=== PATIENT | female | born 1965 | race Caucasian/White ===

== ENCOUNTER 2022-09-05 13:05 | Outpatient (OUT) | payer OTHER, SELFPAY ==
--- NOTE | 2022-09-05 13:14 | XR_ITS ---
[address] [address] Patient Name: NORA DIAZ MRN: [id number] date: 1965 Sex: F Assigned Patient Location: MAMMO Current Patient Location: MAMMO Accession/Order Number: [id number] Exam Date: 09/05/2022 13:30 Report Date: 09/05/2022 13:43 At the request of: ARSENIO JAQUEZ Procedure: XR chest 2V EXAM: XR chest 2V HISTORY: H/O nicotine dependence Z87.891, Z78.9 COMPARISON: None. TECHNIQUE: PA and lateral views of the chest. FINDINGS: The cardiomediastinal silhouette is normal. No focal consolidation is identified. There is no pneumothorax. No pleural effusion is noted. The osseous structures are intact. IMPRESSION: No acute cardiopulmonary process. Electronically authenticated by: LIZETH BEVERLY Date: 09/05/2022 13:43
--- NOTE | 2022-09-05 13:14 | MM_ITS ---
Patient: NORA DIAZ Exam Date: 09/05/2022 : 1965 Gender:F Ordering : MRS. ARSENIO JAQUEZ . Admission #: [id number] Family : Order #: [id number] CLICK HERE TO VIEW EXAM RADIOLOGY REPORT PROCEDURE: MM TOMOSYNTHESIS SCREENING BI COMPARISON: MM TOMOSYNTHESIS SCREENING BI, 12/11/2018. MM TOMOSYNTHESIS SCREENING BI, 05/31/2021. INDICATIONS: Screening mammogram Z12.31 Calculator Name NCI Breast Cancer Risk Assessment Tool 5 Year Breast Cancer Risk 0.80% Lifetime Breast Cancer Risk 5.20% Personal Breast Cancer No Personal Ovarian Cancer No Treatments None Family Cancers None LOCATION: [facility] BREAST COMPOSITION: Heterogeneously dense,which may obscure small masses. FINDINGS: DIAGNOSTIC CATEGORY 0--INCOMPLETE: NEED ADDITIONAL IMAGING EVALUATION. This exam includes additional mammographic views for implant evaluation and shows no visible implant abnormality. Scattered benign-appearing calcifications are present. RIGHT BREAST: No significant suspicious finding. LEFT BREAST: Mm area architectural distortion upper inner quadrant, mid to posterior breast best seen on the MLO projection. Spot imaging and ultrasound follow-up is recommended. RECOMMENDATIONS: ADDITIONAL MAMMOGRAPHIC VIEWS REQUIRED: LEFT BREAST - spot compression cc and MLO projection ULTRASOUND: LEFT BREAST PLEASE NOTE: A NORMAL MAMMOGRAM DOES NOT EXCLUDE THE POSSIBILITY OF BREAST CANCER. A CLINICALLY SUSPICIOUS PALPABLE LUMP SHOULD BE BIOPSIED. Dictated by: Bryan Crenshaw MD on 09/07/2022 at 13:31 Approved by: Bryan Crenshaw MD on 09/07/2022 at 14:12
== END 2022-09-05 13:06 | disposition home or self-care (01) ==
PROVIDERS: PCP Nurse Practitioner; Visit Provider Nurse Practitioner
DX: Z12.31 Encounter for screening mammogram for malignant neoplasm of breast (principal); Z78.9 Other specified health status; Z87.891 Personal history of nicotine dependence; Z68.23 Body mass index [BMI] 23.0-23.9, adult; R92.8 Other abnormal and inconclusive findings on diagnostic imaging of breast
CPT/HCPCS: 71046; 77063; 77067

== ENCOUNTER 2022-09-15 10:24 | Outpatient (OUT) | payer OTHER, SELFPAY ==
--- NOTE | 2022-09-15 10:28 | US_ITS ---
Patient: NORA DIAZ Exam Date: 09/15/2022 : 1965 Gender:F Ordering : MRS. ARSENIO JAQUEZ . Admission #: [id number] Family : Order #: [id number] CLICK HERE TO VIEW EXAM RADIOLOGY REPORT PROCEDURE: US BREAST LT LIMITED COMPARISON: None. INDICATIONS: Incomplete mammography R92.2 TECHNIQUE: Breast ultrasound was performed, with evaluation focusing only on specific areas of concern. FINDINGS: DIAGNOSTIC CATEGORY 0--INCOMPLETE: NEED ADDITIONAL IMAGING EVALUATION. Ultrasound of the left breast demonstrates normal dense fibroglandular tissue. No definite mass is identified to correspond to the mammographic findings. Spot compression views of the left breast is required for further evaluation RECOMMENDATIONS: ADDITIONAL MAMMOGRAPHIC VIEWS REQUIRED: LEFT BREAST - spot compression PLEASE NOTE: A NORMAL ULTRASOUND EXAMINATION DOES NOT EXCLUDE THE POSSIBILITY OF BREAST CANCER. A CLINICALLY SUSPICIOUS PALPABLE LUMP SHOULD BE BIOPSIED. Dictated by: Bryan Crenshaw MD on 09/15/2022 at 11:08 Approved by: Bryan Crenshaw MD on 09/15/2022 at 11:09
== END 2022-09-15 10:25 | disposition home or self-care (01) ==
LOC: US 10:24
PROVIDERS: PCP Nurse Practitioner; Visit Provider Nurse Practitioner
DX: R92.2 Inconclusive mammogram (principal)
CPT/HCPCS: 76642

== ENCOUNTER 2022-09-19 13:59 | Outpatient (OUT) | payer OTHER, SELFPAY ==
--- NOTE | 2022-09-19 14:04 | MM_ITS ---
Patient: NORA DIAZ Exam Date: 09/19/2022 : 1965 Gender:F Ordering : MRS. ARSENIO JAQUEZ . Admission #: [id number] Family : Order #: [id number] CLICK HERE TO VIEW EXAM RADIOLOGY REPORT PROCEDURE: MM DIAGNOSTIC MAMMO UNILAT LT COMPARISON: US BREAST LT LIMITED, 09/15/2022. MM TOMOSYNTHESIS SCREENING BI, 09/05/2022. INDICATIONS: Abnormal Mammogram R92.2 Calculator Name NCI Breast Cancer Risk Assessment Tool 5 Year Breast Cancer Risk 0.80% Lifetime Breast Cancer Risk 5.20% Personal Breast Cancer No Personal Ovarian Cancer No Treatments None Family Cancers None LOCATION: [facility] BREAST COMPOSITION: Heterogeneously dense,which may obscure small masses. FINDINGS: DIAGNOSTIC CATEGORY 3--PROBABLY BENIGN FINDING. THE FOLLOWING FINDING(S) HAS A HIGH PROBABILITY OF A BENIGN ETIOLOGY: LEFT BREAST: Spot magnification views demonstrate what appears to be a small focal area of scarring. No appreciable mass or suspicious architectural distortion. Follow-up imaging in 6 months is recommended to document stability prior to returning to annual screening. RECOMMENDATIONS: SHORT TERM FOLLOW-UP DIAGNOSTIC MAMMOGRAM LEFT BREAST IN 6 MONTHS. PLEASE NOTE: A NORMAL MAMMOGRAM DOES NOT EXCLUDE THE POSSIBILITY OF BREAST CANCER. A CLINICALLY SUSPICIOUS PALPABLE LUMP SHOULD BE BIOPSIED. Dictated by: Kodak Luciano M.D. on 09/19/2022 at 14:31 Approved by: Kodak Luciano M.D. on 09/19/2022 at 14:35
== END 2022-09-19 14:00 | disposition home or self-care (01) ==
LOC: MAMMO 14:00
PROVIDERS: PCP Nurse Practitioner; Visit Provider Nurse Practitioner
DX: R92.2 Inconclusive mammogram (principal)
CPT/HCPCS: 77065

== ENCOUNTER 2023-02-11 11:29 | Emergency (ER) | payer OTHER, SELFPAY ==
[2023-02-11 11:41] VITALS: BP 136/89; PULSE 90; RESP 18; TEMP 36.9; O2SAT 95; BMI 23.0
--- NOTE | 2023-02-11 17:25 | ED.WOUNDLAC1 ---
HPI - Wound/Laceration General Chief Complaint: Wound/Laceration Stated Complaint: Laceration Time Seen by Provider: 02/11/23 13:53 Source: patient Mode of arrival: walk-in Limitations: no limitations History of Present Illness HPI narrative: Presenting with a abrasion to her right index finger the bleeding already was controlled apparently she was using a corkscrew to open a wine bottle and she hurt her finger No other injuries Related Data Allergies Allergy/AdvReac Type Severity Reaction Status Date / Time No Known Drug Allergies Allergy Verified 02/11/23 11:44 Review of Systems ROS Status of ROS 10 or more systems reviewed and unremarkable except as noted in history and below PFS PFS Social History Smoking status: Former smoker Exam Narrative Exam Narrative: Nurses notes and vital signs reviewed and patient is not hypoxic. General: Well-appearing and in no apparent distress. Skin: Warm, dry, no pallor noted. No rash. Head: Normocephalic, atraumatic. Neck: Supple, non-tender. Eye: Pupils are equal, round and EOMI. No scleral icterus. Ears, Nose, Mouth, and Throat: TM are clear, no nasal mucosal hypertrophy. Oral mucosa is moist, no posterior oropharynx erythema, uvula is mid-line Cardiovascular: Regular Rate and Rhythm without murmur, gallop or rub. Respiratory: No accessory muscle use or respiratory distress. Lungs are clear to auscultation, no wheezing, rales or rhonchi Chest Wall: no tenderness Back: No midline thoracic or lumbar vertebral tenderness. No CVA tenderness Musculoskeletal: normal ROM, no calf or popliteal tenderness, no lower extremity edema/swelling, right index palmar aspect shows an abrasion almost 1 x 1 mm superficial control bleeding GI: Abdomen is soft, non-distended. Normal bowel sounds. No masses appreciated. No tenderness to palpation. No rebound, guarding, or rigidity noted. Neurological: A&O x4. No cranial nerve dysfunction observed. No truncal ataxia. Moves all extremities. Sensation intact. Psychiatric: Cooperative and interactive. Normal mood and affect. Constitutional Vital Signs, click to edit/add: Last Vital Signs Temp 98.4 F 02/11/23 11:41 Pulse 90 02/11/23 11:41 Resp 18 02/11/23 11:41 BP 136/89 02/11/23 11:41 Pulse Ox 95 02/11/23 11:41 O2 Del Method Room Air 02/11/23 11:41 Course Vital Signs Vital signs: Vital Signs Temperature 98.4 F 02/11/23 11:41 Pulse Rate 90 02/11/23 11:41 Respiratory Rate 18 02/11/23 11:41 Blood Pressure 136/89 02/11/23 11:41 Pulse Oximetry 95 02/11/23 11:41 Oxygen Delivery Method Room Air 02/11/23 11:41 Temperature 98.4 F 02/11/23 11:41 Pulse Rate 90 02/11/23 11:41 Respiratory Rate 18 02/11/23 11:41 Blood Pressure 136/89 02/11/23 11:41 Pulse Oximetry 95 02/11/23 11:41 Oxygen Delivery Method Room Air 02/11/23 11:41 MDM - Wound/Laceration MDM Narrative Medical decision making narrative: Small abrasion just local clear advised The patient is to follow up with primary care physician in next 2-3 days or to return to the emergency department should any of the signs or symptoms worsen or new symptoms develop. The patient agrees with the following Diagnosis and Treatment plan and the patient will be discharged home. Discharge Plan Discharge Chief Complaint: Wound/Laceration Clinical Impression: Abrasion Patient Disposition: Home, Self-Care Time of Disposition Decision: 14:12 Condition: Good Mode of Transportation: Private Vehicle Instructions: Abrasion (ED) Stand Alone Forms: Portal Instructions Referrals: ARSENIO JAQUEZ [Primary Care Provider] - 1 week Discharge Date/Time: 02/11/23 14:20
== END 2023-02-11 14:20 | disposition home or self-care (01) ==
PROVIDERS: Emergency Provider Emergency Medicine; PCP Nurse Practitioner
DX: S60.410A Abrasion of right index finger, initial encounter (principal); W22.8XXA Striking against or struck by other objects, initial encounter; Z87.891 Personal history of nicotine dependence
CPT/HCPCS: 80053; 84484; 99283

== ENCOUNTER 2023-04-19 11:02 | Outpatient (OUT) | payer OTHER, SELFPAY ==
--- NOTE | 2023-04-19 11:06 | MM_ITS ---
Patient Name: NORA DIAZ MR#: [id number] : 1965 Exam Date: 04/19/2023 Ordering Doctor: ARSENIO JAQUEZ . RADIOLOGY REPORT PROCEDURE: MM TOMOSYNTHESIS DIAGNOSTIC LT COMPARISON: MM TOMOSYNTHESIS SCREENING BI, 09/05/2022. MM DIAGNOSTIC MAMMO UNILAT LT, 09/19/2022. INDICATIONS: abnormal mammogram Calculator Name NCI Breast Cancer Risk Assessment Tool 5 Year Breast Cancer Risk 0.90% Lifetime Breast Cancer Risk 5.10% Personal Breast Cancer No Personal Ovarian Cancer No Treatments None Family Cancers None LOCATION: [facility] BREAST COMPOSITION: Heterogeneously dense,which may obscure small masses. FINDINGS: DIAGNOSTIC CATEGORY 2--BENIGN FINDING: The left breast is stable in size and overall fibroglandular configuration. The area of abnormality on the previous exam appears to be overlap of pectoralis with normal fibroglandular tissue. No follow-up is required. This exam includes additional mammographic views for implant evaluation and shows no visible implant abnormality. RECOMMENDATIONS: ROUTINE MAMMOGRAM AND CLINICAL EVALUATION. Follow-up screening mammogram due August of 2023 PLEASE NOTE: A NORMAL MAMMOGRAM DOES NOT EXCLUDE THE POSSIBILITY OF BREAST CANCER. A CLINICALLY SUSPICIOUS PALPABLE LUMP SHOULD BE BIOPSIED. Dictated by: Bryan Crenshaw MD on 04/19/2023 at 11:40 Approved by: Bryan Crenshaw MD on 04/19/2023 at 11:44
--- OUTSIDE RECORDS SUMMARY | 2023-04-19 11:25 | XMS_ITS | CCD ---
Author Name Unknown Address [address] [facility] [facility] [address] [place] [address] Organization [facility] Care Team Providers Care Timekeeper Name Role Phone Celia SIMMS Primary Care Physician Ryann Yu Primary Care Physician BERTHA, DR THAIS Devries Admitting Unavailable BERTHA, DR THAIS Devries Attending Unavailable CELIA SIMMS Primary Care Unavailable BERTHA, DR THAIS Devreis Consulting Unavailable MIS, DR ROMERO Admitting Unavailable MISC, DR ROMERO Attending Unavailable CELIA SIMMS Primary Care Unavailable MISC, DR ROEMRO Consulting Unavailable Tasneem Mcmahan Primary Care Physician ALANIS VICKERS Attending Unavailable Marj, ANICETO Branch Attending Unavailable Marj, ANICETO Branch Admitting Unavailable ALANIS VICKERS Attending Unavailable Marj, ANICETO Branch Attending Unavailable Ryann Yu Attending Unavailable ALANIS VICKERS Attending Unavailable ALANIS VICKERS Attending Unavailable ALANIS VICKERS Admitting Unavailable Medications Current Medications Medication Drug Class(es) Dates Sig (Normalized) Sig (Original) amLODIPine 5 mg oral tablet (8 sources) Dihydropyridine Calcium Channel Scarlett Start: 08-17-2022 take 1 tablet by mouth once daily amLODIPine 5 mg Tab 5 mg = 1 tab(s), Oral, Daily, # 90 tab(s), Refills(s) 3, Pharmacy: [facility]/pharmacy #[id number], 160.4, cm, 08/17/22 15:18:00 EDT, Height/Length Dosing, 68.9, kg, 08/17/22 15:18:00 EDT, Weight Dosing Start Date: 08/17/22 Status: Ordered Start: 12-13-2020 End: 05-07-2023 take 1 tablet by mouth once daily amLODIPine 5 mg Tab 5 mg = 1 tab(s), Oral, Daily, X 90 day(s), # 90 tab(s), Refills(s) 3, Pharmacy: [facility]/pharmacy #[id number], 160, cm, 07/21/21 9:41:00 EDT, Height/Length Dosing, 70.7, kg, 07/21/21 9:41:00 EDT, Weight Dosing Start Date: 07/21/21 Stop Date: 07/16/22 Status: Ordered 12 hr buPROPion hydrochloride 150 mg extended release oral tablet (8 sources) Aminoketone Start: 08-17-2022 End: 08-12-2023 take 1 tablet by mouth once daily Wellbutrin SR 150 mg Tab-ER 150 mg = 1 tab(s), Oral, Daily, X 90 day(s), # 90 tab(s), Refills(s) 3, [id number] 160.4, cm, 08/17/22 15:18:00 EDT, Height/Length Dosing, 68.9, kg, 08/17/22 15:18:00 EDT, Weight Dosing Start Date: 08/17/22 Stop Date: 08/12/23 Status: Ordered Start: 02-10-2020 take 1 tablet by juanpablo th once daily Wellbutrin SR 150 mg Tab-ER 150 mg = 1 tab(s), Oral, Daily, # 90 tab(s), Refills(s) 3, [facility], 162, cm, 02/10/20 14:47:00 EST, Height/Length Dosing, 59.6, kg, 02/10/20 14:47:00 EST, Weight Dosing Start Date: 02/10/20 Status: Ordered clonazePAM 0.5 mg oral tablet (2 sources) Benzodiazepine Start: 11-28-2022 ClonazePAM 0.5 mg Tab Refills(s) 0 Start Date: 11/28/22 Status: Ordered estradiol 0.1 mg/ml vaginal cream (7 sources) Estrogen Start: 11-28-2022 estradiol 0.1 mg/g Vag Crm 1 gm, Vaginal, MonFri, 42.5 gm, Refill(s) 3, [facility]/pharmacy #[id number], 160, cm, 11/28/22 14:40:00 EDT, Height/Length Dosing, 66, kg, 11/28/22 14:40:00 EDT, Weight Dosing Start Date: 11/28/22 Status: Ordered Start: 04-21-2022 estradiol 0.1 mg/g Vag Crm 1 gm, Vaginal, MonFri, 42.5 gm, Refill(s) 3, [facility]/pharmacy #[id number], 160, cm, 12/12/21 12:41:00 EDT, Height/Length Dosing, 70.7, kg, 12/12/21 12:41:00 EDT, Weight Dosing Start Date: 04/21/22 Status: Ordered Start: 07-21-2021 take 1 tablet by juanpablo th once daily estradiol 1 mg Tab TAKE 1 TABLET BY MOUTH EVERY DAY Start Date: 07/21/21 Status: Ordered Start: 10-05-2020 estradiol 0.1 mg/g vaginal cream 1 gm, Vaginal, MonFri, # 42.5 gm, Refills(s) 5, Pharmacy: [facility]/pharmacy #[id number], 160, cm, 09/22/20 13:28:00 EDT, Height/Length Dosing, 58, kg, 09/22/20 13:28:00 EDT, Weight Dosing Start Date: 10/05/20 Status: Ordered estradiol 0.1 mg/g vaginal cream (4 sources) Start: 10-05-2020 estradiol 0.1 mg/g vaginal cream 1 gm, Vaginal, MonFri, # 42.5 gm, Refills(s) 5, Pharmacy: [facility]/pharmacy #[id number], 160, cm, 09/22/20 13:28:00 EDT, Height/Length Dosing, 58, kg, 09/22/20 13:28:00 EDT, Weight Dosing Start Date: 10/05/20 Status: Ordered progesterone 100 mg oral capsule (8 sources) Progesterone Start: 01-31-2019 take 1 mg by mouth once daily at bedtime progesterone 100 mg oral capsule mg cap(s), Oral, Once a day (at bedtime), Refills(s) 0 Start Date: 01/31/19 Status: Ordered sulfamethoxazole 800 mg / trimethoprim 160 mg oral tablet (2 sources) Dihydrofolate Reductase Inhibitor Antibacterial, Sulfonamide Antimicrobial Start: 03-15-2023 End: 03-20-2023 Bactrim D.S. 800 mg-160 mg Tab 1 tab(s), Oral, BID for 5 day(s), 10 tab(s), Refill(s) 0, [facility]/pharmacy #[id number], 160, cm, 11/28/22 14:40:00 EDT, Height/Length Dosing, 66, kg, 11/28/22 14:40:00 EDT, Weight Dosing Start Date: 03/15/23 Stop Date: 03/20/23 Status: Ordered SUMAtriptan 100 mg oral tablet (8 sources) Serotonin-1b and Serotonin-1d Receptor Agonist Start: 07-21-2021 Imitrex 100 mg Tab 100 mg = 1 tab(s), Oral, As Directed, PRN Headache, may repeat dose once in 2 hours, # 9 tab(s), Refills(s) 1, [id number] 160, cm, 07/21/21 9:41:00 EDT, Height/Length Dosing, 70.7, kg, 07/21/21 9:41:00 EDT, Weight Dosing Start Date: 07/21/21 Status: Ordered Start: 07-19-2020 Imitrex 100 mg Tab 100 mg = 1 tab(s), Oral, As Directed, PRN Headache, may repeat dose once in 2 hours, # 9 tab(s), Refills(s) 1, [id number], 160, cm, 07/16/20 11:04:00 EDT, Height/Length Dosing, 82.8, kg, 07/16/20 11:04:00 EDT, Weight Dosing Start Date: 07/19/20 Status: Ordered Completed/Discontinued Medications Medication Drug Class(es) Dates Sig (Normalized) Sig (Original) doxycycline hyclate 100 mg oral capsule (1 source) Tetracycline-clas s Drug Start: 06-10-2021 take 1 capsule by mouth once daily doxycycline hyclate 100 mg Cap 100 mg = 1 cap(s), Oral, Daily, Take 1 pill the day before the procedure and 1 pill after the procedure, # 2 cap(s), Refills(s) 0, Pharmacy: [facility]/pharmacy #[id number], 160, cm, 06/10/21 12:38:00 EDT, Height/Length Dosing, 64.9, kg, 05/18/21 14:26:00 EST Paolo... 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 Disorders of lipid metabolism (8 sources) Hyperlipidemia 11-06-2018 Chronic Essential hypertension (9 sources) Hypertensive disorder; Translations: [Essential hypertension] Onset: 07-21-2021 05-06-2020 Chronic Genitourinary symptoms and ill-defined conditions (20 sources) Dysuria; Translations: [History of urinary tract infection] Onset: 12-12-2021 11-06-2018 Episodic Headache; including migraine (9 sources) Migraine; Translations: [Migraine, unspecified, not intractable, without status migrainosus] Onset: 07-21-2021 11-06-2018 Chronic Malaise and fatigue (4 sources) Other fatigue; Translations: [OTHER FATIGUE] Onset: 11-16-2021 Episodic Menopausal disorders (2 sources) Other primary ovarian failure; Translations: [Menopausal and female climacteric states] Onset: 11-20-2021 Chronic Mood disorders (17 sources) Depression; Translations: [Mild major depression] Onset: 07-21-2021 12-13-2020 Chronic Other and unspecified benign neoplasm (8 sources) History of polyp of colon 11-06-2018 Episodic Other diseases of bladder and urethra (10 sources) Urethral stricture; Translations: [Other urethral stricture, female] Onset: 12-12-2021 05-18-2021 Episodic Other lower respiratory disease (8 sources) Apnea 05-06-2020 Episodic Other lower respiratory disease (8 sources) Snoring 05-06-2020 Episodic Other nutritional; endocrine; and metabolic disorders (4 sources) Overweight in adulthood with body mass index of 25 or more but less than 30; Translations: [Body mass index (BMI) 27.0-27.9, adult] Onset: 07-21-2021 12-13-2020 Episodic Other nutritional; endocrine; and metabolic disorders (1 source) Overweight; Translations: [Overweight] Onset: 07-21-2021 Episodic Residual codes; unclassified (9 sources) Obstructive sleep apnea syndrome; Translations: [Obstructive sleep apnea (adult) (pediatric)] Onset: 07-21-2021 12-13-2020 Chronic Residual codes; unclassified (8 sources) Postmenopausal state 11-06-2018 Episodic Screening and history of mental health and substance abuse codes (12 sources) Ex-smoker; Translations: [H/O: Disorder] Onset: 07-21-2021 05-06-2020 Episodic Spondylosis; intervertebral disc disorders; other back problems (8 sources) Neck pain 11-06-2018 Episodic Substance-related disorders (8 sources) Nicotine dependence 11-06-2018 Chronic Unclassified (6 sources) Patient encounter status 08-17-2022 Urinary tract infections (18 sources) Recurrent urinary tract infection; Translations: [Urinary tract infectious disease] Onset: 12-12-2021 04-20-2020 Episodic Results Test Name Value Interpretation Reference Range Facility C Urineon 03-17-2023 Bacteria identified Cx Nom (U) Microbiology PROCEDURE: Urine Culture [R1] SOURCE: U CleanCatch BODY SITE: COLLECTED DATE/TIME: 03/15/2023 13:44 EST RECEIVED DATE/TIME: 03/15/2023 17:10 EST START DATE/TIME: 03/15/2023 17:10 EST FREE TEXT SOURCE: ALANIS VICKERS PA-C, PA-C, JENNIFER E FINAL REPORTS Final Report [] Verified Date/Time: 03/17/2023 07:53 EST 2,000 cfu/ml Mixed skin contaminants Performing Locations R1: This test was performed at: [facility], [address] [place] [address], [facility] , , [facility] Comment on above: Performed By: #### [id number] #### [facility] [address] [place] [address] Ambulatory Visit Summaryon 0 03-15-2023 Ambulatory Visit Summary JOE NORA JON :1965 Visit Date:03/15/2023 Ambulatory Visit Instructions Your Care Team Attending Physician - ALANIS VICKERS PA-C Primary Care Physician - Tasneem Buchanan This Is Your Medications List amlodipine (amLODIPine 5 mg Tab) buPROPion (Wellbutrin SR 150 mg Tab-ER) clonazepam (ClonazePAM 0.5 mg Tab) estradiol topical (estradiol 0.1 mg/g Vag Crm) progesterone (progesterone 100 mg oral capsule) sumatriptan (Imitrex 100 mg Tab) Procedures Performed Cystoscopy (11/15/2017), Colonoscopy (2013), Esophagogastroduodenoscopy (2013), Bunionectomy (2011), Breast augmentation (2004), Urethral dilatation, Urethral stent, Urethral Widening. Medications What How Much When Instructions Unchanged amlodipine (amLODIPine 5 mg Tab) 1 Tablets By Mouth Every day Unchanged buPROPion (Wellbutrin SR 150 mg Tab-ER) 1 Tablets By Mouth Every day Duration: 90 Days Unchanged clonazepam (ClonazePAM 0.5 mg Tab) Unchanged estradiol topical (estradiol 0.1 mg/ g Vag Crm) 1 Gram Vaginal Sunday & Sunday Unchanged progesterone (progesterone 100 mg oral capsule) By Mouth Once a day (at bedtime) Unchanged sumatriptan (Imitrex 100 mg Tab) 1 Tablets By Mouth As Directed as needed for Headache may repeat dose once in 2 hours Allergies No Known Allergies Problems Ongoing - Any problem that you are currently receiving treatment for. Breast cancer screening by mammogram Ex-smoker Former smoker Frequent UTI History of colonic polyps Hyperlipidemia Hypertension Migraine headache Mild major depression Nicotine addiction Nocturia GANGA (obstructive sleep apnea) Other urethral stricture, female Wellness examination Historical - Any problem that you are no longer receiving treatment for. ADD (attention deficit disorder) Depression Dysuria Episode of apnea History of UTI Loud snoring Neck pain Postmenopausal status Urinary frequency UTI - Urinary tract infection Patient Survey You may receive a survey via text or e-mail asking about your office visit. Please share your experience with us by completing your survey. We appreciate your feedback and thank you for choosing us for your care. Normal [facility] ED Note-Physicianon 02-13-20 ED Note-Physician [id number] [facility] Patient Educationon 11-29-19 Patient Education Obstetrics and Gynec ology Urinary Tract Infection, Adult A urinary tract infection (UTI) is an infection of any part of the urinary tract. The urinary tract includes: ? The kidneys. ? The ureters. ? The bladder. ? The urethra. These organs make, store, and get rid of pee (urine) in the body. What are the causes? This infection is caused by germs (bacteria) in your genital area. These germs grow and cause swelling (inflammation) of your urinary tract. What increases the risk? The following factors may make you more likely to develop this condition: ? Using a small, thin tube (catheter) to drain pee. ? Not being able to control when you pee or poop (incontinence). ? Being female. If you are female, these things can increase the risk: ? Using these methods to prevent : ? A medicine that kills sperm (spermicide). ? A device that blocks sperm (diaphragm). ? Having low levels of a female hormone (estrogen). ? Being . You are more likely to develop this condition if: ? You have genes that add to your risk. ? You are sexually active. ? You take antibiotic medicines. ? You have trouble peeing because of: ? A prostate that is bigger than normal, if you are male. ? A blockage in the part of your body that drains pee from the bladder. ? A kidney stone. ? A nerve condition that affects your bladder. ? Not getting enough to drink. ? Not peeing often enough. ? You have other conditions, such as: ? Diabetes. ? A weak disease-fighting system (immune system). ? Sickle cell disease. ? Gout. ? Injury of the spine. What are the signs or symptoms? Symptoms of this condition include: ? Needing to pee right away. ? Peeing small amounts often. ? Pain or burning when peeing. ? Blood in the pee. ? Pee that smells bad or not like normal. ? Trouble peeing. ? Pee that is cloudy. ? Fluid coming from the vagina, if you are female. ? Pain in the belly or lower back. Other symptoms include: ? Vomiting. ? Not feeling hungry. ? Feeling mixed up (confused). This may be the first symptom in older adults. ? Being tired and grouchy (irritable). ? A fever. ? Watery poop (diarrhea). How is this treated? ? Taking antibiotic medicine. ? Taking other medicines. ? Drinking enough water. In some cases, you may need to see a specialist. Follow these instructions at home: Medicines ? Take [id number] and prescription medicines only as told by your doctor. ? If you were prescribed an antibiotic medicine, take it as told by your doctor. Do not stop taking it even if you start to feel better. General instructions ? Make sure you: ? Pee until your bladder is empty. ? Do not hold pee for a long time. ? Empty your bladder after sex. ? Wipe from front to back after peeing or pooping if you are a female. Use each tissue one time when you wipe. ? Drink enough fluid to keep your pee pale yellow. ? Keep all follow-up visits. Contact a doctor if: ? You do not get better after 1?2 days. ? Your symptoms go away and then come back. Get help right away if: ? You have very bad back pain. ? You have very bad pain in your lower belly. ? You have a fever. ? You have chills. ? You feeling like you will vomit or you vomit. Summary ? A urinary tract infection (UTI) is an infection of any part of the urinary tract. ? This condition is caused by germs in your genital area. ? There are many risk factors for a UTI. ? Treatment includes antibiotic medicines. ? Drink enough fluid to keep your pee pale yellow. This information is not intended to replace advice given to you by your health care provider. Make sure you discuss any questions you have with your health care provider. Document Revised: 10/08/2020 Document Reviewed: 10/08/2020 [employer] Patient Education ? 2022 [employer]. [facility] Urology Office/Clinic Noteon 11-28-2022 Urology Office/Clinic Note Chief Complaint 10m f/u HPI Staff PRW pt 10m DX: Frequent UTI, Urethral Stricture, Nocturia *Estradiol 1gm 3x/wk from [employer], reduced to 2x/wk at last encounter Denies any infections since last encounter. Denies pain/burning and visible blood in urine. Rarely getting up at night to void. Denies all urinary concerns at this time. History of Present Illness staff HPI reviewed and agree. Review of Systems PHQ Score Initial Depression Screen Score: 0 no fever, chills, malaise, myalgia. no rash/lesions. no chest pain, palpitations, or SOB. no abdominal pain, nausea, vomiting. no unilateral calf swelling, redness, pain Physical Exam Vitals & Measurements HR: 70(Peripheral) RR: 16 BP: 120/74 HT: 63 in HT: 160 cm WT: 66 kg WT: 145.2 lb BMI: 25.78 General: nontoxic, NAD Mouth: moist mucosa Lungs: normal respiratory effort Cardio: regular rate, good distal perfusion Abdomen: nondistended, no suprapubic distention or tenderness, no CVA tenderness Neurologic: Grossly normal Skin: No rashes or suspicious lesions Assessment/Plan PRW pt. 1. Frequent UTI (N39.0: Urinary tract infection, site not specified) No infections since last OV. Currently using Estradiol topical 1gm 2x/wk, reduced from 3x/wk at last encounter. Denies any infections since last encounter. Denies pain/burning and visible blood in urine. UA today is negative for blood and infection. Pt states that she does see her [employer] regularly. Discussed starting an as needed f/u basis and have her [employer] handle her refills for the Estradiol cream. Pt states that she would be okay with this. Advised pt that if her sxs come back, she can call our office and have an appt set up. -Will send refill for Estradiol cream to pharm on file. -Pt will f/u w/[employer] and PCP from now on. 2. Other urethral stricture, female (N35.82: Other urethral stricture, female) S/P cysto/UD done on 05/04/20. No split stream or straining to void. doing really well. 3. Nocturia (R35.1: Nocturia) Rarely getting up at night to void. Denies all urinary concerns at this time. Greatly improved since last OV. Follow up as needed. All questions/concerns were discussed. Pt to call the office if she encounters any issues prior. Pt acknowledges understanding. Follow-up With When Contact Information ALANIS VICKERS PA-C, URL [address] [place] [address] Additional Instructions: PRN Patient Education Urinary Tract Infection, Adult, [id number] IDeisy, personally scribed for Alanis Vickers PA-C on 11/28/2022 15:01:41. . Documentation recorded by the hi Johns accurately reflects the services(s) I performed and decisions made by me. Authenticated by Alanis Vickers PA-C on 11/28/2022 15:03:31. Problem List/Past Medical History Ongoing Breast cancer screening by mammogram Ex-smoker Former smoker Frequent UTI History of colonic polyps Hyperlipidemia Hypertension Migraine headache Mild major depression Nicotine addiction Nocturia GANGA (obstructive sleep apnea) Other urethral stricture, female Wellness examination Historical ADD (attention deficit disorder) Depression Dysuria Episode of apnea History of UTI Loud snoring Neck pain Postmenopausal status Urinary frequency UTI - Urinary tract infection Procedure/Surgical History Cystoscopy (11/15/2017), Colonoscopy (2013), Esophagogastroduodenoscopy (2013), Bunionectomy (2011), Breast augmentation (2004), Urethral dilatation, Urethral stent, Urethral Widening. Medications amLODIPine 5 mg Tab, 5 mg= 1 tab(s), Oral, Daily, 3 refills ClonazePAM 0.5 mg Tab estradiol 0.1 mg/g Vag Crm, 1 gm, Vaginal, MonFri, 3 refills estradiol 1 mg Tab Imitrex 100 mg Tab, 100 mg= 1 tab(s), Oral, As Directed, PRN, 1 refills progesterone 100 mg oral capsule, Oral, Once a day (at bedtime) Wellbutrin SR 150 mg Tab-ER, 150 mg= 1 tab(s), Oral, Daily, 3 refills Allergies No Known Allergies Social History Alcohol - Denies Alcohol Use, 09/21/2011 Substance Abuse - Denies Substance Abuse, 09/21/2011 Tobacco - Denies Tobacco Use, 01/23/2018 Former smoker, quit more than 30 days ago Tobacco Use:. Never Smokeless Tobacco Use:. Cigarettes, Household tobacco concerns: No. Yes, 11/28/2022 Family History Cardiac arrest: Father. Hypertension: Mother and Father. Lung cancer: Aunt and Uncle. RENAL FAILURE: Mother. Stroke: Mother. Immunizations Vaccine Date Status Comments SARS-CoV-2 (COVID-19) mRNA-1273 vaccine 03/03/2021 Recorded 2021-07-21: TPV50 influenza virus vaccine, inactivated 12/13/2020 Given SARS-CoV-2 (COVID-19) mRNA-1273 vaccine 06/26/2020 Recorded SARS-CoV-2 (COVID-19) mRNA-1273 vaccine 06/21/2020 Recorded SARS-CoV-2 (COVID-19) mRNA-1273 vaccine 05/31/2020 Recorded SARS-CoV-2 (COVID-19) mRNA-1273 vaccine 05/29/2020 Recorded influenza virus vaccine, inactivated 12/18/2019 (more content not included)... Normal [facility] Comment on above: Result Comment: Elec tronically Signed By: ALANIS VICKERS PA-C\.br\Date and Time Signed: 11/28/22 15:03 EDT\.br\Electronically Co-Signed By: Deisy Johns\.br\Date and Time Co-Signed: 11/28/22 15:01 EDT Outside Mammographyon 2022 Outside Mammography [id number]:127 Normal [facility] RAD - MISCon 09-06-2022 RAD - MISC [id number]:127 Normal [facility] T3 Freeon 08-19-2022 Free T3 [Mass/Vol] 2.7 pg/mL Invalid Interpretation Code 2.0-4.4 [facility] Comment on above: Result Comment: Perf ormed at: [facility] [address] [id number] PhD Saundra Dempsey Performed By: #### [id number] #### [facility] [address] [place] [id number] Reminderson 08-18-2022 Reminders - From: Tasneem Buchanan To: [facility] - Clinical; Sent: 08/18/2022 08:12:03 EDT Show up: 08/18/2022 08:12:00 EDT Subject: Ambulatory Reminder Due Date/Time: 08/19/2022 08:11:00 EDT Let pt know her labs were WNL Results: Date Result Name Ind Value Ref Range 08/17/2022 15:59 WBC 5.0 E9/L (4.0 - 11.0) 08/17/2022 15:59 RBC ((L)) 3.9 E12/L (4.3 - 5.9) 08/17/2022 15:59 HGB 13.7 gm/dL (12.0 - 16.0) 08/17/2022 15:59 Hct 40.2 % (34.0 - 46.0) 08/17/2022 15:59 MCV ((H)) 101.9 fL (80.0 - 100.0) 08/17/2022 15:59 MCH ((H)) 34.7 pg (27.0 - 34.0) 08/17/2022 15:59 MCHC 34.0 gm/dL (31.4 - 36.0) 08/17/2022 15:59 RDW 13.4 % (10.9 - 14.2) 08/17/2022 15:59 Platelet 286.0 E9/L (150.0 - 500.0) 08/17/2022 15:59 MPV 8.3 fL (6.4 - 10.8) 08/17/2022 15:59 Neutro Auto 50.9 % (36.0 - 75.0) 08/17/2022 15:59 Lymph Auto 37.3 % (14.0 - 50.0) 08/17/2022 15:59 [place] Auto 9.7 % (4.0 - 14.0) 08/17/2022 15:59 Eos Auto 1.4 % (0.0 - 8.0) 08/17/2022 15:59 Basophil Auto 0.7 % (0.0 - 2.0) 08/17/2022 15:59 Neutro Absolute 2.6 E9/L (2.0 - 7.5) 08/17/2022 15:59 Lymph Absolute 1.9 E9/L (1.0 - 4.0) 08/17/2022 15:59 [place] Absolute 0.5 E9/L (0.2 - 1.0) 08/17/2022 15:59 Eos Absolute 0.1 E9/L (0.0 - 0.5) 08/17/2022 15:59 Basophil Absolute 0.0 E9/L (0.0 - 0.2) 08/17/2022 15:59 Glucose Lvl 95 mg/dL (55 - 199) 08/17/2022 15:59 BUN 15 mg/dL (5 - 21) 08/17/2022 15:59 Creatinine 0.8 mg/dL (0.5 - 1.3) 08/17/2022 15:59 eGFR 86 mL/min/1.73 m2 (>=59 - ) 08/17/2022 15:59 BUN/Creat Ratio 19 (10 - 20) 08/17/2022 15:59 Sodium Lvl 141 mmol/L (135 - 145) 08/17/2022 15:59 Potassium Lvl 3.9 mmol/L (3.5 - 5.3) 08/17/2022 15:59 Chloride 106 mmol/L (101 - 111) 08/17/2022 15:59 CO2 26 mmol/L (21 - 31) 08/17/2022 15:59 AGAP 13 mEq/L (6 - 16) 08/17/2022 15:59 Calcium Lvl 9.6 mg/dL (8.9 - 11.1) 08/17/2022 15:59 Alk Phos 46 Int._Unit/L (21 - 98) 08/17/2022 15:59 ALT 16 Int._Unit/L (6 - 46) 08/17/2022 15:59 AST 21 Int._Unit/L (5 - 43) 08/17/2022 15:59 Total Protein 7.3 gm/dL (6.0 - 7.8) 08/17/2022 15:59 Albumin Lvl 4.1 gm/dL (3.3 - 5.0) 08/17/2022 15:59 Globulin 3.2 gm/dL (1.4 - 4.0) 08/17/2022 15:59 A/G Ratio 1.3 (1.1 - 2.2) 08/17/2022 15:59 Bili Total 0.3 mg/dL (0.0 - 1.1) 08/17/2022 15:59 Chol 198 mg/dL (120 - 200) 08/17/2022 15:59 Trig 82 mg/dL ( - <=149) 08/17/2022 15:59 HDL 63 mg/dL 08/17/2022 15:59 LDL Direct 113 mg/dL ( - <=129) 08/17/2022 15:59 VLDL 16 mg/dL (7 - 40) 08/17/2022 15:59 TSH 1.34 mcIU/mL (0.34 - 5.60) 08/17/2022 15:59 T4 Free 1.08 ng/dL (0.58 - 1.64) Notified patient labs were normal Normal [facility] Ambulatory Visit Summaryon 0 08-17-2022 Ambulatory Visit Summary NORA DIAZ :1965 Visit Date:08/17/2022 Ambulatory Visit Instructions Your Diagnosis Wellness examination Hyperlipidemia Hypertension Ex-smoker, Former smoker Breast cancer screening by mammogram BMI 26.0-26.9,adult Tests Performed Chest XR 2 Views -- Results Pending -- MA Mamm Screen w/CAD if perf and 3D Sotero -- Results Pending -- Please visit your patient portal for your results or contact your primary care physician. Your Care Team Attending Physician - Tasneem Buchanan Primary Care Physician - Tasneem Buchanan This Is Your Medications List amlodipine (amLODIPine 5 mg Tab) buPROPion (Wellbutrin SR 150 mg Tab-ER) estradiol (estradiol 1 mg Tab) estradiol topical (estradiol 0.1 mg/g Vag Crm) progesterone (progesterone 100 mg oral capsule) sumatriptan (Imitrex 100 mg Tab) Procedures Performed Cystoscopy (11/15/2017), Colonoscopy (2013), Esophagogastroduodenoscopy (2013), Bunionectomy (2011), Breast augmentation (2004), Urethral dilatation, Urethral stent, Urethral Widening. Discharge Vitals Heart Rate (Peripheral) 96 Blood Pressure 118/82 Height 160.4 cm Height 63 in Weight 68.9 kg Weight 151.58 lb BMI 26.78 What to do next Scheduled Follow-Up Appointments Sunday 1:15 PM EDT With: WILL CRENSHAW, Manish Villafuerte Where: [facility] Auto Diffon 08-17-2022 Basophils/100 WBC (Bld) 0.7 % Normal 0.0-2.0 [facility] Comment on above: Order Comment: Order Added by Scottie Expert. Performed By: #### 2 501163, 6417680, 7809395, 2117533, 6279620, 76777978, 6659058, 9853260 #### [facility] [address] [place] [address] 26875 Basophils/Leukocyte s Auto (Bld) [Pure # fraction] 0.0 E9/L Normal 0.0-0.2 [facility] Comment on above: Order Comment: Order Added by Scottie Expert. Performed By: #### 2 589869, 9983005, 6133926, 9932928, 6735197, 79975016, 5575400, 7376012 #### [facility] [address] [place] [address] 91470 Eosinophils/100 WBC (Bld) 1.4 % Normal 0.0-8.0 [facility] Comment on above: Order Comment: Order Added by Scottie Expert. Performed By: #### 2 137907, 3819794, 8383247, 5656005, 8167269, 33808457, 6032239, 9618927 #### [facility] [address] [place] [address] 28001 Eosinophils/Leukocy cipriano Auto (Bld) [Pure # fraction] 0.1 E9/L Normal 0.0-0.5 [facility] Comment on above: Order Comment: Order Added by Discern Expert. Performed By: #### 2 792785, 1682585, 8925083, 7138156, 8732457, 92500454, 2070715, 3166594 #### [facility] [address] [place] [address] 19718 Lymphocytes/100 WBC (Bld) 37.3 % Normal 14.0-50.0 [facility] Comment on above: Order Comment: Order Added by Scottie Expert. Performed By: #### 2 829094, 5588589, 8799240, 7634088, 6120965, 46702480, 7240022, 4672348 #### [facility] [address] [place] [address] Lymphocytes/Leukocy cipriano Auto (Bld) [Pure # fraction] 1.9 E9/L Normal 1.0-4.0 [facility] Comment on above: Order Comment: Order Added by Discern Expert. Performed By: #### 2 266708, 1666941, 2657584, 1401496, 9291873, 36868724, 6810143, 0051563 #### [facility] [address] [place] [address] Monocytes/100 WBC (Bld) 9.7 % Normal 4.0-14.0 [facility] Comment on above: Order Comment: Order Added by Discern Expert. Performed By: #### 2 845882, 9921194, 0959782, 7775813, 7893535, 83623176, 0557309, 3859312 #### [facility] [address] [place] [address] 47722 Monocytes/Leukocyte s Auto (Bld) [Pure # fraction] 0.5 E9/L Normal 0.2-1.0 [facility] Comment on above: Order Comment: Order Added by Discern Expert. Performed By: #### 2 101314, 4616737, 6714813, 8070025, 6909935, 59327441, 1052703, 7832998 #### [facility] [address] [place] [address] Neutrophils/100 WBC (Bld) 50.9 % Normal 36.0-75.0 [facility] Comment on above: Order Comment: Order Added by Discern Expert. Performed By: #### 2 441242, 3827375, 8002495, 2714034, 6310585, 71975026, 4842374, 5849337 #### [facility] [address] [place] [address] Neutrophils/Leukocy cipriano Auto (Bld) [Pure # fraction] 2.6 E9/L Normal 2.0-7.5 [facility] Comment on above: Order Comment: Order Added by Discern Expert. Performed By: #### 2 341876, 9132204, 6724821, 3419094, 3305632, 87971764, 8277390, 1460214 #### [facility] [address] [place] [address] 43708 CBC w/ Auto Diffon Erythrocyte distribution width (RBC) [Ratio] 13.4 % Normal 10.9-14.2 [facility] Comment on above: Performed By: #### 2 140311, 5060317, 5466816, 7001393, 5789248, 35897593, 2838587, 1989902 #### [facility] [address] [place] [address]1942 Hematocrit (Bld) [Volume fraction] 40.2 % Normal 34.0-46.0 [facility] Comment on above: Performed By: #### 2 851621, 4909058, 9758159, 0359768, 3947976, 96805260, 5011464, 8312787 #### [facility] [address] [place] [address] 23419 Hemoglobin (Bld) [Mass/Vol] 13.7 g/dL Normal 12.0-16.0 [facility] Comment on above: Performed By: #### 2 038204, 7997662, 4218306, 8981676, 3223414, 11651345, 5100455, 2663386 #### [facility] [address] [place] [address] 48445 MCH (RBC) [Entitic mass] 34.7 pg High 27.0-34.0 [facility] Comment on above: Performed By: #### 2 045268, 8853439, 4640969, 1422968, 4860570, 80794639, 7690797, 5278151 #### [facility] [address] [place] [address] 07880 MCHC (RBC) [Mass/Vol] 34.0 g/dL Normal 31.4-36.0 [facility] Comment on above: Performed By: #### 2 655979, 4778597, 0088990, 6964852, 1769412, 30019294, 0313834, 8839162 #### [facility] [address] [place] [address] 13786 MCV (RBC) [Entitic vol] 101.9 fL High 80.0-100.0 [facility] Comment on above: Performed By: #### 2 032028, 4507229, 8998545, 9480160, 6803780, 30467119, 6086810, 4346743 #### [facility] [address] [place] [address] 00168 Platelet mean volume (Bld) [Entitic vol] 8.3 fL Normal 6.4-10.8 [facility] Comment on above: Performed By: #### 2 578408, 6591342, 0431108, 0295970, 3481946, 12519294, 0842999, 3050277 #### [facility] [address] [place] [address] 50761 Platelets (Bld) [#/Vol] 286.0 E9/L Normal 150.0-500.0 [facility] Comment on above: Performed By: #### 2 898264, 6252218, 6843461, 2946863, 7512303, 07408841, 4290677, 0804365 #### [facility] [address] [place] [address] 23886 RBC (Bld) [#/Vol] 3.9 E12/L Low 4.3-5.9 [facility] Comment on above: Performed By: #### 2 686975, 2843406, 7707351, 6802837, 0555975, 19816164, 1666575, 3827466 #### [facility] [address] [place] [address] 89760 WBC corrected for nucl RBC Auto (Bld) [#/Vol] 5.0 E9/L Normal 4.0-11.0 [facility] Comment on above: Performed By: #### 2 117443, 3906430, 1355173, 2128525, 0942123, 87790657, 2387560, 3765790 #### [facility] [address] [place] [address] CMPon 08-17-2022 Albumin [Mass/Vol] 4.1 g/dL Normal 3.3-5.0 [facility] Comment on above: Performed By: #### 2 379578, 3324227, 2590750, 4476807, 5925731, 05754293, 3345813, 9826606 #### [facility] [address] [place] [address] Albumin/Globulin (S) [Mass conc ratio] 1.3 Normal 1.1-2.2 [facility] Comment on above: Performed By: #### 2 171281, 4664223, 2016957, 3668032, 8021936, 04725778, 1199395, 9885308 #### [facility] [address] [place] [address] ALP [Catalytic activity/Vol] 46 Int._Unit/L Normal 21-98 [facility] Comment on above: Performed By: #### 2 356096, 4485959, 4315673, 5819715, 1958751, 15611924, 8606346, 4258750 #### [facility] [address] [place] [address] 61284 ALT No additional P-5'-P [Catalytic activity/Vol] 16 Int._Unit/L Normal 6-46 [facility] Comment on above: Performed By: #### 2 541820, 4972682, 7400527, 1133989, 9999205, 43473437, 7060014, 6107017 #### [facility] [address] [place] [address] Anion gap [Moles/Vol] 13 mmol/L Normal 6-16 [facility] Comment on above: Performed By: #### 2 526462, 6473010, 5353625, 1999881, 9324195, 54770712, 6121864, 3184204 #### [facility] [address] [place] [address] AST [Catalytic activity/Vol] 21 Int._Unit/L Normal 5-43 [facility] Comment on above: Performed By: #### 2 350905, 0015156, 6765593, 1098833, 3876269, 64897672, 1151239, 1318365 #### [facility] [address] [place] [address] Bilirubin [Mass/Vol] 0.3 mg/dL Normal 0.0-1.1 [facility] Comment on above: Performed By: #### 2 131693, 5682971, 5787386, 7240371, 8568122, 35996204, 1205685, 5086073 #### [facility] [address] [place] [address] Calcium [Mass/Vol] 9.6 mg/dL Normal 8.9-11.1 [facility] Comment on above: Performed By: #### 2 976266, 0037219, 5841774, 5832226, 9009206, 21010359, 9376683, 1129270 #### [facility] [address] [place] [address] Chloride [Moles/Vol] 106 mmol/L Normal 101-111 [facility] Comment on above: Performed By: #### 2 933470, 1442871, 9349269, 8870570, 6118137, 96077864, 9907474, 3936321 #### [facility] [address] [place] [address] CO2 [Moles/Vol] 26 mmol/L Normal 21-31 [facility] Comment on above: Performed By: #### 2 897130, 5655034, 2852226, 0975689, 7784528, 96858401, 7515123, 7733925 #### [facility] [address] [place] [address] Creatinine [Mass/Vol] 0.8 mg/dL Normal 0.5-1.3 [facility] Comment on above: Performed By: #### 2 891306, 2177215, 8565818, 1789850, 5581243, 90189407, 2704710, 5362436 #### [facility] [address] [place] [address] Globulin (S) [Mass/Vol] 3.2 g/dL Normal 1.4-4.0 [facility] Comment on above: Performed By: #### 2 439477, 6397048, 1641012, 1942846, 9571961, 03581461, 2995285, 9562225 #### [facility] [address] [place] [address] Glucose [Mass/Vol] 95 mg/dL Normal 55-199 [facility] Comment on above: Result Comment: If t his glucose result represents a fasting glucose, interpretation should refer to the following reference range: 55-99 mg/dL Performed By: #### 2 431921, 6016035, 7138207, 2554957, 6472934, 16762295, 9451836, 1382440 #### [facility] [address] [place] [address] Potassium [Moles/Vol] 3.9 mmol/L Normal 3.5-5.3 [facility] Comment on above: Performed By: #### 2 174017, 2183442, 4475450, 8563318, 8960056, 80407405, 9112476, 5437960 #### [facility] [address] [place] [address] Protein [Mass/Vol] 7.3 g/dL Normal 6.0-7.8 [facility] Comment on above: Performed By: #### 2 160986, 6025304, 4881454, 2714145, 0375347, 96708611, 2850986, 0885459 #### [facility] [address] [place] [address] Sodium [Moles/Vol] 141 mmol/L Normal 135-145 [facility] Comment on above: Performed By: #### 2 915993, 5249597, 0533503, 7423576, 2131338, 11459003, 1167070, 0437416 #### [facility] [address] [place] [address] Urea nitrogen [Mass/Vol] 15 mg/dL Normal 5-21 [facility] Comment on above: Performed By: #### 2 903079, 3826557, 9864585, 9168992, 0471312, 03089482, 6184976, 7523896 #### [facility] [address] [place] [address] Urea nitrogen/Creatinine [Mass ratio] 19 No Units Normal 10-20 [facility] Comment on above: Performed By: #### 2 652815, 6767135, 1494230, 1975267, 7410652, 17896748, 6626922, 5063925 #### [facility] [address] [place] [address] Family Medicine Office/Clini c Noteon 08-17-2022 Family Medicine Office/Clinic Note Chief Complaint pt here to establish care HPI Staff Nora is at 57 year old female presenting today to establish care Establish Care: History: Any previous diagnosis: Migraines, Depression History of seeing any specialist: OB- Juno Bob, Dr Chen urology When was your last doctors visit: no Last provider: Rosalia Yu Any recent labs: 1 year ago Health Maintenance UTD: Colonoscopy: 9 years ago, few polyps otherwise normal Mammogram: due Pelvic/Pap: 2 months ago Acute: Current issues/complaints: pt would like to discuss weight loss she has been trying to lose weight, exercises 2-3 days a week, eating healthier History of Present Illness pt presents today to establish care. was previously seen by Kalen Yu Review of Systems PHQ Score Initial Depression Screen Score: 0 ROS - Provider Constitutional: no fever, no chills, no sweats, no weakness. Skin: no Jaundice, no rash, no lesions, no petechiae. ENMT: no ear pain, no sore throat, no congestion, no hoarseness,no swelling of lymph nodes Respiratory: no shortness of breath, no cough, no orthopnea, no wheezing. Cardiovascular: no chest pain, no palpitations, no edema. Gastrointestinal: no nausea, no vomiting, no diarrhea, no GI bleeding. Genitourinary: no dysuria, no hematuria, no discharge, no pain. Musculoskeletal: no back pain, no trauma. Neurologic: no headache, no dizziness, no numbness, no weakness. Psychiatric: noDepressionno Anxietyno sleeping problems, no Suicidal thoughts or ideationsno mood swings Additional ROS info: Except as noted in the above Review of Systems and in the History of Present Illness all other systems have been reviewed and are negative or noncontributory. Physical Exam Vitals & Measurements HR: 96(Peripheral) BP: 118/82 SpO2: 98% HT: 63 in HT: 160.4 cm WT: 68.9 kg WT: 151.58 lb BMI: 26.78 General: alert, no acute distress Skin: warm, dry Head: no trauma, normocephalic Neck: Trachea midline, thyroid not enlarged Eye: normal conjunctiva, sclera clear ENMT: oral mucosa moist, yes Cardiovascular: regular rate and rhythm, normal Respiratory: respirations non labored Chest wall: no deformity. Gastrointestinal: soft, non distended, no tenderness Back: No tenderness Extremities: no edema, no wound Neurological: awake, alert, oriented, speech normal Psychiatric: cooperative, affect appropriate for age Assessment/Plan 1. Wellness examination (Z00.00: Encounter for general adult medical examination without abnormal findings) pt presents today to establish care. needs refills. pt c/o not being able to lose weight. will check labs. pt has been in menopause for about 2 years. Had pelvic by Pia Hampton recently is not due for pap until next year. pt requesting chest xray, she is no longer a smoker but did smoke for almost 30 years. denies complaints . Meds refilled. orders for mamm and chest xray faxed to [facility]. will notify pt of all results. RTC as needed Ordered: CBC w/ Auto Diff Comprehensive Metabolic Panel Free T4 Lipid Panel T3 Free Thyroid Stimulating Hormone 2. Hyperlipidemia (E78.5: Hyperlipidemia, unspecified) labs drown in office today Ordered: CBC w/ Auto Diff Comprehensive Metabolic Panel Free T4 Lipid Panel T3 Free Thyroid Stimulating Hormone 3. Hypertension (I10: Essential (primary) hypertension) labs ordered. meds refilled Ordered: CBC w/ Auto Diff Comprehensive Metabolic Panel Free T4 Lipid Panel T3 Free Thyroid Stimulating Hormone 4. Ex-smoker, (Z87.891: Personal history of nicotine dependence) chest xray ordered Former smoker see above Ordered: CBC w/ Auto Diff Comprehensive Metabolic Panel Free T4 Lipid Panel MA Mamm Screen w/CAD if perf and 3D Sotero T3 Free Thyroid Stimulating Hormone XR Chest 2 Views 6. Breast cancer screening by mammogram (Z12.31: Encounter for screening mammogram for malignant neoplasm of breast) mammogram ordered. to be done at [facility] Ordered: CBC w/ Auto Diff Comprehensive Metabolic Panel Free T4 Lipid Panel MA Mamm Screen w/CAD if perf and 3D Sotero T3 Free Thyroid Stimulating Hormone 7. BMI 26.0-26.9,adult (Z68.26: Body mass index [BMI] 26.0-26.9, adult) BNMI education complete Ordered: CBC w/ Auto Diff Comprehensive Metabolic Panel Free T4 Lipid Panel MA Mamm Screen w/CAD if perf and 3D Sotero T3 Free Thyroid Stimulating Hormone XR Chest 2 Views Orders: amlodipine, 5 mg = 1 tab(s), Oral, Daily, # 90 tab(s), Refills(s) 3, Pharmacy: [facility]/pharmacy #[id number], 160.4, cm, 08/17/22 15:18:00 EDT, Height/Length Dosing, 68.9, kg, 08/17/22 15:18:00 EDT, Weight Dosing buPROPion, 150 mg = 1 tab(s), Oral, Daily, X 90 day(s), # 90 tab(s), Refills(s) 3, Pharmacy: [facility]/pharmacy #[id number], 160.4, cm, 08/17/22 15:18:00 EDT, Height/Length Dosing, 68.9, kg, 08/17/22 15:18:00 EDT, Weight Dosing buPROPion, 150 mg = 1 tab(s), Oral, Daily, # 90 tab(s), Refills(s) 3, Pharmacy: [id number] (more content not included)... Normal [facility] Comment on above: Result Comment: Elec tronically Signed By: Tasneem Buchanan\.br\Date and Time Signed: 08/17/22 15:57 EDT Free T4on 08-17-2022 Free T4 [Mass/Vol] 1.08 ng/dL Normal 0.58-1.64 [facility] Comment on above: Performed By: #### 2 227589, 1405937, 8209953, 4804730, 0730098, 99702000, 0325720, 1339627 #### [facility] [address] [place] [address] Lipid Panelon 08-17-2022 Cholesterol [Mass/Vol] 198 mg/dL Normal 120-200 [facility] Comment on above: Performed By: #### 2 070247, 7997232, 2067975, 2786299, 2509854, 45778310, 8457250, 3046653 #### [facility] [address] [place] [address] Cholesterol in HDL [Mass/Vol] 63 mg/dL Invalid Interpretation Code [facility] Comment on above: Result Comment: HDL > or equal to 60 mg/dL: Low cardiovascular risk HDL < 40 mg/dL : High cardiovascular risk Performed By: #### 2 534284, 8061208, 4399757, 5671324, 0511189, 40883684, 0769278, 8567933 #### [facility] [address] [place] [address] Cholesterol in LDL [Mass/Vol] 113 mg/dL Normal <=129 [facility] Comment on above: Performed By: #### 2 467696, 5030095, 4176247, 7758669, 2430428, 21715760, 4735176, 7577804 #### [facility] [address] [place] [address] Cholesterol in VLDL [Mass/Vol] 16 mg/dL Normal 7-40 [facility] Comment on above: Performed By: #### 2 978844, 4040646, 2175406, 1848310, 5423298, 20616475, 4722476, 9172177 #### [facility] [address] [place] [address] Triglyceride [Mass/Vol] 82 mg/dL Normal <=149 [facility] Comment on above: Performed By: #### 2 019692, 2440616, 8536897, 9984851, 4371234, 26907929, 0061869, 9069818 #### [facility] [address] [place] [address] TSHon 08-17-2022 TSH Qn 1.34 m[IU]/L Normal 0.34-5.60 [facility] Comment on above: Performed By: #### 2 471651, 5747884, 5485126, 6054935, 9305511, 89727798, 9401042, 0979912 #### [facility] [address] [place] [address] eGFRon 08-17-2022 GFR/1.73 sq M.predicted among non-blacks MDRD (S/P/Bld) [Vol rate/Area] 86 mL/min/1.73 m2 Normal >=59 [facility] Comment on above: Order Comment: Order added by Discern Expert. Result Comment: Property Management Specialist enrique kidney disease could be indicated at eGFR's of less than 60 mL/min/1.73m2. Kidney failure is indicated at less than 15 mL/min/1.73m2. Performed By: #### 2 838335, 0245797, 8400768, 5668715, 6513937, 00104281, 8344954, 6374839 #### [facility] [address] [place] [address] ESTRADIOLon 11-17-2021 Estradiol 83.6 pg/mL Normal [facility] Comment on above: Result Comment: Adul t Female: Follicular phase 12.5 - 166.0 Ovulation phase 85.8 - 498.0 Luteal phase 43.8 - 211.0 Postmenopausal <6.0 - 54.7 1st trimester 215.0 - >4300.0 Latasha ECLIA methodology Performed By: #### E BEATRIZ #### [facility] [address] [address] [address] Darryl Trammell FSHon 11-17-2021 FSH 38.1 mIU/mL Normal [facility] Comment on above: Result Comment: Adul t Female: Follicular phase 3.5 - 12.5 Ovulation phase 4.7 - 21.5 Luteal phase 1.7 - 7.7 Postmenopausal 25.8 - 134.8 Performed By: #### L [facility] #### [facility] [address] [place] [address] Dr. Darryl Trammell TESTOSTERONE, TOTALon 2021 Testosterone [Mass/Vol] 286 ng/dL Critically high 4-50 [facility] Comment on above: Performed By: #### T ESTTOT #### [facility] [address] [place] [address] Dr. Darryl Trammell CBC AUTO DIFFon 11-16-2021 BASO # 0.0 103/ul Normal 0.0-0.1 [facility] Comment on above: Performed By: #### C BC #### [facility] [address] [place] [address] Dr. Darryl Trammell Basophils/100 WBC (Bld) 0.8 % Normal 0.2-2.0 [facility] Comment on above: Performed By: #### C BC #### [facility] [address] [place] [address] Dr. Darryl Trammell EO # 0.2 103/ul Normal 0.0-0.7 [facility] Comment on above: Performed By: #### C BC #### [facility] [address] [place] [address] Dr. Darryl Trammell Eosinophils/100 WBC (Bld) 3.9 % Normal 0.9-7.0 [facility] Comment on above: Performed By: #### C BC #### [facility] [address] [place] [address] Dr. Darryl Trammell Erythrocyte distribution width (RBC) [Ratio] 12.2 % Normal 11.0-15.0 [facility] Comment on above: Performed By: #### C BC #### [facility] [address] [place] [address] Dr. Darryl Trammell Hematocrit (Bld) [Volume fraction] 42.4 % Normal 36.0-48.0 [facility] Comment on above: Performed By: #### C BC #### [facility] [address] [place] [address] Dr. Darryl Trammell Hemoglobin (Bld) [Mass/Vol] 14.1 g/dL Normal 12.0-16.0 [facility] Comment on above: Performed By: #### C BC #### [facility] [address] [place] [address] Dr. Darryl Trammell IG # 0.01 10e3/ul Normal 0.00-0.03 [facility] Comment on above: Performed By: #### C BC #### [facility] [address] [place] [address] Dr. Darryl Trammell IG % 0.2 % Normal 0.0-0.5 [facility] Comment on above: Performed By: #### C BC #### [facility] [address] [place] [address] Dr. Darryl Trammell LYMPH # 2.5 103/ul Normal 1.2-3.8 [facility] Comment on above: Performed By: #### C BC #### [facility] [address] [place] [address] Dr. Darryl Trammell Lymphocytes/100 WBC (Bld) 48.9 % Normal 20.5-60.0 [facility] Comment on above: Performed By: #### C BC #### [facility] [address] [place] [address] Dr. Darryl Trammell MANUAL DIFF REQ NO Normal [facility] Comment on above: Performed By: #### C BC #### [facility] [address] [place] [address] Dr. Darryl Trammell MCH (RBC) [Entitic mass] 32.7 pg Normal 26.7-34.0 [facility] Comment on above: Performed By: #### C BC #### [facility] [address] [place] [address] Dr. Darryl Trammell MCHC (RBC) [Mass/Vol] 33.3 g/dL Normal 29.9-35.2 [facility] Comment on above: Performed By: #### C BC #### [facility] [address] [place] [address] Dr. Darryl Trammell MCV (RBC) [Entitic vol] 98.4 fL Normal 81.0-99.0 [facility] Comment on above: Performed By: #### C BC #### [facility] [address] [place] [address] Dr. Darryl Trammell MONO # 0.5 103/ul Normal 0.3-0.8 [facility] Comment on above: Performed By: #### C BC #### [facility] [address] [place] [address] Dr. Darryl Trammell Monocytes/100 WBC (Bld) 9.6 % Normal 1.7-12.0 [facility] Comment on above: Performed By: #### C BC #### [facility] [address] [place] [address] Dr. Darryl Trammell NEUT # 1.9 103/ul Normal 1.4-6.5 [facility] Comment on above: Performed By: #### C BC #### [facility] [address] [place] [address] Dr. Darryl Trammell Neutrophils/100 WBC (Bld) 36.6 % Critically low 43.0-75.0 [facility] Comment on above: Performed By: #### C BC #### [facility] [address] [place] [address] Dr. Darryl Trammell Platelet mean volume (Bld) [Entitic vol] 10.1 fL Normal 9.5-13.5 [facility] Comment on above: Performed By: #### C BC #### [facility] [address] [place] [address] Dr. Daryrl Trammell PLT 262 103/ul Normal 150-450 [facility] Comment on above: Performed By: #### C BC #### [facility] [address] [place] [address] Dr. Darryl Trammell RBC 4.31 106/ul Normal 4.20-5.40 [facility] Comment on above: Performed By: #### C BC #### [facility] [address] [place] [address] Dr. Darryl Trammell WBC 5.1 103/ul Normal 4.0-11.0 [facility] Comment on above: Performed By: #### C BC #### [facility] [address] [place] [address] Dr. Darryl Trammell GLUCOSE BLOODon 11-16-2021 Glucose [Mass/Vol] 80 mg/dL Normal 74-106 [facility] Comment on above: Performed By: #### T SH, LIPID, GLUC #### [facility] [address] [address] [address] Darryl Trammell LIPID PROFILEon 11-16-2021 CHOL-HDL RATIO NORM SEE BELOW Normal [facility] Comment on above: Result Comment: 3.3 - 4.4 LOW RISK 4.4 - 7.1 AVERAGE RISK 7.1 - 11.0 MODERATE RISK >11.0 HIGH RISK Performed By: #### T SH, LIPID, GLUC #### [facility] [address] [address] [address] Darryl Trammell Cholesterol [Mass/Vol] 201 mg/dL Critically high <=200 [facility] Comment on above: Performed By: #### T SH, LIPID, GLUC #### [facility] [address] [address] [address] Darryl Trammell Cholesterol in HDL [Mass/Vol] 72 mg/dL Critically high 40-60 [facility] Comment on above: Performed By: #### T SH, LIPID, GLUC #### [facility] [address] [address] [address] Darryl Trammell Cholesterol in LDL [Mass/Vol] 113.0 mg/dL Normal [facility] Comment on above: Performed By: #### T SH, LIPID, GLUC #### [facility] [address] [address] [address] Darryl Trammell Cholesterol.total/C holesterol in HDL [Mass ratio] 2.8 {ratio} Normal [facility] Comment on above: Performed By: #### T SH, LIPID, GLUC #### [facility] [address] [address] [address] Darryl Trammell HDL NORMAL > or = 60 mg/dl - LO W CARDIOVASCULAR RISK <40 mg/dl - HIGH CARDIOVASCULAR RISK Normal [facility] Comment on above: Performed By: #### T SH, LIPID, GLUC #### [facility] [address] [address] [address] Darryl Trammell LDL CALC NORMAL SEE BELOW Normal [facility] Comment on above: Result Comment: <100 mg/dl OPTIMAL 100 - 129 mg/dl NEAR OR ABOVE OPTIMAL 130 - 159 mg/dl BORDERLINE HIGH 160 - 189 mg/dl HIGH >190 mg/dl VERY HIGH Performed By: #### T SH, LIPID, GLUC #### [facility] [address] [place], [place] [address] Dr. Darryl Trammell Triglyceride [Mass/Vol] 80 mg/dL Normal <=150 [facility] Comment on above: Performed By: #### T SH, LIPID, GLUC #### [facility] [address] [address] [address] Darryl Trammell VLDL CALC 16.0 mg/dL Normal [facility] Comment on above: Performed By: #### T SH, LIPID, GLUC #### [facility] [address] [address] [address] Darryl Trammell TSHon 11-16-2021 TSH 1.999 uIU/mL Normal 0.358-3.740 [facility] Comment on above: Performed By: #### T SH, LIPID, GLUC #### [facility] [address] [address] [address] Darryl Trammell CHEMISTRYOrdered By: Pablo mejia on 05-31-2021 Albumin Elph (U) [Mass fraction] 10.4 mg/dL Invalid Interpretation Code [facility] Remisol Creatinine (U) [Mass/Vol] 63.3 mg/dL Invalid Interpretation Code [facility] Remisol U Prot/Creat Ratio 164.30 mg/gm Cr Normal 0.00 - 200.00 mg/gm Cr [facility] Remisol CHEMISTRYOrdered By: [facility] on 05-31-2021 25-hydroxyvitamin D3 [Mass/Vol] 55.6 ng/mL Normal 30.0 - 100.0 ng/mL [facility] Remisol Albumin [Mass/Vol] 4.2 g/dL Normal 3.3 - 5.0 gm/dL [facility] Anion gap [Moles/Vol] 12 mmol/L Normal 6 - 16 mEq/L [facility] Calcium [Mass/Vol] 9.8 mg/dL Normal 8.9 - 11. 1 mg/dL [facility] Chloride [Moles/Vol] 101 mmol/L Normal 101 - 111 mmol/L [facility] CO2 [Moles/Vol] 30 mmol/L Normal 21 - 31 mmol/L [facility] Creatinine [Mass/Vol] 0.8 mg/dL Normal 0.5 - 1.3 mg/dL [facility] Remisol GFR/1.73 sq M.predicted among blacks MDRD (S/P/Bld) [Vol rate/Area] mL/min/1.73 m2 Normal >=59mL/min/ 1.73 m2 [facility] Chem S GFR/1.73 sq M.predicted among non-blacks MDRD (S/P/Bld) [Vol rate/Area] mL/min/1.73 m2 Normal >=59mL/min/ 1.73 m2 [facility] Chem S Glucose [Mass/Vol] 101 mg/dL Normal 55 - 199 mg/dL [facility] Remisol Phosphate [Mass/Vol] 3.1 mg/dL Normal 1.9 - 4.6 mg/dL [facility] Rem[facility] Potassium [Moles/Vol] 4.3 mmol/L Normal 3.5 - 5.3 mmol/L [facility] Sodium [Moles/Vol] 139 mmol/L Normal 135 - 145 mmol/L [facility] Urea nitrogen [Mass/Vol] 21 mg/dL Normal 5 - 21 mg/dL [facility] Urea nitrogen/Creatinine [Mass ratio] 26 mg/mg High 10 - 20 [facility] URINALYSISOrdered By: Diana Javier on 05-31-2021 Bilirubin Ql (U) Negative (05/31/21 3:05 PM) Normal Negative [facility] UA Auto SS Clarity (U) Cloudy *ABN* (05/31/21 3:05 PM) Invalid Interpretation Code Clear [facility] UA Auto SS Color (U) Yellow (05/31/21 3:05 PM) Normal Yellow [facility] UA Auto SS Epithelial cells.squamous LM.HPF (Urine sed) [#/Area] 0-2 /HPF Normal 0-2/HPF [facility] UA Auto SS Glucose Test strip (U) [Mass/Vol] Negative (05/31/21 3:05 PM) Normal Negative [facility] UA Auto SS Hemoglobin Ql (U) Negative (05/31/21 3:05 PM) Normal Negative [facility] UA Auto SS Ketones (U) [Mass/Vol] Negative (05/31/21 3:05 PM) Normal Negative [facility] UA Auto SS Shafer.plasma/Lith ium.RBC (Bld) [Mass ratio] 0-3 /HPF Normal 0-3/HPF [facility] UA Auto SS Nitrite Ql (U) Negative (05/31/21 3:05 PM) Normal Negative [facility] UA Auto SS pH (U) 8.0 *NA* (05/31/21 3:05 PM) Invalid Interpretation Code 5.0 - 9.0 [facility] UA Auto SS Phosphate crystals amorphous LM Ql (Urine sed) Present (05/31/21 3:05 PM) Normal [facility] Auto SS Protein (U) [Mass/Vol] Negative (05/31/21 3:05 PM) Normal Negative [facility] UA Auto SS Specific gravity (U) [Rel density] 1.015 *NA* (05/31/21 3:05 PM) Invalid Interpretation Code 1.005 - 1.030 [facility]A Auto SS UA Spec Desc Clean Catch (05/31/21 3:05 PM) Normal [facility] UA Auto SS Urobilinogen Qn (U) 0.3408016 {Mayra'U}/dL Normal 0.0 - 1.0 EU/dL [facility] Auto SS WBC Auto Ql (U) Negative (05/31/21 3:05 PM) Normal Negative [facility] Auto SS WBC LM.HPF (Urine sed) [#/Area] 0-5 /HPF Normal 0-5/HPF [facility] UA Auto SS [facility] SARS-CoV-2 (COVID-19) RNA JENN+probe Ql (Unsp spec) Negative Normal Negative [facility] Comment on above: Order Comment: Healt hcare Worker?: N Result Comment: Testing for SARS-CoV-2 by RT-PCR This test was developed and its performance characteristics determined by [employer] and validated at the [facility]. This test has not been FDA cleared or approved. This test has been authorized by FDA under an Emergency Use Authorization (EUA). This test has been validated in accordance with the FDA's Guidance Document (Policy for Diagnostics Testing in Laboratories Certified to Perform High Complexity Testing under CLIA prior to Emergency Use Authorization for Coronavirus Disease-2019 during the Public Health Emergency) issued on June 12, 2019. This test is only authorized for the duration of time the declaration that circumstances exist justifying the authorization of the emergency use of in vitro diagnostic tests for detection of SARS-CoV-2 virus and/or diagnosis of COVID-19 infection under section 564(b)(1) of the Act, 21 U.S.C. 360bbb-3(b)(1), unless the authorization is terminated or revoked sooner. PERFORMED BY: [place] [address] PATHOLOGIST [employer]OPELLER LAYOUT WORKER UYNE HEATH M.D. Performed By: #### C OVID 19 [facility] #### [address] Basic Metabolic Panelon 12-10 Calcium [Mass/Vol] 9.6 mg/dL Normal 8.2-10.2 [facility] Comment on above: Result Comment: PERF ORMED BY: [place] [address] PATHOLOGIST [employer]OPELL[employer] LAYOUT WORKER UYEN HEATH M.D. Performed By: #### B MP #### [address] Chloride [Moles/Vol] 102 mmol/L Normal 95-114 [facility] Comment on above: Performed By: #### B MP #### [address] CO2 [Moles/Vol] 27.5 mmol/L Normal 22.0-30.0 [facility] Comment on above: Performed By: #### B MP #### [address] Creatinine [Mass/Vol] 0.68 mg/dL Normal 0.44-1.03 [facility] Comment on above: Performed By: #### B MP #### [address] Estimated GFR ( Karen > 60 Normal [facility] Comment on above: Result Comment: GFR estimated reference range: According to KDOQI guidelines, <60 ml/min/1.73m2 is sufficient to diagnose a patient with chronic kidney disease. Performed By: #### B MP #### [facility] [address] Estimated GFR (Non- Am > 60 Normal [facility] Comment on above: Performed By: #### B MP #### [facility] [address] Glucose [Mass/Vol] 90 mg/dL Normal 70-100 [facility] Comment on above: Result Comment: [facility] Glucose Reference Range is dependent on time and content of last meal. Glucose of more than 200 mg/dL in a nonstressed, ambulatory subject supports the diagnosis of Diabetes Mellitus. ADA recommended reference range Performed By: #### B MP #### [address] Potassium [Moles/Vol] 4.5 mmol/L Normal 3.5-5.1 [facility] Comment on above: Performed By: #### B MP #### [address] Sodium [Moles/Vol] 138 mmol/L Normal 136-146 [facility] Comment on above: Performed By: #### B MP #### [address] Urea nitrogen [Mass/Vol] 12 mg/dL Normal 9-23 [facility] Comment on above: Performed By: #### B MP #### [address] ECG 12 lead ECGon 12-27-2020 ECG 12 lead ECG [facility] Main [place] [address] [place] [address] Electrocardiograph Report Signed Patient: Nora Diaz MR#: [id number] 9 : 1965 Acct:[id number] Age/Sex: 55 / F ADM Date: 12/27/20 Loc: Room: Type: [facility] Attending Dr: Prabhakar Max MD Ordering Provider: Prabhakar Max MD Date of Service: 12/27/20 ECG/ECG 12 lead ECG: or 01-06-21 Copies to: Test Reason : Blood Pressure : / mmHG Vent. Rate : 092 BPM Atrial Rate : 090 BPM P-R Int : 140 ms QRS Dur : 064 ms QT Int : 346 ms P-R-T Axes : 063 008 070 degrees QTc Int : 427 ms Normal sinus rhythm Possible Anterior infarct , age undetermined Abnormal ECG Confirmed by CUAUHTEMOC BALDWIN MD ([id number]) on 12/28/2020 3:34:51 PM Referred By: MENDEZ MAX Electronically Signed By:CUAUHTEMOC BALDWIN MD Transcribed By: MUS Signed By Cuauhtemoc Baldwin MD 1 1534 [facility] Urine Cultureon 08-05-2020 Bacteria identified Cx Nom (U) <9,000 colonies/ml mixed bacterial skin contaminants 2 Days PERFORMED BY: [place] [address] PATHOLOGIST [employer]LLER LAYOUT WORKER UYEN HEATH M.D. [facility] Comment on above: Performed By: #### C UU #### [address] Vital Signs Date Time Vital Sign Value Performing Clinician Lul farris 12-12-2021 12:40-0400 Blood Pressure Location Manish CHEN [facility] 12-12-2021 12:40-0400 Diastolic blood pressure 89 mm[Hg] Manish CHEN [facility] 12-12-2021 12:40-0400 Heart rate 81 /min Manish CHEN [facility] 12-12-2021 12:40-0400 Respiratory rate 16 /min Manish CHEN [facility] 12-12-2021 12:40-0400 Systolic blood pressure 124 mm[Hg] Manish CHEN [facility] 07-21-2021 09:35-0400 Blood Pressure Location Ryann Yu [facility] 07-21-2021 09:35-0400 Body temperature 97.7 [degF] Ryann Yu [facility] 07-21-2021 09:35-0400 Diastolic blood pressure 64 mm[Hg] Ryann Yu [facility] 07-21-2021 09:35-0400 Heart rate 89 /min Ryann Yu [facility] 07-21-2021 09:35-0400 SaO2% (BldA) [Mass fraction] 98 % Ryann Yu [facility] 07-21-2021 09:35-0400 Systolic blood pressure 128 mm[Hg] Ryann Yu [facility] Encounters Encounter Date Encounter Type Care Provider Facility Start: 03-15-2023 End: 03-16-2023 ambulatory ALANIS VICKERS [facility] Start: 03-15-2023 End: 03-15-2023 Lab Drop off ALANIS VICKERS [facility] Start: 03-15-2023 End: 03-15-2023 Patient encounter procedure ALANIS VICKERS [facility] [place] Start: 11-28-2022 End: 11-29-2022 ambulatory ALANIS VICKERS Facility:[facility] Start: 10-31-2022 End: 11-01-2022 ambulatory ALANIS VICKERS Facility:[facility] Start: 10-31-2022 End: 10-31-2022 Patient encounter procedure ALANIS VICKERS [facility] Start: 08-17-2022 End: 08-18-2022 ambulatory CAKE PUNCHER Tasneem Mcmahan [facility] Start: 08-17-2022 ambulatory ALANIS VICKERS Facility :[facility] Start: 07-24-2022 ambulatory Ryann Yu Facili ty:[facility] Start: 12-12-2021 End: 12-12-2021 Patient encounter procedure Manish CHEN [facility] Start: 11-16-2021 End: 11-17-[address] DOCTOR RIVAS Facility:[facility] Start: 07-21-2021 End: 07-21-2021 Patient encounter procedure Ryann Yu [facility] Start: 07-05-2021 End: 10-14-[address] THAIS STONE Facility:[facility] Start: 06-14-2021 End: 06-14-2021 Patient encounter procedure Manish CHEN [facility] Start: 05-31-2021 End: 05-31-2021 Patient encounter procedure Natalie J Memo [facility] Procedures Date Procedure Procedure Detail Performing Clinician Start: 11-15-2017 Cystoscopy Natalie Memo Start: 03-12-2013 Colonoscopy Natalie Memo Start: 03-12-2013 Esophagogastroduodenoscopy Natalie Memo Start: 03-12-2011 Excision of bunion Natalie Memo Comment on above: Right Foot Start: 03-12-2004 Breast augmentation Natalie Memo Dilation of urethra Ryann Wilkersonell Urethral stent (physical object) Natalie Memo Urethral Widening Natalie James pe Immunizations Immunization Date Immunization Notes Care Provider Fa hossein 03-03-2021 SARS-CoV-2 (COVID-19 ) mRNA-1273 vaccine Ryann Yu [facility] Comment on above: Result Comment: 2021: TPV50 12-13-2020 influenza, injectabl e, quadrivalent, preservative free Natalie Memo [facility] 06-26-2020 SARS-CoV-2 (COVID-19 ) mRNA-1273 vaccine Natalie Memo [facility] 06-21-2020 SARS-CoV-2 (COVID-19 ) mRNA-1273 vaccine Natalie Memo [facility] 05-31-2020 SARS-CoV-2 (COVID-19 ) mRNA-1273 vaccine Natalie Memo [facility] 05-29-2020 SARS-CoV-2 (COVID-19 ) mRNA-1273 vaccine Natalie Memo [facility] 12-18-2019 influenza virus vaccine, unspecified formulation Natalie Memo [facility] 05-03-2012 influenza virus vaccine, unspecified formulation Natalie Hampton [facility] NEGATED: Highlighted row has not occurred!11-27-2018 influenza virus vaccine, unspecified formulation Natalie Hampton [facility] Payers Date Payer Category Payer Unknown [id number] 1965 Unknown [id number] 2.16.84 [id number] 1965 Unknown [id number] 2.16.84 [id number] 1965 Unknown [id number] 2.16.8 [id number] 1965 Unknown [id number] 2.16.8 [id number] 1965 Unknown [id number] 2.16.8 [id number] 1965 Unknown [id number] 2.16.8 [id number] 1965 Unknown [id number] 2.16.8 [id number] 1965 Unknown [id number] 2.16.8 [id number] 1965 Unknown [id number] 2.16.8 [id number] 1959 Self-pay 1959 Unknown [id number] Social History Date Type Detail Facility Start: 05-18-2021 End: 11-28-2022 Tobacco smoking status Ex-smoker (finding) [facility] Tobacco smoking status Never Jo[facility] Sex Assigned At Female [facility] Functional Status Date Assessment Result Facility 12-12-2021 Functional Status N/A [facility] Clinical Notes 06-14-2021 to 03-15-2023 LaboratoryLaboratoryLaboratoryLaboratory Note Date & Type Note Facility 03-15-2023 Evaluation + Plan note Diagnostic Tests PendingUrine Culture 03/15/23 [facility] 12-12-2021 Hospital Discharge instructions Patient Education 12/12/2021 12:47:40 Urinary Tract Infection, Adult, [id number] Urinary Tract Infection, Adult A urinary tract infection (UTI) is an infection of any part of the urinary tract. The urinary tract includes: The kidneys. The ureters. The bladder. The urethra. These organs make, store, and get rid of pee (urine) in the body. What are the causes? This is caused by germs (bacteria) in your genital area. These germs grow and cause swelling (inflammation) of your urinary tract. What increases the risk? You are more likely to develop this condition if: You have a small, thin tube (catheter) to drain pee. You cannot control when you pee or poop (incontinence). You are female, and: ?You use these methods to prevent : ?A medicine that kills sperm (spermicide). ?A device that blocks sperm (diaphragm). ?You have low levels of a female hormone (estrogen). ?You are . You have genes that add to your risk. You are sexually active. You take antibiotic medicines. You have trouble peeing because of: ?A prostate that is bigger than normal, if you are male. ?A blockage in the part of your body that drains pee from the bladder (urethra). ?A kidney stone. ?A nerve condition that affects your bladder (neurogenic bladder). ?Not getting enough to drink. ?Not peeing often enough. You have other conditions, such as: ?Diabetes. ?A weak disease-fighting system (immune system). ?Sickle cell disease. ?Gout. ?Injury of the spine. What are the signs or symptoms? Symptoms of this condition include: Needing to pee right away (urgently). Peeing often. Peeing small amounts often. Pain or burning when peeing. Blood in the pee. Pee that smells bad or not like normal. Trouble peeing. Pee that is cloudy. Fluid coming from the vagina, if you are female. Pain in the belly or lower back. Other symptoms include: Throwing up (vomiting). No urge to eat. Feeling mixed up (confused). Being tired and grouchy (irritable). A fever. Watery poop (diarrhea). How is this treated? This condition may be treated with: Antibiotic medicine. Other medicines. Drinking enough water. Follow these instructions at home: Medicines Take rxrg-lfk-scifknq and prescription medicines only as told by your doctor. If you were prescribed an antibiotic medicine, take it as told by your doctor. Do not stop taking it even if you start to feel better. General instructions Make sure you: ?Pee until your bladder is empty. ?Do not hold pee for a long time. ?Empty your bladder after sex. ?Wipe from front to back after pooping if you are a female. Use each tissue one time when you wipe. Drink enough fluid to keep your pee pale yellow. Keep all follow-up visits as told by your doctor. This is important. Contact a doctor if: You do not get better after 1 2 days. Your symptoms go away and then come back. Get help right away if: You have very bad back pain. You have very bad pain in your lower belly. You have a fever. You are sick to your stomach (nauseous). You are throwing up. Summary A urinary tract infection (UTI) is an infection of any part of the urinary tract. This condition is caused by germs in your genital area. There are many risk factors for a UTI. These include having a small, thin tube to drain pee and not being able to control when you pee or poop. Treatment includes antibiotic medicines for germs. Drink enough fluid to keep your pee pale yellow. This information is not intended to replace advice given to you by your health care provider. Make sure you discuss any questions you have with your health care provider. Document Released: 08/14/2008 Document Revised: 02/13/2019 Document Reviewed: 09/05/2018 [employer] Patient Education 2020 [employer] Follow Up Care 06/14/2021 09:19:41 With:WILL CRENSHAW, Manish Villafuerte, URL Address: [facility] [address] [place] [address]- [phone] When:10/12/2022 [facility] 07-21-2021 Hospital Discharge instructions Patient Education 07/21/2021 09:53:08 BMI for Adults BMI for Adults Body mass index (BMI) is a number that is calculated from a person's weight and height. BMI may help to estimate how much of a person's weight is composed of fat. BMI can help identify those who may be at higher risk for certain medical problems. How is BMI used with adults? BMI is used as a screening tool to identify possible weight problems. It is used to check whether a person is obese, overweight, healthy weight, or underweight. How is BMI calculated? BMI measures your weight and compares it to your height. This can be done either in [place] or metric measurements. Note that charts are available to help you find your BMI quickly and easily without having to do these calculations yourself. To calculate your BMI in [place] measurements, your health care provider will: 1.Measure your weight in pounds (lb). 2.Multiply the number of pounds by 703. For example, for a person who weighs 180 lb, multiply that number by 703, which equals 126,540. 3.Measure your height in inches (in). Then multiply that number by itself to get a measurement called inches squared. For example, for a person who is 70 in tall, the inches squared measurement is 70 in x 70 in, which equals 4900 inches squared. 4.Divide the total from Step 2 (number of lb x 703) by the total from Step 3 (inches squared): 126,540 4900 = 25.8. This is your BMI. To calculate your BMI in metric measurements, your health care provider will: 1.Measure your weight in kilograms (kg). 2.Measure your height in meters (m). Then multiply that number by itself to get a measurement called meters squared. For example, for a person who is 1.75 m tall, the meters squared measurement is 1.75 m x 1.75 m, which is equal to 3.1 meters squared. 3.Divide the number of kilograms (your weight) by the meters squared number. In this example: 70 3.1 = 22.6. This is your BMI. How is BMI interpreted? To interpret your results, your health care provider will use BMI charts to identify whether you are underweight, normal weight, overweight, or obese. The following guidelines will be used: Underweight: BMI less than 18.5. Normal weight: BMI between 18.5 and 24.9. Overweight: BMI between 25 and 29.9. Obese: BMI of 30 and above. Please note: Weight includes both fat and muscle, so someone with a muscular build, such as an athlete, may have a BMI that is higher than 24.9. In cases like these, BMI is not an accurate measure of body fat. To determine if excess body fat is the cause of a BMI of 25 or higher, further assessments may need to be done by a health care provider. BMI is usually interpreted in the same way for men and women. Why is BMI a useful tool? BMI is useful in two ways: Identifying a weight problem that may be related to a medical condition, or that may increase the risk for medical problems. Promoting lifestyle and diet changes in order to reach a healthy weight. Summary Body mass index (BMI) is a number that is calculated from a person's weight and height. BMI may help to estimate how much of a person's weight is composed of fat. BMI can help identify those who may be at higher risk for certain medical problems. BMI can be measured using [place] measurements or metric measurements. To interpret your results, your health care provider will use BMI charts to identify whether you are underweight, normal weight, overweight, or obese. This information is not intended to replace advice given to you by your health care provider. Make sure you discuss any questions you have with your health care provider. Document Released: 11/07/2004 Document Revised: 02/08/2018 Document Reviewed: 01/09/2018 [employer] 2020 [employer]. 07/21/2021 09:53:03 Sleep Apnea Sleep Apnea Sleep apnea is a condition in which breathing pauses or becomes shallow during sleep. Episodes of sleep apnea usually last 10 seconds or longer, and they may occur as many as 20 times an hour. Sleep apnea disrupts your sleep and keeps your body from getting the rest that it needs. This condition can increase your risk of certain health problems, including: Heart attack. Stroke. Obesity. Diabetes. Heart failure. Irregular heartbeat. What are the causes? There are three kinds of sleep apnea: Obstructive sleep apnea. This kind is caused by a blocked or collapsed airway. Central sleep apnea. This kind happens when the part of the brain that controls breathing does not send the correct signals to the muscles that control breathing. Mixed sleep apnea. This is a combination of obstructive and central sleep apnea. The most common cause of this condition is a collapsed or blocked airway. An airway can collapse or become blocked if: Your throat muscles are abnormally relaxed. Your tongue and tonsils are larger than normal. You are overweight. Your airway is smaller than normal. What increases the risk? You are more likely to develop this condition if you: Are overweight. Smoke. Have a smaller than normal airway. Are elderly. Are male. Drink alcohol. Take sedatives or tranquilizers. Have a family history of sleep apnea. What are the signs or symptoms? Symptoms of this condition include: Trouble staying asleep. Daytime sleepiness and tiredness. Irritability. Loud snoring. Morning headaches. Trouble concentrating. Forgetfulness. Decreased interest in sex. Unexplained sleepiness. Mood swings. Personality changes. Feelings of depression. Waking up often during the night to urinate. Dry mouth. Sore throat. How is this diagnosed? This condition may be diagnosed with: A medical history. A physical exam. A series of tests that are done while you are sleeping (sleep study). These tests are usually done in a sleep lab, but they may also be done at home. How is this treated? Treatment for this condition aims to restore normal breathing and to ease symptoms during sleep. It may involve managing health issues that can affect breathing, such as high blood pressure or obesity. Treatment may include: Sleeping on your side. Using a decongestant if you have nasal congestion. Avoiding the use of depressants, including alcohol, sedatives, and narcotics. Losing weight if you are overweight. Making changes to your diet. Quitting smoking. Using a device to open your airway while you sleep, such as: ?An oral appliance. This is a custom-made mouthpiece that shifts your lower jaw forward. ?A continuous positive airway pressure (CPAP) device. This device blows air through a mask when you breathe out (exhale). ?A nasal expiratory positive airway pressure (EPAP) device. This device has valves that you put into each nostril. ?A bi-level positive airway pressure (BPAP) device. This device blows air through a mask when you breathe in (inhale) and breathe out (exhale). Having surgery if other treatments do not work. During surgery, excess tissue is removed to create a wider airway. It is important to get treatment for sleep apnea. Without treatment, this condition can lead to: High blood pressure. Coronary artery disease. In men, an inability to achieve or maintain an erection (impotence). Reduced thinking abilities. Follow these instructions at home: Lifestyle Make any lifestyle changes that your health care provider recommends. Eat a healthy, well-balanced diet. Take steps to lose weight if you are overweight. Avoid using depressants, including alcohol, sedatives, and narcotics. Do not use any products that contain nicotine or tobacco, such as cigarettes, e-cigarettes, and chewing tobacco. If you need help quitting, ask your health care provider. General instructions Take xpnt-jxd-zehnhug and prescription medicines only as told by your health care provider. If you were given a device to open your airway while you sleep, use it only as told by your health care provider. If you are having surgery, make sure to tell your health care provider you have sleep apnea. You may need to bring your device with you. Keep all follow-up visits as told by your health care provider. This is important. Contact a health care provider if: The device that you received to open your airway during sleep is uncomfortable or does not seem to be working. Your symptoms do not improve. Your symptoms get worse. Get help right away if: You develop: ?Chest pain. ?Shortness of breath. ?Discomfort in your back, arms, or stomach. You have: ?Trouble speaking. ?Weakness on one side of your body. ?Drooping in your face. These symptoms may represent a serious problem that is an emergency. Do not wait to see if the symptoms will go away. Get medical help right away. Call your local emergency services (911 in the [place] Do not drive yourself to the hospital. Summary Sleep apnea is a condition in which breathing pauses or becomes shallow during sleep. The most common cause is a collapsed or blocked airway. The goal of treatment is to restore normal breathing and to ease symptoms during sleep. This information is not intended to replace advice given to you by your health care provider. Make sure you discuss any questions you have with your health care provider. Document Released: 02/16/2003 Document Revised: 08/13/2019 Document Reviewed: 10/22/2018 [employer] 2020 [employer]. 07/21/2021 09:53:00 Migraine Headache Migraine Headache A migraine headache is an intense, throbbing pain on one side or both sides of the head. Migraine headaches may also cause other symptoms, such as nausea, vomiting, and sensitivity to light and noise. A migraine headache can last from 4 hours to 3 days. Talk with your doctor about what things may bring on (trigger) your migraine headaches. What are the causes? The exact cause of this condition is not known. However, a migraine may be caused when nerves in the brain become irritated and release chemicals that cause inflammation of blood vessels. This inflammation causes pain. This condition may be triggered or caused by: Drinking alcohol. Smoking. Taking medicines, such as: ?Medicine used to treat chest pain (nitroglycerin). ? control pills. ?Estrogen. ?Certain blood pressure medicines. Eating or drinking products that contain nitrates, glutamate, aspartame, or tyramine. Aged cheeses, chocolate, or caffeine may also be triggers. Doing physical activity. Other things that may trigger a migraine headache include: Menstruation. . Hunger. Stress. Lack of sleep or too much sleep. Weather changes. Fatigue. What increases the risk? The following factors may make you more likely to experience migraine headaches: Being a certain age. This condition is more common in people who are 25 55 years old. Being female. Having a family history of migraine headaches. Being . Having a mental health condition, such as depression or anxiety. Being obese. What are the signs or symptoms? The main symptom of this condition is pulsating or throbbing pain. This pain may: Happen in any area of the head, such as on one side or both sides. Interfere with daily activities. Get worse with physical activity. Get worse with exposure to bright lights or loud noises. Other symptoms may include: Nausea. Vomiting. Dizziness. General sensitivity to bright lights, loud noises, or smells. Before you get a migraine headache, you may get warning signs (an aura). An aura may include: Seeing flashing lights or having blind spots. Seeing bright spots, halos, or zigzag lines. Having tunnel vision or blurred vision. Having numbness or a tingling feeling. Having trouble talking. Having muscle weakness. Some people have symptoms after a migraine headache (postdromal phase), such as: Feeling tired. Difficulty concentrating. How is this diagnosed? A migraine headache can be diagnosed based on: Your symptoms. A physical exam. Tests, such as: ?CT scan or an MRI of the head. These imaging tests can help rule out other causes of headaches. ?Taking fluid from the spine (lumbar puncture) and analyzing it (cerebrospinal fluid analysis, or CSF analysis). How is this treated? This condition may be treated with medicines that: Relieve pain. Relieve nausea. Prevent migraine headaches. Treatment for this condition may also include: Acupuncture. Lifestyle changes like avoiding foods that trigger migraine headaches. Biofeedback. Cognitive behavioral therapy. Follow these instructions at home: Medicines Take wbks-vbr-ubzurbo and prescription medicines only as told by your health care provider. Ask your health care provider if the medicine prescribed to you: ?Requires you to avoid driving or using heavy machinery. ?Can cause constipation. You may need to take these actions to prevent or treat constipation: ?Drink enough fluid to keep your urine pale yellow. ?Take zejy-blo-relnuff or prescription medicines. ?Eat foods that are high in fiber, such as beans, whole grains, and fresh fruits and vegetables. ?Limit foods that are high in fat and processed sugars, such as fried or sweet foods. Lifestyle Do not drink alcohol. Do not use any products that contain nicotine or tobacco, such as cigarettes, e-cigarettes, and chewing tobacco. If you need help quitting, ask your health care provider. Get at least 8 hours of sleep every night. Find ways to manage stress, such as meditation, deep breathing, or yoga. General instructions Keep a journal to find out what may trigger your migraine headaches. For example, write down: ?What you eat and drink. ?How much sleep you get. ?Any change to your diet or medicines. If you have a migraine headache: ?Avoid things that make your symptoms worse, such as bright lights. ?It may help to lie down in a dark, quiet room. ?Do not drive or use heavy machinery. ?Ask your health care provider what activities are safe for you while you are experiencing symptoms. Keep all follow-up visits as told by your health care provider. This is important. Contact a health care provider if: You develop symptoms that are different or more severe than your usual migraine headache symptoms. You have more than 15 headache days in one month. Get help right away if: Your migraine headache becomes severe. Your migraine headache lasts longer than 72 hours. You have a fever. You have a stiff neck. You have vision loss. Your muscles feel weak or like you cannot control them. You start to lose your balance often. You have trouble walking. You faint. You have a seizure. Summary A migraine headache is an intense, throbbing pain on one side or both sides of the head. Migraines may also cause other symptoms, such as nausea, vomiting, and sensitivity to light and noise. This condition may be treated with medicines and lifestyle changes. You may also need to avoid certain things that trigger a migraine headache. Keep a journal to find out what may trigger your migraine headaches. Contact your health care provider if you have more than 15 headache days in a month or you develop symptoms that are different or more severe than your usual migraine headache symptoms. This information is not intended to replace advice given to you by your health care provider. Make sure you discuss any questions you have with your health care provider. Document Released: 02/26/2006 Document Revised: 06/20/2019 Document Reviewed: 04/10/2019 [employer] 2020 [employer]. 07/21/2021 09:52:58 Living With Depression Living With Depression Everyone experiences occasional disappointment, sadness, and loss in their lives. When you are feeling down, blue, or sad for at least 2 weeks in a row, it may mean that you have depression. Depression can affect your thoughts and feelings, relationships, daily activities, and physical health. It is caused by changes in the way your brain functions. If you receive a diagnosis of depression, your health care provider will tell you which type of depression you have and what treatment options are available to you. If you are living with depression, there are ways to help you recover from it and also ways to prevent it from coming back. How to cope with lifestyle changes Coping with stress Stress is your body s reaction to life changes and events, both good and bad. Stressful situations may include: Getting . The of a spouse. Losing a job. Retiring. Having a baby. Stress can last just a few hours or it can be ongoing. Stress can play a major role in depression, so it is important to learn both how to cope with stress and how to think about it differently. Talk with your health care provider or a counselor if you would like to learn more about stress reduction. He or she may suggest some stress reduction techniques, such as: Music therapy. This can include creating music or listening to music. Choose music that you enjoy and that inspires you. Mindfulness-based meditation. This kind of meditation can be done while sitting or walking. It involves being aware of your normal breaths, rather than trying to control your breathing. Centering prayer. This is a kind of meditation that involves focusing on a spiritual word or phrase. Choose a word, phrase, or sacred image that is meaningful to you and that brings you peace. Deep breathing. To do this, expand your stomach and inhale slowly through your nose. Hold your breath for 3 5 seconds, then exhale slowly, allowing your stomach muscles to relax. Muscle relaxation. This involves intentionally tensing muscles then relaxing them. Choose a stress reduction technique that fits your lifestyle and personality. Stress reduction techniques take time and practice to develop. Set aside 5 15 minutes a day to do them. Therapists can offer training in these techniques. The training may be covered by some insurance plans. Other things you can do to manage stress include: Keeping a stress diary. This can help you learn what triggers your stress and ways to control your response. Understanding what your limits are and saying no to requests or events that lead to a schedule that is too full. Thinking about how you respond to certain situations. You may not be able to control everything, but you can control how you react. Adding humor to your life by watching funny films or TV shows. Making time for activities that help you relax and not feeling guilty about spending your time this way. Medicines Your health care provider may suggest certain medicines if he or she feels that they will help improve your condition. Avoid using alcohol and other substances that may prevent your medicines from working properly (may interact). It is also important to: Talk with your pharmacist or health care provider about all the medicines that you take, their possible side effects, and what medicines are safe to take together. Make it your goal to take part in all treatment decisions (shared decision-making). This includes giving input on the side effects of medicines. It is best if shared decision-making with your health care provider is part of your total treatment plan. If your health care provider prescribes a medicine, you may not notice the full benefits of it for 4 8 weeks. Most people who are treated for depression need to be on medicine for at least 6 12 months after they feel better. If you are taking medicines as part of your treatment, do not stop taking medicines without first talking to your health care provider. You may need to have the medicine slowly decreased (tapered) over time to decrease the risk of harmful side effects. Relationships Your health care provider may suggest family therapy along with individual therapy and drug therapy. While there may not be family problems that are causing you to feel depressed, it is still important to make sure your family learns as much as they can about your mental health. Having your family s support can help make your treatment successful. How to recognize changes in your condition Everyone has a different response to treatment for depression. Recovery from major depression happens when you have not had signs of major depression for two months. This may mean that you will start to: Have more interest in doing activities. Feel less hopeless than you did 2 months ago. Have more energy. Overeat less often, or have better or improving appetite. Have better concentration. Your health care provider will work with you to decide the next steps in your recovery. It is also important to recognize when your condition is getting worse. Watch for these signs: Having fatigue or low energy. Eating too much or too little. Sleeping too much or too little. Feeling restless, agitated, or hopeless. Having trouble concentrating or making decisions. Having unexplained physical complaints. Feeling irritable, angry, or aggressive. Get help as soon as you or your family members notice these symptoms coming back. How to get support and help from others How to talk with friends and family members about your condition Talking to friends and family members about your condition can provide you with one way to get support and guidance. Reach out to trusted friends or family members, explain your symptoms to them, and let them know that you are working with a health care provider to treat your depression. Financial resources Not all insurance plans cover mental health care, so it is important to check with your insurance carrier. If paying for co-pays or counseling services is a problem, search for a local or [facility]. They may be able to offer public mental health care services at low or no cost when you are not able to see a private health care provider. If you are taking medicine for depression, you may be able to get the generic form, which may be less expensive. Some makers of prescription medicines also offer help to patients who cannot afford the medicines they need. Follow these instructions at home: Get the right amount and quality of sleep. Cut down on using caffeine, tobacco, alcohol, and other potentially harmful substances. Try to exercise, such as walking or lifting small weights. Take rlap-fbh-rxnxdjg and prescription medicines only as told by your health care provider. Eat a healthy diet that includes plenty of vegetables, fruits, whole grains, low-fat dairy products, and lean protein. Do not eat a lot of foods that are high in solid fats, added sugars, or salt. Keep all follow-up visits as told by your health care provider. This is important. Contact a health care provider if: You stop taking your antidepressant medicines, and you have any of these symptoms: ?Nausea. ?Headache. ?Feeling lightheaded. ?Chills and body aches. ?Not being able to sleep (insomnia). You or your friends and family think your depression is getting worse. Get help right away if: You have thoughts of hurting yourself or others. If you ever feel like you may hurt yourself or others, or have thoughts about taking your own life, get help right away. You can go to your nearest emergency department or call: Your local emergency services (911 in the [place] A suicide crisis helpline, such as the National Suicide Prevention Lifeline at . This is open 24-hours a day. Summary If you are living with depression, there are ways to help you recover from it and also ways to prevent it from coming back. Work with your health care team to create a management plan that includes counseling, stress management techniques, and healthy lifestyle habits. This information is not intended to replace advice given to you by your health care provider. Make sure you discuss any questions you have with your health care provider. Document Released: 01/29/2017 Document Revised: 06/20/2019 Document Reviewed: 01/29/2017 [employer] 2020 [employer] 07/21/2021 09:52:52 DASH Eating Plan DASH Eating Plan DASH stands for Dietary Approaches to Stop Hypertension. The DASH eating plan is a healthy eating plan that has been shown to reduce high blood pressure (hypertension). It may also reduce your risk for type 2 diabetes, heart disease, and stroke. The DASH eating plan may also help with weight loss. What are tips for following this plan? General guidelines Avoid eating more than 2,300 mg (milligrams) of salt (sodium) a day. If you have hypertension, you may need to reduce your sodium intake to 1,500 mg a day. Limit alcohol intake to no more than 1 drink a day for non women and 2 drinks a day for men. One drink equals 12 oz of beer, 5 oz of wine, or 1 oz of hard liquor. Work with your health care provider to maintain a healthy body weight or to lose weight. Ask what an ideal weight is for you. Get at least 30 minutes of exercise that causes your heart to beat faster (aerobic exercise) most days of the week. Activities may include walking, swimming, or biking. Work with your health care provider or diet and nutrition instructor (dietitian) to adjust your eating plan to your individual calorie needs. Reading food labels Check food labels for the amount of sodium per serving. Choose foods with less than 5 percent of the Daily Value of sodium. Generally, foods with less than 300 mg of sodium per serving fit into this eating plan. To find whole grains, look for the word whole as the first word in the ingredient list. Shopping Buy products labeled as low-sodium or no salt added. Buy fresh foods. Avoid canned foods and premade or frozen meals. Cooking Avoid adding salt when cooking. Use salt-free seasonings or herbs instead of table salt or sea salt. Check with your health care provider or pharmacist before using salt substitutes. Do not barron foods. Cook foods using healthy methods such as baking, boiling, grilling, and broiling instead. Cook with heart-healthy oils, such as olive, canola, soybean, or sunflower oil. Meal planning Eat a balanced diet that includes: ?5 or more servings of fruits and vegetables each day. At each meal, try to fill half of your plate with fruits and vegetables. ?Up to 6 8 servings of whole grains each day. ?Less than 6 oz of lean meat, poultry, or fish each day. A 3-oz serving of meat is about the same size as a deck of cards. One egg equals 1 oz. ?2 servings of low-fat dairy each day. ?A serving of nuts, seeds, or beans 5 times each week. ?Heart-healthy fats. Healthy fats called [place]-3 fatty acids are found in foods such as flaxseeds and coldwater fish, like sardines, salmon, and mackerel. Limit how much you eat of the following: ?Canned or prepackaged foods. ?Food that is high in trans fat, such as fried foods. ?Food that is high in saturated fat, such as fatty meat. ?Sweets, desserts, sugary drinks, and other foods with added sugar. ?Full-fat dairy products. Do not salt foods before eating. Try to eat at least 2 vegetarian meals each week. Eat more home-cooked food and less restaurant, buffet, and fast food. When eating at a restaurant, ask that your food be prepared with less salt or no salt, if possible. What foods are recommended? The items listed may not be a complete list. Talk with your dietitian about what dietary choices are best for you. Grains Whole-grain or whole-wheat bread. Whole-grain or whole-wheat pasta. Brown rice. Oatmeal. Quinoa. Bulgur. Whole-grain and low-sodium cereals. Jalyn bread. Low-fat, low-sodium crackers. Whole-wheat flour tortillas. Vegetables Fresh or frozen vegetables (raw, steamed, roasted, or grilled). Low-sodium or reduced-sodium tomato and vegetable juice. Low-sodium or reduced-sodium tomato sauce and tomato paste. Low-sodium or reduced-sodium canned vegetables. Fruits All fresh, dried, or frozen fruit. Canned fruit in natural juice (without added sugar). Meat and other protein foods Skinless chicken or turkey. Ground chicken or turkey. Pork with fat trimmed off. Fish and seafood. Egg whites. Dried beans, peas, or lentils. Unsalted nuts, nut butters, and seeds. Unsalted canned beans. Lean cuts of beef with fat trimmed off. Low-sodium, lean deli meat. Dairy Low-fat (1%) or fat-free (skim) milk. Fat-free, low-fat, or reduced-fat cheeses. Nonfat, low-sodium ricotta or cottage cheese. Low-fat or nonfat yogurt. Low-fat, low-sodium cheese. Fats and oils Soft margarine without trans fats. Vegetable oil. Low-fat, reduced-fat, or light mayonnaise and salad dressings (reduced-sodium). Canola, safflower, olive, soybean, and sunflower oils. Avocado. Seasoning and other foods Herbs. Spices. Seasoning mixes without salt. Unsalted popcorn and pretzels. Fat-free sweets. What foods are not recommended? The items listed may not be a complete list. Talk with your dietitian about what dietary choices are best for you. Grains Baked goods made with fat, such as croissants, muffins, or some breads. Dry pasta or rice meal packs. Vegetables Creamed or fried vegetables. Vegetables in a cheese sauce. Regular canned vegetables (not low-sodium or reduced-sodium). Regular canned tomato sauce and paste (not low-sodium or reduced-sodium). Regular tomato and vegetable juice (not low-sodium or reduced-sodium). Pickles. Olives. Fruits Canned fruit in a light or heavy syrup. Fried fruit. Fruit in cream or butter sauce. Meat and other protein foods Fatty cuts of meat. Ribs. Fried meat. Price. Sausage. Bologna and other processed lunch meats. Salami. Fatback. Hotdogs. Bratwurst. Salted nuts and seeds. Canned beans with added salt. Canned or smoked fish. Whole eggs or egg yolks. Chicken or turkey with skin. Dairy Whole or 2% milk, cream, and [id number]. Whole or full-fat cream cheese. Whole-fat or sweetened yogurt. Full-fat cheese. Nondairy creamers. Whipped toppings. Processed cheese and cheese spreads. Fats and oils Butter. Stick margarine. Lard. Shortening. Ghee. Price fat. Tropical oils, such as coconut, palm kernel, or palm oil. Seasoning and other foods Salted popcorn and pretzels. Onion salt, garlic salt, seasoned salt, table salt, and sea salt. Worcestershire sauce. Tartar sauce. Barbecue sauce. Teriyaki sauce. Soy sauce, including reduced-sodium. Steak sauce. Canned and packaged gravies. Fish sauce. Oyster sauce. Cocktail sauce. Horseradish that you find on the shelf. Ketchup. Mustard. Meat flavorings and tenderizers. Bouillon cubes. Hot sauce and Tabasco sauce. Premade or packaged marinades. Premade or packaged taco seasonings. Relishes. Regular salad dressings. Where to find more information: National Heart, Lung, and Blood [place]: www.nhlbi.nih.gov [place] [employer]: www.heart.org Summary The DASH eating plan is a healthy eating plan that has been shown to reduce high blood pressure (hypertension). It may also reduce your risk for type 2 diabetes, heart disease, and stroke. With the DASH eating plan, you should limit salt (sodium) intake to 2,300 mg a day. If you have hypertension, you may need to reduce your sodium intake to 1,500 mg a day. When on the DASH eating plan, aim to eat more fresh fruits and vegetables, whole grains, lean proteins, low-fat dairy, and heart-healthy fats. Work with your health care provider or diet and nutrition instructor (dietitian) to adjust your eating plan to your individual calorie needs. This information is not intended to replace advice given to you by your health care provider. Make sure you discuss any questions you have with your health care provider. Document Released: 02/15/2012 Document Revised: 02/08/2018 Document Reviewed: 02/19/2017 [employer] Patient Education 2020 [employer]. Follow Up Care 07/19/2021 15:46:16 With:Ryann Yu CNP Address: When:1 year Comments:or sooner if needed. [facility] 06-14-2021 Hospital Discharge instructions Patient Education 06/14/2021 09:17:16 EU - Cystoscopy with Urethral Dilation Discharge Instructions (CUSTOM) Cystoscopy with Urethral Dilation Voiding after the procedure: there may be some pain, urethral bleeding, burning, urgency, frequency and blood tinged urine following the procedure. These symptoms usually resolve within 2-5 days. Drink the amount of fluid it takes to keep the urine pink to yellow or clear in color. Drinking enough water and fluids will help to ease any discomfort after your procedure. If you are having problems that seem out of the ordinary, please call. If unable to contact your physician and you feel it is an emergency, go to the nearest emergency room or call 911 Diet you may resume your normal diet. Activity you may resume your normal activities Call if you have a fever over 100 degrees Follow Up Care 06/09/2021 13:58:30 With:Manish CHEN Address: [facility] [address], [place] [id number]- Business (1) When:12/14/2021 09:17:04 [facility] Evaluation + Plan note Future Appointments Appointment Date:06/13/2021 11:40:00 AM Scheduled Provider:Ryann Yu CNP Location:[facility] Appointment Type:FM Open Appointment Date:08/15/2021 12:15:00 PM Scheduled Provider:Manish CHEN MD Location:[facility] Appointment Type:URO Office Visit Future Scheduled TestsComprehensive Metabolic Panel 12/13/20Lipid Panel 12/13/20 [facility] Evaluation + Plan note Future Appointments Appointment Date:12/12/2021 12:15:00 PM Scheduled Provider:Manish CHEN MD Location:[facility] Appointment Type:URO Office Visit Future Scheduled TestsComprehensive Metabolic Panel 12/13/20Lipid Panel 12/13/20 [facility] Evaluation + Plan note Future Appointments Appointment Date:12/12/2021 12:15:00 PM Scheduled Provider:Manish CHEN MD Location:[facility] Appointment Type:URO Office Visit Appointment Date:07/24/2022 10:40:00 AM Scheduled Provider:Ryann Yu CNP Location:[facility] Appointment Type:FM Open Future Scheduled TestsComprehensive Metabolic Panel 07/21/21Comprehensive Metabolic Panel 12/13/20Lipid Panel 07/21/21Lipid Panel 12/13/20 [facility] Evaluation + Plan note Future Appointments Appointment Date:07/24/2022 10:40:00 AM Scheduled Provider:Ryann Yu CNP Location:[facility] Appointment Type:FM Open Appointment Date:10/30/2022 01:15:00 PM Scheduled Provider:Manish CHEN MD Location:[facility] Appointment Type:URO Office Visit Future Scheduled TestsComprehensive Metabolic Panel 07/21/21Comprehensive Metabolic Panel 12/13/20Lipid Panel 07/21/21Lipid Panel 12/13/20 [facility] Evaluation + Plan note Future Appointments Appointment Date:11/28/2022 02:30:00 PM Scheduled Provider:ALANIS VICKERS PA-C Location:[facility] Appointment Type:URO Office Visit [facility] Hospital course Narrative No data available for this section [facility] Hospital Discharge instructions No data available for this section [facility] Progress note No data available for this section [facility] Summary Purpose Family History No Family History Records FoundNo Family History Records Found No data available for this section No data available for this section No Family History Records Found Advance Directives No Advanced Directives Records FoundNo Advanced Directives Records FoundNo Advanced Directives Records Found Additional Source Comments INFORMATION SOURCE (unrecogn ized section and content) DATE CREATED AUTHOR 04/30/2021 [facility] DATE CREATED AUTHOR AUTHOR'S ORGANIZ ATION 11/20/2021 [facility] DATE CREATED AUTHOR AUTHOR'S ORGANIZ ATION 03/19/2023 [facility] Care Team (unrecognized sect ion and content) Personnel Name: Ryann Yu CNP Address: [address] [place] [id number] Personnel Name: Tasneem Buchanan Address: Address: [address] [place] [address]- Personnel Name: Tasneem Buchanan Address: Address: [address] [place] [address]- Personnel Name: Tasneem Buchanan Address: Address: [address] [place] [address]- FOR RECORDS PERTAINING TO PATIENTS WHO ARE OR HAVE BEEN ENROLLED IN A CHEMICAL DEPENDENCY/SUBSTANCEABUSE PROGRAM, SOME INFORMATION MAY BE OMITTED. This clinical summary was aggregated from multiple sources. Caution should be exercised in using it in the provision of clinical care. This summary normalizes information from multiple sources, and as a consequence, information in this document may materially change the coding, format and clinical context of patient data. In addition, data may be omitted in some cases. CLINICAL DECISIONS SHOULD BE BASED ON THE PRIMARY CLINICAL RECORDS. [facility] [employer] [facility]. provides no warranty or guarantee of the accuracy or completeness of information in this document.
== END 2023-04-19 11:03 | disposition home or self-care (01) ==
LOC: MAMMO 11:02
PROVIDERS: PCP Nurse Practitioner; Visit Provider Nurse Practitioner
DX: R92.8 Other abnormal and inconclusive findings on diagnostic imaging of breast (principal)
CPT/HCPCS: 77065; G0279

== ENCOUNTER 2023-09-17 11:00 | Outpatient (OUT) | payer OTHER, SELFPAY ==
--- NOTE | 2023-09-17 11:02 | MM_ITS ---
Patient Name: NORA DIAZ MR#: [id number] : 1965 Exam Date: 09/17/2023 Ordering Doctor: ARSENIO JAQUEZ . RADIOLOGY REPORT PROCEDURE: MM TOMOSYNTHESIS SCREENING BI COMPARISON: MM DIAGNOSTIC MAMMO UNILAT LT, 09/19/2022. MM TOMOSYNTHESIS DIAGNOSTIC LT, 04/19/2023. INDICATIONS: Screening Calculator Name NCI Breast Cancer Risk Assessment Tool 5 Year Breast Cancer Risk 0.90% Lifetime Breast Cancer Risk 5.10% Personal Breast Cancer No Personal Ovarian Cancer No Treatments None Family Cancers None LOCATION: [facility] BREAST COMPOSITION: The breasts are heterogeneously dense,which may obscure small masses. FINDINGS: DIAGNOSTIC CATEGORY 2--BENIGN FINDING. NO CHANGE FROM COMPARISON. This exam includes additional mammographic views for implant evaluation and shows no visible implant abnormality. Scattered benign-appearing calcifications are present. Scattered benign-appearing lymph nodes are present. RIGHT BREAST: No significant suspicious finding. LEFT BREAST: No significant suspicious finding. RECOMMENDATIONS: ROUTINE MAMMOGRAM AND CLINICAL EVALUATION IN 12 MONTHS. PLEASE NOTE: A NORMAL MAMMOGRAM DOES NOT EXCLUDE THE POSSIBILITY OF BREAST CANCER. A CLINICALLY SUSPICIOUS PALPABLE LUMP SHOULD BE BIOPSIED. Dictated by: Bryan Crenshaw MD on 09/17/2023 at 15:03 Approved by: Bryan Crenshaw MD on 09/17/2023 at 15:13
--- OUTSIDE RECORDS SUMMARY | 2023-09-17 11:22 | XMS_ITS | CCD ---
Author Organization [facility] Care Team Providers Care [employer] Supervisor Name Role Phone Celia SIMMS Primary Care Physician Ryann Yu Primary Care Physician BERTHA, DR THAIS Devries Admitting Unavailable WEST, DR THAIS Devries Attending Unavailable CELIA SIMMS Primary Care Unavailable BERTHA, DR THAIS Devries Consulting Unavailable [facility], DR ROMERO Admitting Unavailable MISC, DR ROMERO Attending Unavailable CELIA SIMMS Primary Care Unavailable MISC, DR ROMERO Consulting Unavailable Tasneem Mcmahan Primary Care Physician [phone] ALANIS VICKERS Attending Unavailable MarjTasneem booth Attending Unavailable MarjTasneem booth Admitting Unavailable ALANIS VICKERS Attending Unavailable MarjTasneem booth Attending Unavailable Ryann Yu Attending Unavailable RANCHOALANIS NATHAN Attending Unavailable RANCHOALANIS NATHAN Admitting Unavailable ALANIS VICKERS Attending Unavailable Medications Current Medications Medication Drug Class(es) Dates Sig (Normalized) Sig (Original) amLODIPine 5 mg oral tablet (8 sources) Dihydropyridine Calcium Channel Scarlett Start: 08-17-2022 take 1 tablet by mouth once daily amLODIPine 5 mg Tab 5 mg = 1 tab(s), Oral, Daily, # 90 tab(s), Refills(s) 3, Pharmacy: [facility]/pharmacy #[id number], 160.4, cm, 08/17/22 15:18:00 EDT, Height/Length Dosing, 68.9, kg, 08/17/22 15:18:00 EDT, Weight Dosing Start Date: 08/17/22 Status: Ordered Start: 12-13-2020 End: 07-16-2022 take 1 tablet by mouth once daily amLODIPine 5 mg Tab 5 mg = 1 tab(s), Oral, Daily, X 90 day(s), # 90 tab(s), Refills(s) 3, Pharmacy: [facility]/pharmacy #[id number], 160, cm, 07/21/21 9:41:00 EDT, Height/Length [...] day(s), # 90 tab(s), Refills(s) 3, Pharmacy: [facility]/pharmacy #[id number], 160.4, cm, 08/17/22 15:18:00 EDT, Height/Length Dosing, 68.9, kg, 08/17/22 15:18:00 EDT, Weight Dosing Start Date: 08/17/22 Stop Date: 08/12/23 Status: Ordered Start: 02-10-2020 take 1 tablet by juanpablo th once daily Wellbutrin SR 150 mg Tab-ER 150 mg = 1 tab(s), Oral, Daily, # 90 tab(s), Refills(s) 3, [facility], 162, cm, 02/10/20 14:47:00 EST, Height/Length Dosing, 59.6, kg, 02/10/20 14:47:00 EST, Weight Dosing Start Date: 02/10/20 Status: Ordered clonazePAM 0.5 mg oral tablet (2 sources) Benzodiazepine Start: 11-28-2022 ClonazePAM 0.5 mg Tab Refills(s) 0 Start Date: 11/28/22 Status: Ordered estradiol 0.1 mg/ml vaginal cream (7 sources) Estrogen Start: 11-28-2022 estradiol 0.1 mg/g Vag Crm 1 gm, Vaginal, MonFri, 42.5 gm, Refill(s) 3, [facility]/pharmacy #[id number], 160, cm, 11/28/22 14:40:00 EDT, Height/Length Dosing, 66, kg, 11/28/22 14:40:00 EDT, Weight Dosing Start Date: 11/28/22 Status: Ordered Start: 04-21-2022 estradiol 0.1 mg/g Vag Crm 1 gm, Vaginal, MonFri, 42.5 gm, Refill(s) 3, [facility]/pharmacy #[id number], 160, cm, 12/12/21 12:41:00 EDT, Height/Length Dosing, 70.7, kg, 12/12/21 12:41:00 EDT, Weight Dosing Start Date: 04/21/22 Status: Ordered Start: 07-21-2021 take 1 tablet by juanpablo th once daily estradiol 1 mg Tab TAKE 1 TABLET BY MOUTH EVERY DAY Start Date: 07/21/21 Status: Ordered Start: 10-05-2020 estradiol 0.1 mg/g vaginal cream 1 gm, Vaginal, MonFri, # 42.5 gm, Refills(s) 5, Pharmacy: [facility]/pharmacy #[id number], 160, cm, 09/22/20 13:28:00 EDT, Height/Length Dosing, 58, kg, 09/22/20 13:28:00 EDT, Weight Dosing Start Date: 10/05/20 Status: Ordered estradiol 0.1 mg/g vaginal cream (4 sources) Start: 10-05-2020 estradiol 0.1 mg/g vaginal cream 1 gm, Vaginal, MonFri, # 42.5 gm, Refills(s) 5, Pharmacy: [facility]/pharmacy #[id number], 160, cm, 09/22/20 13:28:00 EDT, Height/Length [...] for 5 day(s), 10 tab(s), Refill(s) 0, [facility]/pharmacy #[id number], 160, cm, 11/28/22 14:40:00 EDT, Height/Length [...] hours, # 9 tab(s), Refills(s) 1, [id number], cm, 07/21/21 9:41:00 EDT, Height/Length Dosing, 70.7, kg, 07/21/21 9:41:00 EDT, Weight Dosing Start Date: 07/21/21 Status: Ordered Start: 07-19-2020 Imitrex 100 mg Tab 100 mg = 1 tab(s), Oral, As Directed, PRN Headache, may repeat dose once in 2 hours, # 9 tab(s), Refills(s) 1, [id number] 160, cm, 07/16/20 11:04:00 EDT, [...] procedure, # 2 cap(s), Refills(s) 0, Pharmacy: [facility]/pharmacy #[id number], 160, cm, 06/10/21 12:38:00 EDT, Height/Length Dosing, 64.9, kg, 05/18/21 14:26:00 EST, Paolo... Start Date: 06/10/21 Status: Ordered Problems [...] Test Name Value Interpretation Reference Range Facility Outside Mammographyon 2023 Outside Mammography [id number] [facility] C Urineon 03-17-2023 Bacteria identified Cx Nom [...] Locations R1: This test was performed at: [facility], [address] [place] [address], [address] [place] [address], [facility] Comment on above: Performed By: #### 2 [id number] #### [facility] [address] [place] [address] Ambulatory Visit Summaryon 0 03-15-2023 Ambulatory Visit Summary NORA DIAZ :1965 Visit Date:03/15/2023 Ambulatory Visit Instructions Your [...] for choosing us for your care. Normal [facility] ED Note-Physicianon 02-13-20 ED Note-Physician [id number] [facility] Patient Educationon 11-29-19 Patient Education Obstetrics and [...] these instructions at home: Medicines ? Take [id number] and prescription medicines only as told by [...] provider. Document Revised: 10/08/2020 Document Reviewed: 10/08/2020 [employer] Patient Education ? 2022 [employer]. Normal [facility] Urology Office/Clinic Noteon 11-28-2022 Urology Office/Clinic Note Chief Complaint 10m f/u HPI Staff PRW pt 10m DX: Frequent UTI, Urethral Stricture, Nocturia *Estradiol 1gm 3x/wk from COMPUTER HEL[employer] DESK SPECIALIST, reduced to 2x/wk at last encounter Denies [...] Pt states that she does see her COMPUTER HELP DESK SPECIALIST regularly. Discussed starting an as needed f/u basis and have her COMPUTER HELP DESK SPECIALIST handle her refills for the Estradiol cream. Pt states that she would be okay with this. Advised pt that if her sxs come back, she can call our office and have an appt set up. -Will send refill for Estradiol cream to pharm on file. -Pt will f/u w/COMPUTER HELP DESK SPECIALIST and PCP from now on. 2. Other [...] When Contact Information ALANIS VICKERS PA-C, URL [address] [address] Additional Instructions: PRN Patient Education Urinary Tract Infection, Adult, [id number] I, Deisy Johns, personally scribed for Alanis Vickers PA-C on [...] inactivated 12/18/2019 (more content not included)... Normal [facility] Comment on above: Result Comment: Elec tronically Signed By: ALANIS VICKERS PA-C\.br\Date and Time Signed: 11/28/22 15:03 EDT\.br\Electronically Co-Signed By: Deisy Johns\.br\Date and Time Co-Signed: 11/28/22 15:01 EDT Outside Mammographyon 2022 Outside Mammography [id number]#[id number]:127 Normal [facility] RAD - MISCon 09-06-2022 RAD - MISC [id number]#[id number]:127 Normal [facility] T3 Freeon 08-19-2022 Free T3 [Mass/Vol] 2.7 pg/mL Invalid Interpretation Code 2.0-4.4 [facility] Comment on above: Result Comment: Perf ormed at: [facility] [id number] [place], [place] [id number] PhD Saundra Dempsey Performed By: #### 2 828899, 3519688, 7841476, 0978459, 0917927, 01703021, 9499469, 0259463 #### [facility] [address] [place] [address] Reminderson 08-18-2022 Reminders - From: Tasneem Buchanan [...] 37.3 % (14.0 - 50.0) 08/17/2022 15:59 Hardy Auto 9.7 % (4.0 - 14.0) 08/17/2022 15:59 Eos Auto 1.4 % (0.0 - 8.0) 08/17/2022 15:59 Basophil Auto 0.7 % (0.0 - 2.0) 08/17/2022 15:59 Neutro Absolute 2.6 E9/L (2.0 - 7.5) 08/17/2022 15:59 Lymph Absolute 1.9 E9/L (1.0 - 4.0) 08/17/2022 15:59 Hardy Absolute 0.5 E9/L (0.2 - 1.0) 08/17/2022 [...] 1.64) Notified patient labs were normal Normal [facility] Ambulatory Visit Summaryon 0 08-17-2022 Ambulatory [...] Follow-Up Appointments Sunday 1:15 PM EDT With: APRIL CRENSHAW, Manish Villafuerte Where: [facility] Normal [facility] Auto Diffon 08-17-2022 Basophils/100 WBC (Bld) 0.7 % Normal 0.0-2.0 [facility] Comment on above: Order Comment: Order Added by Discern Expert. Performed By: #### 2 762636, 4918160, 1975994, 8649334, 6949042, 30265783, 6377004, 9803017 #### [facility] [address] [place] [address] Basophils/Leukocyte s Auto (Bld) [Pure # fraction] 0.0 E9/L Normal 0.0-0.2 [facility] Comment on above: Order Comment: Order Added by Discern Expert. Performed By: #### 2 420480, 7181742, 3654148, 2823862, 5600689, 65146394, 6257614, 1317425 #### [facility] [address] [place] [address] Eosinophils/100 WBC (Bld) 1.4 % Normal 0.0-8.0 [facility] Comment on above: Order Comment: Order Added by Discern Expert. Performed By: #### 2 660278, 9898368, 5552267, 9785683, 1264295, 69893543, 7415092, 1197263 #### [facility] [address] [place] [address] Eosinophils/Leukocy cipriano Auto (Bld) [Pure # fraction] 0.1 E9/L Normal 0.0-0.5 [facility] Comment on above: Order Comment: Order Added by Discern Expert. Performed By: #### 2 502220, 0790760, 6669829, 4861591, 7835666, 50473022, 7097810, 1647241 #### [facility] [address] [place] [address] Lymphocytes/100 WBC (Bld) 37.3 % Normal 14.0-50.0 [facility] Comment on above: Order Comment: Order Added by Discern Expert. Performed By: #### 2 262952, 4270269, 0884901, 5175419, 6338743, 91576224, 7538745, 0702949 #### [facility] [address] [place] [address] Lymphocytes/Leukocy cpiriano Auto (Bld) [Pure # fraction] 1.9 E9/L Normal 1.0-4.0 [facility] Comment on above: Order Comment: Order Added by Discern Expert. Performed By: #### 2 602610, 7619597, 0581444, 0871994, 8073492, 74388286, 0246720, 7219983 #### [facility] [address] [place] [address] Monocytes/100 WBC (Bld) 9.7 % Normal 4.0-14.0 [facility] Comment on above: Order Comment: Order Added by Discern Expert. Performed By: #### 2 391735, 5289874, 1789006, 8214741, 2232889, 61383315, 0933986, 0130727 #### [facility] [address] [place] [address] Monocytes/Leukocyte s Auto (Bld) [Pure # fraction] 0.5 E9/L Normal 0.2-1.0 [facility] Comment on above: Order Comment: Order Added by Discern Expert. Performed By: #### 2 622775, 7145734, 8909388, 5628309, 7078722, 22200834, 3850879, 2939136 #### [facility] [address] [place] [address] Neutrophils/100 WBC (Bld) 50.9 % Normal 36.0-75.0 [facility] Comment on above: Order Comment: Order Added by Discern Expert. Performed By: #### 2 847745, 3886146, 4421463, 7006027, 7660613, 46511749, 5348755, 1166366 #### [facility] [address] [place] [address] Neutrophils/Leukocy cipriano Auto (Bld) [Pure # fraction] 2.6 E9/L Normal 2.0-7.5 [facility] Comment on above: Order Comment: Order Added by Discern Expert. Performed By: #### 2 130810, 9550900, 3004924, 4203467, 7872540, 69608988, 4545598, 6361290 #### [facility] [address] [place] [address] CBC w/ Auto Diffon 3 Erythrocyte distribution width (RBC) [Ratio] 13.4 % Normal 10.9-14.2 [facility] Comment on above: Performed By: #### 2 051113, 1053584, 1068056, 6746130, 6324271, 08804929, 5773853, 8769519 #### [facility] [address] [place] [address] Hematocrit (Bld) [Volume fraction] 40.2 % Normal 34.0-46.0 [facility] Comment on above: Performed By: #### 2 842593, 0877797, 6487004, 1489174, 8053546, 36450930, 5989620, 0856930 #### [facility] [address] [place] [address] Hemoglobin (Bld) [Mass/Vol] 13.7 g/dL Normal 12.0-16.0 [facility] Comment on above: Performed By: #### 2 327547, 5455883, 7569098, 7722768, 0881604, 50080631, 2075968, 2849173 #### [facility] [address] [place] [address] MCH (RBC) [Entitic mass] 34.7 pg High 27.0-34.0 [facility] Comment on above: Performed By: #### 2 659356, 1919616, 1160839, 2264251, 1380620, 72954565, 6585758, 9262893 #### [facility] [address] [place] [address] MCHC (RBC) [Mass/Vol] 34.0 g/dL Normal 31.4-36.0 [facility] Comment on above: Performed By: #### 2 080675, 8284318, 4471053, 5157227, 2363746, 46040956, 1319672, 8032575 #### [facility] [address] [place] [address] MCV (RBC) [Entitic vol] 101.9 fL High 80.0-100.0 [facility] Comment on above: Performed By: #### 2 512237, 9706723, 1087650, 5430803, 8038828, 30818461, 1891599, 3620900 #### [facility] [address] [place] [address] Platelet mean volume (Bld) [Entitic vol] 8.3 fL Normal 6.4-10.8 [facility] Comment on above: Performed By: #### 2 093221, 1060761, 8912891, 6755901, 4256528, 72175816, 8324225, 0218742 #### [facility] [address] [place] [address] Platelets (Bld) [#/Vol] 286.0 E9/L Normal 150.0-500.0 [facility] Comment on above: Performed By: #### 2 091016, 5408993, 7902397, 1918467, 4500808, 00476757, 9683245, 4381309 #### [facility] [address] [place] [address] RBC (Bld) [#/Vol] 3.9 E12/L Low 4.3-5.9 [facility] Comment on above: Performed By: #### 2 623104, 7117857, 2045293, 6200020, 5045186, 15347518, 4869918, 0964695 #### [facility] [address] [place] [address] WBC corrected for nucl RBC Auto (Bld) [#/Vol] 5.0 E9/L Normal 4.0-11.0 [facility] Comment on above: Performed By: #### 2 523753, 1520910, 6894170, 2384854, 0769952, 13827071, 2000261, 8629616 #### [facility] [address] [place] [address] CMPon 08-17-2022 Albumin [Mass/Vol] 4.1 g/dL Normal 3.3-5.0 [facility] Comment on above: Performed By: #### 2 347688, 3501278, 2283406, 9479743, 3272842, 61869648, 1004373, 8622183 #### [facility] [address] [place] [address] Albumin/Globulin (S) [Mass conc ratio] 1.3 Normal 1.1-2.2 [facility] Comment on above: Performed By: #### 2 278726, 5851191, 1408365, 9472149, 1806264, 57506511, 4160306, 8450783 #### [facility] [address] [place] [address] ALP [Catalytic activity/Vol] 46 Int._Unit/L Normal 21-98 [facility] Comment on above: Performed By: #### 2 702944, 2066547, 7654584, 9120978, 8904391, 08101174, 9958211, 1891034 #### [facility] [address] [place] [address] ALT No additional P-5'-P [Catalytic activity/Vol] 16 Int._Unit/L Normal 6-46 [facility] Comment on above: Performed By: #### 2 366537, 3044117, 9077666, 5797121, 9507492, 58844089, 2540529, 8837210 #### [facility] [address] [place] [address] Anion gap [Moles/Vol] 13 mmol/L Normal 6-16 [facility] Comment on above: Performed By: #### 2 001841, 2150730, 4074191, 9043464, 5782702, 84731006, 4584326, 2445600 #### [facility] [address] [place] [address] AST [Catalytic activity/Vol] 21 Int._Unit/L Normal 5-43 [facility] Comment on above: Performed By: #### 2 498845, 4761863, 1354407, 1506889, 3899939, 23914649, 1047380, 0258363 #### [facility] [address] [place] [address] Bilirubin [Mass/Vol] 0.3 mg/dL Normal 0.0-1.1 [facility] Comment on above: Performed By: #### 2 901641, 4310428, 0631491, 5316655, 8844736, 45006490, 5588133, 7687638 #### [facility] [address] [place] [address] Calcium [Mass/Vol] 9.6 mg/dL Normal 8.9-11.1 [facility] Comment on above: Performed By: #### 2 666468, 4661244, 0039406, 4828889, 7344163, 09374401, 8613272, 0151371 #### [facility] [address] [place] [address] Chloride [Moles/Vol] 106 mmol/L Normal 101-111 [facility] Comment on above: Performed By: #### 2 524503, 7996663, 3518528, 3280446, 6083053, 87612584, 3982475, 2668287 #### [facility] [address] [place] [address] CO2 [Moles/Vol] 26 mmol/L Normal 21-31 [facility] Comment on above: Performed By: #### 2 135382, 6737817, 1812985, 3966365, 8648604, 22123766, 6554077, 4112720 #### [facility] [address] [place] [address] Creatinine [Mass/Vol] 0.8 mg/dL Normal 0.5-1.3 [facility] Comment on above: Performed By: #### 2 077163, 1857969, 2667524, 0247507, 3486758, 49980657, 2684689, 7835470 #### [facility] [address] [place] [address] Globulin (S) [Mass/Vol] 3.2 g/dL Normal 1.4-4.0 [facility] Comment on above: Performed By: #### 2 771889, 3659742, 7901071, 4039472, 7151405, 76368725, 5934772, 2060291 #### [facility] [address] [place] [address] Glucose [Mass/Vol] 95 mg/dL Normal 55-199 [facility] Comment on above: Result Comment: If t his glucose result represents a fasting glucose, interpretation should refer to the following reference range: 55-99 mg/dL Performed By: #### 2 484737, 8492964, 1334353, 8311564, 8514872, 06315193, 7190611, 2841430 #### [facility] [address] [place] [address] Potassium [Moles/Vol] 3.9 mmol/L Normal 3.5-5.3 [facility] Comment on above: Performed By: #### 2 257650, 7930985, 8397133, 0056435, 7960626, 79083437, 8627070, 4838841 #### [facility] [address] [place] [address] Protein [Mass/Vol] 7.3 g/dL Normal 6.0-7.8 [facility] Comment on above: Performed By: #### 2 911257, 0890825, 0566287, 9601339, 7927620, 76331260, 9087866, 1736362 #### [facility] [address] [place] [address] Sodium [Moles/Vol] 141 mmol/L Normal 135-145 [facility] Comment on above: Performed By: #### 2 442420, 9081388, 3260333, 0386952, 8825729, 83894317, 1647409, 9494738 #### [facility] [address] [place] [address] Urea nitrogen [Mass/Vol] 15 mg/dL Normal 5-21 [facility] Comment on above: Performed By: #### 2 750019, 5474268, 0264061, 1731195, 0715148, 66576608, 4023188, 4628120 #### [facility] [address] [place] [address] Urea nitrogen/Creatinine [Mass ratio] 19 No Units Normal 10-20 [facility] Comment on above: Performed By: #### 2 561091, 3606650, 6830708, 0674127, 0130215, 27794626, 3296671, 9168889 #### [facility] [address] [place] [address] Family Medicine Office/Clini c Noteon 08-17-2022 Family Medicine Office/Clinic Note Chief Complaint pt here to establish care HPI Staff Nora is at 57 year old female presenting today to establish care Establish Care: History: Any previous diagnosis: Migraines, Depression History of seeing any specialist: OB- Dr April Ray urology When was your last doctors visit: [...] for mamm and chest xray faxed to [facility]. will notify pt of all results. [...] breast) mammogram ordered. to be done at [facility] Ordered: CBC w/ Auto Diff Comprehensive [...] Daily, # 90 tab(s), Refills(s) 3, Pharmacy: [facility]/pharmacy #6177, 160.4, cm, 08/17/22 15:18:00 EDT, Height/Length Dosing, 68.9, kg, 08/17/22 15:18:00 EDT, Weight Dosing buPROPion, 150 mg = 1 tab(s), Oral, Daily, X 90 day(s), # 90 tab(s), Refills(s) 3, Pharmacy: [facility]/pharmacy #6177, 160.4, cm, 08/17/22 15:18:00 EDT, Height/Length Dosing, 68.9, kg, 08/17/22 15:18:00 EDT, Weight Dosing buPROPion, 150 mg = 1 tab(s), Oral, Daily, # 90 tab(s), Refills(s) 3, Pharmacy: [facility] (more content not included)... Normal [facility] Comment on above: Result Comment: Elec tronically Signed By: Tasneem Buchanan\.br\Date and Time Signed: 08/17/22 15:57 EDT Free T4on 08-17-2022 Free T4 [Mass/Vol] 1.08 ng/dL Normal 0.58-1.64 [facility] Comment on above: Performed By: #### 2 699068, 7416792, 5090437, 8578282, 7147894, 20261031, 3355806, 1103979 #### [facility] [address] [place] [address] Lipid Panelon 08-17-2022 Cholesterol [Mass/Vol] 198 mg/dL Normal 120-200 [facility] Comment on above: Performed By: #### 2 417006, 5661206, 6707170, 7777968, 2235230, 36211292, 8620021, 5781303 #### [facility] [address] [place] [address] Cholesterol in HDL [Mass/Vol] 63 mg/dL Invalid Interpretation Code [facility] Comment on above: Result Comment: HDL > or equal to 60 mg/dL: Low cardiovascular risk HDL < 40 mg/dL : High cardiovascular risk Performed By: #### 2 488100, 5281062, 3297893, 7476688, 8746099, 05675693, 9789145, 8426476 #### [facility] [address] [place] [address] Cholesterol in LDL [Mass/Vol] 113 mg/dL Normal <=129 [facility] Comment on above: Performed By: #### 2 765897, 4411612, 1366360, 8064100, 0887900, 86975804, 7184572, 6214540 #### [facility] [address] [place] [address] Cholesterol in VLDL [Mass/Vol] 16 mg/dL Normal 7-40 [facility] Comment on above: Performed By: #### 2 371082, 2911737, 5920944, 5404658, 9398649, 92242153, 5830284, 5160032 #### [facility] [address] [place] [address] Triglyceride [Mass/Vol] 82 mg/dL Normal <=149 [facility] Comment on above: Performed By: #### 2 398215, 4570420, 1552731, 3461345, 2880228, 56205352, 9599751, 7462584 #### [facility] [address] [place] [address] TSHon 08-17-2022 TSH Qn 1.34 m[IU]/L Normal 0.34-5.60 [facility] Comment on above: Performed By: #### 2 222811, 6882437, 9635849, 0329251, 1304776, 35095994, 0557892, 0245395 #### [facility] [facility] [address] [place] [address] eGFRon 08-17-2022 GFR/1.73 sq M.predicted among non-blacks MDRD (S/P/Bld) [Vol rate/Area] 86 mL/min/1.73 m2 Normal >=59 [facility] Comment on above: Order Comment: Order added by Discern Expert. Result Comment: Can Doffer enrique kidney disease could be indicated at eGFR's of less than 60 mL/min/1.73m2. Kidney failure is indicated at less than 15 mL/min/1.73m2. Performed By: #### 2 [id number], [id number], [id number], [id number], [id number], [id number], [id number], [id number] #### [facility] [address] [place] [address] ESTRADIOLon 11-17-2021 Estradiol 83.6 pg/mL Normal [facility] Comment on above: Result Comment: Adul t Female: Follicular phase 12.5 - 166.0 Ovulation phase 85.8 - 498.0 Luteal phase 43.8 - 211.0 Postmenopausal <6.0 - 54.7 1st trimester 215.0 - >4300.0 Latasha ECLIA methodology Performed By: #### Luzmaria HENDERSON #### [facility] [address] [place] [address] Dr. Darryl Trammell FSHon 11-17-2021 FSH 38.1 mIU/mL Normal [facility] Comment on above: Result Comment: Adul t Female: Follicular phase 3.5 - 12.5 Ovulation phase 4.7 - 21.5 Luteal phase 1.7 - 7.7 Postmenopausal 25.8 - 134.8 Performed By: #### L BCFSH #### [facility] [address] [place] [address] Dr. Darryl Trammell TESTOSTERONE, TOTALon 2021 Testosterone [Mass/Vol] 286 ng/dL Critically high 4-50 [facility] Comment on above: Performed By: #### T ESTTOT #### [facility] [address] [place] [address] Dr. Darryl Trammell CBC AUTO DIFFon 11-16-2021 BASO # 0.0 103/ul Normal 0.0-0.1 [facility] Comment on above: Performed By: #### C BC #### [facility] [address] [place] [address] Dr. Darryl Trammell Basophils/100 WBC (Bld) 0.8 % Normal 0.2-2.0 [facility] Comment on above: Performed By: #### C BC #### [facility] [address] [place] [address] Dr. Darryl Trammell EO # 0.2 103/ul Normal 0.0-0.7 [facility] Comment on above: Performed By: #### C BC #### [facility] [address] [place] [address] Dr. Darryl Trammell Eosinophils/100 WBC (Bld) 3.9 % Normal 0.9-7.0 [facility] Comment on above: Performed By: #### C BC #### [facility] [address] [place] [address] Dr. Darryl Trammell Erythrocyte distribution width (RBC) [Ratio] 12.2 % Normal 11.0-15.0 [facility] Comment on above: Performed By: #### C BC #### [facility] [address] [place] [address] Dr. Draryl Trammell Hematocrit (Bld) [Volume fraction] 42.4 % Normal 36.0-48.0 [facility] Comment on above: Performed By: #### C BC #### [facility] [address] [place] [address] Dr. Darryl Trammell Hemoglobin (Bld) [Mass/Vol] 14.1 g/dL Normal 12.0-16.0 [facility] Comment on above: Performed By: #### C BC #### [facility] [address] [place] [address] Dr. Darryl Trammell IG # 0.01 10e3/ul Normal 0.00-0.03 [facility] Comment on above: Performed By: #### C BC #### [facility] [address] [place] [address] Dr. Darryl Trammell IG % 0.2 % Normal 0.0-0.5 [facility] Comment on above: Performed By: #### C BC #### [facility] [address] [place] [address] Dr. Darryl Trammell LYMPH # 2.5 103/ul Normal 1.2-3.8 [facility] Comment on above: Performed By: #### C BC #### [facility] [address] [place] [address] Dr. Darryl Trammell Lymphocytes/100 WBC (Bld) 48.9 % Normal 20.5-60.0 [facility] Comment on above: Performed By: #### C BC #### [facility] [address] [place] [address] Dr. Darryl Trammell MANUAL DIFF REQ NO Normal [facility] Comment on above: Performed By: #### C BC #### [facility] [address] [place] [address] Dr. Darryl Trammell MCH (RBC) [Entitic mass] 32.7 pg Normal 26.7-34.0 [facility] Comment on above: Performed By: #### C BC #### [facility] [address] [place] [address] Dr. Darryl Trammell MCHC (RBC) [Mass/Vol] 33.3 g/dL Normal 29.9-35.2 [facility] Comment on above: Performed By: #### C BC #### [facility] [address] [place] [address] Dr. Darryl Trammell MCV (RBC) [Entitic vol] 98.4 fL Normal 81.0-99.0 [facility] Comment on above: Performed By: #### C BC #### [facility] [address] [address] [address] Darryl Trammell MONO # 0.5 103/ul Normal 0.3-0.8 [facility] Comment on above: Performed By: #### C BC #### [facility] [address] [address] [address] Darryl Trammell Monocytes/100 WBC (Bld) 9.6 % Normal 1.7-12.0 [facility] Comment on above: Performed By: #### C BC #### [facility] [address] [address] [address] Darryl Trammell NEUT # 1.9 103/ul Normal 1.4-6.5 [facility] Comment on above: Performed By: #### C BC #### [facility] [address] [place] [address] Dr. Darryl Trammell Neutrophils/100 WBC (Bld) 36.6 % Critically low 43.0-75.0 [facility] Comment on above: Performed By: #### C BC #### [facility] [address] [place] [address] Dr. Darryl Trammell Platelet mean volume (Bld) [Entitic vol] 10.1 fL Normal 9.5-13.5 [facility] Comment on above: Performed By: #### C BC #### [facility] [address] [place] [address] Dr. Darryl Trammell PLT 262 103/ul Normal 150-450 [facility] Comment on above: Performed By: #### C BC #### [facility] [address] [place] [address] Dr. Darryl Trammell RBC 4.31 106/ul Normal 4.20-5.40 [facility] Comment on above: Performed By: #### C BC #### [facility] [address] [place] [address] Dr. Darryl Trammell WBC 5.1 103/ul Normal 4.0-11.0 [facility] Comment on above: Performed By: #### C BC #### [facility] [address] [address] [address] Darryl Trammell GLUCOSE BLOODon 11-16-2021 Glucose [Mass/Vol] 80 mg/dL Normal 74-106 [facility] Comment on above: Performed By: #### T SH, LIPID, GLUC #### [facility] [address] [address] [address] Darryl Trammell LIPID PROFILEon 11-16-2021 CHOL-HDL RATIO NORM SEE BELOW Normal [facility] Comment on above: Result Comment: 3.3 - 4.4 LOW RISK 4.4 - 7.1 AVERAGE RISK 7.1 - 11.0 MODERATE RISK >11.0 HIGH RISK Performed By: #### T SH, LIPID, GLUC #### [facility] [address] [address] [address] Darryl Trammell Cholesterol [Mass/Vol] 201 mg/dL Critically high <=200 [facility] Comment on above: Performed By: #### T SH, LIPID, GLUC #### [facility] [address] [address] [address] Darryl Trammell Cholesterol in HDL [Mass/Vol] 72 mg/dL Critically high 40-60 [facility] Comment on above: Performed By: #### T SH, LIPID, GLUC #### [facility] [address] [address] [address] Darryl Trammell Cholesterol in LDL [Mass/Vol] 113.0 mg/dL Normal [facility] Comment on above: Performed By: #### T SH, LIPID, GLUC #### [facility] [address] [address] [address] Darryl Trammell Cholesterol.total/C holesterol in HDL [Mass ratio] 2.8 {ratio} Normal [facility] Comment on above: Performed By: #### T SH, LIPID, GLUC #### [facility] [address] [address] [address] Darryl Trammell HDL NORMAL > or = 60 mg/dl - LO W CARDIOVASCULAR RISK <40 mg/dl - HIGH CARDIOVASCULAR RISK Normal [facility] Comment on above: Performed By: #### T SH, LIPID, GLUC #### [facility] [address] [address] [address] Darryl Trammell LDL CALC NORMAL SEE BELOW Normal [facility] Comment on above: Result Comment: <100 mg/dl OPTIMAL 100 - 129 mg/dl NEAR OR ABOVE OPTIMAL 130 - 159 mg/dl BORDERLINE HIGH 160 - 189 mg/dl HIGH >190 mg/dl VERY HIGH Performed By: #### T SH, LIPID, GLUC #### [facility] [address] [place], [place] [address] Dr. Darryl Trammell Triglyceride [Mass/Vol] 80 mg/dL Normal <=150 [facility] Comment on above: Performed By: #### T SH, LIPID, GLUC #### [facility] [address] [address] [address] Darryl Trammell VLDL CALC 16.0 mg/dL Normal [facility] Comment on above: Performed By: #### T SH, LIPID, GLUC #### [facility] [address] [place], [place] [address] Dr. Darryl Trammell TSHon 11-16-2021 TSH 1.999 uIU/mL Normal 0.358-3.740 [facility] Comment on above: Performed By: #### T SH, LIPID, GLUC #### [facility] [address] [address] [address] Darryl Trammell CHEMISTRYOrdered By: Pablo mejia on 05-31-2021 Albumin Elph (U) [Mass fraction] 10.4 mg/dL Invalid Interpretation Code FT Remisol Creatinine (U) [Mass/Vol] 63.3 mg/dL Invalid Interpretation Code FT Remisol U Prot/Creat Ratio 164.30 mg/gm Cr Normal 0.00 - 200.00 mg/gm Cr FT Remisol CHEMISTRYOrdered By: SYSTEM SYSTEM on 05-31-2021 25-hydroxyvitamin D3 [Mass/Vol] 55.6 [...] rate/Area] mL/min/1.73 m2 Normal >=59mL/min/ 1.73 m2 FT Chem S Glucose [Mass/Vol] 101 mg/dL Normal 55 - 199 mg/dL [facility] Remisol Phosphate [Mass/Vol] 3.1 mg/dL Normal 1.9 - 4.6 mg/dL [facility] Remisol Potassium [Moles/Vol] 4.3 mmol/L Normal 3.5 [...] PM) Normal Negative FT UA Auto SS Ketones (U) [Mass/Vol] Negative (05/31/21 3:05 PM) Normal Negative [facility] UA Auto SS [place].plasma/Lith ium.RBC (Bld) [Mass ratio] 0-3 /HPF Normal 0-3/HPF [facility]A Auto SS Nitrite Ql (U) Negative (05/31/21 3:05 PM) Normal Negative [facility] UA Auto SS pH (U) 8.0 *NA* (05/31/21 3:05 PM) Invalid Interpretation Code 5.0 - 9.0 [facility] UA Auto SS Phosphate crystals amorphous LM Ql (Urine sed) Present (05/31/21 3:05 PM) Normal [facility] Auto SS Protein (U) [Mass/Vol] Negative (05/31/21 3:05 PM) Normal Negative [facility]A Auto SS Specific gravity (U) [Rel density] 1.015 *NA* (05/31/21 3:05 PM) Invalid Interpretation Code 1.005 - 1.030 FT UA Auto SS UA Spec Desc Clean Catch (05/31/21 3:05 PM) Normal [facility] [place]A Auto SS Urobilinogen Qn (U) 0.2671919 {Mayra'U}/dL Normal 0.0 - 1.0 EU/dL FT UA Auto SS WBC Auto Ql (U) Negative (05/31/21 3:05 PM) Normal Negative [facility] UA Auto SS WBC LM.HPF (Urine sed) [#/Area] 0-5 /HPF Normal 0-5/HPF [facility] [place]A Auto SS COVID-19 [facility] [place] SARS-CoV-2 (COVID-19) RNA JENN+probe Ql (Unsp spec) Negative Normal Negative [facility] Comment on above: Order Comment: Healt hcare Worker?: N Result Comment: Testing for SARS-CoV-2 by RT-PCR This test was developed and its performance characteristics determined by [employer]) and validated at the [facility]. This test has not been FDA [...] is terminated or revoked sooner. PERFORMED BY: [place] [address] PATHOLOGIST GRIDDLE ATTENDANT UYEN HEATH M.D. Performed By: #### C OVID 19 [facility] [place] [place] #### [address] Basic Metabolic Panelon 12-10 Calcium [Mass/Vol] 9.6 mg/dL Normal 8.2-10.2 [facility] Comment on above: Result Comment: PERF ORMED BY: [place] [address] PATHOLOGIST GRIDDLE ATTENDANT UYEN HEATH M.D. Performed By: #### B MP #### [address] Chloride [Moles/Vol] 102 mmol/L Normal 95-114 [facility] Comment on above: Performed By: #### B MP #### [address] CO2 [Moles/Vol] 27.5 mmol/L Normal 22.0-30.0 [facility] Comment on above: Performed By: #### B MP #### [address] Creatinine [Mass/Vol] 0.68 mg/dL Normal 0.44-1.03 [facility] Comment on above: Performed By: #### B MP #### [address] Estimated GFR ( Karen > 60 Normal [facility] Comment on above: Result Comment: GFR estimated reference range: According to KDOQI guidelines, <60 ml/min/1.73m2 is sufficient to diagnose a patient with chronic kidney disease. Performed By: #### B MP #### [facility] [address] Estimated GFR (Non- Am > 60 Normal [facility] Comment on above: Performed By: #### B MP #### [facility] [address] Glucose [Mass/Vol] 90 mg/dL Normal 70-100 [facility] Comment on above: Result Comment: [place] Glucose Reference Range is dependent on time and content of last meal. Glucose of more than 200 mg/dL in a nonstressed, ambulatory subject supports the diagnosis of Diabetes Mellitus. ADA recommended reference range Performed By: #### B MP #### [address] Potassium [Moles/Vol] 4.5 mmol/L Normal 3.5-5.1 [facility] Comment on above: Performed By: #### B MP #### [facility] [address] [place] [address] [place] Sodium [Moles/Vol] 138 mmol/L Normal 136-146 [facility] Comment on above: Performed By: #### B MP #### [place] [id number] [place] Urea nitrogen [Mass/Vol] 12 mg/dL Normal 9-23 [facility] Comment on above: Performed By: #### B MP #### [place] [id number] [place] ECG 12 lead ECGon 12-27-2020 ECG 12 lead ECG [facility] [place] [address] [place] [address] Electrocardiograph Report Signed Patient: Nora Diaz MR#: [id number] 9 : 1965 Acct:[id number] Age/Sex: 55 / F ADM Date: 12/27/20 Loc: PS [facility]: [facility]ending [facility]: Prabhakar Max MD Ordering Provider: [...] Electronically Signed By:CUAUHTEMOC BALDWIN MD Transcribed By: ELKE Signed By Cuauhtemoc Baldwin MD 1 [address] [facility] Urine Cultureon 08-05-2020 Bacteria identified Cx Nom (U) <9,000 colonies/ml mixed bacterial skin contaminants 2 Days PERFORMED BY: [place] [address] PATHOLOGIST GRIDDLE ATTENDANT UYEN HEATH M.D. [facility] Comment on above: Performed By: #### C UU #### [address] Vital Signs Date Time Vital Sign Value Performing Clinician Yashi kaleigh 12-12-2021 12:40-0400 Blood Pressure Location Manish SOLIS [facility] 12-12-2021 12:40-0400 Diastolic blood pressure 89 mm[Hg] Manish SOLIS [facility] 12-12-2021 12:40-0400 Heart rate 81 /min Manish SOLIS [facility] 12-12-2021 12:40-0400 Respiratory rate 16 /min Manish SOLIS [facility] 12-12-2021 12:40-0400 Systolic blood pressure 124 mm[Hg] Manish SOLIS [facility] 07-21-2021 09:35-0400 Blood Pressure Location Ryann Wilkersonell [facility] 07-21-2021 09:35-0400 Body temperature 97.7 [degF] Ryann Wilkersonell [facility] 07-21-2021 09:35-0400 Diastolic blood pressure 64 mm[Hg] Ryann Wilkersonell [facility] 07-21-2021 09:35-0400 Heart rate 89 /min Ryann Wilkersonell [facility] 07-21-2021 09:35-0400 SaO2% (BldA) [Mass fraction] 98 % Ryann Wilkersonell [facility] 07-21-2021 09:35-0400 Systolic blood pressure 128 mm[Hg] Ryann Yu [facility] Encounters Encounter Date Encounter Type Care Provider Facility Start: 03-15-2023 End: 03-16-2023 ambulatory ALANIS VICKERS [place] [place] Start: 03-15-2023 End: 03-15-2023 Lab Drop off ALANIS VICKERS [facility] Start: 03-15-2023 End: 03-15-2023 Patient encounter procedure ALANIS VICKERS [facility] Start: 11-28-2022 End: 11-29-2022 ambulatory ALANIS VICKERS Facility:[facility] Start: 10-31-2022 End: 11-01-2022 ambulatory ALANIS VICKERS Facility:[facility] Start: 10-31-2022 End: 10-31-2022 Patient encounter procedure ALANIS VICKERS [facility] Start: 08-17-2022 End: 08-18-2022 ambulatory Tasneme Mcmahan Facility[place] [place] Start: 08-17-2022 ambulatory ALANIS VICKERS Facility :[facility] Start: 07-24-2022 ambulatory Ryann Yu [facility] ty:[place] Start: 12-12-2021 End: 12-12-2021 Patient encounter procedure Manish SOLIS [facility] Start: 11-16-2021 End: 11-17-[address] DOCTOR RIVAS Facility:[facility] Start: 07-21-2021 End: 07-21-2021 Patient encounter procedure Ryann Yu [facility] Start: 07-05-2021 End: 10-14-[address] THAIS STONE Facility:[facility] Start: 06-14-2021 End: 06-14-2021 Patient encounter procedure Manish SOLIS [facility] Start: 05-31-2021 End: 05-31-2021 Patient encounter procedure Natalie [facility] Procedures Date Procedure Procedure Detail Performing Clinician Start: 11-15-2017 Cystoscopy Natalie Hampton Start: 03-12-2013 Colonoscopy Natalie Hampton Start: 03-12-2013 Esophagogastroduodenoscopy Natalie Hampton Start: 03-12-2011 Excision of bunion Natalie Hampton Comment on above: Right Foot Start: 03-12-2004 Breast augmentation Natalie Hampton Dilation of urethra Ryann Yu Urethral stent (physical object) Natalie Hampton Urethral Widening Natalie James pe Immunizations Immunization Date Immunization Notes Care Provider [facility] 03-03-2021 SARS-CoV-2 (COVID-19 ) mRNA-1273 vaccine Ryann Yu [facility] Comment on above: Result Comment: 2021: TPV50 12-13-2020 influenza, injectabl e, quadrivalent, preservative free Natalie Mem[facility] 06-26-2020 SARS-CoV-2 (COVID-19 ) mRNA-1273 vaccine Natalie Memo [facility] 06-21-2020 SARS-CoV-2 (COVID-19 ) mRNA-1273 vaccine Natalie Memo [facility] 05-31-2020 SARS-CoV-2 (COVID-19 ) mRNA-1273 vaccine Natalie Memo [facility] 05-29-2020 SARS-CoV-2 (COVID-19 ) mRNA-1273 vaccine Natalie Memo [facility] 12-18-2019 influenza virus vaccine, unspecified formulation Natalie Memo [facility] 05-03-2012 influenza virus vaccine, unspecified formulation [facility] NEGATED: Highlighted row has not occurred!11-27-2018 influenza virus vaccine, unspecified formulation Natalie [facility] Payers Date Payer Category Payer Private Health Insurance [facility] [id number] 2021 Unknown [id number] 1965 Unknown [id number] 2.16.84 [id number] 1965 Unknown [id number] 2.16.84 [id number] 1965 Unknown [id number] 2.16.8 [id number] 1965 Unknown [id number] 2.16.8 [id number] 1965 Unknown [id number] 2.16.8 [id number] 1965 Unknown [id number] 2.16.8 [id number] 1965 Unknown [id number] 2.16.8 [id number] 1965 Unknown [id number] 2.16.8 [id number] 1965 Unknown [id number] 2.16.8 [id number] 1959 Self-pay 1959 Unknown [id number] Social History Date Type Detail Facility Start: 05-18-2021 End: 11-28-2022 Tobacco smoking status [facility]igned At Female [facility] Functional Status Date Assessment Result Facility 12-12-2021 Functional Status N/A [facility] Clinical Notes 06-14-2021 to 03-15-2023 LaboratoryLaboratoryLaboratoryLaboratory Note Date & Type Note Facility 03-15-2023 Evaluation + Plan note Diagnostic Tests PendingUrine Culture 03/15/23 [facility] 12-12-2021 Hospital Discharge instructions Patient Education 12/12/2021 12:47:40 Urinary Tract Infection, Adult, Ynya-cp-Jfee Urinary Tract Infection, Adult A urinary tract [...] Follow these instructions at home: Medicines Take geid-blg-rqejfkt and prescription medicines only as told by [...] 08/14/2008 Document Revised: 02/13/2019 Document Reviewed: 09/05/2018 [employer] Patient Education 2020 [employer]. Follow Up Care 06/14/2021 09:19:41 With:APRIL CRENSHAW, Manish Villafuerte, URL Address: [facility] [address] [place] [phone] When:10/12/2022 [facility] 07-21-2021 Hospital Discharge instructions Patient Education 07/21/2021 [...] height. This can be done either in [place]ian ([place] or metric measurements. Note that charts are available to help you find your BMI quickly and easily without having to do these calculations yourself. To calculate your BMI in [place]ian ([place] measurements, your health care provider will: [...] medical problems. BMI can be measured using Bahamian measurements or metric measurements. To interpret your [...] 11/07/2004 Document Revised: 02/08/2018 Document Reviewed: 01/09/2018 [employer] Patient Education 2020 [employer] 07/21/2021 09:53:03 Sleep Apnea Sleep Apnea Sleep [...] your health care provider. General instructions Take ryyd-rvc-lhltyhu and prescription medicines only as told by [...] 02/16/2003 Document Revised: 08/13/2019 Document Reviewed: 10/22/2018 [employer] Patient Education 2020 [employer]. 07/21/2021 09:53:00 Migraine Headache Migraine Headache A [...] Follow these instructions at home: Medicines Take tkvx-nqa-iqrvyzv and prescription medicines only as told by your health care provider. Ask your health care provider if the medicine prescribed to you: ?Requires you to avoid driving or using heavy machinery. ?Can cause constipation. You may need to take these actions to prevent or treat constipation: ?Drink enough fluid to keep your urine pale yellow. ?Take drcv-stt-gvouhbj or prescription medicines. ?Eat foods that are [...] 02/26/2006 Document Revised: 06/20/2019 Document Reviewed: 04/10/2019 [employer] Patient Education 2020 [employer]. 07/21/2021 09:52:58 Living With Depression Living With [...] a problem, search for a local or [facility] center. They may be [...] as walking or lifting small weights. Take lecr-gwt-nzbfsct and prescription medicines only as told by [...] 01/29/2017 Document Revised: 06/20/2019 Document Reviewed: 01/29/2017 [employer] Patient Education 2020 [employer]. 07/21/2021 09:52:52 DASH Eating Plan DASH Eating [...] your health care provider or diet and food and nutrition professor (dietitian) to adjust your eating plan to [...] each week. ?Heart-healthy fats. Healthy fats called [place]-3 fatty acids are found in foods such [...] Dairy Whole or 2% milk, cream, and zrvg-gir-kpxs. Whole or full-fat cream cheese. Whole-fat or [...] more information: National Heart, Lung, and Blood [place]: www.nhlbi.nih.gov [place] [employer]: www.heart.org Summary The DASH eating [...] your health care provider or diet and food and nutrition professor (dietitian) to adjust your eating plan to your individual calorie needs. This information is not intended to replace advice given to you by your health care provider. Make sure you discuss any questions you have with your health care provider. Document Released: 02/15/2012 Document Revised: 02/08/2018 Document Reviewed: 02/19/2017 [employer] Patient Education 2020 [employer]. Follow Up Care 07/19/2021 15:46:16 With:Ryann Yu CNP Address: When:1 year Comments:or sooner if needed. [facility] Care 06-14-2021 Hospital Discharge instructions Patient [...] degrees Follow Up Care 06/09/2021 13:58:30 With:Manish SOLIS Address: [facility] [address], [place] [address]- Business (1) When:12/14/2021 09:17:04 [facility] Plan note Future Appointments Appointment Date:06/13/2021 11:40:00 AM Scheduled Provider:Ryann Yu CNP Location:[facility] Appointment Type:FM Open Appointment Date:08/15/2021 12:15:00 PM Scheduled Provider:Manish SOLIS MD [facility] App[facility] Type:URO Office Visit Future Scheduled TestsComprehensive Metabolic Panel 12/13/20Lipid Panel 12/13/20 [facility] + Plan note Future Appointments Appointment Date:12/12/2021 12:15:00 PM Scheduled Provider:Manish SOLIS MD Location:[facility] [place] Appointment Type:URO Office Visit Future Scheduled TestsComprehensive Metabolic Panel 12/13/20Lipid Panel 12/13/20 [facility] Evaluation + Plan note Future Appointments Appointment Date:12/12/2021 12:15:00 PM Scheduled Provider:Manish SOLIS MD Location:[facility] [place] Appointment Type:URO Office Visit Appointment Date:07/24/2022 10:40:00 AM Scheduled Provider:Ryann Yu CNP Location:[facility] Appointment Type:FM Open Future Scheduled TestsComprehensive Metabolic Panel 07/21/21Comprehensive Metabolic Panel 12/13/20Lipid Panel 07/21/21Lipid Panel 12/13/20 [facility] Evaluation + Plan note Future Appointments Appointment Date:07/24/2022 10:40:00 AM Scheduled Provider:Ryann Yu CNP Location:[facility] Appointment Type:FM Open Appointment Date:10/30/2022 01:15:00 PM Scheduled Provider:Manish SOLIS MD Location:[facility] Appointment Type:URO Office Visit Future Scheduled TestsComprehensive Metabolic Panel 07/21/21Comprehensive Metabolic Panel 12/13/20Lipid Panel 07/21/21Lipid Panel 12/13/20 [facility] Evaluation + Plan note Future Appointments Appointment Date:11/28/2022 02:30:00 PM Scheduled Provider:ALANIS VICKERS PA-C Location:[facility] Appointment Type:URO Office Visit [facility] Hospital course Narrative No data available for this section [facility] Dis[facility] instructions No data available for this section [facility] note No data available for this section [facility] Summary Purpose Family History No Family History Records FoundNo Family History Records Found No data available for this section No data available for this section No Family History Records Found Advance Directives No Advanced Directives Records FoundNo Advanced Directives Records FoundNo Advanced Directives Records Found Additional Source Comments INFORMATION SOURCE (unrecogn ized section and content) DATE CREATED AUTHOR 04/30/2021 [facility] DATE CREATED AUTHOR AUTHOR'S ORGANIZ ATION 11/20/2021 [facility] DATE CREATED AUTHOR AUTHOR'S ORGANIZ ATION 06/06/2023 [facility] Care Team (unrecognized sect ion and content) Personnel Name: Ryann Yu CNP Address: [address] [place] [address], [facility] [place] [address] Personnel Name: Tasneem Buchanan Address: Address: [address] [place] [id number]- Personnel Name: Tasneem Buchanan Address: Address: [address] [place] [address]- Personnel Name: Tasneem Buchanan Address: Address: [address] [place] [id number]- FOR RECORDS PERTAINING TO PATIENTS WHO ARE [...] BE BASED ON THE PRIMARY CLINICAL RECORDS. [facility]. provides no warranty or guarantee of the accuracy or completeness of information in this document.
== END 2023-09-17 11:01 | disposition home or self-care (01) ==
LOC: MAMMO 11:00
PROVIDERS: PCP Nurse Practitioner; Visit Provider Nurse Practitioner
DX: Z12.31 Encounter for screening mammogram for malignant neoplasm of breast (principal)
CPT/HCPCS: 77063; 77067

== ENCOUNTER 2023-11-07 11:54 | Outpatient (OUT) | payer OTHER, SELFPAY ==
--- OUTSIDE RECORDS SUMMARY | 2023-11-07 12:03 | XMS_ITS | CCD ---
Author Organization [facility] Care Team Providers Care Syrup Maker Cook Name Role Phone Celia SIMMS Primary Care Physician Ryann Yu Primary Care Physician BERTHA, DR THAIS Devries Admitting Unavailable WEST, DR THAIS Devries Attending Unavailable CELIA SIMMS Primary Care Unavailable BERTHA, DR THAIS Devries Consulting Unavailable [facility], DR ROMERO Admitting Unavailable MISC, DR ROMERO Attending Unavailable CELIA SIMMS Primary Care Unavailable MISC, DR ROMERO Consulting Unavailable Tasneem Mcmahan Primary Care Physician ALANIS VICKERS Attending Unavailable MarjTasneem booth Attending [...] Daily, # 90 tab(s), Refills(s) 3, Pharmacy: [facility]/pharmacy #[id number], 160.4, cm, 08/17/22 15:18:00 EDT, Height/Length Dosing, 68.9, kg, 08/17/22 15:18:00 EDT, Weight Dosing Start Date: 08/17/22 Status: Ordered Start: 12-13-2020 End: 07-16-2022 take 1 tablet by mouth once daily amLODIPine 5 mg Tab 5 mg = 1 tab(s), Oral, Daily, X 90 day(s), # 90 tab(s), Refills(s) 3, Pharmacy: [facility]/pharmacy #[id number], 160, cm, 07/21/21 9:41:00 EDT, Height/Length [...] day(s), # 90 tab(s), Refills(s) 3, Pharmacy: [facility]/pharmacy #[id number], 160.4, cm, 08/17/22 15:18:00 EDT, Height/Length Dosing, 68.9, kg, 08/17/22 15:18:00 EDT, Weight Dosing Start Date: 08/17/22 Stop Date: 08/12/23 Status: Ordered Start: 02-10-2020 take 1 tablet by juanpablo th once daily Wellbutrin SR 150 mg Tab-ER 150 mg = 1 tab(s), Oral, Daily, # 90 tab(s), Refills(s) 3, [facility], 162, cm, 02/10/20 14:47:00 EST, [...] gm, Vaginal, MonFri, 42.5 gm, Refill(s) 3, [facility]/pharmacy #[id number], 160, cm, 11/28/22 14:40:00 EDT, Height/Length Dosing, 66, kg, 11/28/22 14:40:00 EDT, Weight Dosing Start Date: 11/28/22 Status: Ordered Start: 04-21-2022 estradiol 0.1 mg/g Vag Crm 1 gm, Vaginal, MonFri, 42.5 gm, Refill(s) 3, [facility]/pharmacy #[id number], 160, cm, 12/12/21 12:41:00 EDT, Height/Length Dosing, 70.7, kg, 12/12/21 12:41:00 EDT, Weight Dosing Start Date: 04/21/22 Status: Ordered Start: 07-21-2021 take 1 tablet by juanpablo th once daily estradiol 1 mg Tab TAKE 1 TABLET BY MOUTH EVERY DAY Start Date: 07/21/21 Status: Ordered Start: 10-05-2020 estradiol 0.1 mg/g vaginal cream 1 gm, Vaginal, MonFri, # 42.5 gm, Refills(s) 5, Pharmacy: [facility]/pharmacy #[id number], 160, cm, 09/22/20 13:28:00 EDT, Height/Length Dosing, 58, kg, 09/22/20 13:28:00 EDT, Weight Dosing Start Date: 10/05/20 Status: Ordered estradiol 0.1 mg/g vaginal cream (4 sources) Start: 10-05-2020 estradiol 0.1 mg/g vaginal cream 1 gm, Vaginal, MonFri, # 42.5 gm, Refills(s) 5, Pharmacy: [facility]/pharmacy #[id number], 160, cm, 09/22/20 13:28:00 EDT, Height/Length [...] for 5 day(s), 10 tab(s), Refill(s) 0, [facility]/pharmacy #[id number], 160, cm, 11/28/22 14:40:00 EDT, Height/Length [...] hours, # 9 tab(s), Refills(s) 1, [id number], cm, 07/21/21 9:41:00 EDT, Height/Length Dosing, 70.7, kg, 07/21/21 9:41:00 EDT, Weight Dosing Start Date: 07/21/21 Status: Ordered Start: 07-19-2020 Imitrex 100 mg Tab 100 mg = 1 tab(s), Oral, As Directed, PRN Headache, may repeat dose once in 2 hours, # 9 tab(s), Refills(s) 1, [id number] 160, cm, 07/16/20 11:04:00 EDT, [...] procedure, # 2 cap(s), Refills(s) 0, Pharmacy: [facility]/pharmacy #[id number], 160, cm, 06/10/21 12:38:00 EDT, Height/Length [...] Range Facility Outside Mammographyon 2023 Outside Mammography [id number] [facility] C Urineon 03-17-2023 Bacteria identified Cx Nom [...] Locations R1: This test was performed at: [facility], [address] [place] [address], [address] [place] [address], [facility] Comment on above: Performed By: #### 2 [id number] #### [facility] [address] [place] [address] Ambulatory Visit Summaryon 0 03-15-2023 Ambulatory Visit [...] for choosing us for your care. Normal [facility] ED Note-Physicianon 02-13-20 ED Note-Physician [id number] [facility] Patient Educationon 11-29-19 Patient Education Obstetrics [...] these instructions at home: Medicines ? Take cnyy-gyf-icpwcsd and prescription medicines only as told by [...] provider. Document Revised: 10/08/2020 Document Reviewed: 10/08/2020 [employer] PF Patient Education ? 2022 [employer]. Normal [facility] Urology Office/Clinic Noteon 11-28-2022 Urology Office/Clinic Note Chief Complaint 10m f/u HPI Staff PRW pt 10m DX: Frequent UTI, Urethral Stricture, Nocturia *Estradiol 1gm 3x/wk from EARTH BORING MACHINE OPERATOR, reduced to 2x/wk at last encounter Denies [...] Pt states that she does see her EARTH BORING MACHINE OPERATOR regularly. Discussed starting an as needed f/u basis and have her EARTH BORING MACHINE OPERATOR handle her refills for the Estradiol cream. Pt states that she would be okay with this. Advised pt that if her sxs come back, she can call our office and have an appt set up. -Will send refill for Estradiol cream to pharm on file. -Pt will f/u w/EARTH BORING MACHINE OPERATOR and PCP from now on. 2. Other [...] When Contact Information ALANIS VICKERS PA-C, URL [address] [address] Additional Instructions: PRN Patient Education Urinary Tract Infection, Adult, [id number] I, Deisy Johns, personally scribed for Alanis [...] inactivated 12/18/2019 (more content not included)... Normal [facility] Comment on above: Result Comment: Elec tronically Signed By: ALANIS VICKERS PA-C\.br\Date and Time Signed: 11/28/22 15:03 EDT\.br\Electronically Co-Signed By: Deisy Johns\.br\Date and Time Co-Signed: 11/28/22 15:01 EDT Outside Mammographyon 2022 Outside Mammography [id number]:127 Normal [facility] RAD - MISCon 09-06-2022 RAD - MISC [id number]:127 Normal [facility] T3 Freeon 08-19-2022 Free T3 [Mass/Vol] 2.7 pg/mL Invalid Interpretation Code 2.0-4.4 [facility] Comment on above: Result Comment: Perf ormed at: [facility] [id number] [place], [place] [id number] PhD Saundra Dempsey Performed By: #### 2 212747, 3073365, 9925598, 8143583, 9624963, 33510498, 2397008, 4884813 #### [facility] [address] [place] [address] Reminderson 08-18-2022 Reminders - From: Tasneem Buchanan [...] 37.3 % (14.0 - 50.0) 08/17/2022 15:59 Rowan Auto 9.7 % (4.0 - 14.0) 08/17/2022 15:59 Eos Auto 1.4 % (0.0 - 8.0) 08/17/2022 15:59 Basophil Auto 0.7 % (0.0 - 2.0) 08/17/2022 15:59 Neutro Absolute 2.6 E9/L (2.0 - 7.5) 08/17/2022 15:59 Lymph Absolute 1.9 E9/L (1.0 - 4.0) 08/17/2022 15:59 Rowan Absolute 0.5 E9/L (0.2 - 1.0) 08/17/2022 [...] 1.64) Notified patient labs were normal Normal [facility] Ambulatory Visit Summaryon 0 08-17-2022 Ambulatory Visit [...] CRENSHAW, Manish Villafuerte Where: [facility] Kapil Normal [facility] Auto Diffon 08-17-2022 Basophils/100 WBC (Bld) 0.7 % Normal 0.0-2.0 [facility] Comment on above: Order Comment: Order Added by Discern Expert. Performed By: #### 2 836074, 0678149, 3999808, 7400550, 0115128, 87327659, 3411152, 3897007 #### [facility] [address] [place] [address] Basophils/Leukocyte s Auto (Bld) [Pure # fraction] 0.0 E9/L Normal 0.0-0.2 [facility] Comment on above: Order Comment: Order Added by Discern Expert. Performed By: #### 2 823741, 2904005, 4044691, 0129160, 7939138, 41854058, 8250694, 0648002 #### [facility] [address] [place] [address] Eosinophils/100 WBC (Bld) 1.4 % Normal 0.0-8.0 [facility] Comment on above: Order Comment: Order Added by Discern Expert. Performed By: #### 2 854043, 9082385, 8100532, 7079394, 0908010, 53521287, 2280289, 0530726 #### [facility] [address] [place] [address] Eosinophils/Leukocy cipriano Auto (Bld) [Pure # fraction] 0.1 E9/L Normal 0.0-0.5 [facility] Comment on above: Order Comment: Order Added by Discern Expert. Performed By: #### 2 260016, 6605807, 4772839, 3171193, 8374234, 54851233, 3048563, 6588657 #### [facility] [address] [place] [address] Lymphocytes/100 WBC (Bld) 37.3 % Normal 14.0-50.0 [facility] Comment on above: Order Comment: Order Added by Discern Expert. Performed By: #### 2 612391, 5179974, 4488546, 1777154, 1733278, 81052000, 2093533, 7767306 #### [facility] [address] [place] [address] Lymphocytes/Leukocy cipriano Auto (Bld) [Pure # fraction] 1.9 E9/L Normal 1.0-4.0 [facility] Comment on above: Order Comment: Order Added by Discern Expert. Performed By: #### 2 985208, 1566651, 6494280, 6861980, 3408374, 70001365, 5082021, 7526883 #### [facility] [address] [place] [address] Monocytes/100 WBC (Bld) 9.7 % Normal 4.0-14.0 [facility] Comment on above: Order Comment: Order Added by Discern Expert. Performed By: #### 2 991864, 9479495, 6612887, 5283122, 5313147, 93068048, 2830655, 8300920 #### [facility] [address] [place] [address] Monocytes/Leukocyte s Auto (Bld) [Pure # fraction] 0.5 E9/L Normal 0.2-1.0 [facility] Comment on above: Order Comment: Order Added by Discern Expert. Performed By: #### 2 975730, 8034248, 1017080, 6246758, 3210334, 91626463, 8243419, 0549856 #### [facility] [address] [place] [address] Neutrophils/100 WBC (Bld) 50.9 % Normal 36.0-75.0 [facility] Comment on above: Order Comment: Order Added by Discern Expert. Performed By: #### 2 590422, 6545197, 2208097, 0277695, 8726350, 03590099, 3994699, 8588150 #### [facility] [address] [place] [address] Neutrophils/Leukocy cipriano Auto (Bld) [Pure # fraction] 2.6 E9/L Normal 2.0-7.5 [facility] Comment on above: Order Comment: Order Added by Discern Expert. Performed By: #### 2 651900, 6410276, 5212471, 7515811, 4924764, 13975465, 6014461, 0251358 #### [facility] [address] [place] [address] CBC w/ Auto Diffon 3 Erythrocyte distribution width (RBC) [Ratio] 13.4 % Normal 10.9-14.2 [facility] Comment on above: Performed By: #### 2 640793, 3883334, 4032873, 5445009, 4726495, 96616172, 1706193, 2655027 #### [facility] [address] [place] [address] Hematocrit (Bld) [Volume fraction] 40.2 % Normal 34.0-46.0 [facility] Comment on above: Performed By: #### 2 621994, 4536536, 5680790, 4264231, 5768010, 86048558, 4979240, 6368878 #### [facility] [address] [place] [address] Hemoglobin (Bld) [Mass/Vol] 13.7 g/dL Normal 12.0-16.0 [facility] Comment on above: Performed By: #### 2 957637, 9862447, 2756467, 3690849, 6435511, 84246614, 1693275, 0965818 #### [facility] [address] [place] [address] MCH (RBC) [Entitic mass] 34.7 pg High 27.0-34.0 [facility] Comment on above: Performed By: #### 2 126928, 4626452, 0855550, 1833089, 4675840, 29260210, 8016846, 0545809 #### [facility] [address] [place] [address] MCHC (RBC) [Mass/Vol] 34.0 g/dL Normal 31.4-36.0 [facility] Comment on above: Performed By: #### 2 043947, 3747708, 1102147, 7955951, 6332591, 73686778, 4582977, 3477833 #### [facility] [address] [place] [address] MCV (RBC) [Entitic vol] 101.9 fL High 80.0-100.0 [facility] Comment on above: Performed By: #### 2 316870, 8484000, 6101912, 5045330, 6359137, 89191880, 9102318, 2698243 #### [facility] [address] [place] [address] Platelet mean volume (Bld) [Entitic vol] 8.3 fL Normal 6.4-10.8 [facility] Comment on above: Performed By: #### 2 224015, 6483770, 3346709, 8178630, 5423012, 70793523, 6319745, 7551166 #### [facility] [address] [place] [address] Platelets (Bld) [#/Vol] 286.0 E9/L Normal 150.0-500.0 [facility] Comment on above: Performed By: #### 2 548288, 0006256, 4113633, 2053284, 1661351, 78987736, 2117039, 9466166 #### [facility] [address] [place] [address] RBC (Bld) [#/Vol] 3.9 E12/L Low 4.3-5.9 [facility] Comment on above: Performed By: #### 2 795850, 5455868, 9702637, 5422929, 9661889, 70749524, 2620726, 2919914 #### [facility] [address] [place] [address] WBC corrected for nucl RBC Auto (Bld) [#/Vol] 5.0 E9/L Normal 4.0-11.0 [facility] Comment on above: Performed By: #### 2 811938, 8831027, 7311579, 8264578, 5906978, 17875582, 7197113, 3285652 #### [facility] [address] [place] [address] CMPon 08-17-2022 Albumin [Mass/Vol] 4.1 g/dL Normal 3.3-5.0 [facility] Comment on above: Performed By: #### 2 815447, 1197585, 0663183, 9732017, 0663063, 17218599, 6323760, 7251254 #### [facility] [address] [place] [address] Albumin/Globulin (S) [Mass conc ratio] 1.3 Normal 1.1-2.2 [facility] Comment on above: Performed By: #### 2 540254, 5657190, 0004825, 2820744, 1454469, 56788774, 1987734, 1657327 #### [facility] [address] [place] [address] ALP [Catalytic activity/Vol] 46 Int._Unit/L Normal 21-98 [facility] Comment on above: Performed By: #### 2 623368, 4096756, 7530460, 2267213, 1986648, 10736050, 5542292, 1565917 #### [facility] [address] [place] [address] ALT No additional P-5'-P [Catalytic activity/Vol] 16 Int._Unit/L Normal 6-46 [facility] Comment on above: Performed By: #### 2 662581, 6086373, 6444674, 9263019, 4443758, 18687129, 9318031, 9528379 #### [facility] [address] [place] [address] Anion gap [Moles/Vol] 13 mmol/L Normal 6-16 [facility] Comment on above: Performed By: #### 2 990542, 1588404, 4140590, 2522084, 8483357, 67615406, 5249307, 8007035 #### [facility] [address] [place] [address] AST [Catalytic activity/Vol] 21 Int._Unit/L Normal 5-43 [facility] Comment on above: Performed By: #### 2 185725, 3895197, 7497554, 8256523, 8582866, 85773202, 8872013, 3819833 #### [facility] [address] [place] [address] Bilirubin [Mass/Vol] 0.3 mg/dL Normal 0.0-1.1 [facility] Comment on above: Performed By: #### 2 618220, 5336124, 1606945, 3099512, 3835038, 69072542, 6371779, 2886706 #### [facility] [address] [place] [address] Calcium [Mass/Vol] 9.6 mg/dL Normal 8.9-11.1 [facility] Comment on above: Performed By: #### 2 047062, 3127955, 4340678, 2140402, 0116435, 16039335, 2275130, 9816270 #### [facility] [address] [place] [address] Chloride [Moles/Vol] 106 mmol/L Normal 101-111 [facility] Comment on above: Performed By: #### 2 085846, 7506533, 2018412, 7662262, 7320118, 67278473, 4471287, 9676118 #### [facility] [address] [place] [address] CO2 [Moles/Vol] 26 mmol/L Normal 21-31 [facility] Comment on above: Performed By: #### 2 055829, 2141369, 8729062, 4198437, 4581619, 47063663, 9368842, 8035619 #### [facility] [address] [place] [address] Creatinine [Mass/Vol] 0.8 mg/dL Normal 0.5-1.3 [facility] Comment on above: Performed By: #### 2 473646, 2858328, 6814620, 7076187, 3636909, 01167343, 5835773, 6944785 #### [facility] [address] [place] [address] Globulin (S) [Mass/Vol] 3.2 g/dL Normal 1.4-4.0 [facility] Comment on above: Performed By: #### 2 598610, 2841560, 8971121, 2552780, 5190628, 14637288, 1977300, 1330094 #### [facility] [address] [place] [address] Glucose [Mass/Vol] 95 mg/dL Normal 55-199 [facility] Comment on above: Result Comment: If t his glucose result represents a fasting glucose, interpretation should refer to the following reference range: 55-99 mg/dL Performed By: #### 2 654668, 5088872, 3074638, 1473031, 1784820, 71904162, 0886174, 5679826 #### [facility] [address] [place] [address] Potassium [Moles/Vol] 3.9 mmol/L Normal 3.5-5.3 [facility] Comment on above: Performed By: #### 2 497581, 4902294, 3602532, 4026632, 2187475, 73128858, 4474903, 5075836 #### [facility] [address] [place] [address] Protein [Mass/Vol] 7.3 g/dL Normal 6.0-7.8 [facility] Comment on above: Performed By: #### 2 719302, 5146482, 5988701, 4465914, 5993600, 02355697, 8483887, 9677768 #### [facility] [address] [place] [address] Sodium [Moles/Vol] 141 mmol/L Normal 135-145 [facility] Comment on above: Performed By: #### 2 986477, 9335598, 5244285, 4454886, 5591400, 57381109, 0226840, 8110455 #### [facility] [address] [place] [address] Urea nitrogen [Mass/Vol] 15 mg/dL Normal 5-21 [facility] Comment on above: Performed By: #### 2 253015, 8977427, 2649903, 2710535, 2450859, 57097500, 3839402, 4648308 #### [facility] [address] [place] [address] Urea nitrogen/Creatinine [Mass ratio] 19 No Units Normal 10-20 [facility] Comment on above: Performed By: #### 2 470142, 8692513, 5832690, 1523401, 2850403, 31416051, 1534911, 2343317 #### [facility] [address] [place] [address] Family Medicine Office/Clini c Noteon 08-17-2022 Family [...] for mamm and chest xray faxed to [facility]. will notify pt of all results. [...] breast) mammogram ordered. to be done at [facility] Ordered: CBC w/ Auto Diff Comprehensive [...] Daily, # 90 tab(s), Refills(s) 3, Pharmacy: [facility]/pharmacy #6177, 160.4, cm, 08/17/22 15:18:00 EDT, Height/Length Dosing, 68.9, kg, 08/17/22 15:18:00 EDT, Weight Dosing buPROPion, 150 mg = 1 tab(s), Oral, Daily, X 90 day(s), # 90 tab(s), Refills(s) 3, Pharmacy: [facility]/pharmacy #6177, 160.4, cm, 08/17/22 15:18:00 EDT, Height/Length Dosing, 68.9, kg, 08/17/22 15:18:00 EDT, Weight Dosing buPROPion, 150 mg = 1 tab(s), Oral, Daily, # 90 tab(s), Refills(s) 3, Pharmacy: [facility] (more content not included)... Normal [facility] Comment on above: Result Comment: Elec tronically Signed By: Tasneem Buchanan\.br\Date and Time Signed: 08/17/22 15:57 EDT Free T4on 08-17-2022 Free T4 [Mass/Vol] 1.08 ng/dL Normal 0.58-1.64 [facility] Comment on above: Performed By: #### 2 439711, 9685870, 6957194, 4681293, 1731948, 66458843, 5365213, 9382998 #### [facility] [address] [place] [address] Lipid Panelon 08-17-2022 Cholesterol [Mass/Vol] 198 mg/dL Normal 120-200 [facility] Comment on above: Performed By: #### 2 538694, 1743328, 7923601, 4927638, 8385028, 91809816, 4182278, 2760485 #### [facility] [address] [place] [address] Cholesterol in HDL [Mass/Vol] 63 mg/dL Invalid Interpretation Code [facility] Comment on above: Result Comment: HDL > or equal to 60 mg/dL: Low cardiovascular risk HDL < 40 mg/dL : High cardiovascular risk Performed By: #### 2 532345, 3119408, 2186866, 5626176, 4108122, 09742561, 7632608, 8355878 #### [facility] [address] [place] [address] Cholesterol in LDL [Mass/Vol] 113 mg/dL Normal <=129 [facility] Comment on above: Performed By: #### 2 701658, 3777788, 9409844, 6174344, 0200665, 72698177, 4980560, 2902508 #### [facility] [address] [place] [address] Cholesterol in VLDL [Mass/Vol] 16 mg/dL Normal 7-40 [facility] Comment on above: Performed By: #### 2 396294, 3166264, 2291405, 6513884, 0601270, 81730910, 6299566, 5996018 #### [facility] [address] [place] [address] Triglyceride [Mass/Vol] 82 mg/dL Normal <=149 [facility] Comment on above: Performed By: #### 2 112944, 9586684, 1346373, 5256107, 7461067, 00322782, 9265891, 2775969 #### [facility] [address] [place] [address] TSHon 08-17-2022 TSH Qn 1.34 m[IU]/L Normal 0.34-5.60 [facility] Comment on above: Performed By: #### 2 641562, 5977198, 7569102, 0442274, 6993079, 69295748, 3376200, 9025683 #### [facility] [address] [place] [address] eGFRon 08-17-2022 GFR/1.73 sq M.predicted among non-blacks MDRD (S/P/Bld) [Vol rate/Area] 86 mL/min/1.73 m2 Normal >=59 [facility] Comment on above: Order Comment: Order added by Discern Expert. Result Comment: Ship Painter Helper enrique kidney disease could be indicated at eGFR's of less than 60 mL/min/1.73m2. Kidney failure is indicated at less than 15 mL/min/1.73m2. Performed By: #### 2 089066, 8826251, 1288092, 1573707, 9589236, 45951734, 5356487, 7301673 #### [facility] [address] [place] [address] ESTRADIOLon 11-17-2021 Estradiol 83.6 pg/mL Normal [facility] Comment on above: Result Comment: Adul t Female: Follicular phase 12.5 - 166.0 Ovulation phase 85.8 - 498.0 Luteal phase 43.8 - 211.0 Postmenopausal <6.0 - 54.7 1st trimester 215.0 - >4300.0 Latasha ECLIA methodology Performed By: #### Luzmaria HENDERSON #### [facility] [address] [place] [address] Dr. Darryl Trammell FSHon 11-17-2021 FSH 38.1 mIU/mL Normal [facility] Comment on above: Result Comment: Adul t Female: Follicular phase 3.5 - 12.5 Ovulation phase 4.7 - 21.5 Luteal phase 1.7 - 7.7 Postmenopausal 25.8 - 134.8 Performed By: #### L BCFSH #### [facility] [address] [place] [address] Dr. Darryl Trammell TESTOSTERONE, TOTALon 2021 Testosterone [Mass/Vol] 286 ng/dL Critically high 4-50 [facility] Comment on above: Performed By: #### T ESTTOT #### [facility] [address] [place] [address] Dr. Darryl Trammell CBC AUTO DIFFon 11-16-2021 BASO # 0.0 103/ul Normal 0.0-0.1 [facility] Comment on above: Performed By: #### C BC #### [facility] [address] [place] [address] Dr. Darryl Trammell Basophils/100 WBC (Bld) 0.8 % Normal 0.2-2.0 [facility] Comment on above: Performed By: #### C BC #### [facility] [address] [place] [address] Dr. Darryl Trammell EO # 0.2 103/ul Normal 0.0-0.7 [facility] Comment on above: Performed By: #### C BC #### [facility] [address] [place] [address] Dr. Darryl Trammell Eosinophils/100 WBC (Bld) 3.9 % Normal 0.9-7.0 [facility] Comment on above: Performed By: #### C BC #### [facility] [address] [place] [address] Dr. Darryl Trammell Erythrocyte distribution width (RBC) [Ratio] 12.2 % Normal 11.0-15.0 [facility] Comment on above: Performed By: #### C BC #### [facility] [address] [place] [address] Dr. Darryl Trammell Hematocrit (Bld) [Volume fraction] 42.4 % Normal 36.0-48.0 [facility] Comment on above: Performed By: #### C BC #### [facility] [address] [place] [address] Dr. Darryl Trammell Hemoglobin (Bld) [Mass/Vol] 14.1 g/dL Normal 12.0-16.0 [facility] Comment on above: Performed By: #### C BC #### [facility] [address] [place] [address] Dr. Darryl Trammell IG # 0.01 10e3/ul Normal 0.00-0.03 [facility] Comment on above: Performed By: #### C BC #### [facility] [address] [place] [address] Dr. Darryl Trammell IG % 0.2 % Normal 0.0-0.5 [facility] Comment on above: Performed By: #### C BC #### [facility] [address] [place] [address] Dr. Darryl Trammell LYMPH # 2.5 103/ul Normal 1.2-3.8 [facility] Comment on above: Performed By: #### C BC #### [facility] [address] [place] [address] Dr. Darryl Trammell Lymphocytes/100 WBC (Bld) 48.9 % Normal 20.5-60.0 [facility] Comment on above: Performed By: #### C BC #### [facility] [address] [place] [address] Dr. Darryl Trammell MANUAL DIFF REQ NO Normal [facility] Comment on above: Performed By: #### C BC #### [facility] [address] [place] [address] Dr. Darryl Trammell MCH (RBC) [Entitic mass] 32.7 pg Normal 26.7-34.0 [facility] Comment on above: Performed By: #### C BC #### [facility] [address] [place] [address] Dr. Darryl Trammell MCHC (RBC) [Mass/Vol] 33.3 g/dL Normal 29.9-35.2 [facility] Comment on above: Performed By: #### C BC #### [facility] [address] [place] [address] Dr. Darryl Trammell MCV (RBC) [Entitic vol] 98.4 fL Normal 81.0-99.0 [facility] Comment on above: Performed By: #### C BC #### [facility] [address] [address] [address] Darryl Trammell MONO # 0.5 103/ul Normal 0.3-0.8 [facility] Comment on above: Performed By: #### C BC #### [facility] [address] [address] [address] Darryl Trammell Monocytes/100 WBC (Bld) 9.6 % Normal 1.7-12.0 [facility] Comment on above: Performed By: #### C BC #### [facility] [address] [address] [address] Darryl Trammell NEUT # 1.9 103/ul Normal 1.4-6.5 [facility] Comment on above: Performed By: #### C BC #### [facility] [address] [place] [address] Dr. Darryl Trammell Neutrophils/100 WBC (Bld) 36.6 % Critically low 43.0-75.0 [facility] Comment on above: Performed By: #### C BC #### [facility] [address] [place] [address] Dr. Darryl Trammell Platelet mean volume (Bld) [Entitic vol] 10.1 fL Normal 9.5-13.5 [facility] Comment on above: Performed By: #### C BC #### [facility] [address] [place] [address] Dr. Darryl Trammell PLT 262 103/ul Normal 150-450 [facility] Comment on above: Performed By: #### C BC #### [facility] [address] [place] [address] Dr. Darryl Trammell RBC 4.31 106/ul Normal 4.20-5.40 [facility] Comment on above: Performed By: #### C BC #### [facility] [address] [place] [address] Dr. Darryl Trammell WBC 5.1 103/ul Normal 4.0-11.0 [facility] Comment on above: Performed By: #### C BC #### [facility] [address] [address] [address] Darryl Trammell GLUCOSE BLOODon 11-16-2021 Glucose [Mass/Vol] 80 mg/dL Normal 74-106 [facility] Comment on above: Performed By: #### T SH, LIPID, GLUC #### [facility] [address] [address] [address] Darryl Trammell LIPID PROFILEon 11-16-2021 CHOL-HDL RATIO NORM SEE BELOW Normal [facility] Comment on above: Result Comment: 3.3 - 4.4 LOW RISK 4.4 - 7.1 AVERAGE RISK 7.1 - 11.0 MODERATE RISK >11.0 HIGH RISK Performed By: #### T SH, LIPID, GLUC #### [facility] [address] [address] [address] Darryl Trammell Cholesterol [Mass/Vol] 201 mg/dL Critically high <=200 [facility] Comment on above: Performed By: #### T SH, LIPID, GLUC #### [facility] [address] [address] [address] Darryl Trammell Cholesterol in HDL [Mass/Vol] 72 mg/dL Critically high 40-60 [facility] Comment on above: Performed By: #### T SH, LIPID, GLUC #### [facility] [address] [address] [address] Darryl Trammell Cholesterol in LDL [Mass/Vol] 113.0 mg/dL Normal [facility] Comment on above: Performed By: #### T SH, LIPID, GLUC #### [facility] [address] [address] [address] Darryl Trammell Cholesterol.total/C holesterol in HDL [Mass ratio] 2.8 {ratio} Normal [facility] Comment on above: Performed By: #### T SH, LIPID, GLUC #### [facility] [address] [address] [address] Darryl Trammell HDL NORMAL > or = 60 mg/dl - LO W CARDIOVASCULAR RISK <40 mg/dl - HIGH CARDIOVASCULAR RISK Normal [facility] Comment on above: Performed By: #### T SH, LIPID, GLUC #### [facility] [address] [address] [address] Darryl Trammell LDL CALC NORMAL SEE BELOW Normal [facility] Comment on above: Result Comment: <100 mg/dl OPTIMAL 100 - 129 mg/dl NEAR OR ABOVE OPTIMAL 130 - 159 mg/dl BORDERLINE HIGH 160 - 189 mg/dl HIGH >190 mg/dl VERY HIGH Performed By: #### T SH, LIPID, GLUC #### [facility] [address] [place], [place] [address] Dr. Darryl Trammell Triglyceride [Mass/Vol] 80 mg/dL Normal <=150 [facility] Comment on above: Performed By: #### T SH, LIPID, GLUC #### [facility] [address] [address] [address] Darryl Trammell VLDL CALC 16.0 mg/dL Normal [facility] Comment on above: Performed By: #### T SH, LIPID, GLUC #### [facility] [address] [place], [place] [address] Dr. Darryl Trammell TSHon 11-16-2021 TSH 1.999 uIU/mL Normal 0.358-3.740 [facility] Comment on above: Performed By: #### T SH, LIPID, GLUC #### [facility] [address] [address] [address] Darryl Trammell CHEMISTRYOrdered By: Pablo mejia [...] PM) Normal Negative [facility] UA Auto SS [place].plasma/Lith ium.RBC (Bld) [Mass ratio] 0-3 /HPF Normal [...] Desc Clean Catch (05/31/21 3:05 PM) Normal [facility] UA Auto SS Urobilinogen Qn (U) 0.1913535 {Mayra'U}/dL Normal 0.0 - 1.0 EU/dL FT UA Auto SS WBC Auto Ql (U) Negative (05/31/21 3:05 PM) Normal Negative [facility] UA Auto SS WBC LM.HPF (Urine sed) [#/Area] 0-5 /HPF Normal 0-5/HPF [facility] UA Auto SS COVID[facility]19 [facility] SARS-CoV-2 (COVID-19) RNA JENN+probe Ql (Unsp spec) Negative Normal Negative [facility] Comment on above: Order Comment: Healt hcare Worker?: N Result Comment: Testing for SARS-CoV-2 by RT-PCR This test was developed and its performance characteristics determined by [employer] and validated at the [facility]. This test has not been FDA [...] is terminated or revoked sooner. PERFORMED BY: [place] [address] PATHOLOGIST ELEVATING GRADER OPERATOR UYEN HEATH M.D. Performed By: #### C OVID 19 [facility] #### [address] Basic Metabolic Panelon 12-10 Calcium [Mass/Vol] 9.6 mg/dL Normal 8.2-10.2 [facility] Comment on above: Result Comment: PERF ORMED BY: [place] [address] PATHOLOGIST ELEVATING GRADER OPERATOR UYEN HEATH M.D. Performed By: #### B MP #### [address] Chloride [Moles/Vol] 102 mmol/L Normal 95-114 [facility] Comment on above: Performed By: #### B MP #### [address] CO2 [Moles/Vol] 27.5 mmol/L Normal 22.0-30.[address] [facility] Comment on above: Performed By: #### B MP #### [address] Creatinine [Mass/Vol] 0.68 mg/dL Normal 0.44-1.03 [facility] Comment on above: Performed By: #### B MP #### [address] Estimated GFR ( Karen > 60 Normal [facility] Comment on above: Result Comment: GFR estimated reference range: According to KDOQI guidelines, <60 ml/min/1.73m2 is sufficient to diagnose a patient with chronic kidney disease. Performed By: #### B MP #### [facility] [address] Estimated GFR (Non- Am > 60 Normal [facility] Comment on above: Performed By: #### B MP #### [facility] [address] Glucose [Mass/Vol] 90 mg/dL Normal 70-100 [facility] Comment on above: Result Comment: [place] Glucose Reference Range is dependent on time and content of last meal. Glucose of more than 200 mg/dL in a nonstressed, ambulatory subject supports the diagnosis of Diabetes Mellitus. ADA recommended reference range Performed By: #### B MP #### [address] Potassium [Moles/Vol] 4.5 mmol/L Normal 3.5-5.1 [facility] Comment on above: Performed By: #### B MP #### [facility] [address] [place] [address] [place] Sodium [Moles/Vol] 138 mmol/L Normal 136-146 [facility] Comment on above: Performed By: #### B MP #### [place] [id number] [place] Urea nitrogen [Mass/Vol] 12 mg/dL Normal 9-23 [facility] Comment on above: Performed By: #### B MP #### [address] [place] [id number] [place] ECG 12 lead ECGon 12-27-[address] [facility] [place] [address] [place] [address] Electrocardiograph Report Signed Patient: Nora Diaz MR#: [id number] 9 : 1965 Acct:[id number] Age/Sex: 55 / F ADM Date: 12/27/20 Loc: PS [facility]: [facility]: Prabhakar Max MD Ordering Provider: [...] Signed By Cuauhtemoc [place] MD 1 1534 [facility] Urine Cultureon 08-05-2020 Bacteria identified Cx Nom (U) <9,000 colonies/ml mixed bacterial skin contaminants 2 Days PERFORMED BY: [place] [address] PATHOLOGIST ELEVATING GRADER OPERATOR UYEN HEATH M.D. [facility] Comment on above: Performed By: #### C UU #### [address] Vital Signs Date Time Vital Sign Value Performing Clinician Yashi kaleigh 12-12-2021 12:40-0400 Blood Pressure Location Manish SOLIS [facility] 12-12-2021 12:40-0400 Diastolic blood pressure 89 mm[Hg] Manish SOLIS [facility] 12-12-2021 12:40-0400 Heart rate 81 /min Manish SOLIS [facility] 12-12-2021 12:40-0400 Respiratory rate 16 /min Manish SOLIS [facility] 12-12-2021 12:40-0400 Systolic blood pressure 124 mm[Hg] Manish SOLIS [facility] 07-21-2021 09:35-0400 Blood Pressure Location Ryann Wilkersonell [facility] 07-21-2021 09:35-0400 Body temperature 97.7 [degF] Ryann Wilkersonell [facility] 07-21-2021 09:35-0400 Diastolic blood pressure 64 mm[Hg] Ryann Wilkersonell [facility] 07-21-2021 09:35-0400 Heart rate 89 /min Ryann Wilkersonell [facility] 07-21-2021 09:35-0400 SaO2% (BldA) [Mass fraction] 98 % Ryann Wilkersonell [facility] 07-21-2021 09:35-0400 Systolic blood pressure 128 mm[Hg] Ryann Yu [facility] Encounters Encounter Date Encounter Type Care Provider Facility Start: 03-15-2023 End: 03-16-2023 ambulatory ALANIS VICKERS Facility[facility] Start: 03-15-2023 End: 03-15-2023 Lab Drop off ALANIS VICKERS [facility] Start: 03-15-2023 End: 03-15-2023 Patient encounter procedure ALANIS VICKERS [facility] Start: 11-28-2022 End: 11-29-2022 ambulatory ALANIS VICKERS Facility:[facility] Start: 10-31-2022 End: 11-01-2022 ambulatory ALANIS VICKERS Facility:[facility] Start: 10-31-2022 End: 10-31-2022 Patient encounter procedure ALANIS VICKERS [facility] Start: 08-17-2022 End: 08-18-2022 ambulatory Tasneem Mcmahan Facility:[facility] Start: 08-17-2022 ambulatory ALANIS VICKERS Facility :[facility] Start: 07-24-2022 ambulatory Ryann Yu [facility] ty:[facility] Start: 12-12-2021 End: 12-12-2021 Patient encounter procedure Manish SOLIS [facility] Start: 11-16-2021 End: 11-17-[address] DOCTOR RIVAS Facility:[facility] Start: 07-21-2021 End: 07-21-2021 Patient encounter procedure Ryann Yu [facility] Start: 07-05-2021 End: 10-14-[address] THAIS STONE Facility:[facility] Start: 06-14-2021 End: 06-14-2021 Patient encounter procedure Manish SOLIS [facility] Start: 05-31-2021 End: 05-31-2021 Patient encounter procedure Natalie Hampton [facility] Procedures Date Procedure Procedure Detail Performing Clinician [...] Immunization Date Immunization Notes Care Provider [facility] 03-03-2021 SARS-CoV-2 (COVID-19 ) mRNA-1273 vaccine Ryann Yu [facility] Comment on above: Result Comment: 2021: TPV50 12-13-2020 influenza, injectabl e, quadrivalent, preservative free Natalie Memo [facility] 06-26-2020 SARS-CoV-2 (COVID-19 ) mRNA-1273 vaccine Natalie Memo [facility] 06-21-2020 SARS-CoV-2 (COVID-19 ) mRNA-1273 vaccine Natalie Memo [facility] 05-31-2020 SARS-CoV-2 (COVID-19 ) mRNA-1273 vaccine Natalie Memo [facility] 05-29-2020 SARS-CoV-2 (COVID-19 ) mRNA-1273 vaccine Natalie Memo [facility] 12-18-2019 influenza virus vaccine, unspecified formulation Natalie Memo [facility] 05-03-2012 influenza virus vaccine, unspecified formulation Natalie Hampton [facility] NEGATED: Highlighted row has not occurred!11-27-2018 influenza virus vaccine, unspecified formulation Natalie Hampton [facility] Payers Date Payer Category Payer Private Health Insurance [facility] [id number] 2021 Unknown [id number] 1965 Unknown [id number] 2.16.84 [id number] 1965 Unknown [id number] 2.16.84 [id number] 1965 Unknown [id number] 2.16.8 [id number] 1965 Unknown [id number] 2.16.8 [id number] 1965 Unknown [id number] 2.16.8 [id number] 1965 Unknown [id number] 2.16.8 [id number] 1965 Unknown [id number] 2.16.8 [id number] 1965 Unknown [id number] 2.16.8 [id number] 1965 Unknown [id number] 2.16.8 [id number] 1959 Self-pay 1959 Unknown [id number] Social History Date Type Detail Facility Start: 05-18-2021 End: 11-28-2022 Tobacco smoking status Ex-smoker (finding) [facility] Sex Assigned At Female [facility] Functional Status Date Assessment Result Facility 12-12-2021 Functional Status N/A [facility] Clinical Notes 06-14-2021 to 03-15-2023 LaboratoryLaboratoryLaboratoryLaboratory Note Date & Type Note Facility 03-15-2023 Evaluation + Plan note Diagnostic Tests PendingUrine Culture 03/15/23 [facility] 12-12-2021 Hospital Discharge instructions Patient Education 12/12/2021 12:47:40 Urinary Tract Infection, Adult, Skpi-fe-Aaqh Urinary Tract Infection, Adult A urinary tract [...] Follow these instructions at home: Medicines Take ujna-onv-lqxlsve and prescription medicines only as told by [...] 08/14/2008 Document Revised: 02/13/2019 Document Reviewed: 09/05/2018 [employer] Patient Education 2020 [employer]. Follow Up Care 06/14/2021 09:19:41 With:APRIL CRENSHAW, Manish Villafuerte, URL Address: [facility] [address] [place] [address]- [phone] When:10/12/2022 [facility] 07-21-2021 Hospital Discharge instructions Patient Education [...] height. This can be done either in [place]ic (U.S[place] or metric measurements. Note that charts are available to help you find your BMI quickly and easily without having to do these calculations yourself. To calculate your BMI in [place]ic ([place].S[place] measurements, your health care provider will: [...] medical problems. BMI can be measured using Icelandic measurements or metric measurements. To interpret your [...] 11/07/2004 Document Revised: 02/08/2018 Document Reviewed: 01/09/2018 [employer] Patient Education 2020 [employer] 07/21/2021 09:53:03 Sleep Apnea Sleep Apnea [...] your health care provider. General instructions Take nlmu-ufl-pnrmyrg and prescription medicines only as told by [...] 02/16/2003 Document Revised: 08/13/2019 Document Reviewed: 10/22/2018 [employer] Patient Education 2020 [employer]. 07/21/2021 09:53:00 Migraine Headache Migraine Headache A [...] Follow these instructions at home: Medicines Take aviq-jvx-voqfrmt and prescription medicines only as told by your health care provider. Ask your health care provider if the medicine prescribed to you: ?Requires you to avoid driving or using heavy machinery. ?Can cause constipation. You may need to take these actions to prevent or treat constipation: ?Drink enough fluid to keep your urine pale yellow. ?Take jhyq-msy-ylyvhjh or prescription medicines. ?Eat foods that are [...] 02/26/2006 Document Revised: 06/20/2019 Document Reviewed: 04/10/2019 [employer] Patient Education 2020 [employer]. 07/21/2021 09:52:58 Living With Depression Living With [...] a problem, search for a local or critical access hospital mental health care center. They may be [...] as walking or lifting small weights. Take qozc-cbp-nihsqqr and prescription medicines only as told by [...] 01/29/2017 Document Revised: 06/20/2019 Document Reviewed: 01/29/2017 [employer] Patient Education 2020 [employer]. 07/21/2021 09:52:52 DASH Eating Plan DASH Eating [...] your health care provider or diet and consumer electronic retail specialist (dietitian) to adjust your eating plan to [...] each week. ?Heart-healthy fats. Healthy fats called [place]-3 fatty acids are found in foods such [...] Dairy Whole or 2% milk, cream, and dgjg-wbp-wcvc. Whole or full-fat cream cheese. Whole-fat or [...] more information: National Heart, Lung, and Blood [place]: www.nhlbi.nih.gov [place] Heart Association: www.heart.org Summary The DASH eating [...] your health care provider or diet and consumer electronic retail specialist (dietitian) to adjust your eating plan to your individual calorie needs. This information is not intended to replace advice given to you by your health care provider. Make sure you discuss any questions you have with your health care provider. Document Released: 02/15/2012 Document Revised: 02/08/2018 Document Reviewed: 02/19/2017 [employer] Patient Education 2020 [employer]. Follow Up Care 07/19/2021 15:46:16 With:Ryann Yu CNP Address: When:1 year Comments:or sooner if needed. [facility] 06-14-2021 Hospital Discharge instructions [...] [facility] [address], [place] [address]- Business (1) When:12/14/2021 09:17:04 [facility] Evaluation + Plan note Future Appointments Appointment Date:06/13/2021 11:40:00 AM Scheduled Provider:Ryann Yu CNP Location:[facility] Appointment Type:FM Open Appointment Date:08/15/2021 12:15:00 PM Scheduled Provider:Manish SOLIS MD [facility] Type:URO Office Visit Future Scheduled TestsComprehensive Metabolic Panel 12/13/20Lipid Panel 12/13/20 [facility] Evaluation + Plan note Future Appointments Appointment Date:12/12/2021 12:15:00 PM Scheduled Provider:Manish SOLIS MD Location:[facility] Appointment Type:URO Office Visit Future Scheduled TestsComprehensive Metabolic Panel 12/13/20Lipid Panel 12/13/20 [facility] Evaluation + Plan note Future Appointments Appointment Date:12/12/2021 12:15:00 PM Scheduled Provider:Manish SOLIS MD Location:[facility] Appointment Type:URO Office Visit Appointment Date:07/24/2022 10:40:00 AM Scheduled Provider:[facility] CNP [facility] Type:FM Open Future Scheduled TestsComprehensive Metabolic Panel 07/21/21Comprehensive Metabolic Panel 12/13/20Lipid Panel 07/21/21Lipid Panel 12/13/20 [facility] Evaluation + Plan note Future Appointments Appointment Date:07/24/2022 10:40:00 AM Scheduled Provider:Ryann Yu CNP Location:[facility] Appointment Type:FM Open Appointment Date:10/30/2022 01:15:00 PM Scheduled Provider:Manish SOLIS MD Location:[facility] Appointment Type:URO Office Visit Future Scheduled TestsComprehensive Metabolic Panel 07/21/21Comprehensive Metabolic Panel 12/13/20Lipid Panel 07/21/21Lipid Panel 12/13/20 [facility] Evaluation + Plan note Future Appointments Appointment Date:11/28/2022 02:30:00 PM Scheduled Provider:ALANIS VICKERS PA-C Location:[facility] Appointment Type:URO Office Visit [facility] Hospital course Narrative No data available for this section [facility] Hospital Discharge instructions No data available for this section [facility] Progress note No data available for this section [facility] Summary Purpose Family History No Family History Records FoundNo Family History Records Found No data available for this section No data available for this section No Family History Records Found Advance Directives No Advanced Directives Records FoundNo Advanced Directives Records FoundNo Advanced Directives Records Found Additional Source Comments INFORMATION SOURCE (unrecogn ized section and content) DATE CREATED AUTHOR 04/30/2021 [facility] DATE CREATED AUTHOR AUTHOR'S ORGANIZ ATION 11/20/2021 [facility] DATE CREATED AUTHOR AUTHOR'S ORGANIZ ATION 06/06/2023 [facility] Care Team (unrecognized sect ion and content) Personnel Name: Ryann Yu CNP Address: [address] [place] [address], [facility] [place] [address] Personnel Name: Tasneem Buchanan Address: Address: [address] [place] [id number]- Personnel Name: Tasneem Buchanan Address: Address: [address] [place] [address]- Personnel Name: Tasneem Buchanan Address: Address: [address] [place] [id number]- FOR RECORDS PERTAINING TO PATIENTS WHO ARE [...] BE BASED ON THE PRIMARY CLINICAL RECORDS. [facility] provides no warranty or guarantee of the accuracy or completeness of information in this document.
[2023-11-07 12:21] LABS: Hematocrit 40.4 % (36.0-48.0); Hemoglobin 13.8 g/dL (12.0-16.0); Mean Corpuscular HGB Conc 34.2 g/dL (29.9-35.2); Mean Corpuscular Hemoglobin 34.2 pg (26.7-34.0); Mean Platelet Volume 9.4 fL (9.5-13.5); Platelet Count 243 10^3/uL (150-450); Red Blood Count 4.04 10^6/uL (4.20-5.40); Red Cell Distribution Width 11.9 % (11.0-15.0); White Blood Count 6.2 10^3/uL (4.0-11.0)
[2023-11-07 13:11] LABS: Alanine Aminotransferase 16 U/L (14-59); Albumin Globulin Ratio 1.2; Albumin Level 4.1 g/dL (3.4-5.0); Alkaline Phosphatase 45 U/L (46-116); Anion Gap 8.8; Aspartate Amino Transferase 12 U/L (15-37); BUN Creatinine Ratio 19.5; Bilirubin Total 0.5 mg/dL (0.2-1.0); Calcium 9.2 mg/dL (8.5-10.1); Carbon Dioxide 31.2 mmol/L (21.0-32.0); Chloride 103 mmol/L (98-107); Estimated GFR (African America >60 (>=60); Estimated GFR (Non-African Ame >60 (>=60); Globulin 3.3 g/dL; Glucose 76 mg/dL (74-106); Sodium 139 mmol/L (136-145); Total Protein 7.4 g/dL (6.4-8.2)
[2023-11-08 09:15] LABS: FSH 18.2 mIU/mL (.); Progesterone 2.2 ng/mL (.); Sex Horm Binding Glob, Serum 59.6 nmol/L (17.3-125.0)
[2023-11-10 11:09] LABS: Free Testosterone(Direct) 4.3 pg/mL (0.0-4.2); Testosterone 216 ng/dL (4-50)
== END 2023-11-07 11:55 | disposition home or self-care (01) ==
LOC: LAB 11:57
PROVIDERS: PCP Nurse Practitioner; Visit Provider Nurse Practitioner
DX: E07.9 Disorder of thyroid, unspecified (principal); Z13.29 Encounter for screening for other suspected endocrine disorder; E66.9 Obesity, unspecified; E66.3 Overweight; R53.83 Other fatigue; N95.9 Unspecified menopausal and perimenopausal disorder; E28.9 Ovarian dysfunction, unspecified; E34.9 Endocrine disorder, unspecified; E28.8 Other ovarian dysfunction; R74.8 Abnormal levels of other serum enzymes; Z79.890 Hormone replacement therapy
CPT/HCPCS: 36415; 80053; 82306; 82670; 83001; 84144; 84270; 84402; 84403; 85027

== ENCOUNTER 2024-10-22 09:31 | Outpatient (OUT) | payer BC, SELFPAY ==
--- OUTSIDE RECORDS SUMMARY | 2024-10-22 09:33 | XMS_ITS | Clinical Summary ---
Author Organization [facility] Address [address] [place] [id number] Care Team Providers Care Bariatric Surgeon Name Role Phone Roya Zapata DO Primary Care Provider Allergies No known active allergies Medications buPROPion XL (WELLBUTRIN XL) 300 mg ORAL 24 hr tabletIndication s:Plastic surgery for unacceptable cosmetic appearance,Hypom astia Take 1 tablet by mouth once daily. 0 12/03/19 11 Active buPROPion XL (WELLBUTRIN XL) 150 mg ORAL 24 hr tabletIndication s:Plastic surgery for unacceptable cosmetic appearance,Hypom astia Take 1 tablet by mouth once daily. 0 12/03/19 11 Active medroxyPROGESTER one 150 mg/mL INTRAMUSC. SyrgIndications: Plastic surgery for unacceptable cosmetic appearance,Hypom astia Inject 1 mL intramuscularly every 12 weeks. 0 12/03/19 11 Active acetaminophen-hy drocodone (VICODIN) 5-500 mg ORAL tablet Take 1 tablet by mouth every 6 hours as needed for Pain. 30 tablet 0 01/07/20 11 Active cephALEXin (KEFLEX) 500 mg ORAL capsule Take 1 capsule by mouth twice daily. 6 capsule 0 01/07/20 11 Active Family History Medical History Relation Comments None Other denies FMH of CA D/CVA Relation Status Comments Other Social History Tobacco Use Types Packs/Day Years Used Date Smoking Tobacco: Former Cigarettes 1 10 0 03/12/1991 - 03/12/2001 Smokeless Tobacco: Never Alcohol Use Standard Drinks/Week Comments No 0 (1 standard drink = 0.6 oz pur e alcohol) Comments No Sex and Gender Information Value Date Recorded Sex Assigned at Not on file Legal Sex Female 10:11 AM EST Gender Identity Not on file Sexual Orientation Not on file Last Filed Vital Signs Vital Sign Reading Time Taken Comments Blood Pressure 110/61 01/06/2011 4:14 PM EDT Pulse 77 01/06/2011 4:14 PM EDT Temperature 36 C (96.8 F) 01/06/2011 4:14 PM EDT Respiratory Rate 16 01/06/2011 4:14 PM EDT Oxygen Saturation 97% 01/06/2011 4:14 PM EDT Inhaled Oxygen Concentration - - Weight 59 kg (130 lb) 01/06/2011 11:51 AM EDT Height 160 cm (5' 3 ) 12/19/2010 2:41 PM EDT Body Mass Index 23.03 12/19/2010 2:41 PM EDT Plan of Treatment Health Maintenance Due Date Last Done Comments Anxiety Screening 1983 Depression Screening 1983 HIV Screening 1983 Hepatitis C Screening 1983 DTaP,Tdap,Td Vaccine (1 - Tdap) 01/08/1984 Cervical Cancer Screening 1986 CT Colonography 2010 Cologuard (FIT-DNA) 2010 Colonoscopy 2010 Colorectal Cancer Screening 2010 Diabetes Screening 2010 Fecal Occult Blood 2010 Lipid Screening 2010 Sigmoidoscopy 2010 Mammogram Screening 12/13/2011 12/12/2010 Pneumococcal Vaccine: 50+ (1 of 1 - PCV) 2015 Shingrix Vaccine (1 of 2) 2015 Influenza Vaccine (#1) 2024 Medical Devices Implanted Type Area Control Engineer Device Identifier Shelf Expiration Date Model / Serial / Lot Imp Brst 400ml Styl 20 Smth - [id number] Implanted:Qty : 1 on 01/06/2011 at [facility] Mammary / Breast Left: Breast [employer] BREAST DIV / / [id number] Description:silicone filled breast implant Imp Brst 400ml Styl 20 Smth - [id number] Implanted:Qty : 1 on 01/06/2011 at [facility] Mammary / Breast Right: Breast [employer] BREAST DIV / / [id number] Description:silicone filled breast implant Procedures Procedure Name Priority Date/Time Associated Diagnosis Comments MAMMOGRAM SCREENING ELIEZER Routine 12/12/2010 2:01 PM EDT Breast screening from Last 3 Months or Most Recently Relevant to Health Maintenance Results * MAMMOGRAM SCREENING ELIEZER (12/12/2010 2:01 PM EDT) Formulator * * *Final Report* * * DATE OF EXAM: Dec 12 2010 2:01PM AVW [id number] - MAMM SCREEN CAD ELIEZER / PROCEDURE REASON: BREAST SCREENING * * * * Physician Interpretation * * * * #[id number] - MAMM SCREEN CAD ELIEZER # BILATERAL SCREENING MAMMOGRAM WITH CAD: 12/12/2010 HISTORY: Breast Screening, pt signed film release form and scanned into synogs. 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 RESULT: Current study was also evaluated with a Computer Aided Detection (CAD). No prior exams were available for comparison. The tissue of both breasts is extremely dense, which lowers the sensitivity of mammography. Bilateral retropectoral saline implants are present. No significant masses, calcifications, or other findings are seen in either breast. IMPRESSION: BENIGN There is no mammographic evidence of malignancy. A 1 year screening mammogram is recommended. Rosy schrader/penrad:12/15/19 11 13:24:28 Slat Basket Maker: Oumou WAGNER)(Genny), [facility] letter sent: Return to Annual Mammogram BI-RADS: 2 Benign [id number] [employer] Actor: VICENTE Transcribe Date/Time: Dec 14 2010 1:24P Dictated by : ROSY HARVEY MD This examination was interpreted and the report reviewed and electronically signed by: ROSY HARVEY MD On Dec 14 2010 1:24PM DIVISION OF RADIOLOGY Anatomical Region Laterality Modality Other 12/12/2010 2:01 PM EDT us Salas Davis MD MAMMOGRAPHY Final Result from Last 3 Months or Most Recently Relevant to Health Maintenance Insurance BLUE CARD PPO OOS Care Teams Bariatric Surgeon Relationship Specialty Start Date End Date Roya Zapata DO [address] [place] [address] PCP - General 12/19/10
--- OUTSIDE RECORDS SUMMARY | 2024-10-22 09:33 | XMS_ITS | Continuity of Care Document ---
Author Organization [facility] Address [address] [place] [id number] Phone [phone] Care Team Providers Care Carton Wrapper Name Role Phone Jason Sangita MARIO Care Team Information Rece iver [phone] Problems Active Problems Provider Date Attention deficit hyperactiv ity disorder, predominantly inattentive type Onset: 12/13/2011 Body mass index 20-24 - normal O nset: 11/27/2018 Depression - motion Onset: 05/23 Dysuria Onset: 9 History of polyp of colon Onset: 11/06/2018 Hyperlipidemia Onset: 9 Hypertensive disorder Onset: Migraine Onset: 9 Mild major depression Onset: Neck pain Onset: 9 Nicotine dependence Onset: 11/06 Overweight Onset: 9 Postmenopausal state Onset: 10/11 Smoker Onset: 8 Essential hypertension Onset: Congenital hypoplasia of kidney Eleazar Mathias MD Onset: 07/10/2019 Hyperosmolality and or hypernatremia Eleazar howard MD Onset: 07/10/2019 Acidosis Eleazar Mathias MD Onset: 07/10/19 20 Resolved Problems Urinary tract infectious disease Onset: 01/23/2018 Resolved: 01/23/2018 Family History Date Family Member(s) Observation Comments Father Cardiac Arrest Father Hypertension Mother Hypertension Mother Renal Failure Syndrome Mother Stroke Social History Type Date Description Comments Sex Female ETOH Use Denies alcohol use Tobacco Use Start: Unknown End: Unknown Patient is a former smoker Recreational Drug Use Denies Drug Use Results Test Acquired Date Facility Test Result H/L Range [place] .[facility] 05/31/2021 [facility] (000)-000-000 0 Ua Appearance cloudy [facility] Bilirubin - [facility] Blood - Ua Color yellow [facility] Epithelial Cells QL 0-2 Ua Glucose - Ua Ketones - Ua Leuko - Ua Nitrite - Ua PH Test Strip 8.0 Ua Protein - Ua RBC 0-3 Ua Source clean catch Ua Specific [place] 1.015 Ua Urobilinogen 0.2 Ua WBC 0-5 .Urine Protein/Creat. Random 05/31/2021 [facility] (000)-000-000 0 .Urine Protein Random 10.4 .Urine Creatinine Random 63.3 .Urine Prot/Creat Ratio 164.30 .Renal Panel( [facility]) 05/31/2021 [facility] (000)-000-000 0 .Albumin 4.2 .Calcium 9.8 .Carbon Dioxide 30 .Chloride 101 .Phosphorus 3.1 .Potassium 4.3 .Sodium 139 .BUN 21 .Creatinine-LC 0.8 .GFR >60 .CMP 06/12/2020 [facility] (000)-000-000 0 .Albumin 4.1 .Alt 23 .Calcium 9.0 .Carbon Dioxide 29.5 .Chloride 104 .Creatinine-LC 0.86 .Glucose Serum 102 .Alkaline Phos 36 .Potassium 4.1 .Protein-Total 7.8 .Sodium 144 .Ast 16 .BUN 16.0 .GFR >60 .Lipid Panel 06/12/2020 [facility] (000)-000-000 0 .LDL Cholesterol 151.4 .Triglycerides 113 .Renal Panel 05/23/2019 [facility] (000)-000-000 0 .Calcium 9.1 .Carbon Dioxide 20 .Chloride 107 .Creatinine-LC 0.92 .Phosphorus 3.2 .Sodium 142 .BUN 15 .GFR-LC 71 High 20 .Potassium 3.9 .Urine Protein/Creat. Random 05/23/2019 [facility] (000)-000-000 0 .Urine Protein Random 11.7 .Urine Creatinine Random 109.8 .Urine Prot/Creat Ratio 107 .CMP 10/08/2018 [facility] (000)-000-000 0 .Albumin 4.4 .Alt 34 .Calcium 9.5 .Carbon Dioxide 19 .Chloride 110 .Creatinine-LC 0.78 .Glucose Serum 101 .Alkaline Phos 35 .Potassium 4.0 .Protein-Total 6.8 .Sodium 146 .Ast 33 .BUN 14 .GFR 100 High 20 .GFR 87 High 20 .Lipid Panel 10/08/2018 [facility] (000)-000-000 0 .Cholesterol 200 .Cholester/HDL Ratio 1.8 High Density Lipoprotein 62 .LDL Cholesterol 113 .Triglycerides 127 .Hemoglobin A1c-LC 10/08/2018 [facility] (000)-000-000 0 .Hemoglobin A1c-MC 5.6 .TSH 10/08/2018 [facility] (000)-000-000 0 .TSH 2.410 .Hemoglobin And Hematocrit 10/08/2018 [facility] (000)-000-000 0 .Hemoglobin Blood 13.3 .Hematocrit 39.3 .Hemoglobin And Hematocrit 01/23/2018 [facility] (000)-000-000 0 .Hemoglobin Blood 12.2 .Hematocrit 36.5 .CMP 01/23/2018 [facility] (000)-000-000 0 .Albumin 3.9 .Alt 73 .Calcium 8.6 .Carbon Dioxide 22 .Chloride 110 .Creatinine-LC 0.8 .Glucose Serum 111 .Alkaline Phos 54 .Potassium 3.5 .Protein-Total 6.3 .Sodium 141 .Ast 87 .BUN 12 .GFR >60 High 20 .GFR >60 High 20 .Urinalysis-Rou mai 01/23/2018 [facility] (000)-000-000 0 Ua Specific [place] 1.010 Ua PH Test Strip 7.0 Ua Color ORANGE Ua Appearance SLIGHTLY CLOUDY Ua WBC 6-15 Ua Protein 2+ Ua Glucose NEG Ua Ketones NEG Ua Bilirubin NEG Ua Urobilinogen 1.0 Ua Nitrite POSITIVE Ua Occult Blood 3+ .Hemoglobin And Hematocrit 01/21/2018 [facility] (000)-000-000 0 .Hemoglobin Blood 13.0 .Hematocrit 38.7 .CMP 01/21/2018 [facility] (000)-000-000 0 .Albumin 3.9 .Alt 17 .Calcium 8.6 .Carbon Dioxide 21 .Chloride 112 .Creatinine-LC 0.8 .Glucose Serum 106 .Alkaline Phos 34 .Potassium 3.2 .Protein-Total 6.2 .Sodium 140 .Ast 26 .BUN 13 .GFR >60 High 20 .GFR >60 High 20 .Urinalysis-Rou mai 01/21/2018 [facility] (000)-000-000 0 Ua Specific [place] 1.020 Ua PH Test Strip 6.5 Ua Color DARK YELLOW Ua Appearance CLOUDY Ua WBC 16-25 Ua Protein 3+ Ua Glucose TRACE Ua Ketones TRACE Ua Bilirubin 1+ Ua Nitrite POSITIVE Ua Occult Blood 3+ Encounters Type Date Location Provider Dx Diagnosis Office Visit 06/10/2021 1:20p [place] [facility] Eleazar Mathias MD Q60.3 Renal hypoplasi a, unilateral I10 Essential (primary) hypertension Office Visit 06/30/2020 2:20p [place] [facility] Eleazar capps MD Q60.3 Renal hypoplasia, unilateral I10 Essential (primary) hypertension Office Visit 07/10/2019 3:00p [place] [facility] Eleazar Mathias MD Q60.3 Renal hypoplasia, unilateral Office Visit 03/19/2019 2:00p [place] [facility] Eleazar caceres MD E87.0 Hyperosmolality and hypernatremia E87.2 Acidosis Assessments Date Code Description Provider 06/10/2021 Q60.3 Renal hypoplasia, unilateral Eleazar Mathias MD 06/10/2021 I10 Essential (primary) lloyd Mathias MD 06/30/2020 Q60.3 Renal hypoplasia, unilateral Eleazar Mathias MD 06/30/2020 I10 Essential (primary) lloyd Mathias MD 07/10/2019 Q60.3 Renal hypoplasia, unilateral Eleazar Mathias MD 03/19/2019 E87.0 Hyperosmolality and hypernat remia Eleazar Mathias MD 03/19/2019 E87.2 Acidosis Genny [place]
--- NOTE | 2024-10-22 09:36 | US_ITS ---
The [address] [address] Patient Name: NORA DIAZ MRN: [id number] date: 1965 Sex: F Assigned Patient Location: US Current Patient Location: Accession/Order Number: [id number] Exam Date: 10/22/2024 14:12 Report Date: 10/22/2024 14:15 At the request of: JOSE GRAY NP Procedure: US pelvis w/ transvaginal Pelvic ultrasound. Reason for exam: Postmenopausal bleeding for 2 months. Comparison: none Technique: Transabdominal imaging of the uterus and ovaries was performed. Transvaginal imaging of the uterus and ovaries was also obtained. Additional spectral Doppler analysis of the ovaries was also obtained. Findings: Uterus measures 7.5 x 4.6 x 3.5 cm. No fibroid is noted. Presumed blood products Is seen within the cervical canal. Endometrium measures 8.6 mm. No free fluid is seen. Right ovary measures 4.0 x 2.3 x 2.0 cm. Left ovary measures 1.8 x 1.1 x 1.2 cm. No adnexal mass or cyst. US/US pelvis w/ transvaginal Impression: Abnormal endometrial stripe thickening with presumed blood within the cervical canal. Endometrial sampling should be considered. Impression dictated by: Victoriano Espinal Jr., D.O. 10/22/2024 2:15 PM Dictation Location: [place] [address] Electronically authenticated by: [id number] Date: 10/22/2024 14:15
--- OUTSIDE RECORDS SUMMARY | 2024-10-22 09:38 | XMS_ITS | CCD ---
Author Organization [facility] Care Team Providers Care Steamblaster Name Role Phone Celia SIMMS Primary Care Physician Ryann Yu Primary Care Physician [phone] BERTHA, DR THAIS Devries Admitting Unavailable WEST, DR THAIS Devries Attending Unavailable SPETTCELIA CEJA Primary Care Unavailable WEST, DR THAIS Devries Consulting Unavailable MISC, DR ROMERO Admitting Unavailable MISC, DR ROMERO Attending Unavailable SPETTCELIA CEJA Primary Care Unavailable MISC, DR ROMERO Consulting Unavailable Marj, Tasneem Branch Primary Care Physician ESE VICKERS Attending Unavailable RANCHO, ESE Osman Admitting Unavailable RANCHO, ESE Osman Attending Unavailable Marj, Tasneem L Attending Unavailable Marj, Tasneem L Admitting Unavailable Marj, Tasneem Branch Attending Unavailable Marj, Tasneem Branch Attending Unavailable Marj, Tasneem Branch Admitting Unavailable Memo, Natalie Kathleen Admitting Unavailable Memo, Natalie J Attending Unavailable Marj, Tasneem Branch Attending Unavailable Medications Current Medications Medication Drug Class(es) Dates Sig (Normalized) Sig (Original) amLODIPine 5 mg oral tablet (10 sources) Dihydropyridine Calcium Channel Scarlett Start: 08-27-2023 take 1 tablet by mouth once daily amLODIPine 5 mg Tab See Instructions, TAKE 1 TABLET BY MOUTH EVERY DAY, # 90 tab(s), Refills(s) 3, Pharmacy: [id number], 160, cm, 12/24/23 11:27:00 EDT, Height/Length Dosing, 59.2, kg, 12/24/23 11:27:00 EDT, Weight Dosing Start Date: 12/24/23 Status: Ordered Start: 08-17-2022 take 1 tablet by juanpablo th once daily amLODIPine 5 mg Tab 5 mg = 1 tab(s), Oral, Daily, # 90 tab(s), Refills(s) 3, [id number] 160.4, cm, 08/17/22 15:18:00 EDT, Height/Length Dosing, 68.9, kg, 08/17/22 15:18:00 EDT, Weight Dosing Start Date: 08/17/22 Status: Ordered Start: 12-13-2020 End: 07-16-2022 take 1 tablet by mouth once daily amLODIPine 5 mg Tab 5 mg = 1 tab(s), Oral, Daily, X 90 day(s), # 90 tab(s), Refills(s) 3, [id number] 160, cm, 07/21/21 9:41:00 EDT, Height/Length Dosing, 70.7, kg, 07/21/21 9:41:00 EDT, Weight Dosing Start Date: 07/21/21 Stop Date: 07/16/22 Status: Ordered Bupropion (9 sources) Aminoketone Start: 12-24-2023 buPROPion Oral , Refills(s) 0 Start Date: 12/24/23 Status: Ordered Start: 08-17-2022 End: 08-12-2023 take 1 tablet by mouth once daily Wellbutrin SR 150 mg Tab-ER 150 mg = 1 tab(s), Oral, Daily, X 90 day(s), # 90 tab(s), Refills(s) 3, [id number] 160.4, cm, 08/17/22 15:18:00 EDT, Height/Length Dosing, 68.9, kg, 08/17/22 15:18:00 EDT, Weight Dosing Start Date: 08/17/22 Stop Date: 08/12/23 Status: Ordered Start: 02-10-2020 take 1 tablet by juanpablo th once daily Wellbutrin SR 150 mg Tab-ER 150 mg = 1 tab(s), Oral, Daily, # 90 tab(s), Refills(s) 3, Pharmacy: [facility], 162, cm, 02/10/20 14:47:00 EST, Height/Length Dosing, 59.6, kg, 02/10/20 14:47:00 EST, Weight Dosing Start Date: 02/10/20 Status: Ordered clonazePAM 0.5 mg oral tablet (3 sources) Benzodiazepine Start: 11-28-2022 ClonazePAM 0.5 mg Tab Refills(s) 0 Start Date: 11/28/22 Status: Ordered estradiol 0.1 mg/ml vaginal cream (8 sources) Estrogen Start: 12-24-2023 estradiol 0.1 mg/g Vag Crm 1 gm, Vaginal, MonFri, 42.5 gm, Refill(s) 3, [facility]/pharmacy #[id number], 160, cm, 12/24/23 11:27:00 EDT, Height/Length Dosing, 59.2, kg, 12/24/23 11:27:00 EDT, Weight Dosing Start Date: 12/24/23 Status: Ordered Start: 11-28-2022 estradiol 0.1 mg/g Vag Crm 1 gm, Vaginal, MonFri, 42.5 gm, Refill(s) 3, [facility]/pharmacy #[id number], 160, cm, 11/28/22 14:40:00 EDT, Height/Length Dosing, 66, kg, 11/28/22 14:40:00 EDT, Weight Dosing Start Date: 11/28/22 Status: Ordered Start: 04-21-2022 estradiol 0.1 mg/g Vag Crm 1 gm, Vaginal, MonFri, 42.5 gm, Refill(s) 3, [facility]/pharmacy #[id number], 160, cm, 12/12/21 12:41:00 EDT, Height/Length Dosing, 70.7, kg, 12/12/21 12:41:00 EDT, Weight Dosing Start Date: 04/21/22 Status: Ordered Start: 07-21-2021 take 1 tablet by juanpablo th once daily estradiol 1 mg Tab TAKE 1 TABLET BY MOUTH EVERY DAY Start Date: 07/21/21 Status: Ordered Start: 10-05-2020 estradiol 0.1 mg/g vaginal cream 1 gm, Vaginal, MonFri, # 42.5 gm, Refills(s) 5, Pharmacy: [facility]/pharmacy #[id number], 160, cm, 09/22/20 13:28:00 EDT, Height/Length Dosing, 58, kg, 09/22/20 13:28:00 EDT, Weight Dosing Start Date: 10/05/20 Status: Ordered estradiol 0.1 mg/g vaginal cream (4 sources) Start: 10-05-2020 estradiol 0.1 mg/g vaginal cream 1 gm, Vaginal, MonFri, # 42.5 gm, Refills(s) 5, [id number] 160, cm, 09/22/20 13:28:00 EDT, Height/Length Dosing, 58, kg, 09/22/20 13:28:00 EDT, Weight Dosing Start Date: 10/05/20 Status: Ordered progesterone 100 mg oral capsule (9 sources) Progesterone Start: 01-31-2019 take 1 mg [...] for 5 day(s), 10 tab(s), Refill(s) 0, [facility]/pharmacy #[id number], 160, cm, 11/28/22 14:40:00 EDT, Height/Length Dosing, 66, kg, 11/28/22 14:40:00 EDT, Weight Dosing Start Date: 03/15/23 Stop Date: 03/20/23 Status: Ordered SUMAtriptan 100 mg oral tablet (9 sources) Serotonin-1b and Serotonin-1d Receptor Agonist Start: 12-24-2023 Imitrex 100 mg Tab 100 mg = 1 tab(s), Oral, As Directed, PRN Headache, may repeat dose once in 2 hours, # 9 tab(s), Refills(s) 1, Pharmacy: [facility]/pharmacy #[id number], 160, cm, 12/24/23 11:27:00 EDT, Height/Length Dosing, 59.2, kg, 12/24/23 11:27:00 EDT, Weight Dosing Start Date: 12/24/23 Status: Ordered Start: 07-21-2021 Imitrex 100 mg Tab 100 mg = 1 tab(s), Oral, As Directed, PRN Headache, may repeat dose once in 2 hours, # 9 tab(s), Refills(s) 1, [id number] 160, cm, 07/21/21 9:41:00 EDT, Height/Length Dosing, 70.7, kg, 07/21/21 9:41:00 EDT, Weight Dosing Start Date: 07/21/21 Status: Ordered Start: 07-19-2020 Imitrex 100 mg Tab 100 mg = 1 tab(s), Oral, As Directed, PRN Headache, may repeat dose once in 2 hours, # 9 tab(s), Refills(s) 1, [id number] 160, cm, 07/16/20 11:04:00 EDT, Height/Length [...] procedure, # 2 cap(s), Refills(s) 0, [id number] 160, cm, 06/10/21 12:38:00 EDT, Height/Length Dosing, 64.9, kg, 05/18/21 14:26:00 ESTPaolo... 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 Disorders of lipid metabolism (9 sources) Hyperlipidemia 11-06-2018 Chronic Essential hypertension (10 sources) Hypertensive disorder; Translations: [Essential hypertension] Onset: 07-21-2021 05-06-2020 Chronic Genitourinary symptoms and ill-defined conditions (20 sources) Dysuria; Translations: [History of urinary tract infection] Onset: 12-12-2021 11-06-2018 Episodic Headache; including migraine (10 sources) Migraine; Translations: [Migraine, unspecified, not intractable, without status migrainosus] Onset: 07-21-2021 11-06-2018 Chronic Malaise and fatigue (4 sources) Other fatigue; Translations: [OTHER FATIGUE] Onset: 11-16-2021 Episodic Menopausal disorders (2 sources) Other primary ovarian failure; Translations: [Menopausal and female climacteric states] Onset: 11-20-2021 Chronic Mood disorders (19 sources) Depression; Translations: [Mild major depression] Onset: 07-21-2021 12-13-2020 Chronic Other and unspecified benign neoplasm (9 sources) History of polyp of colon 11-06-2018 Episodic Other diseases of bladder and urethra (11 sources) Urethral stricture; Translations: [Other urethral stricture, female] Onset: 12-12-2021 05-18-2021 Episodic Other lower respiratory disease (9 sources) Apnea 05-06-2020 Episodic Other lower respiratory disease (9 sources) Snoring 05-06-2020 Episodic Other nutritional; endocrine; and metabolic disorders (4 sources) Overweight in adulthood with body mass index of 25 or more but less than 30; Translations: [Body mass index (BMI) 27.0-27.9, adult] Onset: 07-21-2021 12-13-2020 Episodic Other nutritional; endocrine; and metabolic disorders (1 source) Overweight; Translations: [Overweight] Onset: 07-21-2021 Episodic Residual codes; unclassified (10 sources) Obstructive sleep apnea syndrome; Translations: [Obstructive sleep apnea (adult) (pediatric)] Onset: 07-21-2021 12-13-2020 Chronic Residual codes; unclassified (9 sources) Postmenopausal state 11-06-2018 Episodic Screening and history of mental health and substance abuse codes (14 sources) Ex-smoker; Translations: [H/O: Disorder] Onset: 07-21-2021 05-06-2020 Episodic Spondylosis; intervertebral disc disorders; other back problems (9 sources) Neck pain 11-06-2018 Episodic Substance-related disorders (9 sources) Nicotine dependence 11-06-2018 Chronic Unclassified (8 sources) Patient encounter status 08-17-2022 Urinary tract infections (20 sources) Recurrent urinary tract infection; Translations: [Urinary tract infectious disease] Onset: 12-12-2021 04-20-2020 Episodic Results Test Name Value Interpretation Reference Range Facility Reminderson 12-25-2023 Reminders Reminders From: Tasneem Buchanan To: [facility] - Clinical; Sent: 12/25/2023 08:23:19 EDT Show up: 12/25/2023 08:23:00 EDT Subject: Ambulatory Reminder Due Date/Time: 12/26/2023 08:22:00 EDT Triglycerides were slightly elevated but other [place] labs look good. Results: Date Result Name Ind Value Ref Range 12/24/2023 11:37 WBC 8.0 E9/L (4.0 - 11.0) 12/24/2023 11:37 RBC ((L)) 3.8 E12/L (4.3 - 5.9) 12/24/2023 11:37 HGB 13.3 gm/dL (12.0 - 16.0) 12/24/2023 11:37 Hct 39.3 % (34.0 - 46.0) 12/24/2023 11:37 MCV ((H)) 102.2 fL (80.0 - 100.0) 12/24/2023 11:37 MCH ((H)) 34.6 pg (27.0 - 34.0) 12/24/2023 11:37 MCHC 33.9 gm/dL (31.4 - 36.0) 12/24/2023 11:37 RDW 13.1 % (10.9 - 14.2) 12/24/2023 11:37 Platelet 258.0 E9/L (150.0 - 500.0) 12/24/2023 11:37 MPV 8.0 fL (6.4 - 10.8) 12/24/2023 11:37 Neutro Auto 72.6 % (36.0 - 75.0) 12/24/2023 11:37 Lymph Auto 20.5 % (14.0 - 50.0) 12/24/2023 11:37 [place] Auto 5.7 % (4.0 - 14.0) 12/24/2023 11:37 Eos Auto 0.7 % (0.0 - 8.0) 12/24/2023 11:37 Basophil Auto 0.5 % (0.0 - 2.0) 12/24/2023 11:37 Neutro Absolute 5.8 E9/L (2.0 - 7.5) 12/24/2023 11:37 Lymph Absolute 1.6 E9/L (1.0 - 4.0) 12/24/2023 11:37 [place] Absolute 0.4 E9/L (0.2 - 1.0) 12/24/2023 11:37 Eos Absolute 0.1 E9/L (0.0 - 0.5) 12/24/2023 11:37 Basophil Absolute 0.0 E9/L (0.0 - 0.2) 12/24/2023 11:37 Glucose Lvl 95 mg/dL (55 - 199) 12/24/2023 11:37 BUN 16 mg/dL (5 - 21) 12/24/2023 11:37 Creatinine 0.7 mg/dL (0.5 - 1.3) 12/24/2023 11:37 eGFR 100 mL/min/1.73 m2 (>=59 - ) 12/24/2023 11:37 BUN/Creat Ratio ((H)) 23 (10 - 20) 12/24/2023 11:37 Sodium Lvl 138 mmol/L (135 - 145) 12/24/2023 11:37 Potassium Lvl 3.9 mmol/L (3.5 - 5.3) 12/24/2023 11:37 Chloride 104 mmol/L (101 - 111) 12/24/2023 11:37 CO2 30 mmol/L (21 - 31) 12/24/2023 11:37 AGAP 8 mEq/L (6 - 16) 12/24/2023 11:37 Calcium Lvl 9.1 mg/dL (8.9 - 11.1) 12/24/2023 11:37 Alk Phos 41 Int._Unit/L (21 - 98) 12/24/2023 11:37 ALT 18 Int._Unit/L (6 - 46) 12/24/2023 11:37 AST 22 Int._Unit/L (5 - 43) 12/24/2023 11:37 Total Protein 6.5 gm/dL (6.0 - 7.8) 12/24/2023 11:37 Albumin Lvl 4.0 gm/dL (3.3 - 5.0) 12/24/2023 11:37 Globulin 2.5 gm/dL (1.4 - 4.0) 12/24/2023 11:37 A/G Ratio 1.6 (1.1 - 2.2) 12/24/2023 11:37 Bili Total 0.4 mg/dL (0.0 - 1.1) 12/24/2023 11:37 Chol 172 mg/dL (120 - 200) 12/24/2023 11:37 Trig ((H)) 165 mg/dL ( - <=149) 12/24/2023 11:37 HDL 60 mg/dL 12/24/2023 11:37 LDL Direct 93 mg/dL ( - <=129) 12/24/2023 11:37 VLDL 33 mg/dL (7 - 40) 12/24/2023 11:37 TSH 0.71 mcIU/mL (0.34 - 5.60) Nora called and advised of lab results Normal [facility] Ambulatory Visit Summaryon 1 Ambulatory Visit Summary Ambulatory Visit Summary DIAZNORA DHALIWAL :1965 Visit Date:12/24/2023 Ambulatory Visit Instructions Your Diagnosis Wellness examination Non-smoker Hyperlipidemia Hypertension Your Care Team Attending Physician - Tasneem Buchanan Primary Care Physician - Tasneem Buchanan This Is Your Medications List amlodipine (amLODIPine 5 mg Tab) amlodipine (amLODIPine 5 mg Tab) buPROPion clonazepam (ClonazePAM 0.5 mg Tab) estradiol topical (estradiol 0.1 mg/g Vag Crm) progesterone (progesterone 100 mg oral capsule) sumatriptan (Imitrex 100 mg Tab) Procedures Performed Cystoscopy (11/15/2017), Colonoscopy (2013), Esophagogastroduodenoscopy (2013), Bunionectomy (2011), Breast augmentation (2004), Urethral dilatation, Urethral stent, Urethral Widening. Discharge Vitals Heart Rate (Peripheral) 87 Blood Pressure 118/82 Height 160 cm Height 63 in Weight 59.2 kg Weight 130.24 lb BMI 23.13 Medications What How Much When Instructions New estradiol topical (estradiol 0.1 mg/ g Vag Crm) 1 Gram Vaginal Sunday & Sunday Refills: 3 Pickup [address] [facility]/pharmacy #[id number] New sumatriptan (Imitrex 100 mg Tab) 1 Tablets By Mouth As Directed as needed for Headache Refills: 1 may repeat dose once in 2 hours Pickup at [facility]/pharmacy #[id number] Changed amlodipine (amLODIPine 5 mg Tab) See instructions TAKE 1 TABLET BY MOUTH EVERY DAY Changed amlodipine (amLODIPine 5 mg Tab) 1 Tablets By Mouth Every day Unchanged buPROPion By Mouth Unchanged clonazepam (ClonazePAM 0.5 mg Tab) Unchanged progesterone (progesterone 100 mg oral capsule) By Mouth Once a day (at bedtime) [id number] [address], [place] [id number] [phone] Medications and Immunizations Administered Not Given influenza virus vaccine, inactivated, Postpone due to refusal Allergies No Known Allergies Problems Ongoing - [...] for choosing us for your care. Normal [facility] CBC w/ Auto Diffon 4 Basophils/100 WBC (Bld) 0.5 % Normal 0.0-2.0 [facility] Comment on above: Performed By: #### 2 [id number] #### [facility] [address] [place] [address] Basophils/Leukocyte s Auto (Bld) [Pure # fraction] 0.0 E9/L Normal 0.0-0.2 [facility] Comment on above: Performed By: #### 2 [id number] #### [facility] [address] [place] [address] Eosinophils (Bld) [#/Vol] 0.1 E9/L Normal 0.0-0.5 [facility] Comment on above: Performed By: #### 2 [id number] #### [facility] [address] [place] [address] Eosinophils/100 WBC (Bld) 0.7 % Normal 0.0-8.0 [facility] Comment on above: Performed By: #### 2 [id number] #### [facility] [address] [place] [address] Erythrocyte distribution width (RBC) [Ratio] 13.1 % Normal 10.9-14.2 [facility] Comment on above: Performed By: #### 2 [id number] #### [facility] [address] [place] [address] Hematocrit (Bld) [Volume fraction] 39.3 % Normal 34.0-46.0 [facility] Comment on above: Performed By: #### 2 [id number] #### [facility] [address] [place] [address] Hemoglobin (Bld) [Mass/Vol] 13.3 g/dL Normal 12.0-16.0 [facility] Comment on above: Performed By: #### 2 [id number] #### [facility] [address] [place] [address] Lymphocytes (Bld) [#/Vol] 1.6 E9/L Normal 1.0-4.0 [facility] Comment on above: Performed By: #### 2 [id number] #### [facility] [address] [place] [address] Lymphocytes/100 WBC (Bld) 20.5 % Normal 14.0-50.0 [facility] Comment on above: Performed By: #### 2 [id number] #### [facility] [address] [place] [address] MCH (RBC) [Entitic mass] 34.6 pg High 27.0-34.0 [facility] Comment on above: Performed By: #### 2 [id number] #### [facility] [address] [place] [address] MCHC (RBC) [Mass/Vol] 33.9 g/dL Normal 31.4-36.0 [facility] Comment on above: Performed By: #### 2 [id number] #### [facility] [address] [place] [address] MCV (RBC) [Entitic vol] 102.2 fL High 80.0-100.0 [facility] Comment on above: Performed By: #### 2 [id number] #### [facility] [address] [place] [address] Monocytes (Bld) [#/Vol] 0.4 E9/L Normal 0.2-1.0 [facility] Comment on above: Performed By: #### 2 [id number] #### [facility] [address] [place] [address] Neutrophils (Bld) [#/Vol] 5.8 E9/L Normal 2.0-7.5 [facility] Comment on above: Performed By: #### 2 [id number] #### [facility] [address] [place] [address] Neutrophils/100 WBC (Bld) 72.6 % Normal 36.0-75.0 [facility] Comment on above: Performed By: #### 2 [id number] #### [facility] [address] [place] [address] Platelet mean volume (Bld) [Entitic vol] 8.0 fL Normal 6.4-10.8 [facility] Comment on above: Performed By: #### 2 [id number] #### [facility] [address] [place] [address] Platelets (Bld) [#/Vol] 258.0 E9/L Normal 150.0-500.0 [facility] Comment on above: Performed By: #### 2 [id number] #### [facility] [address] [place] [address] RBC (Bld) [#/Vol] 3.8 E12/L Low 4.3-5.9 [facility] Comment on above: Performed By: #### 2 [id number] #### [facility] [address] [place] [address] WBC corrected for nucl RBC Auto (Bld) [#/Vol] 8.0 E9/L Normal 4.0-11.0 [facility] Comment on above: Performed By: #### 2 [id number] #### [facility] [address] [place] [address] CHEMISTRYOrdered By: SYSTEM SYSTEM on 12-24-2023 Albumin [Mass/Vol] 4.0 g/dL Normal 3.3 - 5.0 gm/dL [facility] Albumin/Globulin [Mass ratio] 1.6 {ratio} Normal 1.1 - 2.2 [facility] ALP [Catalytic activity/Vol] 41 [iU]/d Normal 21 - 98 Int._Unit/L [facility] ALT No additional P-5'-P [Catalytic activity/Vol] 18 [iU]/d Normal 6 - 46 Int._Unit/L [facility] Anion gap [Moles/Vol] 8 mmol/L Normal 6 - 16 mEq/L [facility] AST [Catalytic activity/Vol] 22 [iU]/d Normal 5 - 43 Int._Unit/L [facility] Bilirubin [Mass/Vol] 0.4 mg/dL Normal 0.0 - 1.1 mg/dL [facility] Calcium [Mass/Vol] 9.1 mg/dL Normal 8.9 - 11. 1 mg/dL [facility] Chloride [Moles/Vol] 104 mmol/L Normal 101 - 111 mmol/L [facility] Cholesterol [Mass/Vol] 172 mg/dL Normal 120 - 200 mg/dL [facility] Cholesterol in HDL [Mass/Vol] 60 mg/dL Invalid Interpretation Code [facility] Comment on above: Result Comment: '>= 60 LOW RISK' '<= 40 HIGH RISK' Cholesterol in LDL [Mass/Vol] 93 mg/dL Normal <=129mg/dL [facility] Cholesterol in VLDL [Mass/Vol] 33 mg/dL Normal 7 - 40 mg/dL [facility] CO2 [Moles/Vol] 30 mmol/L Normal 21 - 31 mmol/L [facility] Creatinine [Mass/Vol] 0.7 mg/dL Normal 0.5 - 1.3 mg/dL [facility] eGFR 100 mL/min/1.73 m2 Normal >=59mL/mi n/ 1.73 m2 [facility] Globulin (S) [Mass/Vol] 2.5 g/dL Normal 1.4 - 4.0 gm/dL [facility] Glucose [Mass/Vol] 95 mg/dL Normal 55 - 199 mg/dL [facility] Potassium [Moles/Vol] 3.9 mmol/L Normal 3.5 - 5.3 mmol/L [facility] Protein [Mass/Vol] 6.5 g/dL Normal 6.0 - 7.8 gm/dL [facility] Sodium [Moles/Vol] 138 mmol/L Normal 135 - 145 mmol/L [facility] Triglyceride [Mass/Vol] 165 mg/dL High <=149mg/dL [facility] TSH Qn 0.71 m[IU]/L Normal 0.34 - 5.60 mcIU/mL [facility] Urea nitrogen [Mass/Vol] 16 mg/dL Normal 5 - 21 mg/dL [facility] Urea nitrogen/Creatinine [Mass ratio] 23 mg/mg High - 20 [facility] CMPon 12-24-2023 Albumin [Mass/Vol] 4.0 g/dL Normal 3.3-5.0 [facility] Comment on above: Performed By: #### 2 [id number] #### [facility] [address] [place] [address] Albumin/Globulin (S) [Mass conc ratio] 1.6 Normal 1.1-2.2 [facility] Comment on above: Performed By: #### 2 [id number] #### [facility] [address] [place] [address] ALP [Catalytic activity/Vol] 41 Int._Unit/L Normal 21-98 [facility] Comment on above: Performed By: #### 2 [id number] #### [facility] [address] [place] [address] ALT No additional P-5'-P [Catalytic activity/Vol] 18 Int._Unit/L Normal 6-46 [facility] Comment on above: Performed By: #### 2 [id number] #### [facility] [address] [place] [address] Anion gap [Moles/Vol] 8 mmol/L Normal 6-16 [facility] Comment on above: Performed By: #### 2 [id number] #### [facility] [address] [place] [address] AST [Catalytic activity/Vol] 22 Int._Unit/L Normal 5-43 [facility] Comment on above: Performed By: #### 2 [id number] #### [facility] [address] [place] [address] Bilirubin [Mass/Vol] 0.4 mg/dL Normal 0.0-1.1 [facility] Comment on above: Performed By: #### 2 [id number] #### [facility] [address] [place] [address] Calcium [Mass/Vol] 9.1 mg/dL Normal 8.9-11.1 [facility] Comment on above: Performed By: #### 2 [id number] #### [facility] [address] [place] [address] Chloride [Moles/Vol] 104 mmol/L Normal 101-111 [facility] Comment on above: Performed By: #### 2 [id number] #### [facility] [address] [place] [address] CO2 [Moles/Vol] 30 mmol/L Normal 21-31 [facility] Comment on above: Performed By: #### 2 [id number] #### [facility] [address] [place] [address] Creatinine [Mass/Vol] 0.7 mg/dL Normal 0.5-1.3 [facility] Comment on above: Performed By: #### 2 [id number] #### [facility] [address] [place] [address] Globulin (S) [Mass/Vol] 2.5 g/dL Normal 1.4-4.0 [facility] Comment on above: Performed By: #### 2 [id number] #### [facility] [address] [place] [address] Glucose [Mass/Vol] 95 mg/dL Normal 55-199 [facility] Comment on above: Performed By: #### 2 [id number] #### [facility] [address] [place] [address] Potassium [Moles/Vol] 3.9 mmol/L Normal 3.5-5.3 [facility] Comment on above: Performed By: #### 2 [id number] #### [facility] [address] [place] [address] Protein [Mass/Vol] 6.5 g/dL Normal 6.0-7.8 [facility] Comment on above: Performed By: #### 2 [id number] #### [facility] [address] [place] [address] Sodium [Moles/Vol] 138 mmol/L Normal 135-145 [facility] Comment on above: Performed By: #### 2 [id number] #### [facility] Laboratory [address] [place] [address] Urea nitrogen [Mass/Vol] 16 mg/dL Normal 5-21 [facility] Comment on above: Performed By: #### 2 [id number] #### [facility] Laboratory [address] [place] [address] Urea nitrogen/Creatinine [Mass ratio] 23 No Units High 10-20 [facility] Comment on above: Performed By: #### 2 [id number] #### [facility] Laboratory [address] [place] [address] Family Medicine Office/Clini c Noteon 12-24-2023 Family Medicine Office/Clinic Note Family Medicine Office/Clinic Note Chief Complaint annualy wellness HPI Staff Pt presents today for annual wellness visit. questions/concerns: none refills: amlodipine, Imitrex, estradiol cream, History of Present Illness presents for annual wellness visit Review of Systems PHQ Score Initial Depression Screen Score: 0 SCORE Physical Exam Vitals & Measurements HR: 87(Peripheral) BP: 118/82 SpO2: 97% HT: 63 in HT: 160 cm WT: 59.2 kg WT: 130.24 lb BMI: 23.13 General: alert, no acute distress ENMT: oral mucosa moist, no pharyngeal erythema or exudate Cardiovascular: regular rate and rhythm, normal peripheral perfusion Respiratory: Lungs CTA, respirations non labored Extremities: no deformity, no trauma Neurological: oriented x 4, LOC appropriate for age, CN II-XII intact, motor strength equal & normal bilaterally, speech normal Assessment/Plan 1. Wellness examination (Z00.00: Encounter for general adult medical examination without abnormal findings) pt presents today for annual wellness exam. annual labs drawn in office today. will send med refills. all questions answered. RTC as needed Ordered: CBC w/ Auto Diff Comprehensive Metabolic Panel Est Preventative 40 to 64 years [address] Lab Specimen Collect 45329 Lipid Panel Thyroid Stimulating Hormone 2. Non-smoker (Z78.9: Other specified health status) continue not smoking Ordered: Est Preventative 40 to 64 years [address] Lab Specimen Collect 50222 3. Hyperlipidemia (E78.5: Hyperlipidemia, unspecified) lipid panel drawn today Ordered: CBC w/ Auto Diff Comprehensive Metabolic Panel Est Preventative 40 to 64 years [address] Lab Specimen Collect 51240 Lipid Panel Thyroid Stimulating Hormone 4. Hypertension (I10: Essential (primary) hypertension) BP at goal. will send refills Ordered: CBC w/ Auto Diff Comprehensive Metabolic Panel Est Preventative 40 to 64 years [address] Lab Specimen Collect 63595 Lipid Panel Thyroid Stimulating Hormone Orders: amlodipine, See Instructions, TAKE 1 TABLET BY MOUTH EVERY DAY, # 90 tab(s), Refills(s) 3, Pharmacy: [id number], 160, cm, 12/24/23 11:27:00 EDT, Height/Length Dosing, 59.2, kg, 12/24/23 11:27:00 EDT, Weight Dosing estradiol topical, 1 gm, Vaginal, MonFri, 42.5 gm, Refill(s) 3, [facility]/pharmacy #[id number], 160, cm, 12/24/23 11:27:00 EDT, Height/Length Dosing, 59.2, kg, 12/24/23 11:27:00 EDT, Weight Dosing estradiol topical, 1 gm, Vaginal, MonFri, 42.5 gm, Refill(s) 3, [facility]/pharmacy #[id number], 160, cm, 11/28/22 14:40:00 EDT, Height/Length Dosing, 66, kg, 11/28/22 14:40:00 EDT, Weight Dosing sumatriptan, 100 mg = 1 tab(s), Oral, As Directed, PRN Headache, may repeat dose once in 2 hours, # 9 tab(s), Refills(s) 1, [id number] 160, cm, 07/21/21 9:41:00 EDT, Height/Length Dosing, 70.7, kg, 07/21/21 9:41:00 EDT, Weight Dosing sumatriptan, 100 mg = 1 tab(s), Oral, As Directed, PRN Headache, may repeat dose once in 2 hours, # 9 tab(s), Refills(s) 1, [id number] 160, cm, 12/24/23 11:27:00 EDT, Height/Length Dosing, 59.2, kg, 12/24/23 11:27:00 EDT, Weight Dosing Follow-up No qualifying data available Problem List/Past Medical History Ongoing Breast cancer [...] mg Tab, 5 mg= 1 tab(s), Oral, Daily amLODIPine 5 mg Tab, See Instructions, 3 refills buPROPion, Oral ClonazePAM 0.5 mg Tab estradiol 0.1 mg/g Vag Crm, 1 gm, Vaginal, MonFri, 3 refills Imitrex 100 mg Tab, 100 mg= 1 tab(s), Oral, As Directed, PRN, 1 refills progesterone 100 mg oral capsule, Oral, Once a day (at bedtime) Allergies No Known Allergies Social History Alcohol - Denies Alcohol Use, 09/21/2011 Substance Abuse - Denies Substance Abuse, 09/21/2011 Tobacco - Denies Tobacco Use, 01/23/2018 Former smoker, quit more than 30 days ago Tobacco Use:. Never Smokeless Tobacco Use:. Cigarettes, Household tobacco concerns: No. Yes, 12/24/2023 Family History Cardiac arrest: Father. Hypertension: Mother and Father. Lung cancer: Aunt and Uncle. RENAL FAILURE: Mother. Stroke: Mother. Immunizations Vaccine Date Status Comments influenza virus vaccine, inactivated - Not Given Postpone due to refusal SARS-CoV-2 (COVID-19) mRNA-1273 vaccine 03/03/2021 Recorded 2021-07-21: (more content not included)... Normal [facility] Comment on above: Result Comment: Elec tronically Signed By: Tasneem Buchanan\.br\Date and Time Signed: 12/24/23 11:39 EDT HEMATOLOGYOrdered By: SYSTEM SYSTEM on 12-24-2023 Basophils/100 WBC (Bld) 0.5 % Normal 0.0 - 2.0 % Remisol Heme Basophils/Leukocyte s Auto (Bld) [Pure # fraction] 0.0 E9/L Normal 0.0 - 0.2 E9/L Remisol Heme Eosinophils (Bld) [#/Vol] 0.1 E9/L Normal 0.0 - 0.5 E9/L Remisol Heme Eosinophils/100 WBC (Bld) 0.7 % Normal 0.0 - 8.0 % Remisol Heme Erythrocyte distribution width (RBC) [Ratio] 13.1 % Normal 10.9 - 14.2 % Remisol Heme Hematocrit (Bld) [Volume fraction] 39.3 % Normal 34.0 - 46.0 % Remisol Heme Hemoglobin (Bld) [Mass/Vol] 13.3 g/dL Normal 12.0 - 16.0 gm/dL Remisol Heme Lymphocytes (Bld) [#/Vol] 1.6 E9/L Normal 1.0 - 4.0 E9/L Remisol Heme Lymphocytes/100 WBC (Bld) 20.5 % Normal 14.0 - 50.0 % Remisol Heme MCH (RBC) [Entitic mass] 34.6 pg High 27.0 - 34.0 pg Remisol Heme MCHC (RBC) [Mass/Vol] 33.9 g/dL Normal 31.4 - 36.0 gm/dL Remisol Heme MCV (RBC) [Entitic vol] 102.2 fL High 80.0 - 100.0 fL Remisol Heme Monocytes (Bld) [#/Vol] 0.4 E9/L Normal 0.2 - 1.0 E9/L Remisol Heme Monocytes/100 WBC (Bld) 5.7 % Normal 4.0 - 14.0 % Remisol Heme Neutrophils (Bld) [#/Vol] 5.8 E9/L Normal 2.0 - 7.5 E9/L Remisol Heme Neutrophils/100 WBC (Bld) 72.6 % Normal 36.0 - 75.0 % Remisol Heme Platelet mean volume (Bld) [Entitic vol] 8.0 fL Normal 6.4 - 10.8 fL Remisol Heme Platelets (Bld) [#/Vol] 258.0 E9/L Normal 150.0 - 500.0 E9/L Remisol Heme RBC (Bld) [#/Vol] 3.8 E12/L Low 4.3 - 5.9 E12/L Remisol Heme WBC corrected for nucl RBC Auto (Bld) [#/Vol] 8.0 E9/L Normal 4.0 - 11.0 E9/L Remisol Heme Lipid Panelon 12-24-2023 Cholesterol [Mass/Vol] 172 mg/dL Normal 120-200 [facility] Comment on above: Performed By: #### 2 [id number] #### [facility] Laboratory [address] [place] [address] Cholesterol in HDL [Mass/Vol] 60 mg/dL Invalid Interpretation Code [facility] Comment on above: Result Comment: '>= 60 LOW RISK' '<= 40 HIGH RISK' Performed By: #### 2 [id number] #### [facility] Laboratory [address] [place] [address] Cholesterol in LDL [Mass/Vol] 93 mg/dL Normal <=129 [facility] Comment on above: Performed By: #### 2 [id number] #### [facility] Laboratory [address] [place] [address] Cholesterol in VLDL [Mass/Vol] 33 mg/dL Normal 7-40 [facility] Comment on above: Performed By: #### 2 [id number] #### [facility] Laboratory [address] [place] [address] Triglyceride [Mass/Vol] 165 mg/dL High <=149 [facility] Comment on above: Performed By: #### 2 [id number] #### [facility] [address] [place] [address] TSHon 12-24-2023 TSH Qn 0.71 m[IU]/L Normal 0.34-5.60 [facility] Comment on above: Performed By: #### 2 [id number] #### [facility] [address] [place] [address] eGFRon 12-24-2023 eGFR 100 mL/min/1.73 m2 Normal >=59 [facility] Comment on above: Performed By: #### 1 [id number] #### [facility] [address] [place] [address] Outside Mammographyon 2023 Outside Mammography [id number] Normal [facility] C Urineon 03-17-2023 Bacteria identified Cx Nom (U) Microbiology PROCEDURE: Urine Culture [R1] SOURCE: U CleanCatch BODY SITE: COLLECTED DATE/TIME: 03/15/2023 13:44 EST RECEIVED DATE/TIME: 03/15/2023 17:10 EST START DATE/TIME: 03/15/2023 17:10 EST FREE TEXT SOURCE: ESE VICKERS PA-C, PA-C, JENNIFER E FINAL REPORTS Final Report [] Verified Date/Time: 03/17/2023 07:53 EST 2,000 cfu/ml Mixed skin contaminants Performing Locations R1: This test was performed at: [facility], [address] [place] [address], [address]- , , Normal [facility] Comment on above: Performed By: #### 2 [id number] #### [facility] Laboratory [address] [place] [address] Ambulatory Visit Summaryon 0 03-15-2023 Ambulatory Visit Summary NORA DIAZ :1965 Visit Date:03/15/2023 Ambulatory Visit Instructions Your Care Team Attending Physician - ESE VICKERS PA-C Primary Care Physician - Tasneem [...] you for choosing us for your care. [facility] ED Note-Physicianon 02-13-20 ED Note-Physician [id number] Normal [facility] ESTRADIOLon 11-17-2021 Estradiol 83.6 pg/mL Normal [facility] Comment on above: Result Comment: Adul t Female: Follicular phase 12.5 - 166.0 Ovulation phase 85.8 - 498.0 Luteal phase 43.8 - 211.0 Postmenopausal <6.0 - 54.7 1st trimester 215.0 - >4300.0 Latasha ECLIA methodology Performed By: #### E BEATRIZ #### [facility] [address] [place] [address] Dr. Darryl Trammell FSHon 11-17-2021 FSH 38.1 mIU/mL Normal [facility] Comment on above: Result Comment: Adul t Female: Follicular phase 3.5 - 12.5 Ovulation phase 4.7 - 21.5 Luteal phase 1.7 - 7.7 Postmenopausal 25.8 - 134.8 Performed By: #### L BCFSH #### [facility] [address] [place] [address] Dr. Darryl Trammell TESTOSTERONE, TOTALon 2021 Testosterone [Mass/Vol] 286 ng/dL Critically high 4-50 [facility] Comment on above: Performed By: #### T ESTTOT #### [facility] [address] [place] [address] Dr. Darryl Trammell CBC AUTO DIFFon 11-16-2021 BASO # 0.0 103/ul Normal 0.0-0.1 [facility] Comment on above: Performed By: #### C BC #### [facility] [address] [place] [address] Dr. Darryl Trammell Basophils/100 WBC (Bld) 0.8 % Normal 0.2-2.0 [facility] Comment on above: Performed By: #### C BC #### [facility] [address] [place] [address] Dr. Darryl Trammell EO # 0.2 103/ul Normal 0.0-0.7 [facility] Comment on above: Performed By: #### C BC #### [facility] [address] [place] [address] Dr. Darryl Trammell Eosinophils/100 WBC (Bld) 3.9 % Normal 0.9-7.0 [facility] Comment on above: Performed By: #### C BC #### [facility] [address] [place] [address] Dr. Darryl Trammell Erythrocyte distribution width (RBC) [Ratio] 12.2 % Normal 11.0-15.0 [facility] Comment on above: Performed By: #### C BC #### [facility] [address] [place] [address] Dr. Darryl Trammell Hematocrit (Bld) [Volume fraction] 42.4 % Normal 36.0-48.0 [facility] Comment on above: Performed By: #### C BC #### [facility] [address] [place] [address] Dr. Darryl Trammell Hemoglobin (Bld) [Mass/Vol] 14.1 g/dL Normal 12.0-16.0 [facility] Comment on above: Performed By: #### C BC #### [facility] [address] [place] [address] Dr. Darryl Trammell IG # 0.01 10e3/ul Normal 0.00-0.03 [facility] Comment on above: Performed By: #### C BC #### [facility] [address] [place] [address] Dr. Darryl Trammell IG % 0.2 % Normal 0.0-0.5 [facility] Comment on above: Performed By: #### C BC #### [facility] [address] [place] [address] Dr. Darryl Trammell LYMPH # 2.5 103/ul Normal 1.2-3.8 [facility] Comment on above: Performed By: #### C BC #### [facility] [address] [place] [address] Dr. Darryl Trammell Lymphocytes/100 WBC (Bld) 48.9 % Normal 20.5-60.0 [facility] Comment on above: Performed By: #### C BC #### [facility] [address] [place] [address] Dr. Darryl Trammell MANUAL DIFF REQ NO Normal [facility] Comment on above: Performed By: #### C BC #### [facility] [address] [place] [address] Dr. Darryl Trammell MCH (RBC) [Entitic mass] 32.7 pg Normal 26.7-34.0 [facility] Comment on above: Performed By: #### C BC #### [facility] [address] [place] [address] Dr. Darryl Trammell MCHC (RBC) [Mass/Vol] 33.3 g/dL Normal 29.9-35.2 [facility] Comment on above: Performed By: #### C BC #### [facility] [address] [place] [address] Dr. Darryl Trammell MCV (RBC) [Entitic vol] 98.4 fL Normal 81.0-99.0 [facility] Comment on above: Performed By: #### C BC #### [facility] [address] [place] [address] Dr. Darryl Trammell MONO # 0.5 103/ul Normal 0.3-0.8 [facility] Comment on above: Performed By: #### C BC #### [facility] [address] [place] [address] Dr. Darryl Trammell Monocytes/100 WBC (Bld) 9.6 % Normal 1.7-12.0 [facility] Comment on above: Performed By: #### C BC #### [facility] [address] [place] [address] Dr. Darryl Trammell NEUT # 1.9 103/ul Normal 1.4-6.5 [facility] Comment on above: Performed By: #### C BC #### [facility] [address] [place] [address] Dr. Darryl Trammell Neutrophils/100 WBC (Bld) 36.6 % Critically low 43.0-75.0 [facility] Comment on above: Performed By: #### C BC #### [facility] [address] [place] [address] Dr. Darryl Trammell Platelet mean volume (Bld) [Entitic vol] 10.1 fL Normal 9.5-13.5 [facility] Comment on above: Performed By: #### C BC #### [facility] [address] [place] [address] Dr. Darryl Trammell PLT 262 103/ul Normal 150-450 [facility] Comment on above: Performed By: #### C BC #### [facility] [address] [address] [address] Darryl Trammell RBC 4.31 106/ul Normal 4.20-5.40 [facility] Comment on above: Performed By: #### C BC #### [facility] [address] [address] [address] Darryl Trammell WBC 5.1 103/ul Normal 4.0-11.0 [facility] Comment on above: Performed By: #### C BC #### [facility] [address] [place] [address] Dr. Darryl Trammell GLUCOSE BLOODon 11-16-2021 Glucose [Mass/Vol] 80 mg/dL Normal 74-106 [facility] Comment on above: Performed By: #### T SH, LIPID, GLUC #### [facility] [address] [place] [address] Dr. Darryl Trammell LIPID PROFILEon 11-16-2021 CHOL-HDL RATIO NORM SEE BELOW Normal [facility] Comment on above: Result Comment: 3.3 - 4.4 LOW RISK 4.4 - 7.1 AVERAGE RISK 7.1 - 11.0 MODERATE RISK >11.0 HIGH RISK Performed By: #### T SH, LIPID, GLUC #### [facility] [address] [place] [address] Dr. Darryl Trammell Cholesterol [Mass/Vol] 201 mg/dL Critically high <=200 [facility] Comment on above: Performed By: #### T SH, LIPID, GLUC #### [facility] [address] [place] [address] Dr. Darryl Trammell Cholesterol in HDL [Mass/Vol] 72 mg/dL Critically high 40-60 [facility] Comment on above: Performed By: #### T SH, LIPID, GLUC #### [facility] [address] [address] [address] Darryl Trammell Cholesterol in LDL [Mass/Vol] 113.0 mg/dL Normal [facility] Comment on above: Performed By: #### T SH, LIPID, GLUC #### [facility] [address] [address] [address] Darryl Trammell Cholesterol.total/C holesterol in HDL [Mass ratio] 2.8 {ratio} Normal [facility] Comment on above: Performed By: #### T SH, LIPID, GLUC #### [facility] [address] [address] [address] Darryl Trammell HDL NORMAL > or = 60 mg/dl - LO W CARDIOVASCULAR RISK <40 mg/dl - HIGH CARDIOVASCULAR RISK Normal [facility] Comment on above: Performed By: #### T SH, LIPID, GLUC #### [facility] [address] [place] [address] Dr. Darryl Trammell LDL CALC NORMAL SEE BELOW Normal [facility] Comment on above: Result Comment: <100 mg/dl OPTIMAL 100 - 129 mg/dl NEAR OR ABOVE OPTIMAL 130 - 159 mg/dl BORDERLINE HIGH 160 - 189 mg/dl HIGH >190 mg/dl VERY HIGH Performed By: #### T SH, LIPID, GLUC #### [facility] [address] [place] [address] Dr. Darryl Trammell Triglyceride [Mass/Vol] 80 mg/dL Normal <=150 [facility] Comment on above: Performed By: #### T SH, LIPID, GLUC #### [facility] [address] [address] [address] Darryl Trammell VLDL CALC 16.0 mg/dL Normal [facility] Comment on above: Performed By: #### T SH, LIPID, GLUC #### [facility] [address] [place] [address] Dr. Darryl Trammell TSHon 11-16-2021 TSH 1.999 uIU/mL Normal 0.358-3.740 [facility] Comment on above: Performed By: #### T SH, LIPID, GLUC #### [facility] [address] [place] [address] Dr. Darryl Trammell CHEMISTRYOrdered By: Pablo mejia on 05-31-2021 Albumin Elph (U) [Mass fraction] 10.4 mg/dL Invalid Interpretation Code [facility] Remisol Creatinine (U) [Mass/Vol] 63.3 mg/dL Invalid Interpretation Code [facility] Remisol U Prot/Creat Ratio 164.30 mg/gm Cr Normal 0.00 - 200.00 mg/gm Cr [facility] Remisol CHEMISTRYOrdered By: SYSTEM SYSTEM on 05-31-2021 [...] 0.8 mg/dL Normal 0.5 - 1.3 mg/dL FT Remisol GFR/1.73 sq M.predicted among blacks MDRD (S/P/Bld) [Vol rate/Area] mL/min/1.73 m2 Normal >=59mL/min/ 1.73 m2 [facility] Chem S GFR/1.73 sq M.predicted among non-blacks MDRD (S/P/Bld) [Vol rate/Area] mL/min/1.73 m2 Normal >=59mL/min/ 1.73 m2 [facility] Chem S Glucose [Mass/Vol] 101 mg/dL Normal [...] PM) Normal Negative [facility] UA Auto SS [place].plasma/Lith ium.RBC (Bld) [Mass ratio] 0-3 /HPF Normal 0-3/HPF [facility] UA Auto SS Nitrite Ql (U) Negative (05/31/21 3:05 PM) Normal Negative [facility] UA Auto SS pH (U) 8.0 *NA* (05/31/21 3:05 PM) Invalid Interpretation Code 5.0 - 9.0 [facility] UA Auto SS Phosphate crystals amorphous LM Ql (Urine sed) Present (05/31/21 3:05 PM) Normal [facility] UA Auto SS Protein (U) [Mass/Vol] Negative (05/31/21 3:05 PM) Normal Negative [facility] UA Auto SS Specific gravity (U) [Rel density] 1.015 *NA* (05/31/21 3:05 PM) Invalid Interpretation Code 1.005 - 1.030 [facility] UA Auto SS UA Spec Desc Clean Catch (05/31/21 3:05 PM) Normal [facility] UA Auto SS Urobilinogen Qn (U) 0.1600866 {Mayra'U}/dL Normal 0.0 - 1.0 EU/dL [facility] UA Auto SS WBC Auto Ql (U) Negative (05/31/21 3:05 PM) Normal Negative [facility] UA Auto SS WBC LM.HPF (Urine sed) [#/Area] 0-5 /HPF Normal 0-5/HPF [facility] UA Auto SS COVID-19 FRon 01-04-2021 SARS-CoV-2 (COVID-19) RNA JENN+probe Ql (Unsp spec) Negative Normal Negative [facility] Comment on above: Order Comment: Healt hcare Worker?: N Result Comment: Testing for SARS-CoV-2 by RT-PCR This test was developed and its performance characteristics determined by [employer] and validated at the [facility]. This test has not been FDA cleared [...] is terminated or revoked sooner. PERFORMED BY: [place] [address] PATHOLOGIST ULTRASOUND SONOGRAPHER UYEN HEATH M.D. Performed By: #### C OVID 19 [facility] #### [place] [id number] [facility] Basic Metabolic Panelon 12-10 Calcium [Mass/Vol] 9.6 mg/dL Normal 8.2-10.2 [facility] Comment on above: Result Comment: PERF ORMED BY: [facility] [address] [place] [address] PATHOLOGIST ULTRASOUND SONOGRAPHER UYEN HEATH M.D. Performed By: #### B #### [facility] [address] [place] [address] [place] Chloride [Moles/Vol] 102 mmol/L Normal 95-114 [facility] Comment on above: Performed By: #### B MP #### [facility] [address] [place] [address] [place] CO2 [Moles/Vol] 27.5 mmol/L Normal 22.0-30.0 [facility] Comment on above: Performed By: #### B MP #### [address] Creatinine [Mass/Vol] 0.68 mg/dL Normal 0.44-1.03 [facility] Comment on above: Performed By: #### B MP #### [address] Estimated GFR ( Karen > 60 Normal [facility] Comment on above: Result Comment: GFR estimated reference range: According to KDOQI guidelines, <60 ml/min/1.73m2 is sufficient to diagnose a patient with chronic kidney disease. Performed By: #### B MP #### [place] [address] [place] Estimated GFR (Non- Am > 60 Normal [facility] Comment on above: Performed By: #### B MP #### [place] [address] [place] Glucose [Mass/Vol] 90 mg/dL Normal 70-100 [facility] Comment on above: Result Comment: [place] Glucose Reference Range is dependent on time and content of last meal. Glucose of more than 200 mg/dL in a nonstressed, ambulatory subject supports the diagnosis of Diabetes Mellitus. ADA recommended reference range Performed By: #### B MP #### [place] [address] [place] Potassium [Moles/Vol] 4.5 mmol/L Normal 3.5-5.1 [facility] Comment on above: Performed By: #### B MP #### [place] [address] [place] Sodium [Moles/Vol] 138 mmol/L Normal 136-146 [facility] Comment on above: Performed By: #### B MP #### [facility] [address] [place] [address] Urea nitrogen [Mass/Vol] 12 mg/dL Normal 12-02 [facility] Comment on above: Performed By: #### B MP #### [facility] [address] [place] [address] ECG 12 lead ECGon 12-27-2020 ECG 12 lead ECG [facility] Main [place] [address] [place] [address] Electrocardiograph Report Signed Patient: Nora Diaz MR#: [id number] 9 : 1965 Acct:[id number] Age/Sex: 55 / F ADM Date: 12/27/20 Loc: PS Room: Type: [facility] Attending Dr: Prabhakar Max MD Ordering Provider: [...] Signed By Cuauhtemoc Baldwin MD 1 [address]34 [facility] Urine Cultureon 08-05-2020 Bacteria identified Cx Nom (U) <9,000 colonies/ml mixed bacterial skin contaminants 2 Days PERFORMED BY: [place] [address] PATHOLOGIST ULTRASOUND SONOGRAPHER UYEN HEATH M.D. [facility] Comment on above: Performed By: #### C UU #### [address] [place] [address] [facility] Vital Signs Date Time Vital Sign Value Performing Clinician Lul farris 12-12-2021 12:40-0400 Blood Pressure Location Manish SOLIS [facility] 12-12-2021 12:40-0400 Diastolic blood pressure 89 mm[Hg] Manishcarl SOLIS [facility] 12-12-2021 12:40-0400 Heart rate 81 /min Manishcarl [facility] [facility] 12-12-2021 12:40-0400 Respiratory rate 16 /min Manish SOLIS [facility] 12-12-2021 12:40-0400 Systolic blood pressure 124 mm[Hg] Manish SOLIS [facility] 07-21-2021 09:35-0400 Blood Pressure Location Ryann Yu [facility] 07-21-2021 09:35-0400 Body temperature 97.7 [degF] Ryann Yu [facility] 07-21-2021 09:35-0400 Diastolic blood pressure 64 mm[Hg] Ryann Yu [facility] 07-21-2021 09:35-0400 Heart rate 89 /min Ryann Yu [facility] 07-21-2021 09:35-0400 SaO2% (BldA) [Mass fraction] 98 % Ryann Yu [facility] 07-21-2021 09:35-0400 Systolic blood pressure 128 mm[Hg] Ryann Yu [facility] Encounters Encounter Date Encounter Type Care Provider Facility Start: 10-16-2024 End: 10-16-2024 ambulatory Natalielee Pradoe Facility:[facility] Start: 12-24-2023 End: 12-24-2023 Lab Drop off Tasneem L Marj [facility] Start: 12-24-2023 End: 12-24-2023 ambulatory Tasneem L Marj Facility:[facility] Start: 03-15-2023 End: 03-15-2023 Lab Drop off ESE VICKERS [facility] Start: 03-15-2023 End: 03-15-2023 ambulatory ESE VICKERS Facility:[facility] Start: 03-15-2023 End: 03-15-2023 Patient encounter procedure ESE VICKERS [facility] [place] Start: 10-31-2022 End: 10-31-2022 Patient encounter procedure ESE VICKERS [facility] Start: 12-12-2021 End: 12-12-2021 Patient encounter procedure Manish SOLIS [facility] Start: 11-16-2021 End: 11-17-[address] DOCTOR RIVAS Facility: Start: 07-21-2021 End: 07-21-2021 Patient encounter procedure Ryann Yu [facility] Start: 07-05-2021 End: 10-14-[address] THAIS STONE Facility:[facility] Start: 06-14-2021 End: 06-14-2021 Patient encounter procedure Manish SOLIS [facility] Start: 05-31-2021 End: 05-31-2021 Patient encounter procedure Natalie J Memo [facility] Procedures Date Procedure Procedure Detail Performing Clinician Start: 11-15-2017 Cystoscopy Natalie Memo Start: 03-12-2013 Colonoscopy Natalie Memo Start: 03-12-2013 Esophagogastroduodenoscopy Natalie Memo Start: 03-12-2011 Excision of bunion Natalie Memo Comment on above: Right Foot Start: 03-12-2004 Breast augmentation Natalie Memo Dilation of urethra Ryann Yu Urethral stent (physical object) Natalie Memo Urethral Widening Natalie James pe Plan of Treatment Date Care Activity Detail Author Start: 01-12-2025 ambulatory Ambulatory Facility:[facility] [place] Immunizations Immunization Date Immunization Notes Care Provider Fa hossein 03-03-2021 SARS-CoV-2 (COVID-19 ) [id number] vaccine Ryann Yu [facility] Comment on above: Result Comment: 2021: [id number] 12-13-2020 influenza, injectabl e, quadrivalent, preservative free Natalie Memo [facility] 06-26-2020 SARS-CoV-2 (COVID-19 ) mRNA-1273 vaccine Natalie Memo [facility] 06-21-2020 SARS-CoV-2 (COVID-19 ) mRNA-1273 vaccine Natalie Memo [facility] 05-31-2020 SARS-CoV-2 (COVID-19 ) mRNA-1273 vaccine Natalie Memo [facility] 05-29-2020 SARS-CoV-2 (COVID-19 ) mRNA-1273 vaccine Natalie Memo [facility] 12-18-2019 influenza virus vaccine, unspecified formulation Natalie Memo [facility] 05-03-2012 influenza virus vaccine, unspecified formulation Natalie Memo [facility] NEGATED: Highlighted row has not occurred!12-24-2023 influenza virus vaccine, unspecified formulation Tasneem Marj [facility] [place] NEGATED: Highlighted row has not occurred!11-27-2018 influenza virus vaccine, unspecified formulation Natalie Memo [facility] Payers Date Payer Category Payer Unknown [id number] 2024 Unknown [id number] 2023 Private Health Insurance [facility] [id number] 2022 Unknown [id number] 1965 Unknown [id number] 2.16.84 [id number] 1965 Unknown [id number] 2.16.84 [id number] 1965 Unknown [id number] 2.16.8 [id number] 1965 Unknown [id number] 2.16.8 [id number] 1965 Unknown [id number] 2.16.8 [id number] 1965 Unknown [id number] 2.16.8 [id number] 1965 Unknown [id number] 2.16.8 [id number] 1965 Unknown [id number] 2.16.8 [id number] 1965 Unknown [id number] 2.16.8 [id number] 1959 Self-pay 1959 Unknown [id number] Social History Date Type Detail Facility Start: 05-18-2021 End: 12-24-2023 Tobacco smoking status Ex-smoker (finding) [facility] Tobacco smoking status Never [facility] Sex Assigned At Female [facility] Functional Status Date Assessment Result Facility 12-12-2021 Functional Status N/A [facility] Clinical Notes 06-14-2021 to 03-15-2023 LaboratoryLaboratoryLaboratoryLaboratory Note Date & Type Note Facility 03-15-2023 Evaluation + Plan note Diagnostic Tests PendingUrine Culture 03/15/23 [facility] 12-12-2021 Hospital Discharge instructions Patient Education 12/12/2021 12:47:40 Urinary Tract Infection, Adult, Uhup-ii-Mdvp Urinary Tract Infection, Adult A urinary tract [...] Follow these instructions at home: Medicines Take yexl-gvm-edcmccx and prescription medicines only as told by [...] 08/14/2008 Document Revised: 02/13/2019 Document Reviewed: 09/05/2018 [employer] Patient Education 2020 [employer]. Follow Up Care 06/14/2021 09:19:41 With:WILL CRENSHAW, Manish Villafuerte, URL Address: [facility] [address] , [place] [address]- [phone] When:10/12/2022 [facility] 07-21-2021 Hospital Discharge instructions Patient [...] height. This can be done either in [place] ([place] or metric measurements. Note that charts are available to help you find your BMI quickly and easily without having to do these calculations yourself. To calculate your BMI in [place] ([place] measurements, your health care provider will: [...] medical problems. BMI can be measured using Macedonian measurements or metric measurements. To interpret your [...] 11/07/2004 Document Revised: 02/08/2018 Document Reviewed: 01/09/2018 [employer] Patient Education 2020 [employer]. 07/21/2021 09:53:03 Sleep Apnea Sleep Apnea Sleep [...] your health care provider. General instructions Take icyv-fou-rbhjisa and prescription medicines only as told by [...] 02/16/2003 Document Revised: 08/13/2019 Document Reviewed: 10/22/2018 [employer] Patient Education 2020 [employer] 07/21/2021 09:53:00 Migraine Headache Migraine Headache A [...] Follow these instructions at home: Medicines Take jblg-lyh-vncyndy and prescription medicines only as told by your health care provider. Ask your health care provider if the medicine prescribed to you: ?Requires you to avoid driving or using heavy machinery. ?Can cause constipation. You may need to take these actions to prevent or treat constipation: ?Drink enough fluid to keep your urine pale yellow. ?Take oltw-zfv-viozpuh or prescription medicines. ?Eat foods that are [...] 02/26/2006 Document Revised: 06/20/2019 Document Reviewed: 04/10/2019 [employer] Patient Education 2020 [employer]. 07/21/2021 09:52:58 Living With Depression Living With [...] a problem, search for a local or [facility]. They may be [...] as walking or lifting small weights. Take wgda-ikd-qdslcrg and prescription medicines only as told by [...] 01/29/2017 Document Revised: 06/20/2019 Document Reviewed: 01/29/2017 [employer] Patient Education 2020 [employer]. 07/21/2021 09:52:52 DASH Eating Plan DASH Eating [...] your health care provider or diet and installation specialist (dietitian) to adjust your eating plan [...] each week. ?Heart-healthy fats. Healthy fats called [place]-3 fatty acids are found in foods such [...] Dairy Whole or 2% milk, cream, and zmeo-vyu-llyv. Whole or full-fat cream cheese. Whole-fat or [...] more information: National Heart, Lung, and Blood [place]: www.nhlbi.nih.gov [place] Heart Association: www.heart.org Summary The DASH eating [...] your health care provider or diet and installation specialist (dietitian) to adjust your eating plan to your individual calorie needs. This information is not intended to replace advice given to you by your health care provider. Make sure you discuss any questions you have with your health care provider. Document Released: 02/15/2012 Document Revised: 02/08/2018 Document Reviewed: 02/19/2017 [employer] Patient Education Doist Follow Up Care 07/19/2021 15:46:16 With:Ryann Yu CNP Address: When:1 year Comments:or sooner if needed. [facility] 06-14-2021 Hospital Discharge instructions [...] With:Manish SOLIS Address: [facility] [address] [place] [address]- Business (1) When:12/14/2021 09:17:04 [facility] Evaluation + Plan note Future Appointments Appointment Date:06/13/2021 11:40:00 AM Scheduled Provider:Ryann Yu CNP Location:[facility] Appointment Type:FM Open Appointment Date:08/15/2021 12:15:00 PM Scheduled Provider:Manish SOLIS MD Location:[facility] Appointment Type:URO Office Visit Future Scheduled TestsComprehensive Metabolic Panel 12/13/20Lipid Panel 12/13/20 [facility] Evaluation + Plan note Future Appointments Appointment Date:12/12/2021 12:15:00 PM Scheduled Provider:Manish SOLIS MD Location:[facility] Appointment Type:URO Office Visit Future Scheduled TestsComprehensive Metabolic Panel 12/13/20Lipid Panel 12/13/20 [facility] Evaluation + Plan note Future Appointments Appointment Date:12/12/2021 12:15:00 PM Scheduled Provider:Manish SOLIS MD Location:[facility] Appointment Type:URO Office Visit Appointment Date:07/24/2022 10:40:00 AM Scheduled Provider:Ryann Yu CNP Location:[facility] Appointment Type:FM Open Future Scheduled TestsComprehensive Metabolic Panel 07/21/21Comprehensive Metabolic Panel 12/13/20Lipid Panel 07/21/21Lipid Panel 12/13/20 [facility] Evaluation + Plan note Future Appointments Appointment Date:07/24/2022 10:40:00 AM Scheduled Provider:Ryann Yu CNP Location:[facility] Appointment Type:FM Open Appointment Date:10/30/2022 01:15:00 PM Scheduled Provider:Manish SOLIS MD Location:[facility] Appointment Type:URO Office Visit Future Scheduled TestsComprehensive Metabolic Panel 07/21/21Comprehensive Metabolic Panel 12/13/20Lipid Panel 07/21/21Lipid Panel 12/13/20 [facility] Evaluation + Plan note Future Appointments Appointment Date:11/28/2022 02:30:00 PM Scheduled Provider:ESE VICKERS PA-C Location:[facility] Appointment Type:URO Office Visit [facility] Hospital course Narrative No data available for this section [facility] Hospital Discharge instructions No data available for this section [facility] [place] note No data available for this section [facility] [place] Summary Purpose Family History No Family History Records FoundNo Family History Records Found No data available for this section No data available for this section No Family History Records FoundNo Family History Records FoundNo Family History Records FoundNo Family History Records FoundNo Family History Records [...] section and content) DATE CREATED AUTHOR 04/30/2021 [facility] DATE CREATED AUTHOR AUTHOR'S ORGANIZ ATION 11/20/2021 [facility] DATE CREATED AUTHOR AUTHOR'S ORGANIZ ATION 12/26/2023 [facility] DATE CREATED AUTHOR AUTHOR'S ORGANIZ ATION 10/18/2024 [facility] Care Team (unrecognized sect ion and content) Personnel Name: Ryann Yu CNP Address: [address] [place] [id number] Personnel Name: Tasneem Buchanan Address: Address: [address] [place] [address]- Personnel Name: Tasneem Buchanan Address: Address: [address] [place] [address]- Personnel Name: Tasneem Buchanan Address: Address: [address] [place] [address]- Personnel Name: Tasneem Buchanan Address: Address: [address] [place] [address]- FOR RECORDS PERTAINING TO PATIENTS WHO ARE [...] BE BASED ON THE PRIMARY CLINICAL RECORDS. [facility]. provides no warranty or guarantee of the accuracy or completeness of information in this document.
== END 2024-10-22 09:32 | disposition home or self-care (01) ==
LOC: US 09:31
PROVIDERS: PCP Nurse Practitioner; Visit Provider Nurse Practitioner Adult Health
DX: N95.0 Postmenopausal bleeding (principal)
CPT/HCPCS: 76830; 76856

== ENCOUNTER 2024-10-28 09:31 | Outpatient (OUT) | payer BC, SELFPAY ==
--- NOTE | 2024-10-28 09:33 | MM_ITS ---
Patient Name: NORA DIAZ MR#: [id number] : 1965 Exam Date: 10/28/2024 Ordering Doctor: JOSE GRAY RADIOLOGY REPORT PROCEDURE: MM TOMOSYNTHESIS SCREENING BI COMPARISON: MM TOMOSYNTHESIS SCREENING BI, 09/17/2023. MM TOMOSYNTHESIS DIAGNOSTIC LT, 04/19/2023. MM DIAGNOSTIC MAMMO UNILAT LT, 09/19/2022. MM TOMOSYNTHESIS SCREENING BI, 09/05/2022. INDICATIONS: Screening Calculator Name NCI Breast Cancer Risk Assessment Tool 5 Year Breast Cancer Risk 0.90% Lifetime Breast Cancer Risk 5.00% Personal Breast Cancer No Personal Ovarian Cancer No Treatments None Family Cancers None LOCATION: [facility] BREAST COMPOSITION: The breasts are heterogeneously dense, which may obscure small masses. FINDINGS: RIGHT BREAST: No significant suspicious finding. There is a breast implant which is unchanged. LEFT BREAST: No significant suspicious finding. Benign-appearing calcifications are present. There is a breast implant which is unchanged. DIAGNOSTIC CATEGORY 2--BENIGN FINDING: RECOMMENDATIONS: ROUTINE MAMMOGRAM AND CLINICAL EVALUATION IN 12 MONTHS. PLEASE NOTE: A NORMAL MAMMOGRAM DOES NOT EXCLUDE THE POSSIBILITY OF BREAST CANCER. A CLINICALLY SUSPICIOUS PALPABLE LUMP SHOULD BE BIOPSIED. Dictated by: Henrry Yu MD on 10/28/2024 at 14:44 Approved by: Henrry Yu MD on 10/28/2024 at 14:49
--- OUTSIDE RECORDS SUMMARY | 2024-10-28 09:36 | XMS_ITS | Clinical Summary ---
Author Organization [facility] Address [address] [place] [address] Care Team Providers Care Programmer Analyst Name Role Phone Roya Zapata DO Primary [...] (#1) 2024 Medical Devices Implanted Type Area Boiler Room Helper Device Identifier Shelf Expiration Date Model / Serial / Lot Imp Brst 400ml Styl 20 Smth - [id number] Implanted:Qty : 1 on 01/06/2011 at [facility] Mammary / Breast Left: Breast [employer] BREAST DIV / / [id number] Description:silicone filled breast implant Imp Brst 400ml Styl 20 Smth - [id number] Implanted:Qty : 1 on 01/06/2011 at [facility] Mammary / Breast Right: Breast [employer] BREAST DIV / / [id number] Description:silicone filled breast implant Procedures Procedure Name Priority Date/Time Associated Diagnosis Comments MAMMOGRAM SCREENING ELIEZER Routine 12/12/2010 2:01 PM EDT Breast screening from Last 3 Months or Most Recently Relevant to Health Maintenance Results * MAMMOGRAM SCREENING ELIEZER (12/12/2010 2:01 PM EDT) Processor Inspector * * *Final Report* * * DATE OF EXAM: Dec 12 2010 2:01PM AVW [id number] - MAMM SCREEN CAD ELIEZER / PROCEDURE REASON: BREAST SCREENING * * * * Physician Interpretation * * * * #[id number] - MAMM SCREEN CAD ELIEZER # BILATERAL SCREENING MAMMOGRAM WITH CAD: 12/12/2010 HISTORY: Breast Screening, pt signed film release form and scanned into synogs. 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 RESULT: Current study was also evaluated [...] mammogram is recommended. Rosy schrader/penrad:12/15/19 11 13:24:28 Domain Architect: Oumou WAGNER)(Genny), [facility] letter sent: Return to Annual Mammogram BI-RADS: 2 Benign 16093 Zinc Etcher: VICENTE Transcribe Date/Time: Dec 14 2010 1:24P [...] Insurance BLUE CARD PPO OOS Care Teams Programmer Analyst Relationship Specialty Start Date End Date Roya Zapata DO [address] [place] [address] PCP - General 12/19/10
--- OUTSIDE RECORDS SUMMARY | 2024-10-28 09:52 | XMS_ITS | CCD ---
Author Organization [facility] Care Team Providers Care Spool Hauler Name Role Phone Celia SIMMS Primary Care Physician Ryann Yu Primary Care Physician BERTHA, DR THAIS Devries Admitting Unavailable WEST, DR THAIS Devries Attending Unavailable BOOMTTCELIA CEJA Primary Care Unavailable BERTHA, DR THAIS Devries Consulting Unavailable MISC, DR ROMERO Admitting Unavailable MISC, DR ROMERO Attending Unavailable BOOMTTCELIA CEJA Primary Care Unavailable MISC, DR ROMERO Consulting Unavailable Marj, Tasneem Branch Primary Care Physician [phone] ESE VICKERS Attending Unavailable RANCHOESE Admitting Unavailable RANCHOESE Attending Unavailable Marj, Tasneem Branch Attending Unavailable Marj, Tasneem Branch Admitting Unavailable Marj, Tasneem Branch Attending Unavailable Marj, Tasneem Branch Attending Unavailable Marj, Tasneem Branch Admitting Unavailable MemoNatalie Admitting Unavailable Memo, Natalie Kathleen Attending Unavailable Marj, Tasneem Branch Attending Unavailable Medications Current Medications Medication Drug Class(es) Dates Sig (Normalized) Sig (Original) amLODIPine 5 mg oral tablet (10 sources) Dihydropyridine Calcium Channel Scarlett Start: 08-27-2023 take 1 tablet by mouth once daily amLODIPine 5 mg Tab See Instructions, TAKE 1 TABLET BY MOUTH EVERY DAY, # 90 tab(s), Refills(s) 3, Pharmacy: [id number], 160, cm, 12/24/23 11:27:00 EDT, Height/Length Dosing, 59.2, kg, 12/24/23 11:27:00 EDT, Weight Dosing Start Date: 12/24/23 Status: Ordered Start: 08-17-2022 take 1 tablet by juanpablo th once daily amLODIPine 5 mg Tab 5 mg = 1 tab(s), Oral, Daily, # 90 tab(s), Refills(s) 3, Pharmacy: [facility]/pharmacy #[id number], 160.4, cm, 08/17/22 15:18:00 EDT, Height/Length Dosing, 68.9, kg, 08/17/22 15:18:00 EDT, Weight Dosing Start Date: 08/17/22 Status: Ordered Start: 12-13-2020 End: 07-16-2022 take 1 tablet by mouth once daily amLODIPine 5 mg Tab 5 mg = 1 tab(s), Oral, Daily, X 90 day(s), # 90 tab(s), Refills(s) 3, Pharmacy: [facility]/pharmacy #[id number], 160, cm, 07/21/21 9:41:00 [...] day(s), # 90 tab(s), Refills(s) 3, Pharmacy: [facility]/pharmacy #6177, 160.4, cm, 08/17/22 15:18:00 [...] gm, Vaginal, MonFri, 42.5 gm, Refill(s) 3, [facility]/pharmacy #6177, 160, cm, 12/24/23 11:27:00 EDT, Height/Length Dosing, 59.2, kg, 12/24/23 11:27:00 EDT, Weight Dosing Start Date: 12/24/23 Status: Ordered Start: 11-28-2022 estradiol 0.1 mg/g Vag Crm 1 gm, Vaginal, MonFri, 42.5 gm, Refill(s) 3, [facility]/pharmacy #[id number], 160, cm, 11/28/22 14:40:00 EDT, Height/Length Dosing, 66, kg, 11/28/22 14:40:00 EDT, Weight Dosing Start Date: 11/28/22 Status: Ordered Start: 04-21-2022 estradiol 0.1 mg/g Vag Crm 1 gm, Vaginal, MonFri, 42.5 gm, Refill(s) 3, [facility]/pharmacy #[id number], 160, cm, 12/12/21 12:41:00 [...] MonFri, # 42.5 gm, Refills(s) 5, Pharmacy: [facility]/pharmacy #[id number], 160, cm, 09/22/20 13:28:00 EDT, Height/Length Dosing, 58, kg, 09/22/20 13:28:00 EDT, Weight Dosing Start Date: 10/05/20 Status: Ordered estradiol 0.1 mg/g vaginal cream (4 sources) Start: 10-05-2020 estradiol 0.1 mg/g vaginal cream 1 gm, Vaginal, MonFri, # 42.5 gm, Refills(s) 5, [id number] 160, cm, 09/22/20 13:28:00 EDT, Height/Length [...] for 5 day(s), 10 tab(s), Refill(s) 0, [id number] 160, cm, 11/28/22 14:40:00 EDT, Height/Length [...] hours, # 9 tab(s), Refills(s) 1, [id number] 160, cm, 12/24/23 11:27:00 EDT, Height/Length Dosing, 59.2, kg, 12/24/23 11:27:00 EDT, Weight Dosing Start Date: 12/24/23 Status: Ordered Start: 07-21-2021 Imitrex 100 mg Tab 100 mg = 1 tab(s), Oral, As Directed, PRN Headache, may repeat dose once in 2 hours, # 9 tab(s), Refills(s) 1, [id number] 160, cm, 07/21/21 9:41:00 EDT, Height/Length Dosing, 70.7, kg, 07/21/21 9:41:00 EDT, Weight Dosing Start Date: 07/21/21 Status: Ordered Start: 07-19-2020 Imitrex 100 mg Tab 100 mg = 1 tab(s), Oral, As Directed, PRN Headache, may repeat dose once in 2 hours, # 9 tab(s), Refills(s) 1, [id number], 160, cm, 07/16/20 11:04:00 EDT, Height/Length [...] procedure, # 2 cap(s), Refills(s) 0, [id number], 160, cm, 06/10/21 12:38:00 EDT, Height/Length [...] Test Name Value Interpretation Reference Range Facility PAP [id number] 10-21-2024 HPV Aptima Negative Invalid Interpretation Code Negative [facility] Comment on above: Result Comment: This nucleic acid amplification test detects fourteen high-risk HPV types (16,18,31,33,35,39,45,51,52,56,58,59,66,68) without differentiation. Performed at: [facility] [address], [place] [id number] MD Marianna Turner Performed at: =G [facility] [address], [place] [id number] MD Marianna Turner Performed By: #### 3 [id number] #### [facility] [address] [place] [address] PAP [id number] Note Invalid Interpretation Code [facility] Comment on above: Result Comment: TEST S RESULT FLAG UNITS REF RANGE LAB Clinician Provided Cytology Information Source.............[employer] Other..............Other No. of containers..01 ThinPrep Vial DIAGNOSIS: 01 NEGATIVE FOR INTRAEPITHELIAL LESION OR MALIGNANCY. FUNGAL ORGANISMS MORPHOLOGICALLY CONSISTENT WITH ARISTIDES SPECIES ARE PRESENT. Specimen adequacy: 01 Satisfactory for evaluation. No endocervical component is identified. Performed by: Hoa Goodwin Value Stream Coach . 01 Note: Note 01 The Pap smear is a screening test designed to aid in the detection of premalignant and malignant conditions of the uterine cervix. It is not a diagnostic procedure and should not be used as the sole means of detecting cervical cancer. Both false-positive and false-negative reports do occur. Test Methodology: Note 01 This liquid based ThinPrep(R) pap test was screened with the use of an image guided system. FLAG LEGEND: L-Low Normal,H-High Normal,LL-Alert Low,HH-Alert High <-Panic Low,>-Panic High,A-Abnormal,AA-Critical Abnormal Performed at: [address] [facility] [address] [place] [address] Yue Cabral MD, Performed By: #### 3 [id number] #### [facility] [address] [place] [address] PAP [id number] 10-16-2024 Collection Technique BRUSH-SPATULA Normal [facility] Comment on above: Performed By: #### 3 [id number] #### [facility] [address] [place] [address] Gynecological Body Site ENDOCERVIX Normal [facility] Comment on above: Performed By: #### 3 [id number] #### [facility] [address] [place] [address] Other Patient Information [id number] Normal [facility] Comment on above: Performed By: #### 3 [id number] #### [facility] [address] [place] [address] Previous Cytology Negative Normal [facility] Comment on above: Performed By: #### 3 [id number] #### [facility] [address] [place] [address] Previous Treatment NONE Normal [facility] Comment on above: Performed By: #### 3 [id number] #### [facility] [address] [place] [address] Reminderson 12-25-2023 Reminders Reminders From: Marj MANAGER TRANSIT, Tasneem L To: [facility] - Clinical; Sent: 12/25/2023 08:23:19 [...] 20.5 % (14.0 - 50.0) 12/24/2023 11:37 [place] Auto 5.7 % (4.0 - 14.0) 12/24/2023 11:37 Eos Auto 0.7 % (0.0 - 8.0) 12/24/2023 11:37 Basophil Auto 0.5 % (0.0 - 2.0) 12/24/2023 11:37 Neutro Absolute 5.8 E9/L (2.0 - 7.5) 12/24/2023 11:37 Lymph Absolute 1.6 E9/L (1.0 - 4.0) 12/24/2023 11:37 [place] Absolute 0.4 E9/L (0.2 - 1.0) 12/24/2023 [...] called and advised of lab results Normal [facility] Ambulatory Visit Summaryon 1 Ambulatory Visit Summary Ambulatory Visit Summary NORA DIAZ :1965 Visit Date:12/24/2023 Ambulatory Visit Instructions Your [...] Sunday & Sunday Refills: 3 Pickup at [facility]/pharmacy #[id number] New sumatriptan (Imitrex 100 mg Tab) 1 Tablets By Mouth As Directed as needed for Headache Refills: 1 may repeat dose once in 2 hours Pickup at [facility]/pharmacy #[id number] Changed amlodipine (amLODIPine 5 mg Tab) See instructions TAKE 1 TABLET BY MOUTH EVERY DAY Changed amlodipine (amLODIPine 5 mg Tab) 1 Tablets By Mouth Every day Unchanged buPROPion By Mouth Unchanged clonazepam (ClonazePAM 0.5 mg Tab) Unchanged progesterone (progesterone 100 mg oral capsule) By Mouth Once a day (at bedtime) Pharmacy Information [id number]: [address], [place] [id number] [phone] Medications and Immunizations Administered Not Given influenza [...] for choosing us for your care. Normal [facility] CBC w/ Auto Diffon 4 Basophils/100 WBC (Bld) 0.5 % Normal 0.0-2.[address] [facility] Comment on above: Performed By: #### 2 [id number] #### [facility] [address] [place] [address] Basophils/Leukocyte s Auto (Bld) [Pure # fraction] 0.0 E9/L Normal 0.0-0.[address] [facility] Comment on above: Performed By: #### 2 [id number] #### [facility] [address] [place] [address] Eosinophils (Bld) [#/Vol] 0.1 E9/L Normal 0.0-0.[address] [facility] Comment on above: Performed By: #### 2 [id number] #### [facility] [address] [place] [address] Eosinophils/100 WBC (Bld) 0.7 % Normal 0.0-8.[address] [facility] Comment on above: Performed By: #### 2 [id number] #### [facility] [address] [place] [address] Erythrocyte distribution width (RBC) [Ratio] 13.1 % Normal 10.9-14.[address] [facility] Comment on above: Performed By: #### 2 [id number] #### [facility] [address] [place] [address] Hematocrit (Bld) [Volume fraction] 39.3 % Normal 34.0-46.[address] [facility] Comment on above: Performed By: #### 2 [id number] #### [facility] [address] [place] [address] Hemoglobin (Bld) [Mass/Vol] 13.3 g/dL Normal 12.0-16.[address] [facility] Comment on above: Performed By: #### 2 [id number] #### [facility] [address] [place] [address] Lymphocytes (Bld) [#/Vol] 1.6 E9/L Normal 1.0-4.[address] [facility] Comment on above: Performed By: #### 2 [id number] #### [facility] [address] [place] [address] Lymphocytes/100 WBC (Bld) 20.5 % Normal 14.0-50.[address] [facility] Comment on above: Performed By: #### 2 [id number] #### [facility] [address] [place] [address] MCH (RBC) [Entitic mass] 34.6 pg High 27.0-34.[address] [facility] Comment on above: Performed By: #### 2 [id number] #### [facility] [address] [place] [address] MCHC (RBC) [Mass/Vol] 33.9 g/dL Normal 31.4-36.[address] [facility] Comment on above: Performed By: #### 2 [id number] #### [facility] [address] [place] [address] MCV (RBC) [Entitic vol] 102.2 fL High 80.0-100.[address] [facility] Comment on above: Performed By: #### 2 [id number] #### [facility] [address] [place] [address] Monocytes (Bld) [#/Vol] 0.4 E9/L Normal 0.2-1.[address] [facility] Comment on above: Performed By: #### 2 [id number] #### [facility] [address] [place] [address] Neutrophils (Bld) [#/Vol] 5.8 E9/L Normal 2.0-7.[address] [facility] Comment on above: Performed By: #### 2 [id number] #### [facility] [address] [place] [address] Neutrophils/100 WBC (Bld) 72.6 % Normal 36.0-75.[address] [facility] Comment on above: Performed By: #### 2 [id number] #### [facility] [address] [place] [address] Platelet mean volume (Bld) [Entitic vol] 8.0 fL Normal 6.4-10.[address] [facility] Comment on above: Performed By: #### 2 [id number] #### [facility] [address] [place] [address] Platelets (Bld) [#/Vol] 258.0 E9/L Normal 150.0-500.[address] [facility] Comment on above: Performed By: #### 2 [id number] #### [facility] [address] [place] [address] RBC (Bld) [#/Vol] 3.8 E12/L Low 4.3-5.[address] [facility] Comment on above: Performed By: #### 2 [id number] #### [facility] [address] [place] [address] WBC corrected for nucl RBC Auto (Bld) [#/Vol] 8.0 E9/L Normal 4.0-11.[address] [facility] Comment on above: Performed By: #### 2 [id number] #### [facility] [address] [place] [address] CHEMISTRYOrdered By: SYSTEM SYSTEM on 12-24-2023 Albumin [...] nitrogen/Creatinine [Mass ratio] 23 mg/mg High - Remisol Chem CMPon 12-24-2023 Albumin [Mass/Vol] 4.0 g/dL Normal 3.3-5.[address] [facility] Comment on above: Performed By: #### 2 [id number] #### [facility] [address] [place] [address] Albumin/Globulin (S) [Mass conc ratio] 1.6 Normal 1.1-2.[address] [facility] Comment on above: Performed By: #### 2 [id number] #### [facility] [address] [place] [address] ALP [Catalytic activity/Vol] 41 Int._Unit/L Normal 21-[address] [facility] Comment on above: Performed By: #### 2 [id number] #### [facility] [address] [place] [address] ALT No additional P-5'-P [Catalytic activity/Vol] 18 Int._Unit/L Normal 6-[address] [facility] Comment on above: Performed By: #### 2 [id number] #### [facility] [address] [place] [address] Anion gap [Moles/Vol] 8 mmol/L Normal 6-[address] [facility] Comment on above: Performed By: #### 2 [id number] #### [facility] [address] [place] [address] AST [Catalytic activity/Vol] 22 Int._Unit/L Normal 5-[address] [facility] Comment on above: Performed By: #### 2 [id number] #### [facility] [address] [place] [address] Bilirubin [Mass/Vol] 0.4 mg/dL Normal 0.0-1.[address] [facility] Comment on above: Performed By: #### 2 [id number] #### [facility] [address] [place] [address] Calcium [Mass/Vol] 9.1 mg/dL Normal 8.9-11.[address] [facility] Comment on above: Performed By: #### 2 063066 #### [facility] [address] [place] [address] Chloride [Moles/Vol] 104 mmol/L Normal 101-[address] [facility] Comment on above: Performed By: #### 2 [id number] #### [facility] [address] [place] [address] CO2 [Moles/Vol] 30 mmol/L Normal 21-[address] [facility] Comment on above: Performed By: #### 2 [id number] #### [facility] [address] [place] [address] Creatinine [Mass/Vol] 0.7 mg/dL Normal 0.5-1.[address] [facility] Comment on above: Performed By: #### 2 [id number] #### [facility] [address] [place] [address] Globulin (S) [Mass/Vol] 2.5 g/dL Normal 1.4-4.[address] [facility] Comment on above: Performed By: #### 2 474902 #### [facility] [address] [place] [address] Glucose [Mass/Vol] 95 mg/dL Normal 55-[address] [facility] Comment on above: Performed By: #### 2 [id number] #### [facility] [address] [place] [address] Potassium [Moles/Vol] 3.9 mmol/L Normal 3.5-5.[address] [facility] Comment on above: Performed By: #### 2 [id number] #### [facility] [address] [place] [address] Protein [Mass/Vol] 6.5 g/dL Normal 6.0-7.[address] [facility] Comment on above: Performed By: #### 2 [id number] #### [facility] [address] [place] [address] Sodium [Moles/Vol] 138 mmol/L Normal 135-[address] [facility] Comment on above: Performed By: #### 2 [id number] #### [facility] [address] [place] [address] Urea nitrogen [Mass/Vol] 16 mg/dL Normal 5-[address] [facility] Comment on above: Performed By: #### 2 538451 #### [facility] [address] [place] [address] Urea nitrogen/Creatinine [Mass ratio] 23 No Units High 10-[address] [facility] Comment on above: Performed By: #### 2 [id number] #### [facility] [address] [place] [address] Family Medicine Office/Clini c Noteon 12-24-2023 Family [...] Panel Est Preventative 40 to 64 years [address] Lab Specimen Collect 15867 Lipid Panel Thyroid Stimulating Hormone 2. Non-smoker (Z78.9: Other specified health status) continue not smoking Ordered: Est Preventative 40 to 64 years 11632 Lab Specimen Collect 63538 3. Hyperlipidemia (E78.5: Hyperlipidemia, unspecified) lipid panel drawn today Ordered: CBC w/ Auto Diff Comprehensive Metabolic Panel Est Preventative 40 to 64 years [address] Lab Specimen Collect 39875 Lipid Panel Thyroid Stimulating Hormone 4. Hypertension (I10: Essential (primary) hypertension) BP at goal. will send refills Ordered: CBC w/ Auto Diff Comprehensive Metabolic Panel Est Preventative 40 to 64 years [address] Lab Specimen Collect 40213 Lipid Panel Thyroid Stimulating Hormone Orders: amlodipine, See Instructions, TAKE 1 TABLET BY MOUTH EVERY DAY, # 90 tab(s), Refills(s) 3, Pharmacy: [facility] STORE 69726, 160, cm, 12/24/23 11:27:00 EDT, Height/Length Dosing, 59.2, kg, 12/24/23 11:27:00 EDT, Weight Dosing estradiol topical, 1 gm, Vaginal, MonFri, 42.5 gm, Refill(s) 3, [facility] 160, cm, 12/24/23 11:27:00 EDT, Height/Length Dosing, 59.2, kg, 12/24/23 11:27:00 EDT, Weight Dosing estradiol topical, 1 gm, Vaginal, MonFri, 42.5 gm, Refill(s) 3, [facility], 160, cm, 11/28/22 14:40:00 EDT, Height/Length Dosing, 66, kg, 11/28/22 14:40:00 EDT, Weight Dosing sumatriptan, 100 mg = 1 tab(s), Oral, As Directed, PRN Headache, may repeat dose once in 2 hours, # 9 tab(s), Refills(s) 1, [id number], 160, cm, 07/21/21 9:41:00 EDT, Height/Length Dosing, 70.7, kg, 07/21/21 9:41:00 EDT, Weight Dosing sumatriptan, 100 mg = 1 tab(s), Oral, As Directed, PRN Headache, may repeat dose once in 2 hours, # 9 tab(s), Refills(s) 1, Pharmacy: [facility]/pharmacy #6177, 160, cm, 12/24/23 11:27:00 EDT, Height/Length [...] Recorded 2021-07-21: (more content not included)... Normal [facility] Comment on above: Result Comment: [...] 12-24-2023 Cholesterol [Mass/Vol] 172 mg/dL Normal 120-[address] [facility] Comment on above: Performed By: #### 2 [id number] #### [facility] [address] [place] [address] Cholesterol in HDL [Mass/Vol] 60 mg/dL Invalid Interpretation Code [facility] Comment on above: Result Comment: '>= 60 LOW RISK' '<= 40 HIGH RISK' Performed By: #### 2 [id number] #### [facility] [address] [place] [address] Cholesterol in LDL [Mass/Vol] 93 mg/dL Normal <=[address] [facility] Comment on above: Performed By: #### 2 [id number] #### [facility] [address] [place] [address] Cholesterol in VLDL [Mass/Vol] 33 mg/dL Normal 7-[address] [facility] Comment on above: Performed By: #### 2 [id number] #### [facility] [address] [place] [address] Triglyceride [Mass/Vol] 165 mg/dL High <=[address] [facility] Comment on above: Performed By: #### 2 [id number] #### [facility] [address] [place] [address] TSHon 12-24-2023 TSH Qn 0.71 m[IU]/L Normal 0.34-5.[address] [facility] Comment on above: Performed By: #### 2 [id number] #### [facility] [address] [place] [address] eGFRon 12-24-2023 eGFR 100 mL/min/1.73 m2 Normal >=[address] [facility] Comment on above: Performed By: #### 1 [id number] #### [facility] [address] [place] [address] Outside Mammographyon 2023 Outside Mammography [id number] Normal [facility] C Urineon 03-17-2023 Bacteria identified Cx Nom [...] Locations R1: This test was performed at: [facility], [address] [place] [address], [id number]- , , Normal [facility] Comment on above: Performed By: #### 2 [id number] #### [facility] [address] [place] [address] Ambulatory Visit Summaryon 0 03-15-2023 Ambulatory Visit [...] for choosing us for your care. Normal [facility] ED Note-Physicianon 02-13-20 ED Note-Physician [id number] Normal [facility] ESTRADIOLon 11-17-2021 Estradiol 83.6 pg/mL Normal [facility] Comment on above: Result Comment: Adul t Female: Follicular phase 12.5 - 166.0 Ovulation phase 85.8 - 498.0 Luteal phase 43.8 - 211.0 Postmenopausal <6.0 - 54.7 1st trimester 215.0 - >4300.0 Latasha ECLIA methodology Performed By: #### E BEATRIZ #### [facility] [address] [place] [address] Dr. Darryl Trammell FSHon 11-17-2021 FSH 38.1 mIU/mL Normal [facility] Comment on above: Result Comment: Adul t Female: Follicular phase 3.5 - 12.5 Ovulation phase 4.7 - 21.5 Luteal phase 1.7 - 7.7 Postmenopausal 25.8 - 134.8 Performed By: #### L BCFSH #### [facility] [address] [place] [address] Dr. Darryl Trammell TESTOSTERONE, TOTALon 2021 Testosterone [Mass/Vol] 286 ng/dL Critically high 4-50 [facility] Comment on above: Performed By: #### T ESTTOT #### [facility] [address] [place] [address] Dr. Darryl Trammell CBC AUTO DIFFon 11-16-2021 BASO # 0.0 103/ul Normal 0.0-0.1 [facility] Comment on above: Performed By: #### C BC #### [facility] [address] [place] [address] Dr. Darryl Trammell Basophils/100 WBC (Bld) 0.8 % Normal 0.2-2.0 [facility] Comment on above: Performed By: #### C BC #### [facility] [address] [place] [address] Dr. Darryl Trammell EO # 0.2 103/ul Normal 0.0-0.7 [facility] Comment on above: Performed By: #### C BC #### [facility] [address] [place] [address] Dr. Darryl Trammell Eosinophils/100 WBC (Bld) 3.9 % Normal 0.9-7.0 [facility] Comment on above: Performed By: #### C BC #### [facility] [address] [place] [address] Dr. Darryl Trammell Erythrocyte distribution width (RBC) [Ratio] 12.2 % Normal 11.0-15.0 [facility] Comment on above: Performed By: #### C BC #### [facility] [address] [place] [address] Dr. Darryl Trammell Hematocrit (Bld) [Volume fraction] 42.4 % Normal 36.0-48.0 [facility] Comment on above: Performed By: #### C BC #### [facility] [address] [place] [address] Dr. Darryl Trammell Hemoglobin (Bld) [Mass/Vol] 14.1 g/dL Normal 12.0-16.0 [facility] Comment on above: Performed By: #### C BC #### [facility] [address] [place] [address] Dr. Darryl Trammell IG # 0.01 10e3/ul Normal 0.00-0.03 [facility] Comment on above: Performed By: #### C BC #### [facility] [address] [place] [address] Dr. Darryl Trammell IG % 0.2 % Normal 0.0-0.5 [facility] Comment on above: Performed By: #### C BC #### [facility] [address] [place] [address] Dr. Darryl Trammell LYMPH # 2.5 103/ul Normal 1.2-3.8 [facility] Comment on above: Performed By: #### C BC #### [facility] [address] [place] [address] Dr. Darryl Trammell Lymphocytes/100 WBC (Bld) 48.9 % Normal 20.5-60.0 [facility] Comment on above: Performed By: #### C BC #### [facility] [address] [place] [address] Dr. Darryl Trammell MANUAL DIFF REQ NO Normal [facility] Comment on above: Performed By: #### C BC #### [facility] [address] [place] [address] Dr. Darryl Trammell MCH (RBC) [Entitic mass] 32.7 pg Normal 26.7-34.0 [facility] Comment on above: Performed By: #### C BC #### [facility] [address] [place] [address] Dr. Darryl Trammell MCHC (RBC) [Mass/Vol] 33.3 g/dL Normal 29.9-35.2 [facility] Comment on above: Performed By: #### C BC #### [facility] [address] [place] [address] Dr. Darryl Trammell MCV (RBC) [Entitic vol] 98.4 fL Normal 81.0-99.0 [facility] Comment on above: Performed By: #### C BC #### [facility] [address] [place] [address] Dr. Darryl Trammell MONO # 0.5 103/ul Normal 0.3-0.8 [facility] Comment on above: Performed By: #### C BC #### [facility] [address] [place] [address] Dr. Darryl Trammell Monocytes/100 WBC (Bld) 9.6 % Normal 1.7-12.0 [facility] Comment on above: Performed By: #### C BC #### [facility] [address] [place] [address] Dr. Darryl Trammell NEUT # 1.9 103/ul Normal 1.4-6.5 [facility] Comment on above: Performed By: #### C BC #### [facility] [address] [place] [address] Dr. Darryl Trammell Neutrophils/100 WBC (Bld) 36.6 % Critically low 43.0-75.0 [facility] Comment on above: Performed By: #### C BC #### [facility] [address] [place] [address] Dr. Darryl Trammell Platelet mean volume (Bld) [Entitic vol] 10.1 fL Normal 9.5-13.5 [facility] Comment on above: Performed By: #### C BC #### [facility] [address] [place] [address] Dr. Darryl Trammell PLT 262 103/ul Normal 150-450 [facility] Comment on above: Performed By: #### C BC #### [facility] [address] [address] [address] Darryl Trammell RBC 4.31 106/ul Normal 4.20-5.40 [facility] Comment on above: Performed By: #### C BC #### [facility] [address] [address] [address] Darryl Trammell WBC 5.1 103/ul Normal 4.0-11.0 [facility] Comment on above: Performed By: #### C BC #### [facility] [address] [address] [address] Darryl Trammell GLUCOSE BLOODon 11-16-2021 Glucose [Mass/Vol] 80 mg/dL Normal 74-106 [facility] Comment on above: Performed By: #### T SH, LIPID, GLUC #### [facility] [address] [place] [address] Dr. Darryl Trammell LIPID PROFILEon 11-16-2021 CHOL-HDL RATIO NORM SEE BELOW Normal [facility] Comment on above: Result Comment: 3.3 - 4.4 LOW RISK 4.4 - 7.1 AVERAGE RISK 7.1 - 11.0 MODERATE RISK >11.0 HIGH RISK Performed By: #### T SH, LIPID, GLUC #### [facility] [address] [place] [address] Dr. Darryl Trammell Cholesterol [Mass/Vol] 201 mg/dL Critically high <=200 [facility] Comment on above: Performed By: #### T SH, LIPID, GLUC #### [facility] [address] [place] [address] Dr. Darryl Trammell Cholesterol in HDL [Mass/Vol] 72 mg/dL Critically high 40-60 [facility] Comment on above: Performed By: #### T SH, LIPID, GLUC #### [facility] [address] [place] [address] Dr. Darryl Trammell Cholesterol in LDL [Mass/Vol] 113.0 mg/dL Normal [facility] Comment on above: Performed By: #### T SH, LIPID, GLUC #### [facility] [address] [address] [address] Darryl Trammell Cholesterol.total/C holesterol in HDL [Mass ratio] 2.8 {ratio} Normal [facility] Comment on above: Performed By: #### T SH, LIPID, GLUC #### [facility] [address] [address] [address] Darryl Trammell HDL NORMAL > or = 60 mg/dl - LO W CARDIOVASCULAR RISK <40 mg/dl - HIGH CARDIOVASCULAR RISK Normal [facility] Comment on above: Performed By: #### T SH, LIPID, GLUC #### [facility] [address] [place] [address] Dr. Darryl Trammell LDL CALC NORMAL SEE BELOW Normal [facility] Comment on above: Result Comment: <100 mg/dl OPTIMAL 100 - 129 mg/dl NEAR OR ABOVE OPTIMAL 130 - 159 mg/dl BORDERLINE HIGH 160 - 189 mg/dl HIGH >190 mg/dl VERY HIGH Performed By: #### T SH, LIPID, GLUC #### [facility] [address] [place] [address] Dr. Darryl Trammell Triglyceride [Mass/Vol] 80 mg/dL Normal <=150 [facility] Comment on above: Performed By: #### T SH, LIPID, GLUC #### [facility] [address] [place] [address] Dr. Darryl Trammell VLDL CALC 16.0 mg/dL Normal [facility] Comment on above: Performed By: #### T SH, LIPID, GLUC #### [facility] [address] [place] [address] Dr. Darryl Trammell TSHon 11-16-2021 TSH 1.999 uIU/mL Normal 0.358-3.740 [facility] Comment on above: Performed By: #### T SH, LIPID, GLUC #### [facility] [address] [place] [address] Dr. Darryl Trammell CHEMISTRYOrdered By: Pablo mejia on 05-31-2021 Albumin Elph (U) [Mass fraction] 10.4 mg/dL Invalid Interpretation Code [facility] Remisol Creatinine (U) [Mass/Vol] 63.3 mg/dL Invalid Interpretation Code [facility] U Prot/Creat Ratio 164.30 mg/gm Cr Normal 0.00 - 200.00 mg/gm Cr [facility] CHEMISTRYOrdered By: [employer] on 05-31-2021 25-hydroxyvitamin D3 [Mass/Vol] 55.6 ng/mL Normal 30.0 - 100.0 ng/mL [facility] Albumin [Mass/Vol] 4.2 g/dL Normal 3.3 - 5.0 gm/dL [facility] Anion gap [Moles/Vol] 12 mmol/L Normal 6 - 16 mEq/L [facility] Calcium [Mass/Vol] 9.8 mg/dL Normal 8.9 - 11. 1 mg/dL [facility] Chloride [Moles/Vol] 101 mmol/L Normal 101 - 111 mmol/L [facility] CO2 [Moles/Vol] 30 mmol/L Normal 21 - 31 mmol/L [facility] Creatinine [Mass/Vol] 0.8 mg/dL Normal 0.5 - 1.3 mg/dL [facility] GFR/1.73 sq M.predicted among blacks MDRD (S/P/Bld) [Vol rate/Area] mL/min/1.73 m2 Normal >=59mL/min/ 1.73 m2 [facility] Chem S GFR/1.73 sq M.predicted among non-blacks MDRD (S/P/Bld) [Vol rate/Area] mL/min/1.73 m2 Normal >=59mL/min/ 1.73 m2 [facility] Chem S Glucose [Mass/Vol] 101 mg/dL Normal 55 - 199 mg/dL [facility] Phosphate [Mass/Vol] 3.1 mg/dL Normal 1.9 - 4.6 mg/dL [facility] Potassium [Moles/Vol] 4.3 mmol/L Normal 3.5 - 5.3 mmol/L [facility] Sodium [Moles/Vol] 139 mmol/L Normal 135 - 145 mmol/L [facility] Urea nitrogen [Mass/Vol] 21 mg/dL Normal 5 - 21 mg/dL [facility] Urea nitrogen/Creatinine [Mass ratio] 26 mg/mg High 10 - 20 [facility] URINALYSISOrdered By: Diana Javier on 05-31-2021 [...] PM) Normal Negative [facility] UA Auto SS [place].plasma/Lith ium.RBC (Bld) [Mass ratio] 0-3 /HPF Normal [...] [facility] UA Auto SS Urobilinogen Qn (U) [id number] {Mayra'U}/dL Normal 0.0 - 1.0 EU/dL [facility] UA Auto SS WBC Auto Ql (U) Negative (05/31/21 3:05 PM) Normal Negative [facility] UA Auto SS WBC LM.HPF (Urine sed) [#/Area] 0-5 /HPF Normal 0-5/HPF [facility] UA Auto SS COVID-19 FRon 01-04-2021 SARS-CoV-2 (COVID-19) RNA JENN+probe Ql (Unsp spec) Negative Normal Negative [facility] Comment on above: Order Comment: Healt hcare Worker?: N Result Comment: Testing for SARS-CoV-2 by RT-PCR This test was developed and its performance characteristics determined by [employer] and validated at the [facility]. This test has not been FDA [...] is terminated or revoked sooner. PERFORMED BY: [place] [address] PATHOLOGIST CHEMISTRY TEACHER UYEN HEATH M.D. Performed By: #### C OVID 19 [employer] [facility] #### [facility] [address] [place] [address] [place] Basic Metabolic Panelon 12-10 Calcium [Mass/Vol] 9.6 mg/dL Normal 8.2-10.2 [facility] Comment on above: Result Comment: PERF ORMED BY: [facility] [address] [place] [address] PATHOLOGIST CHEMISTRY TEACHER UYEN HEATH M.D. Performed By: #### B MP #### [facility] [address] [place] [address] [place] Chloride [Moles/Vol] 102 mmol/L Normal 95-114 [facility] Comment on above: Performed By: #### B MP #### [address] CO2 [Moles/Vol] 27.5 mmol/L Normal 22.0-30.0 [facility] Comment on above: Performed By: #### B MP #### [address] Creatinine [Mass/Vol] 0.68 mg/dL Normal 0.44-1.03 [facility] Comment on above: Performed By: #### B MP #### [address] Estimated GFR ( Karen > 60 Normal [facility] Comment on above: Result Comment: GFR estimated reference range: According to KDOQI guidelines, <60 ml/min/1.73m2 is sufficient to diagnose a patient with chronic kidney disease. Performed By: #### B MP #### [address] Estimated GFR (Non- Am > 60 Normal [facility] Comment on above: Performed By: #### B MP #### [address] Glucose [Mass/Vol] 90 mg/dL Normal 70-100 [facility] Comment on above: Result Comment: [place] om Glucose Reference Range is dependent on time and content of last meal. Glucose of more than 200 mg/dL in a nonstressed, ambulatory subject supports the diagnosis of Diabetes Mellitus. ADA recommended reference range Performed By: #### B MP #### [place] [address] [place] Potassium [Moles/Vol] 4.5 mmol/L Normal 3.5-5.1 [facility] Comment on above: Performed By: #### B MP #### [place] [address] [place] Sodium [Moles/Vol] 138 mmol/L Normal 136-146 [facility] Comment on above: Performed By: #### B MP #### [address] Urea nitrogen [Mass/Vol] 12 mg/dL Normal 9-23 [facility] Comment on above: Performed By: #### B MP #### [facility] [address] [place] [address] ECG 12 lead ECGon 12-27-2020 ECG 12 lead ECG [facility] [place] [address] [place] [address] Electrocardiograph Report Signed Patient: Nora Diaz MR#: [id number] 9 : 1965 Acct:[id number] Age/Sex: 55 / F ADM Date: 12/27/20 Loc: PS Room: Type: [facility] Attending Dr: Prabhakar Max MD Ordering Provider: [...] Signed By Cuauhtemoc Baldwin MD 1 [address] [facility] Urine Cultureon 08-05-2020 Bacteria identified Cx Nom (U) <9,000 colonies/ml mixed bacterial skin contaminants 2 Days PERFORMED BY: [place] [address] PATHOLOGIST CHEMISTRY TEACHER UYEN HEATH M.D. [facility] Comment on above: Performed By: #### C UU #### [address] [id number] [place] Vital Signs Date Time Vital Sign Value Performing Clinician Faci lity 12-12-2021 12:40-0400 Blood Pressure Location Manish WILL [facility] 12-12-2021 12:40-0400 Diastolic blood pressure 89 mm[Hg] Manish SOLIS [facility] 12-12-2021 12:40-0400 Heart rate 81 /min Manishcarl SOLIS [facility] 12-12-2021 12:40-0400 Respiratory rate 16 /min Manishcarl SOLIS [facility] 12-12-2021 12:40-0400 Systolic blood pressure 124 mm[Hg] Manish SOLIS [facility] 07-21-2021 09:35-0400 Blood Pressure Location Ryannmelody Yu [facility] 07-21-2021 09:35-0400 Body temperature 97.7 [degF] Ryann Yu [facility] 07-21-2021 09:35-0400 Diastolic blood pressure 64 mm[Hg] Ryann Yu [facility] 07-21-2021 09:35-0400 Heart rate 89 /min Ryann Yu [facility] 07-21-2021 09:35-0400 SaO2% (BldA) [Mass fraction] 98 % Ryann Yu [facility] 07-21-2021 09:35-0400 Systolic blood pressure 128 mm[Hg] Ryann Yu [facility] Encounters Encounter Date Encounter Type Care Provider Facility Start: 10-16-2024 End: 10-16-2024 ambulatory Nataliewesley Hampton Facility:[facility] Start: 12-24-2023 End: 12-24-2023 Lab Drop off Tasneem L Marj [facility] Start: 12-24-2023 End: 12-24-2023 ambulatory Tasneem L Marj Facility:[facility] Start: 03-15-2023 End: 03-15-2023 Lab Drop off ESE VICKERS [facility] Start: 03-15-2023 End: 03-15-2023 ambulatory ESE VICKERS Facility:[facility] Start: 03-15-2023 End: 03-15-2023 Patient encounter procedure ESE GUILLERMORY [facility] [place] [facility] Start: 10-31-2022 End: 10-31-2022 Patient encounter procedure ESE Dawson GUILLERMORY [facility] Start: 12-12-2021 End: 12-12-2021 Patient encounter procedure Manish SOLIS [facility] Start: 11-16-2021 End: 11-17-[address] DOCTOR RIVAS Facility:[facility] Start: 07-21-2021 End: 07-21-2021 Patient encounter procedure Ryann Yu [facility] Start: 07-05-2021 End: 10-14-[address] THAIS STONE Facility:[facility] Start: 06-14-2021 End: 06-14-2021 Patient encounter procedure Manish SOLIS [facility] Start: 05-31-2021 End: 05-31-2021 Patient encounter procedure Natalie Hampton [facility] Procedures Date Procedure Procedure Detail Performing Clinician Start: 11-15-2017 Cystoscopy Natalie Memo Start: 03-12-2013 Colonoscopy Natalie Memo Start: 03-12-2013 Esophagogastroduodenoscopy Natalie Emmo Start: 03-12-2011 Excision of bunion Natalie Memo Comment on above: Right Foot Start: 03-12-2004 Breast augmentation Natalie Memo Dilation of urethra Ryann Yu Urethral stent (physical object) Natalie Memo Urethral Widening Natalie James pe Plan of Treatment Date Care Activity Detail Author Start: 01-12-2025 ambulatory Ambulatory Facility:[facility] Immunizations Immunization Date Immunization Notes Care Provider Rob kulkarni 03-03-2021 SARS-CoV-2 (COVID-19 ) mRNA-1273 vaccine Ryann Yu [facility] Comment on above: Result Comment: 2021: TPV50 12-13-2020 influenza, injectabl e, quadrivalent, preservative free Natalie Memo [facility] 06-26-2020 SARS-CoV-2 (COVID-19 ) mRNA-1273 vaccine Natalie Memo [facility] 06-21-2020 SARS-CoV-2 (COVID-19 ) mRNA-1273 vaccine Natalie Memo [facility] 05-31-2020 SARS-CoV-2 (COVID-19 ) mRNA-1273 vaccine Natalie Memo [facility] 05-29-2020 SARS-CoV-2 (COVID-19 ) mRNA-1273 vaccine Natalie Memo [facility] 12-18-2019 influenza virus vaccine, unspecified formulation Natalie Memo [facility] 05-03-2012 influenza virus vaccine, unspecified formulation Natalie Memo [facility] NEGATED: Highlighted row has not occurred!12-24-2023 influenza virus vaccine, unspecified formulation Tasneem Mcmahan [facility] NEGATED: Highlighted row has not occurred!11-27-2018 influenza virus vaccine, unspecified formulation Natalie Memo [facility] Payers Date Payer Category Payer Unknown [id number] 2024 Unknown [id number] 2023 Private Health Insurance [facility] [id number] 2022 Unknown [id number] 1965 Unknown [id number] 2.16.84 [id number] 1965 Unknown [id number] 2.16.84 [id number] 1965 Unknown [id number] 2.16.8 [id number] 1965 Unknown [id number] 2.16.8 [id number] 1965 Unknown [id number] 2.16.8 [id number] 1965 Unknown [id number] 2.16.8 [id number] 1965 Unknown [id number] 2.16.8 [id number] 1965 Unknown [id number] 2.16.8 [id number] 1965 Unknown [id number] 2.16.8 [id number] 1959 Self-pay 1959 Unknown [id number] Social History Date Type Detail Facility Start: 05-18-2021 End: 12-24-2023 Tobacco smoking status Ex-smoker (finding) [facility] Tobacco smoking status Never [facility] Sex Assigned At Female [facility] Functional Status Date Assessment Result Facility 12-12-2021 Functional Status N/A [facility] Clinical Notes 06-14-2021 to 03-15-2023 LaboratoryLaboratoryLaboratoryLaboratory Note Date & Type Note Facility 03-15-2023 Evaluation + Plan note Diagnostic Tests PendingUrine Culture 03/15/23 [facility] 12-12-2021 Hospital Discharge instructions Patient Education 12/12/2021 12:47:40 Urinary Tract Infection, Adult, Xnxd-pl-Vtrs Urinary Tract Infection, Adult A urinary tract [...] Follow these instructions at home: Medicines Take npmh-npb-kzjoykm and prescription medicines only as told by [...] 08/14/2008 Document Revised: 02/13/2019 Document Reviewed: 09/05/2018 [employer] Patient Education 2020 [employer]. Follow Up Care 06/14/2021 09:19:41 With:WILL CRENSHAW, Manish Villafuerte, URL Address: [facility] [address] [place] [address]- [phone] When:10/12/2022 [facility] 07-21-2021 Hospital Discharge instructions Patient Education 07/21/2021 [...] height. This can be done either in [place] ([place] or metric measurements. Note that charts are available to help you find your BMI quickly and easily without having to do these calculations yourself. To calculate your BMI in [place] ([place] measurements, your health care provider will: [...] medical problems. BMI can be measured using Beninese measurements or metric measurements. To interpret your [...] 11/07/2004 Document Revised: 02/08/2018 Document Reviewed: 01/09/2018 [employer] Patient Education 2020 [employer]. 07/21/2021 09:53:03 Sleep Apnea Sleep Apnea Sleep [...] your health care provider. General instructions Take pxeh-uxw-nmwtmdt and prescription medicines only as told by [...] 02/16/2003 Document Revised: 08/13/2019 Document Reviewed: 10/22/2018 [employer] Patient Education 2020 [employer] 07/21/2021 09:53:00 Migraine Headache Migraine Headache [...] Follow these instructions at home: Medicines Take wktl-kdy-rsbpbuo and prescription medicines only as told by your health care provider. Ask your health care provider if the medicine prescribed to you: ?Requires you to avoid driving or using heavy machinery. ?Can cause constipation. You may need to take these actions to prevent or treat constipation: ?Drink enough fluid to keep your urine pale yellow. ?Take icrm-bod-butdlnq or prescription medicines. ?Eat foods that are [...] 02/26/2006 Document Revised: 06/20/2019 Document Reviewed: 04/10/2019 [employer] Patient Education 2020 [employer]. 07/21/2021 09:52:58 Living With Depression Living With [...] services is a problem, search for a [facility] or [facility]. They may be [...] as walking or lifting small weights. Take ckbw-qif-ykvuqnw and prescription medicines only as told by [...] 01/29/2017 Document Revised: 06/20/2019 Document Reviewed: 01/29/2017 [employer] Patient Education 2020 [employer]. 07/21/2021 09:52:52 DASH Eating Plan DASH Eating [...] your health care provider or diet and social problems specialist (dietitian) to adjust your eating plan [...] each week. ?Heart-healthy fats. Healthy fats called [place]-3 fatty acids are found in foods such [...] Dairy Whole or 2% milk, cream, and uwuv-kaz-txfj. Whole or full-fat cream cheese. Whole-fat or [...] more information: National Heart, Lung, and Blood [place]: www.nhlbi.nih.gov [place] Heart Association: www.heart.org Summary The DASH eating [...] your health care provider or diet and social problems specialist (dietitian) to adjust your eating plan to your individual calorie needs. This information is not intended to replace advice given to you by your health care provider. Make sure you discuss any questions you have with your health care provider. Document Released: 02/15/2012 Document Revised: 02/08/2018 Document Reviewed: 02/19/2017 [employer] Patient Education 2020 [employer]. Follow Up Care 07/19/2021 15:46:16 With:Ryann Yu CNP Address: When:1 year Comments:or sooner if needed. [facility] 06-14-2021 Hospital Discharge instructions Patient [...] SOLIS Address: [facility] [address] [place] [address]- Business (1) When:12/14/2021 09:17:04 [facility] Evaluation + Plan note Future Appointments Appointment Date:06/13/2021 11:40:00 AM Scheduled Provider:Ryann Yu CNP Location:[facility] Appointment Type:FM Open Appointment Date:08/15/2021 12:15:00 PM Scheduled Provider:Manish SOLIS MD Location:[facility] EMEKA Dcik Appointment Type:URO Office Visit Future Scheduled TestsComprehensive Metabolic Panel 12/13/20Lipid Panel 12/13/20 [facility] Evaluation + Plan note Future Appointments Appointment Date:12/12/2021 12:15:00 PM Scheduled Provider:Manish SOLIS MD Location:[facility] Appointment Type:URO Office Visit Future Scheduled TestsComprehensive Metabolic Panel 12/13/20Lipid Panel 12/13/20 [facility] Evaluation + Plan note Future Appointments Appointment Date:12/12/2021 12:15:00 PM Scheduled Provider:Manish SOLIS MD Location:[facility] Appointment Type:URO Office Visit Appointment Date:07/24/2022 10:40:00 AM Scheduled Provider:Ryann Yu CNP Location:[facility] Appointment Type:FM Open Future Scheduled TestsComprehensive Metabolic Panel 07/21/Comprehensive Metabolic Panel 12/13/20Lipid Panel 07/21/21Lipid Panel 12/13/20 [facility] Evaluation + Plan note Future Appointments Appointment Date:07/24/2022 10:40:00 AM Scheduled Provider:Ryann Yu CNP Location:[facility] Appointment Type:FM Open Appointment Date:10/30/2022 01:15:00 PM Scheduled Provider:Manish SOLIS MD Location:[facility] [place] Appointment Type:URO Office Visit Future Scheduled TestsComprehensive Metabolic Panel 07/21/Comprehensive Metabolic Panel 12/13/20Lipid Panel 07/21/21Lipid Panel 12/13/20 [facility] Evaluation + Plan note Future Appointments Appointment Date:11/28/2022 02:30:00 PM Scheduled Provider:ESE VICKERS PA-C Location:[facility] Appointment Type:URO Office Visit [facility] Hospital course Narrative No data available for this section [facility] Discharge instructions No data available for this section [facility] Progress note No data available for this section [facility] Summary Purpose Family History No Family History Records FoundNo Family History Records Found No data available for this section No data available for this section No Family History Records FoundNo Family History Records FoundNo Family History Records FoundNo Family History Records FoundNo Family History Records Found No data available for this section No Family History Records FoundNo Family History Records Found Advance Directives No Advanced Directives Records FoundNo Advanced Directives Records FoundNo Advanced Directives Records FoundNo Advanced Directives Records FoundNo Advanced Directives Records FoundNo Advanced Directives Records FoundNo Advanced Directives Records FoundNo Advanced Directives Records FoundNo Advanced Directives Records Found Additional Source Comments INFORMATION SOURCE (unrecogn ized section and content) DATE CREATED AUTHOR 04/30/2021 [facility] DATE CREATED AUTHOR AUTHOR'S ORGANIZ ATION 11/20/2021 [facility] DATE CREATED AUTHOR AUTHOR'S ORGANIZ ATION 12/26/2023 [facility] DATE CREATED AUTHOR AUTHOR'S ORGANIZ ATION 10/18/2024 [facility] DATE CREATED AUTHOR AUTHOR'S ORGANIZ ATION 10/25/2024 [facility] Care Team (unrecognized sect ion and content) Personnel Name: Ryann Yu CNP Address: [address] [place] [id number] Personnel Name: Tasneem Buchanan Address: Address: [address] [place] [address]- Personnel Name: Tasneem Buchanan Address: Address: [address] [place] [address]- Personnel Name: Tasneem Buchanan Address: Address: [address] [place] [address]- Personnel Name: Tasneem Buchanan Address: Address: [address] [place] [address]- FOR RECORDS PERTAINING TO PATIENTS WHO ARE [...] BE BASED ON THE PRIMARY CLINICAL RECORDS. [facility] provides no warranty or guarantee of the accuracy or completeness of information in this document.
== END 2024-10-28 09:32 | disposition home or self-care (01) ==
LOC: MAMMO 09:31
PROVIDERS: PCP Nurse Practitioner; Visit Provider Nurse Practitioner Adult Health
DX: Z12.31 Encounter for screening mammogram for malignant neoplasm of breast (principal); Z98.82 Breast implant status
CPT/HCPCS: 77063; 77067

== ENCOUNTER 2025-01-05 07:32 | Outpatient (OUT) | payer BC, SELFPAY ==
--- OUTSIDE RECORDS SUMMARY | 2025-01-02 08:29 | XMS_ITS | CCD ---
Author Organization [facility] Care Team Providers Care Target Setter Name Role Phone Celia SIMMS Primary Care Physician Ryann Yu Primary Care Physician [phone] BERTHA, DR THAIS Devries Admitting Unavailable WEST, DR THAIS Devries Attending Unavailable SPETTCELIA CEJA Primary Care Unavailable BERTHA, DR THAIS Devries Consulting Unavailable MISC, DR ROMERO Admitting Unavailable MISC, DR ROMERO Attending Unavailable BOOMTTCELIA CEJA Primary Care Unavailable MISC, DR ROMERO Consulting Unavailable Marj, Tasneem Branch Primary Care Physician ESE VICKERS Attending Unavailable RANCHO, ESE Osman Admitting Unavailable RANCHO, ESE Osman Attending Unavailable Marj, Tasneem Branch Attending Unavailable Marj, Tasneem Branch Admitting Unavailable Marj, Tasneem Branch Attending Unavailable Marj, Tasneem Branch Attending Unavailable Marj, Tasneem Branch Admitting Unavailable Memo, Natalie Kathleen Admitting Unavailable Memo, Natalie Kathleen Attending Unavailable Marj, Tasneem Branch Attending Unavailable Marj, Tasneem Branch Attending Unavailable Marj, Tasneem Branch Attending Unavailable BASIL SHAVER Attending Unavailable Medications Current Medications MedicationDrug Class(es)DatesSig (Normalized)Sig (Original)amLODIPine 5 mg oral tablet (10 sources)Dihydropyridine Calcium Channel BlockerStart: 81-55-1820nyvt 1 tablet by mouth once dailyamLODIPine 5 mg Tab See Instructions, TAKE 1 TABLET BY MOUTH EVERY DAY, # 90 tab(s), Refills(s) 3, Pharmacy: [id number], 160, cm, 12/24/23 11:27:00 EDT, Height/Length Dosing, 59.2, kg, 12/24/23 11:27:00 EDT, Weight Dosing Start Date: 12/24/23 Status: OrderedStart: 67-23-3828elih 1 tablet by mouth once dailyamLODIPine 5 mg Tab 5 mg = 1 tab(s), Oral, Daily, # 90 tab(s), Refills(s) 3, Pharmacy: [facility]/pharmacy#[id number], 160.4, cm, 08/17/22 15:18:00 EDT, Height/Length Dosing, 68.9, kg, 08/17/22 15:18:00 EDT, Weight Dosing Start Date: 08/17/22 Status: OrderedStart: 12-13-2020 End: 06-93-1410lqdp 1 tablet by mouth once dailyamLODIPine 5 mg Tab 5 mg = 1 tab(s), Oral, Daily, X 90 day(s), # 90 tab(s), Refills(s) 3, Pharmacy: [facility]/pharmacy #[id number], 160, cm, 07/21/21 9:41:00 EDT, Height/Length Dosing, 70.7, kg, 07/21/21 9:41:00EDT, Weight Dosing Start Date: 07/21/21 Stop Date: 07/16/22 Status: OrderedBupropion (9 sources)AminoketoneStart: 86-37-1534vxTPWPfmf Oral, Refills(s) 0 Start Date: 12/24/23 Status: OrderedStart: 08-17-2022 End: 94-52-2657lfvb 1 tablet by mouth once dailyWellbutrin SR 150 mg Tab-ER 150 mg = 1 tab(s), Oral, Daily, X 90 day(s), # 90 tab(s), Refills(s) 3,Pharmacy: [facility]/pharmacy #[id number], 160.4, cm, 08/17/22 15:18:00 EDT, Height/Length Dosing, 68.9, kg, 08/17/22 15:18:00 EDT, Weight Dosing Start Date: 08/17/22 Stop Date: 08/12/23 Status: OrderedStart: 91-79-1708rixv 1 tablet by mouth once daily Wellbutrin SR 150 mg Tab-ER 150 mg = 1 tab(s), Oral, Daily, # 90 tab(s), Refills(s) 3, [facility]: [facility], 162, cm, 02/10/20 14:47:00 EST, Height/Length Dosing, 59.6, kg, 02/10/20 14:47:00 EST, Weight Dosing Start Date: 02/10/20 Status: OrderedclonazePAM 0.5 mg oral tablet (3 sources)BenzodiazepineStart: 78-85-9492PqirlpcJRI 0.5 mg Tab Refills(s) 0 Start Date: 11/28/22 Status: Orderedestradiol 0.1 mg/ml vaginal cream (8 sources)EstrogenStart: 88-63-0083sgtkqjsdl 0.1 mg/g Vag Crm 1 gm, Vaginal, MonFri, 42.5 gm, Refill(s) 3, [facility]/pharmacy #[id number], 160, cm, 12/24/23 11:27:00 EDT, Height/Length Dosing, 59.2, kg, 12/24/23 11:27:00 EDT, Weight Dosing Start Date: 12/24/23 Status: OrderedStart: 65-30-3495igryolwwf 0.1 mg/g Vag Crm 1 gm, Vaginal, MonFri, 42.5 gm, Refill(s) 3, [facility]/pharmacy #[id number], 160, cm, 11/28/22 14:40:00 EDT, Height/Length Dosing, 66, kg, 11/28/22 14:40:00 EDT, Weight Dosing Start Date: 11/28/22 Status: OrderedStart: 96-81-7216aaqsbqflz 0.1 mg/g Vag Crm 1 gm, Vaginal, MonFri, 42.5 gm, Refill(s) 3, [facility]/pharmacy #[id number], 160, cm, 12/12/21 12:41:00 EDT, Height/Length Dosing, 70.7, kg, 12/12/21 12:41:00 EDT, Weight Dosing Start Date: 04/21/22 Status: OrderedStart: 93-77-4965azpm 1 tablet by mouth once dailyestradiol 1 mg Tab TAKE 1 TABLET BY MOUTH EVERY DAY Start Date: 07/21/21 Status: OrderedStart: 77-23-1969jqbpdgtul 0.1 mg/g vaginal cream 1 gm, Vaginal, MonFri, # 42.5 gm, Refills(s) 5, Pharmacy: [id number], 160, cm, 09/22/20 13:28:00 EDT, Height/Length Dosing, 58, kg, 09/22/20 13:28:00 EDT, Weig ht Dosing Start Date: 10/05/20 Status: Orderedestradiol 0.1 mg/g vaginal cream (4 sources)Start: 52-30-0143sqttzkctt 0.1 mg/g vaginal cream 1 gm, Vaginal, MonFri, # 42.5 gm, Refills(s) 5, [id number] 160, cm, 09/22/20 13:28:00 EDT, Height/Length Dosing, 58, kg, 09/22/20 13:28:00 EDT, Weight Dosing Start Date: 10/05/20 Status: Orderedprogesterone 100 mg oral capsule (9 sources)ProgesteroneStart: 16-12-1616rsfz 1 mg by mouth once daily at bedtime progesterone 100 mg oral capsule mg cap(s), Oral, Once a day (at bedtime), Refills(s) 0 Start Date:01/31/19 Status: Orderedsulfamethoxazole 800 mg / trimethoprim 160 mg oral tablet (2 sources)Dihydrofolate Reductase Inhibitor Antibacterial, Sulfonamide AntimicrobialStart: 03-15-2023 End: 82-37-4271Ogerhxh D.S. 800 mg-160 mg Tab 1 tab(s), Oral, BID for 5 day(s), 10 tab(s), Refill(s) 0, [id number] 160, cm, 11/28/22 14:40:00 EDT, Height/Length Dosing, 66, kg, 11/28/22 14:40:00 EDT, Weight Dosing Start Date: 03/15/23 Stop Date: 03/20/23 Status: OrderedSUMAtriptan 100 mg oral tablet (9 sources)Serotonin-1b and Serotonin-1d Receptor AgonistStart: 12-24-2023 Imitrex 100 mg Tab 100 mg = 1 tab(s), Oral, As Directed, PRN Headache, may repeat dose once in 2 hours, # 9 tab(s), Refills(s) 1, [id number], 160, cm, 12/24/23 11:27:00 EDT, Height/Length Dosing, 59.2, kg, 12/24/23 11:27:00 EDT, Weight Dosing Start Date: 12/24/23 Status: OrderedStart: 01-94-2478Emdubks 100 mg Tab 100 mg = 1 tab(s), Oral, As Directed, PRN Headache, may repeat dose once in 2 hours, # 9 tab(s), Refills(s) 1, [id number], 160, cm, 07/21/21 9:41:00 EDT, Height/Length Dosing, 70.7, kg, 07/21/21 9:41:00 EDT, Weight Dosing Start Date: 07/21/21 Status: Ordered Start: 45-96-7884Vcscofa 100 mg Tab 100 mg = 1 tab(s), Oral, As Directed, PRN Headache, may repeat dose once in 2 hours, # 9 tab(s), Refills(s) 1, [id number], 160, cm, 07/16/20 11:04:00 EDT, Height/Length Dosing, 82.8, kg, 07/16/20 11:04:00 EDT, Weight Dosing Start Date: 07/19/20 Status: Ordered Completed/Discontinued Medications MedicationDrug Class(es)DatesSig (Normalized)Sig (Original)doxycycline hyclate 100 mg oral capsule (1 source)Tetracycline-class DrugStart: 10-09-3345vhlb 1 capsule by mouth once dailydoxycycline hyclate 100 mg Cap 100 mg = 1 cap(s), Oral, Daily, Take 1 pill the day before the procedure and 1 pill after the procedure, # 2 cap(s), Refills(s) 0, Pharmacy: [facility]/pharmacy #[id number], 160, cm, 06/10/21 12:38:00 EDT, Height/Length Dosing, 64.9, kg, 05/18/21 14:26:00 ESTPaolo... Start Date: 06/10/21 Status: Ordered Problems Problem ClassificationProblemDateDocumented DateEpisodic/ChronicAttention- deficit, conduct, and disruptive behavior disorders (9 sources)Attention deficit hyperactivity disorder, predominantly inattentive fzal08-90-9603XzcutwsCatkhbxmn of lipid metabolism (9 sources)Fqfrbeilafgsjf21-09-4230YtxddopTgnnipejr hypertension (10 sources)Hypertensive disorder; Translations: [Essential hypertension]Onset: 899595-46-6058FmeitgtZdqfbdgswsvuo symptoms and ill-defined conditions (20 sources)Dysuria; Translations: [History of urinary tract infection]Onset: 085064-16-5510ZtbtoriaJnyawatf; including migraine (10 sources)Migraine; Translations: [Migraine, unspecified, not intractable, without status migrainosus]Onset: 141066-67-8074CytdgluEwjtubp and fatigue (4 sources)Other fatigue; Translations: [OTHER FATIGUE]Onset: 79-76-3700Wdiknbgq Menopausal disorders (2 sources)Other primary ovarian failure; Translations: [Menopausal and female climacteric states]Onset: 60-09-7168CpkixttEiwb disorders (19 sources)Depression; Translations: [Mild major depression]Onset: 07-21-2021 02-00-0849CyjekbdCnhfh and unspecified benign neoplasm (9 sources)History of polyp of ilort84-60-6788MlcmkshlNymio diseases of bladder and urethra (11 sources)Urethral stricture; Translations: [Other urethral stricture, female] Onset: 900694-78-3010VxhtafitNzqcg lower respiratory disease (9 sources)Bctfk43-09-9033JabarztkOawip lower respiratory disease (9 sources)Nebdavw05-12-3640SjldgyncDqcoa nutritional; endocrine; and metabolic disorders (4 sources)Overweight in adulthood with body mass index of 25 or more but less than 30; Translations: [Body mass index (BMI) 27.0-27.9, adult]Onset: 07-21-2021 53-32-1774RrrhoadeWqwxg nutritional; endocrine; and metabolic disorders (1 source)Overweight; Translations: [Overweight]Onset: 33-05-2405Nuugjrka Residual codes; unclassified (10 sources)Obstructive sleep apnea syndrome; Translations: [Obstructive sleep apnea (adult) (pediatric)]Onset: 967794-71-1413JguvhghBmjiddra codes; unclassified (9 sources)Postmenopausal -69-2390IivjqadfAgudbuewh and history of mental health and substance abuse codes (14 sources)Ex-smoker; Translations: [H/O: Disorder]Onset: 598266-44-9394 EpisodicSpondylosis; intervertebral disc disorders; other back problems (9 sources)Neck kbkv32-42-6559IqvuxcblSalxbxdgs-qhrifvt disorders (9 sources)Nicotine rkslhetbmz86-85-3085OyzabuqCrmzsthtfano (8 sources)Patient encounter eciewb75-94-2330Besprus tract infections (20 sources)Recurrent urinary tract infection; Translations: [Urinary tract infectious disease]Onset: 704090-17-2667Rfnpolbe Results Test NameValueInterpretationReference RangeFacilityFami Medicine Office/Clinic Noteon 26-67-7521Vuhgqi Medicine Office/Clinic NoteFami Medicine Office/Clinic Note HPI Staff Pt is here for 1 week f/u for sciatica tx'd with Medrol Dose Pack and consider PT if no improvementshe finished this on Sunday Tizanidine has 1 more left. she said it is better but not great, she is open to PT or another round of Medrol Dose Pack History of Present Illness pt presents today for continue left hip pain Review of Systems PHQ Score Initial Depression Screen Score: 0 SCORE Physical Exam Vitals & Measurements T: 36.3 ???C(Temporal Artery) HR: 102(Peripheral) RR: 18 BP: 114/78 SpO2: 97% HT: 63 in HT: 160.0 cm WT: 55.8 kg WT: 123.018 lb BMI: 21.8 General: alert, no acute distress ENMT: oral mucosa moist, no pharyngeal erythema or exudate Cardiovascular: regular rate and rhythm, normal peripheral perfusion Respiratory: Lungs CTA, respirations non labored Extremities: no deformity, no trauma Neurological: oriented x 4, LOC appropriate for age, CN II-XII intact, motor strength equal & normal bilaterally, speech normal Assessment/Plan 1. Left hip pain (M25.552: Pain in left hip) Kenalog and Toradol given IM. x ray order provided. pt will continue doing exercises at home. rtc 4weeks Ordered: XR Hip 2-3 Views Left 2. Sciatic pain (M54.30: Sciatica, unspecified side) see above Ordered: XR Hip 2-3 Views Left 3. BMI 21.0-21.9, adult (Z68.21: Body mass index [BMI] 21.0-21.9, adult) BMI education given Ordered: XR Hip 2-3 Views Left 4. Former smoker (Z87.891: Personal history of nicotine dependence) continue not smoking Ordered: XR Hip 2-3 Views Left Follow-up With When Contact Information Tasneem Buchanan, AMISHA, MED In 4 weeks 12/30/[address] [place] [address] Jongla (1) Additional Instructions: Problem List/Past Medical History Ongoing BMI 22.0-22.9, adult Breast cancer screening by mammogram Former smoker Frequent UTI History of colonic polyps Hyperlipidemia Hypertension Left hip pain Migraine headache Mild major depression Nocturia GANGA (obstructive sleep apnea) Other urethral stricture, female Sciatic pain Wellness examination Historical ADD (attention deficit disorder) Depression Dysuria Episode of apnea History of UTI Loud snoring Neck pain Postmenopausal status Urinary frequency UTI - Urinary tract infection Procedure/Surgical History Cystoscopy (11/15/2017), Colonoscopy (2013), Esophagogastroduodenoscopy (2013), Bunionectomy (2011), Breast augmentation (2004), Urethral dilatation, Urethral stent, Urethral Widening. Medications amLODIPine 5 mg Tab, See Instructions buPROPion, Oral ClonazePAM 0.5 mg Tab estradiol 0.1 mg/g Vag Crm, 1 gm, Vaginal, MonFri, 3 refills Imitrex 100 mg Tab, 100 mg= 1 tab(s), Oral, As Directed, PRN, 1 refills progesterone 100 mg oral capsule, Oral, Once a day (at bedtime) tiZANidine 4 mg Tab, 4 mg= 1 tab(s), Oral, q8hr Allergies No Known Allergies Social History Alcohol - Denies Alcohol Use, 09/21/2011 Substance Abuse - Denies Substance Abuse, 09/21/2011 Tobacco - Denies Tobacco Use, 01/23/2018 Former smoker, quit more than 30 days ago Tobacco Use:. Never Smokeless Tobacco Use:. Cigarettes, Household tobacco concerns: No. Yes, 12/09/2024 Family History Cardiac arrest: Father. Hypertension: Mother [...] 05/29/2020 Recorded influenza virus vaccine, inactivated 12/18/2019 Recorded influenza virus vaccine, inactivated - Not Given Postpone due to refusal influenza virus vaccine, inactivated 05/03/2012 RecordedNoMarietta Memorial HospitalComment on above:Result Comment: Electronically Signed By: Tasneem Buchanan\.br\Date and Time Signed: 12/09/24 15:38 EDTAmbulatory Visit Summary on 87-82-1593Tmomjpjwxv Visit SummaryAmbulatory Visit Summary NORA DIAZ :1965 Visit Date:12/01/2024 Ambulatory Visit Instructions Your Diagnosis Sciatica BMI 22.0-22.9, adult Nonsmoker Your Care Team Attending Physician - BASIL SHAVER CNP Primary Care Physician - Tasneem Buchanan This Is Your Medications List amlodipine (amLODIPine 5 mg Tab) buPROPion clonazepam (ClonazePAM 0.5 mg Tab) estradiol topical (estradiol 0.1 mg/g Vag Crm) progesterone (progesterone 100 mg oral capsule) sumatriptan (Imitrex 100 mg Tab) Procedures Performed Cystoscopy (11/15/2017), Colonoscopy (2013), Esophagogastroduodenoscopy (2013), Bunionectomy (2011), Breast augmentation (2004), Urethral dilatation, Urethral stent, Urethral Widening. Discharge Vitals Temperature (Oral) 36.8 ???C Heart Rate (Peripheral) 90 Respiratory Rate 18 Blood Pressure 118/76 Height 160 cm Height 63 in Weight 56.9 kg Weight 125.443 lb BMI 22.23 What to do next Scheduled Follow-Up Appointments Sunday 2:40 PM EDT With: Tasneem Buchanan Where: [address] [address]- Sunday 8:20 AM EST With: Tasneem Buchanan Where: [address] [address]- Medications What How Much When Instructions Unchanged amlodipine (amLODIPine 5 mg Tab) See instructions TAKE 1 TABLET BY MOUTH EVERY DAY Unchanged buPROPion By Mouth Unchanged clonazepam (ClonazePAM [...] that you are currently receiving treatment for. BMI 22.0-22.9, adult Breast cancer screening by mammogram Ex-smoker Former smoker Frequent UTI History of colonic polyps Hyperlipidemia Hypertension Migraine headache Mild major depression Nocturia Nonsmoker GANGA (obstructive sleep apnea) Other urethral stricture, [...] you for choosing us for your care. Education Materials Sciatica Rehab Ask your health care provider which exercises are safe for you. Do exercises exactly as told by your health care provider and adjust them as directed. It is normal to feel mild stretching, pulling, tightness, or discomfort as you do these exercises. Stop right away if you feel sudden pain or your pain gets worse. Do not begin these exercises until told by your health care provider. Stretching and ngbdp-qv-dtxjzh exercises These exercises warm up your muscles and joints and improve the movement and flexibility of your hips and back. These exercises also help to relieve pain, numbness, and tingling. Sciatic nerve glide 1. Sit in a chair with your head facing down toward your chest. Place your hands behind your back. Letyour shoulders slump forward. 2. Slowly straighten one of your legs while you tilt your head back as if you are looking toward the ceiling. Only straighten your leg as far as you can without making your symptoms worse. 3. Hold this position for seconds. 4. Slowly return your leg and head back to the starting position. 5. Repeat with your other leg. Repeat times. Complete this exercise times a day. Knee to chest with hip adduction and internal rotation 1. Lie on your back on a firm surface with both legs straight. 2. Bend one of your knees and move it up toward your chest until you feel a gentle stretch in your lower back and buttock. Then, move your knee toward the shoulder that is on the opposite side from yourleg. This is hip adduction and internal rotation. ??? Hold your leg in this position by holding on to the front of your knee. 3. Hold this position for seconds. 4. Slowly return to the starting position. 5. Repeat with your other leg. Repeat times. Complete this exercise times a day. Prone extension on elbows 1. Lie on your abdomen on a firm surface. A bed may be too soft for this exercise. 2. Prop yourself up on y (more content not included)...[facility] Office/Clinic Noteon [id number] Medicine Office/Clinic NoteFami Medicine Office/Clinic Note Chief Complaint Sciatica Pain HPI Staff Tasneem Mcmahan pt. Presenting today due to sciatica pain. Radiating down Lt leg. 4/10 when sitting 7/10 when standing. Has been ongoing for the past month. Hast tried OTC Tylenol, Aleve, does take the edge off Has also been having muscle spasms. History of Present Illness 59-year-old female patient of TAURUS Mccabe presenting with sciatic pain. The sciatic pain initially occurred about a year ago and lasted for several months, during which chiropractic treatment provided relief. Currently, the pain has been exacerbated for about a month without chiropractic intervention. The patient reports taking Aleve for pain management, but has not used muscle relaxants previously.She experiences muscle spasms and sleep disturbances due to the pain, often using ice for relief atnight. The patient has been advised to consider a Medrol Dosepak to reduce inflammation and a muscle relaxant, tizanidine, to alleviate muscle spasms. She is encouraged to follow up with her regular provider, Vicki, for further management if symptoms persist. Review of Systems PHQ Score Initial Depression Screen Score: 0 SCORE - Musculoskeletal: Reports sciatic pain and muscle spasms - Neurological: Reports sleep disturbances due to pain Physical Exam Vitals & Measurements T: 36.8 ???C(Oral) HR: 90(Peripheral) RR: 18 BP: 118/76 SpO2: 100% HT: 160 cm HT: 63 in WT: 56.9 kg WT: 125.443 lb BMI: 22.23 General: alert, no acute distress Skin: warm, dry Cardiovascular: regular rate and rhythm, normal peripheral perfusion Respiratory: Lungs CTA, respirations non labored Back: Mild tenderness, Normal ROM, Normal alignment. Extremities: no deformity, no trauma Neurological: oriented x 4, LOC appropriate for age speech normal Assessment/Plan 1. Sciatica (M54.30: Sciatica, unspecified side) - Initiate Medrol Dosepak to reduce inflammation associated with sciatic nerve pain. - Consider referral to physical therapy if symptoms persist after steroid treatment. - Follow-up with primary care provider, Vicki, for ongoing management. Ordered: methylPREDNISolone, = 1 packet(s), Oral, As Directed, as directed on package labeling, X 6 day(s), # 21 tab(s), Refills(s) 0, Pharmacy: [facility]/pharmacy #[id number], 160, cm, 12/01/24 11:53:00 EDT, Height/Length Dosing, 56.9, kg, 12/01/24 11:53:00 EDT, Weight Dosing tizanidine, 4 mg = 1 tab(s), Oral, q8hr, X 7 day(s), # 21 tab(s), Refills(s) 0, Pharmacy: [facility]/pharmacy #[id number], 160, cm, 12/01/24 11:53:00 EDT, Height/Length Dosing, 56.9, kg, 12/01/24 11:53:00 EDT, Weight Dosing 2. Other muscle spasm (M62.838) - Prescribe tizanidine 4 mg as a muscle relaxant, to be taken at night to alleviate spasms and improve sleep. - Advise patient on potential side effects and caution against operating machinery while on medication. 3. BMI 22.0-22.9, adult (Z68.22: Body mass index [BMI] 22.0-22.9, adult) BMI 22.23 Ordered: methylPREDNISolone, = 1 packet(s), Oral, As Directed, as directed on package labeling, X 6 day(s), # 21 tab(s), Refills(s) 0, [id number], 160, cm, 12/01/24 11:53:00 EDT, Height/Length Dosing, 56.9, kg, 12/01/24 11:53:00 EDT, Weight Dosing tizanidine, 4 mg = 1 tab(s), Oral, q8hr, X 7 day(s), # 21 tab(s), Refills(s) 0, [id number], 160, cm, 12/01/24 11:53:00 EDT, Height/Length Dosing, 56.9, kg, 12/01/24 11:53:00 EDT, Weight Dosing 4. Nonsmoker (Z78.9: Other specified health status) - Encouraged to continue as a non-smoker Ordered: methylPREDNISolone, = 1 packet(s), Oral, As Directed, as directed on package labeling, X 6 day(s), # 21 tab(s), Refills(s) 0, [id number], 160, cm, 12/01/24 11:53:00 EDT, Height/Length Dosing, 56.9, kg, 12/01/24 11:53:00 EDT, Weight Dosing tizanidine, 4 mg = 1 tab(s), Oral, q8hr, X 7 day(s), # 21 tab(s), Refills(s) 0, [id number], 160, cm, 12/01/24 11:53:00 EDT, Height/Length Dosing, 56.9, kg, 12/01/24 11:53:00 EDT, Weight Dosing Follow-up With When Contact Information Tasneem Mcmahan Within [address] [place], [place] [id number] [phone] Business (1) Additional Instructions: Sciatica Patient Education Sciatica Rehab Sciatica, Yknm-vp-Rfdq Problem List/Past Medical History Ongoing BMI 22.0-22.9, adult Breast cancer screening by mammogram Ex-smoker Former smoker Frequent UTI History of colonic polyps Hyperlipidemia Hypertension Migraine headache Mild major depression Nocturia Nonsmoker GANGA (obstructive sleep apnea) Other urethral stricture, female Wellness examination Historical ADD (attention deficit disorder) Depression Dysuria Episode of apnea History of UTI Loud snoring Neck pain Postmenopausal status Urinary frequency UTI - Urinary tract infection Procedure/Surgical History Cystoscopy (11/15/2017), Colonoscopy (2013), Esophagogastroduodenoscopy (2013), Bunionectomy (2011), (more content not included)...NormalCity HospitalComment on above:Result Comment: Electronically Signed By: BASIL SHAVER CNP\.br\Date and Time Signed: 12/01/24 12:10 EDTPAP [id number] AptimaNegativeInvalid Interpretation [facility] Comment on above:Result Comment: This nucleic acid amplification test detects fourteen high-risk HPV types (16,18,31,33,35,39,45,51,52,56,58,59,66,68) without differentiation. Performed at: [facility] [id number] MD Marianna Turner Performed at: =[facility] [id number] MD Marianna TurnerPerformed By: #### [id number] #### Gutierrez [facility] [address] [place], [place] [address]FSU [id number] Interpretation [facility] HospitalComment on above:Result Comment: TESTS RESULT FLAG UNITS REF RANGE LAB Clinician Provided Cytology Information Source.............[employer] Other..............Other No. of containers..01 ThinPrep Vial DIAGNOSIS: 01 NEGATIVE FOR INTRAEPITHELIAL LESION OR MALIGNANCY. FUNGAL ORGANISMS MORPHOLOGICALLY CONSISTENT WITH ARISTIDES SPECIES ARE PRESENT. Specimen adequacy: 01 Satisfactory for evaluation. No endocervical component is identified. Performed by: 01 Gaviota Goodwin Agriscience Teacher . 01 Note: Note 01 The Pap [...] <-Panic Low,>-Panic High,A-Abnormal,AA-Critical Abnormal Performed at: [address] [facility] [id number] Yue Cabral MD, Coqsuorpi By: #### [id number] #### [facility] [address] [place] [id number] TechniqueBRUSH-SPATULANormal City HospitalComment on above:Performed By: #### [id number] #### [facility] [address], [place] [address]Tuuhtvipcbncx Body SiteENDOCERVIXRegency Hospital CompanyComment on above:Performed By: #### [id number] #### [facility] [address], [place] [address]Yuquq Patient DsbdqldmmpjHMJ-JKDCL-ZTEMpnzdbBdaxux Titus Medical CenterComment on above:Performed By: #### [id number] #### [facility] [address], [place] [address]Suygkpyq CytologyNegativeRegency Hospital Company Comment on above:Performed By: #### [id number] #### [facility] [address], [place] [address]Tobnzfbr TreatmentNONENoMarietta Memorial HospitalComment on above:Performed By: #### [id number] #### [facility] [address], [place] [address]Abwuficqkae 39-48-3905EbyzhdaniXtkmgdxcg From: Tasneem Buchanan To: [facility] - Clinical; [...] 20.5 % (14.0 - 50.0) 12/24/2023 11:37 Karnes Auto 5.7 % (4.0 - 14.0) 12/24/2023 11:37 Eos Auto 0.7 % (0.0 - 8.0) 12/24/2023 11:37 Basophil Auto 0.5 % (0.0 - 2.0) 12/24/2023 11:37 Neutro Absolute 5.8 E9/L (2.0 - 7.5) 12/24/2023 11:37 Lymph Absolute 1.6 E9/L (1.0 - 4.0) 12/24/2023 11:37 Karnes Absolute 0.4 E9/L (0.2 - 1.0) 12/24/2023 [...] 5.60) Nora called and advised of lab resultsNoMarietta Memorial Hospital Ambulatory Visit Summaryon [id number] Visit SummaryAmbulatory Visit Summary NORA DIAZ :1965 Visit Date:12/24/2023 [...] Sunday & Sunday Refills: 3 Pickup at [facility]/pharmacy #[id number] New sumatriptan (Imitrex 100 mg Tab) 1 Tablets By Mouth As Directed as needed for Headache Refills:1 may repeat dose once in 2 hours Pickup at [facility]/pharmacy #[id number] Changed amlodipine (amLODIPine 5 mg Tab) See instructions TAKE 1 TABLET BY MOUTH EVERY DAY Changed amlodipine (amLODIPine 5 mg Tab) 1 Tablets By Mouth Every day Unchanged buPROPion By Mouth Unchanged clonazepam (ClonazePAM 0.5 mg Tab) Unchanged progesterone (progesterone 100 mg oral capsule) By Mouth Once a day (at bedtime) Pharmacy Information [facility]/pharmacy #[id number]: [address], [place] [phone] Medications and Immunizations Administered Not Given influenza [...] you for choosing us for your care. NormalCity HospitalCBC w/ Auto Diffon 12-24-2023 Basophils/100 WBC (Bld)0.5 %Normal0.0-2.0City HospitalComment on above:Performed By: #### [id number] #### [facility] [address] [place] [address]Pjfjgdvhl/Leukocytes Auto (Bld) [Pure # fraction]0.0 E9/LNormal 0.0-0.2FMiddletown HospitalComment on above:Performed By: #### [id number] #### [facility] [address] [place] [address] 613[address]Tdyjvorvssm (Bld) [#/Vol]0.1 E9/LNormal0.0-0.5FMiddletown HospitalComment on above:Performed By: #### [id number] #### [facility] [address] [place] [address] 611[address]Dvsbjdibcbo/100 WBC (Bld)0.7 %Normal0.0-8.0City HospitalComment on above:Performed By: #### [id number] #### [facility] [address], [place] [address]Tupopzxnydf distribution width (RBC) [Ratio]13.1 %Normal 10.9-14.2FMiddletown HospitalComment on above:Performed By: #### [id number] #### [facility] [address] [place] [address] 350[address]Zeuxuhwngg (Bld) [Volume fraction]39.3 %Achgmk50.0-46.0City HospitalComment on above:Performed By: #### [id number] #### [facility] [address], [place] [address]Mlbsmnmdhk (Bld) [Mass/Vol]13.3 g/sXPcmpai23.0-16.0City HospitalComment on above:Performed By: #### [id number] #### [facility] [address] [place] [address] 638[address]Wgendetsvbt (Bld) [#/Vol]1.6 E9/LNormal1.0-4.0City HospitalComment on above:Performed By: #### [id number] #### [facility] [address] [place] [address]Ktvmfasdhxg/100 WBC (Bld)20.5 %Avozid33.0-50.0City HospitalComment on above:Performed By: #### [id number] #### [facility] [address] [place] [address] 31999PKI (RBC) [Entitic mass]34.6 soRcfc25.0-34.0City HospitalComment on above:Performed By: #### [id number] #### [facility] [address] [place] [address] 795[address]VLEZ (RBC) [Mass/Vol]33.9 g/rFQrzsyf50.4-36.0City HospitalComment on above:Performed By: #### [id number] #### [facility] [address] [place] [address] 47258VET (RBC) [Entitic vol]102.2 dKQalw16.0-100.0City HospitalComment on above:Performed By: #### [id number] #### [facility] [address] [place] [address] 037[address]Byplylkxp (Bld) [#/Vol]0.4 E9/LNormal0.2-1.0City HospitalComment on above:Performed By: #### [id number] #### [facility] [address] [place] [address] 67[address]Qegkgvzacxk (Bld) [#/Vol]5.8 E9/LNormal2.0-7.5FMiddletown HospitalComment on above:Performed By: #### [id number] #### [facility] [address] [place] [address] 18968Cldtoelzmie/100 WBC (Bld)72.6 %Vhwtmr93.0-75.0City HospitalComment on above:Performed By: #### [id number] #### [facility] [address], [place] [address]Tcpamhmi mean volume (Bld) [Entitic vol]8.0 fLNormal6.4-10.8 City HospitalComment on above:Performed By: #### [id number] #### [facility] [address] [place] [address] 778[address]Vdsrdjwyb (Bld) [#/Vol]258.0 E9/FCpdcqw752.0-500.0City HospitalComment on above:Performed By: #### [id number] #### [facility] [address] [place] [address] 55321FGY (Bld) [#/Vol]3.8 E12/LLow4.3-5.9[facility] Comment on above:Performed By: #### [id number] #### [facility] [address] [place] [address]57[address]YKJ corrected for nucl RBC Auto (Bld) [#/Vol]8.0 E9/LNormal 4.0-11.0City HospitalComment on above:Performed By: #### [id number] #### [facility] [address] [place] [address] 456[address]XKIAZQOFDEjklvwq By: SYSTEM SYSTEM on 49-15-4029Vtkwjhs [Mass/Vol]4.0 g/dLNormal3.3 - 5.0 gm/dLRemisol ChemAlbumin/Globulin [Mass ratio] 1.6 {ratio}Normal1.1 - 2.2Remisol ChemALP [Catalytic activity/Vol]41 [iU]/d Eyrohs95 - 98 Int._Unit/LRemisol ChemALT No additional P-5'-P [Catalytic activity/Vol]18 [iU]/dNormal6 - 46 Int._Unit/LRemisol ChemAnion gap [Moles/Vol]8 mmol/LNormal6 - 16 mEq/LRemisol ChemAST [Catalytic activity/Vol]22 [iU]/dNormal 5 - 43 Int._Unit/LRemisol ChemBilirubin [Mass/Vol]0.4 mg/dLNormal0.0 - 1.1 mg/dL Remisol ChemCalcium [Mass/Vol]9.1 mg/dLNormal8.9 - 11.1 mg/dLRemisol Chem Chloride [Moles/Vol]104 mmol/NGccwnb070 - 111 mmol/LRemisol ChemCholesterol [Mass/Vol]172 mg/dDRdgusp402 - 200 mg/dLRemisol ChemCholesterol in HDL [Mass/Vol]60 mg/dLInvalid Interpretation CodeRemisol ChemComment on above:Result Comment: '>= 60 LOW RISK' '<= 40 HIGH RISK'Cholesterol in LDL [Mass/Vol]93 mg/dLNormal<=129mg/dLRemisol ChemCholesterol in VLDL [Mass/Vol]33 mg/dLNormal7 - 40 mg/dLRemisol ChemCO2 [Moles/Vol]30 mmol/WNkpxre97 - 31 mmol/LRemisol ChemCreatinine [Mass/Vol]0.7 mg/dLNormal0.5 - 1.3 mg/dLRemisol QzjlxJYV336 mL/min/1.73 p1Pnzcvy >=59mL/min/1.73 y3Gcanpes ChemGlobulin (S) [Mass/Vol]2.5 g/dLNormal1.4 - 4.0 gm/dLRemisol ChemGlucose [Mass/Vol]95 mg/wYJvqsfy84 - 199 mg/dLRemisol Chem Potassium [Moles/Vol]3.9 mmol/LNormal3.5 - 5.3 mmol/LRemisol ChemProtein [Mass/Vol]6.5 g/dLNormal6.0 - 7.8 gm/dLRemisol ChemSodium [Moles/Vol]138 mmol/L Yuztml434 - 145 mmol/LRemisol ChemTriglyceride [Mass/Vol]165 mg/dLHigh<=149mg/dL Remisol ChemTSH Qn0.71 m[IU]/LNormal0.34 - 5.60 mcIU/mLRemisol ChemUrea nitrogen [Mass/Vol]16 mg/dLNormal5 - 21 mg/dLRemisol ChemUrea nitrogen/Creatinine [Mass ratio]23 mg/fgIgaz00 - 20Remisol ChemCMPon 49-82-4872Mpcnrfe [Mass/Vol]4.0 g/dL Normal3.3-5.0City HospitalComment on above:Performed By: #### [id number] #### [facility] [address] [place] [address] 482[address]Qrfwqzs/Globulin (S) [Mass conc ratio]1.9Tpoxog3.1-2.2FMiddletown HospitalComment on above:Performed By: #### [id number] #### [facility] [address] [place] [address] 91829TTQ [Catalytic activity/Vol]41 Int._Unit/GXlekaz86-00MwhwghCity HospitalComment on above:Performed By: #### [id number] #### [facility] [address] [place] [address] 160[address]YUR No additional P-5'-P [Catalytic activity/Vol]18 Int._Unit/L Normal6-46City HospitalComment on above:Performed By: #### [id number] #### [facility] [address], [place] [address]Armjt gap [Moles/Vol]8 mmol/LNormal6-16City HospitalComment on above:Performed By: #### [id number] #### [facility] [address], [place] [address]WSG [Catalytic activity/Vol]22 Int._Unit/LNormal5-43City HospitalComment on above:Performed By: #### [id number] #### [facility] [address] [place] [address] 16192Lpacvtcbx [Mass/Vol]0.4 mg/dLNormal0.0-1.1FMiddletown HospitalComment on above:Performed By: #### [id number] #### [facility] [address], [place] [address]Fprobmp [Mass/Vol]9.1 mg/dLNormal8.9-11.1FMiddletown HospitalComment on above:Performed By: #### [id number] #### [facility] [address], [place] [address]Brfypyai [Moles/Vol]104 mmol/GYvgagp259-635TozeuaCity HospitalComment on above:Performed By: #### [id number] #### [facility] [address], [place] [address]VA3 [Moles/Vol]30 mmol/SPpuwsv99-61ZscmchCity Hospital Comment on above:Performed By: #### [id number] #### [facility] [address], [place] [address]Rgzirmtpzd [Mass/Vol]0.7 mg/dLNormal0.5-1.3FMiddletown HospitalComment on above:Performed By: #### [id number] #### [facility] [address], [place] [address]Fkquemxu (S) [Mass/Vol]2.5 g/dLNormal1.4-4.0City HospitalComment on above:Performed By: #### [id number] #### [facility] [address], [place] [address]Mpqpkab [Mass/Vol]95 mg/vTRdpvie82-974MpnmmiCity HospitalComment on above:Performed By: #### [id number] #### [facility] [address], [place] [address]Yyakrjgww [Moles/Vol]3.9 mmol/LNormal3.5-5.3FMiddletown HospitalComment on above:Performed By: #### [id number] #### [facility] [address], [place] [address]Jyiklpr [Mass/Vol]6.5 g/dLNormal6.0-7.8City HospitalComment on above:Performed By: #### [id number] #### [facility] [address], [place] [address]Iemzxq [Moles/Vol]138 mmol/KRzftyr164-415VxxtndCity HospitalComment on above:Performed By: #### [id number] #### [facility] [address], [place] [address]Djoc nitrogen [Mass/Vol]16 mg/dLNormal5-21City HospitalComment on above:Performed By: #### [id number] #### [facility] [address], [place] [address]Evtk nitrogen/Creatinine [Mass ratio]23 No AtllpYgvp06-14GmhtzyCity HospitalComment on above:Performed By: #### [id number] #### [facility] [address], [place] [address]Xthhsb Medicine Office/Clinic Noteon 20-94-4777Kitirf Medicine Office/Clinic NoteFanorwood hospital Medicine Office/Clinic Note Chief Complaint annualy wellness [...] Panel Est Preventative 40 to 64 years 88[address] Lab Specimen Collect 03393 Lipid Panel Thyroid Stimulating Hormone 2. Non-smoker (Z78.9: Other specified health status) continue not smoking Ordered: Est Preventative 40 to 64 years 46606 Lab Specimen Collect 53838 3. Hyperlipidemia (E78.5: Hyperlipidemia, unspecified) lipid panel drawn today Ordered: CBC w/ Auto Diff Comprehensive Metabolic Panel Est Preventative 40 to 64 years 22716 Lab Specimen Collect 57242 Lipid Panel Thyroid Stimulating Hormone 4. Hypertension (I10: Essential (primary) hypertension) BP at goal. will send refills Ordered: CBC w/ Auto Diff Comprehensive Metabolic Panel Est Preventative 40 to 64 years 10775 Lab Specimen Collect 47331 Lipid Panel Thyroid Stimulating Hormone Orders: amlodipine, See Instructions, TAKE 1 TABLET BY MOUTH EVERY DAY, # 90 tab(s), Refills(s) 3, Pharmacy: [facility] STORE [id number], 160, cm, 12/24/23 11:27:00 EDT, Height/Length Dosing, 59.2, kg, 12/24/23 11:27:00EDT, Weight Dosing estradiol topical, 1 gm, Vaginal, MonFri, 42.5 gm, Refill(s) 3[id number], cm, 12/24/23 11:27:00 EDT, Height/Length Dosing, 59.2, kg, 12/24/23 11:27:00 EDT, Weight Dosing estradiol topical, 1 gm, Vaginal, MonFri, 42.5 gm, Refill(s) 3, [id number] 160, cm, 11/28/22 14:40:00 EDT, Height/Length Dosing, 66, kg, 11/28/22 14:40:00 EDT, Weight Dosing sumatriptan, 100 mg = 1 tab(s), Oral, As Directed, PRN Headache, may repeat dose once in 2 hours, #9 tab(s), Refills(s) 1, Pharmacy: [facility]/pharmacy #[id number], 160, cm, 07/21/21 9:41:00 EDT, Height/Length Dosing, 70.7, kg, 07/21/21 9:41:00 EDT, Weight Dosing sumatriptan, 100 mg = 1 tab(s), Oral, As Directed, PRN Headache, may repeat dose once in 2 hours, #9 tab(s), Refills(s) 1, Pharmacy: [facility]/pharmacy #[id number], 160, cm, 12/24/23 11:27:00 EDT, Height/LengthDosing, 59.2, kg, 12/24/23 11:27:00 EDT, Weight Dosing [...] vaccine 03/03/2021 Recorded 2021-07-21: (more content not included)...NormalCity HospitalComment on above:Result Comment: Electronically Signed By: Tasneem Buchanan.cristobal\Date and Time Signed: 12/24/23 11:39 EDTHEMATOLOGYOrdered By: SYSTEM SYSTEM on 21-56-2057Yqrqpiqme/100 WBC (Bld)0.5 %Normal0.0 - 2.0 %Remisol HemeBasophils/Leukocytes Auto (Bld) [Pure # fraction]0.0 E9/LNormal0.0 - 0.2 E9/LRemisol HemeEosinophils (Bld) [#/Vol]0.1 E9/LNormal0.0 - 0.5 E9/LRemisol HemeEosinophils/100 WBC (Bld)0.7 %Normal0.0 - 8.0 %Remisol HemeErythrocyte distribution width (RBC) [Ratio]13.1 %Sgsady73.9 - 14.2 %Remisol HemeHematocrit (Bld) [Volume fraction]39.3 %Nxogww96.0 - 46.0 % Remisol HemeHemoglobin (Bld) [Mass/Vol]13.3 g/mNNwnfln85.0 - 16.0 gm/dLRemisol HemeLymphocytes (Bld) [#/Vol]1.6 E9/LNormal1.0 - 4.0 E9/LRemisol Heme Lymphocytes/100 WBC (Bld)20.5 %Pajndx26.0 - 50.0 %Remisol HemeMCH (RBC) [Entitic mass]34.6 mqXcuc61.0 - 34.0 pgRemisol HemeMCHC (RBC) [Mass/Vol]33.9 g/dLNormal 31.4 - 36.0 gm/dLRemisol HemeMCV (RBC) [Entitic vol]102.2 mJGmyr57.0 - 100.0 fL Remisol HemeMonocytes (Bld) [#/Vol]0.4 E9/LNormal0.2 - 1.0 E9/LRemisol Heme Monocytes/100 WBC (Bld)5.7 %Normal4.0 - 14.0 %Remisol HemeNeutrophils (Bld) [#/Vol]5.8 E9/LNormal2.0 - 7.5 E9/LRemisol HemeNeutrophils/100 WBC (Bld)72.6 % Sgnkva01.0 - 75.0 %Remisol HemePlatelet mean volume (Bld) [Entitic vol]8.0 fL Normal6.4 - 10.8 fLRemisol HemePlatelets (Bld) [#/Vol]258.0 E9/OQxxpbz691.0 - 500.0 E9/LRemisol HemeRBC (Bld) [#/Vol]3.8 E12/LLow4.3 - 5.9 E12/LRemisol Heme WBC corrected for nucl RBC Auto (Bld) [#/Vol]8.0 E9/LNormal4.0 - 11.0 E9/L Remisol HemeLipid Panelon 77-40-7871Pqhajfmworv [Mass/Vol]172 mg/pBXdjiwx762-257 City HospitalComment on above:Performed By: #### [id number] #### [facility] [address], [place] [address]Fqtljcgnatp in HDL [Mass/Vol]60 mg/dLInvalid Interpretation CodeCity HospitalComment on above:Result Comment: '>= 60 LOW RISK' '<= 40 HIGH RISK'Performed By: #### [id number] #### [facility] [address], [place] [address]Ietqvdowium in LDL [Mass/Vol]93 mg/dLNormal<=129City HospitalComment on above:Performed By: #### [id number] #### [facility] [address], [place] [address]Cuvjoamjraw in VLDL [Mass/Vol]33 mg/dLNormal7-40City HospitalComment on above:Performed By: #### [id number] #### [facility] [address], [place] [address]Ifdbojyxvfmv [Mass/Vol]165 mg/dLHigh<=149City HospitalComment on above:Performed By: #### [id number] #### [facility] [address] [place] [address]64[address]IAHcm 02-69-3049CYX Qn0.71 m[IU]/LNormal0.34-5.60City HospitalComment on above:Performed By: #### [id number] #### [facility] [address] [place] [address] 45252aHQBvn 24-82-6672iNMQ057 mL/min/1.73 z6Rhahaj>=59City HospitalComment on above:Performed By: #### [id number] #### [facility] [address] [place] [address] 30[address]Tqqnwnf Mammographyon 77-97-7194Nyeceqr Mammography [id number]#1.00TIFFNoMarietta Memorial HospitalC Urineon 42-66-9493Pggdnmit identified Cx Nom (U)Microbiology PROCEDURE: Urine Culture [R1] SOURCE: U CleanCatch BODY SITE: COLLECTED DATE/TIME: 03/15/2023 13:44 EST RECEIVED DATE/TIME: 03/15/2023 17:10 EST START DATE/TIME: 03/15/2023 17:10 EST FREE TEXT SOURCE: ESE VICKERS PA-C, PA-C, JENNIFER E FINAL REPORTS Final Report [] Verified Date/Time: 03/17/2023 07:53 EST 2,000 cfu/ml Mixed skin contaminants Performing Locations R1: This test was performed at: [facility], [address] [place] [address], [address]- [facility], TurjahGkmiweMarietta Memorial HospitalComment on above:Performed By: #### [id number] #### [facility] [address] [place] [address]23[address]Qzlbimcutu Visit Summaryon 80-30-0619Qeiveswxaf Visit Summary NORA DIAZ :1965 Visit Date:03/15/2023 [...] you for choosing us for your care. [facility] Note-Physicianon 26-60-2482TC Note-[id number]#1.00TIFFNoMarietta Memorial HospitalESTRADIOLon 22-95-2784Jwfzsyaks22.6 pg/mLNormalOhiohealth Dublin Methodist HospitalComment on above:Result Comment: Adult Female: Follicular phase 12.5 - 166.0 Ovulation phase 85.8 - 498.0 Luteal phase 43.8 - 211.0 Postmenopausal <6.0 - 54.7 1st trimester 215.0 - >4300.0 Latasha ECLIA methodologyPerformed By: #### ESTRADI #### [facility] [address] [place] [address] Dr. Darryl Gee 45-99-3646WJE42.1 mIU/mLNormalOhiohealth Dublin Methodist HospitalComment on above:Result Comment: Adult Female: Follicular phase 3.5 - 12.5 Ovulation phase 4.7 - 21.5 Luteal phase 1.7 - 7.7 Postmenopausal 25.8 - 134.8Performed By: #### LBCFSH #### [facility] [address] [place] [address] Dr. Darryl TrammellTESTOSTERONE, TOTALon 97-03-1517Nrwvjyzgkfko [Mass/Vol]286 ng/dL Critically high4-50The [facility]itt[facility] Medical CenterComment on above:Performed By: #### TESTTOT #### [facility] [address] [place] [address] Dr. Darryl Jackson AUTO DIFFon 29-24-5356VFOZ #0.0 103/ulNormal0.0-0.1Ohio[facility] Dublin Methodist HospitalComment on above:Performed By: #### CBC #### [facility] [address] [place] [address] Dr. Darryl TrammellBasophils/100 WBC (Bld)0.8 %Normal0.2-2.0The [facility] Comment on above:Performed By: #### CBC #### [facility] [address] [place] [address] Dr. Darryl Biswas #0.2 103/ulNormal0.0-0.7The [facility]itt[facility] Medical CenterComment on above: Performed By: #### CBC #### [facility] [address] [place] [address] Dr. Darryl Nagyosinophils/100 WBC (Bld)3.9 %Normal0.9-7.0The [facility] Comment on above:Performed By: #### CBC #### [facility] [address] [place] [address] Dr. Darryl Nagyrythrocyte distribution width (RBC) [Ratio]12.2 %Pgszqg75.0-15.0 The [facility] Medical CenterComment on above:Performed By: #### CBC #### [facility] [address] [place] [address] Dr. Darryl TrammellHematocrit (Bld) [Volume fraction]42.4 %Pkiwaa67.0-48.0The [facility]itt[facility] Medical CenterComment on above:Performed By: #### CBC #### [facility] [address] [place] [address] Dr. Darryl TrammellHemoglobin (Bld) [Mass/Vol]14.1 g/tTRwiamu40.0-16.0The [facility] CenterComment on above:Performed By: #### CBC #### [facility] [address] [place] [address] Dr. Darryl Rachel #0.01 10e3/ulNormal0.00-0.03The [facility]itt[facility] CenterComment on above:Performed By: #### CBC #### [facility] [address] [place] [address] Dr. Darryl TrammellIG %0.2 %Normal0.0-0.5The [facility]itt[facility] Medical CenterComment on above: Performed By: #### CBC #### [facility] [address] [place] [address] Dr. Darryl CedilloMPH #2.5 103/ulNormal1.2-3.8The [facility] CenterComment on above:Performed By: #### CBC #### [facility] [address] [place] [address] Dr. Darryl Cedillomphocytes/100 WBC (Bld)48.9 %Rhqmci12.5-60.0The [facility] CenterComment on above:Performed By: #### CBC #### [facility] [address] [place] [address] Dr. Darryl Ballard DIFF REQNONormalThe [facility] CenterComment on above: Performed By: #### CBC #### [facility] [address] [place] [address] Dr. Darryl Bansal (RBC) [Entitic mass]32.7 lbPsmyeu81.7-34.0The [facility] CenterComment on above:Performed By: #### CBC #### [facility] [address] [place] [address] Dr. Darryl Bansal (RBC) [Mass/Vol]33.3 g/lQCcxssh52.9-35.2The [facility]itt[facility] Medical CenterComment on above:Performed By: #### CBC #### [facility] [address] [place] [address] Dr. Darryl Bansal (RBC) [Entitic vol]98.4 fABxvmet56.0-99.0The [facility] CenterComment on above:Performed By: #### CBC #### [facility] [address] [place] [address] Dr. Darryl Gracia #0.5 103/ulNormal0.3-0.8The [facility]itt[facility] Medical CenterComment on above:Performed By: #### CBC #### [facility] [address] [place] [address] Dr. Darryl Pereaocytes/100 WBC (Bld)9.6 %Normal1.7-12.0The [facility] Comment on above:Performed By: #### CBC #### [facility] [address] [place] [address] Dr. Darryl Zapata #1.9 103/ulNormal1.4-6.5The [facility]itt[facility] CenterComment on above:Performed By: #### CBC #### [facility] [address] [place] [address] Dr. Darryl Haynesutrophils/100 WBC (Bld)36.6 %Critically low43.0-75.0The [facility]itt[facility] Medical CenterComment on above:Performed By: #### CBC #### [facility] [address] [place] [address] Dr. Darryl TrammellPlatelet mean volume (Bld) [Entitic vol]10.1 fLNormal9.5-13.5The [facility] on above:Performed By: #### CBC #### [facility] [address] [place] [address] Dr. Darryl TrammellPLT262 103/fuBduoik245-933Qdm [facility] CenterComva medical center on above: Performed By: #### CBC #### [facility] [address] [place] [address] Dr. Darryl TrammellRBC4.31 106/ulNormal4.20-5.40[facility] on above:Performed By: #### CBC #### [facility] [address] [place] [address] Dr. Darryl TrammellWBC5.1 103/ulNormal4.0-11.0The [facility] on above: Performed By: #### CBC #### [facility] [address] [place] [address] Dr. Darryl TrammellGLUCOSE BLOODon 45-00-4630Biuffux [Mass/Vol]80 mg/zFXixwud51-574 The [facility] on above:Performed By: #### TSH, LIPID, GLUC #### [facility] [address] [place] [address] Dr. Darryl TrammellLIPID PROFILEon 41-64-4544PVZZ-HDL RATIO [facility] Hospital[facility] on above:Result Comment: 3.3 - 4.4 LOW RISK 4.4 - 7.1 AVERAGE RISK 7.1 - 11.0 MODERATE RISK >11.0 HIGH RISKPerformed By: #### TSH, LIPID, GLUC #### [facility] [address] [place] [address] Dr. Darryl TrammellCholesterol [Mass/Vol]201 mg/dLCritically high<=200[facility] on above:Performed By: #### TSH, LIPID, GLUC #### [facility] [address] [place] [address] Dr. Darryl Manesterol in HDL [Mass/Vol]72 mg/dLCritically qgow54-20UugOhiohealth Dublin Methodist HospitalComment on above:Performed By: #### TSH, LIPID, GLUC #### [facility] [address] [address] [address] Darryl TrammellCholesterol in LDL [Mass/Vol]113.0 mg/dLMedina HospitalComment on above:Performed By: #### TSH, LIPID, GLUC #### [facility] [address] [address] [address] Darryl Manestermadison.total/Cholesterol in HDL [Mass ratio]2.8 {ratio} NormalThe [facility]itt[facility] Medical CenterComment on above:Performed By: #### TSH, LIPID, GLUC #### [facility] [address] [place] [address] Dr. Darryl Dao NORMAL> or = 60 mg/dl - LOW CARDIOVASCULAR RISK <40 mg/dl - HIGH CARDIOVASCULAR RISKNoTrinity Health System Twin City Medical CenterComment on above:Performed By: #### TSH, LIPID, GLUC #### [facility] [address] [place] [address] Dr. Darryl Bonner CALC NORMALSEE BELOWMedina HospitalComment on above:Result Comment: <100 mg/dl OPTIMAL 100 - 129 mg/dl NEAR OR ABOVE OPTIMAL 130 - 159 mg/dl BORDERLINE HIGH 160 - 189 mg/dl HIGH >190 mg/dl VERY HIGH Performed By: #### TSH, LIPID, GLUC #### [facility] [address] [address] [address] Darryl TrammellTriglyceride [Mass/Vol]80 mg/dLNormal<=150[facility] Comment on above:Performed By: #### TSH, LIPID, GLUC #### [facility] [address] [place] [address] Dr. Darryl TrammellVLDL CALC16.0 mg/dLNoTrinity Health System Twin City Medical CenterComment on above: Performed By: #### TSH, LIPID, GLUC #### [facility] [address] [place] [address] Dr. Darryl Rodríguez 82-49-8257MWW9.999 uIU/mLNormal0.358-3.740The [facility] CenterComment on above:Performed By: #### TSH, LIPID, GLUC #### [facility] [address] [address] [address] Darryl TrammellCHEMISTRYOrdered By: Pablo Valerio on 58-31-5515Bdyjitp Elph (U) [Mass fraction]10.4 mg/dLInvalid Interpretation CodeFTMC RemisolCreatinine (U) [Mass/Vol]63.3 mg/dLInvalid Interpretation CodeFTMC RemisolU Prot/Creat Ratio 164.30 mg/gm CrNormal0.00 - 200.00 mg/gm CrFTMC RemisolCHEMISTRYOrdered By: SYSTEM SYSTEM on [id number]-znerzdsoqbespz D3 [Mass/Vol]55.6 ng/vGUmncxi15.0 - 100.0 ng/mLFTMC RemisolAlbumin [Mass/Vol]4.2 g/dLNormal3.3 - 5.0 gm/dLFTMC RemisolAnion gap [Moles/Vol]12 mmol/LNormal6 - 16 mEq/LFTMC RemisolCalcium [Mass/Vol]9.8 mg/dLNormal8.9 - 11.1 mg/dLFTMC RemisolChloride [Moles/Vol]101 mmol/NQbabjp774 - 111 mmol/LFTMC RemisolCO2 [Moles/Vol]30 mmol/WGwtdyq94 - 31 mmol/LFTMC RemisolCreatinine [Mass/Vol]0.8 mg/dLNormal0.5 - 1.3 mg/dLFTMC RemisolGFR/1.73 sq M.predicted among blacks MDRD (S/P/Bld) [Vol rate/Area] mL/min/1.73 b8Yztplp>=59mL/min/1.73 m2FT Chem SGFR/1.73 sq M.predicted among non-blacks MDRD (S/P/Bld) [Vol rate/Area]mL/min/1.73 r5Mfmpso>=59mL/min/1.73 m2 [facility] Chem SGlucose [Mass/Vol]101 mg/wTRkyhmb12 - 199 mg/dLSTILLWATER [facility]ICAL [facility] RemisolPhosphate [Mass/Vol]3.1 mg/dLNormal1.9 - 4.6 mg/dLFT RemisolPotassium [Moles/Vol]4.3 mmol/LNormal3.5 - 5.3 mmol/LFTMC RemisolSodium [Moles/Vol]139 mmol/WVjehkh515 - 145 mmol/LFTMC RemisolUrea nitrogen [Mass/Vol]21 mg/dLNormal5 - 21 mg/dLMC RemisolUrea nitrogen/Creatinine [Mass ratio]26 mg/mwNbry22 - 20FTMC Remisol URINALYSISOrdered By: Diana Javier on 05-90-8345Nxgdasmny Ql (U)Negative (05/31/21 3:05 PM)NormalNegativeSTILLW[facility] UA Auto SSClarity (U)Cloudy *ABN* (05/31/21 3:05 PM)Invalid Interpretation CodeClearFNORMAN REGIONAL [facility]PLE[facility] UA Auto SSColor (U)Yellow (05/31/21 3:05 PM)NormalYellowSTILLWATER MEDICAL [facility]ENTER [facility] UA Auto SSEpithelial cells.squamous LM.HPF (Urine sed) [#/Area]0-2 /HPFNormal0-2/HPFSTILLWATER MEDICAL [facility] UA Auto SSGlucose Test strip (U) [Mass/Vol]Negative (05/31/21 3:05 PM)NormalNegativeSTILLWATER [facility] UA Auto SSHemoglobin Ql (U)Negative (05/31/21 3:05 PM)NormalNegativeSTILLW[facility] UA Auto SSKetones (U) [Mass/Vol]Negative (05/31/21 3:05 PM)NormalNegativeSTILLWATER [facility] UA Auto SSLithium.plasma/[place].RBC (Bld) [Mass ratio]0-3 /HPFNormal0-3/HPFSTILLWATER MEDICAL [facility]ENTER [facility] UA Auto SSNitrite Ql (U)Negative (05/31/21 3:05 PM)NormalNegativeSTILLW[facility]A Auto SSpH (U)8.0 *NA* (05/31/21 3:05 PM)Invalid Interpretation Code5.0 - 9.0[facility] UA Auto SSPhosphate crystals amorphous LM Ql (Urine sed)Present (05/31/21 3:05 PM)NormalSTILLWATER [facility]ICAL [facility]ENTER [facility] UA Auto SSProtein (U) [Mass/Vol]Negative (05/31/21 3:05 PM)NormalNegativeSTILLWATER [facility] UA Auto SSSpecific gravity (U) [Rel density] 1.015 *NA* (05/31/21 3:05 PM)Invalid Interpretation Code1.005 - 1.030[facility] UA Auto SSUA Spec DescClean Catch (05/31/21 3:05 PM)NormalSTILLWATER [facility] UA Auto SSUrobilinogen Qn (U)0.2512098 {Mayra'U}/dLNormal0.0 - 1.0 EU/dLSTILLWATER MEDICAL [facility]ENTER [facility] UA Auto SSWBC Auto Ql (U)Negative (05/31/21 3:05 PM)NormalNegativeSTILLWATER [facility] UA Auto SSWBC LM.HPF (Urine sed) [#/Area]0-5 /HPFNormal0-5/HPFSTILLWATER MED[facility] UA Auto SSCOVID-19 [facility]Don 62-83-1140BCKH-CoV-2 (COVID-19) RNA JENN+probe Ql (Unsp spec)NegativeNormalNegativeThe Jewish HospitalComment on above:Order Comment: Healthcare Worker?: NResult Comment: Testing for SARS-CoV-2 by RT-PCR This test was developed and its performance characteristics determined by [employer], [employer]) and validated at the [facility]. This test has not been FDA [...] is terminated or revoked sooner. PERFORMED BY: [facility] [place] [address] PATHOLOGIST KETTLE CLEANER UYNE HEATH M.D.Performed By: #### COVID 19 [facility] #### [facility] [address] [place] [address] USABasic Metabolic Panelon 94-83-6828Qrwzjui [Mass/Vol]9.6 mg/dLNormal8.2-10.2FMercy Health Kings Mills HospitalComment on above:Result Comment: PERFORMED BY: [place] [address] PATHOLOGIST KETTLE CLEANER UYEN HEATH M.D.Performed By: #### BMP #### [place] [address] USAChloride [Moles/Vol]102 mmol/OJzfrtu14-691JbzmvjgucThe Jewish HospitalComment on above:Performed By: #### BMP #### [place] [address] USACO2 [Moles/Vol]27.5 mmol/XCnkanm21.0-30.0The Jewish HospitalComment on above:Performed By: #### BMP #### [place] [address] USACreatinine [Mass/Vol]0.68 mg/dLNormal0.44-1.03The Jewish HospitalComment on above:Performed By: #### BMP #### [address] [id number] USAEstimated GFR ( Karen> 60NormMetroHealth Parma Medical CenterComment on above:Result Comment: GFR estimated reference range: According to KDOQI guidelines, <60 ml/min/1.73m2 is sufficient to diagnose a patient with chronic kidney disease.Performed By: #### BMP #### [address] [id number] USAEstimated GFR (Non- Am> 60NormMetroHealth Parma Medical CenterComment on above:Performed By: #### BMP #### [facility] [address] [id number] USAGlucose [Mass/Vol]90 mg/gFIghcgg87-112RzlkvmntkThe Jewish HospitalComment on above:Result Comment: Random Glucose Reference Range is dependent on time and content of last meal. Glucose of more than 200 mg/dL in a nonstressed, ambulatory subject supports the diagnosis of Diabetes Mellitus. ADA recommended reference rangePerformed By: #### BMP #### [facility] [address] [place] [address] USAPotassium [Moles/Vol]4.5 mmol/LNormal3.5-5.1FMercy Health Kings Mills HospitalComment on above:Performed By: #### BMP #### [facility] [address] [place] [address] USASodium [Moles/Vol]138 mmol/TIammeb187-749LkzdsdobaThe Jewish HospitalComment on above:Performed By: #### BMP #### [facility] [address] [place] [address] USAUrea nitrogen [Mass/Vol]12 mg/dLNormal9-23The Jewish HospitalComment on above:Performed By: #### BMP #### [address] [id number] USAECG 12 lead ECGon 45-45-5833OAW 12 lead ECGSELECT [facility] Main [place] [address] [place] [address] Electrocardiograph Report Signed Patient: Nora Diaz MR#: [id number] 9 : 1965 Acct:[id number] Age/Sex: 55 / F ADM Date: 12/27/20 Loc: Room: Type: [facility] Attending Dr: Prabhakar Max MD Ordering [...] ELKE Signed By Cuauhtemoc Baldwin MD [address] [place], [place] [address]Urine Cultureon 08-05-2020 Bacteria identified Cx Nom (U)<9,000 colonies/ml mixed bacterial skin contaminants 2 Days PERFORMED BY: [place] [address] PATHOLOGIST KETTLE CLEANER UYEN HEATH M.D.[facility] HospitalComment on above: Performed By: #### CUU #### [address] Vital Signs Date TimeVital SignValuePerforming EkivwvxzlQtrlmwal19-33-0386 12:40-0400Blood Pressure LocationPatrick [employer] [facility]10-03-2022 12:40-0400Diastolic blood sjnunmry95 mm[Hg]Manish SOLIS [facility]10-03-2022 12:40-0400Heart rate81 /minPatrick SOLIS [facility]10-03-2022 12:40-0400Respiratory rate16 /minPatrick SOLIS [facility]10-03-2022 12:40-0400Systolic blood qtgdazgt128 mm[Hg]Manish SOLIS [facility]05-12-2022 09:35-0400Blood Pressure LocationRyann Yu [phone]-JnykdTrihealth Primary Care 05-12-2022 09:35-0400Body livzyuputbj49.7 [degF]Ryann Yu [phone]-TvofhTrihealth Primary Care 05-12-2022 09:35-0400Diastolic blood zkxosfah05 mm[Hg] Ryann Yu [phone]-VgykiTrihealth Primary Care 05-12-2022 09:35-0400Heart rate89 /minKatmelody Yu [phone]-XordrTrihealth Primary Care 05-12-2022 09:35-3063FmS7% (BldA) [Mass fraction]98 % Ryann Yu [phone]-OtmqvTrihealth Primary Care 05-12-2022 09:35-0400Systolic blood npfzdpen035 mm[Hg] Ryann Yu [phone]-JyppjTrihealth Primary Care Encounters Encounter DateEncounter TypeCare ProviderFacilityStart: 72-16-9403nqhmcxcedwKsbx L SchwabFacility:[facility] BellevueStart: 12-09-2024 End: 82-23-9009igmkvgrngkEafm L SchwabFacility:[facility]vueStart: 12-01-2024 End: 00-62-6563boxqmtwewaJBUFRA A LEHMANNFacility:[facility] BellevueStart: 10-16-2024 End: 17-67-0430eopxibpjfhEeshzg J LampeFacility:FTMCStart: 12-24-2023 End: 25-74-8625Jms Drop offJodi L Marj [facility] Start: 12-24-2023 End: 28-46-3378dmnsopelcrXjfu L SchwabFacility:[facility] BellevueStart: 03-15-2023 End: 66-84-5173Vag Drop offJENNIFER E RANCHO [facility] Start: 03-15-2023 End: 45-54-5763kubjdyaarbITJAXTIR E PERRYFacility:FTMCStart: 03-15-2023 End: 02-18-7560Iufttvx encounter procedureJENNIFER E RANCHO [facility] Start: 10-31-2022 End: 76-76-7586Ylxwauf encounter procedureJENNIFER E RANCHO [facility] start: 12-12-2021 End: 06-99-7559Zflicbx encounter procedureManish SOLIS [facility] start: 11-16-2021 End: 39-58-5063siuowyelbyEU DOCTOR MISCFacility:F2Pfmuv: 07-21-2021 End: 65-07-4242Wlqwlgc encounter procedureRyann Yu [phone]-NumoiTrihealth Primary Care Start: 07-05-2021 End: 26-01-8039reypfxrnncFU THAIS Devries WESTFacility:Q3Pbbli: 06-14-2021 End: 75-93-3620Uwzyzmn encounter procedureManish SOLIS [facility] Start: 05-31-2021 End: 87-67-1535Rafvxlg encounter procedureNatalie Hampton [facility] Procedures DateProcedureProcedure DetailPerforming ClinicianStart: 39-32-6876Bachxjvjnt Natalie Memo Start: 79-16-7540FeuvcaqjvtcXxawol Memo Start: 18-57-7189LfdwtuarntnujprpabrepvgoaqZcxome Memo Start: 85-05-0070Hjumyvrm of bunionTerraya Memo comment on above:Right FootStart: 85-19-8421Xopstr augmentationTerraya Memo Dilation of urethraKatmelody Yu Urethral stent (physical object)Natalie Memo Urethral WideningTerraya Memo Plan of Treatment DateCare ActivityDetailAuthorStart: 62-92-5917rvluhclhzfLnjphkdqsqBvdfyqfw:FT FM [place] Immunizations Immunization DateImmunizationNotesCare VgeqkxufSsieczdh47-72-6518LWSY-NzI-1 (COVID-19) mRNA-1273 vaccineRyann Yu [phone]-GnobfTrihealth Primary Care Comment on above:Result Comment: 2021-07-21: TPV50 81-98-1716rwyfewcux, injectable, quadrivalent, preservative freeTerraya Memo [facility]04-17-2021SARS-CoV-2 (COVID-19) mRNA-1273 vaccineTeresa Memo [facility]04-12-2021SARS-CoV-2 (COVID-19) mRNA-1273 vaccineTeresa Memo [facility]03-22-2021SARS-CoV-2 (COVID-19) mRNA-1273 vaccineTeresa Memo [facility]03-20-2021SARS-CoV-2 (COVID-19) mRNA-1273 vaccineTeresa Memo [facility]10-08-2020influenza virus vaccine, unspecified formulationTeresa Memo [facility]02-22-2013influenza virus vaccine, unspecified formulationTeresa Memo [facility] DaytonNEGATED: Highlighted row has not occurred!51-86-0916yecfmylkh virus vaccine, unspecified formulationJodi Marj [phone]-XqdnfTrihealth Family Medicine [facility] NEGATED: Highlighted row has not occurred!22-84-2359dkhpuhnjf virus vaccine, unspecified formulationTerraya Memo [facility] Payers DatePayer CategoryPayerPolicy [id number] [id number] Health [id number] [id number] 2..1.838378.3.579.[id number] 2..1.011558.3.579.[id number] 2..1.005302.3.579.[id number] 2..1.750247.3.579.[id number] 2..1.562120.3.57[id number] 2.16.840.1.865670.3.57[id number] 2.16.840.1.906200.3.579.[id number] 2.16.840.1.701236.3.579.[id number] 2.16.840.1.083901.3.57[id number] 2.16.840.1.532393.3.57[id number] 2.16.840.1.345234.3.579.2.[id number] 2.16.0.1.475701.3.579.2.27854-07-4524Exgw-[id number] Social History DateTypeDetailFacilityStart: 05-18-2021 End: 52-55-4918Kyvneof smoking statusEx-smoker (finding)[facility] DaytonTobacco smoking statusNeverTriHealth McCull[facility]-Hyde Memorial Hospitalex Assigned At BirthFemalThe [facility] Hospital Functional Status RmkiXaligtcualHejfruXurzxvml41-89-0307Wnztbxgxya StatusN/AExecutive [facility]rology of [facility] Clinical Notes 06-14-2021 to 12-01-2024 Note Date & GkcwLwgoScbpkphy16-34-4795 NotePatient Education Orthopedics Sciatica Rehab Ask your health care provider which exercises are safe for you. Do exercises exactly as told by your health care provider and adjust them as directed. It is normal to feel mild stretching, pulling, tightness, or discomfort as you do these exercises. Stop right away if you feel sudden pain or your pain gets worse. Do not begin these exercises until told by your health care provider. Stretching and yhprl-sr-uzngza exercises These exercises warm up your muscles and joints and improve the movement and flexibility of your hips and back. These exercises also help to relieve pain, numbness, and tingling. Sciatic nerve glide 1. Sit in a chair with your head facing down toward your chest. Place your hands behind your back. Let your shoulders slump forward. 2. Slowly straighten one of your legs while you tilt your head back as if you are looking toward the ceiling. Only straighten your leg as far as you can without making your symptoms worse. 3. Hold this position for seconds. 4. Slowly return your leg and head back to the starting position. 5. Repeat with your other leg. Repeat times. Complete this exercise times a day. Knee to chest with hip adduction and internal rotation 1. Lie on your back on a firm surface with both legs straight. 2. Bend one of your knees and move it up toward your chest until you feel a gentle stretch in your lower back and buttock. Then, move your knee toward the shoulder that is on the opposite side from your leg. This is hip adduction and internal rotation. ??? Hold your leg in this position by holding on to the front of your knee. 3. Hold this position for seconds. 4. Slowly return to the starting position. 5. Repeat with your other leg. Repeat times. Complete this exercise times a day. Prone extension on elbows 1. Lie on your abdomen on a firm surface. A bed may be too soft for this exercise. 2. Prop yourself up on your elbows. 3. Use your arms to help lift your chest up until you feel a gentle stretch in your abdomen and your lower back. ??? This will place some of your body weight on your elbows. If this is uncomfortable, try stackingpillows under your chest. ??? Your hips should stay down, against the surface that you are lying on. Keep your hip and back muscles relaxed. 4. Hold this position for seconds. 5. Slowly relax your upper body and return to the starting position. Repeat times. Complete this exercise times a day. Strengthening exercises These exercises build strength and endurance in your back. Endurance is the ability to use your muscles for a long time, even after they get tired. Pelvic tilt This exercise strengthens the muscles that lie deep in the abdomen. 1. Lie on your back on a firm surface. Bend your knees and keep your feet flat on the surface. 2. Tense your abdominal muscles. Tip your pelvis up toward the ceiling and flatten your lower back into the firm surface. ??? To help with this exercise, you may place a small towel under your lower back and try to push your back into the towel. 3. Hold this position for seconds. 4. Let your muscles relax completely before you repeat this exercise. Repeat times. Complete this exercise times a day. Alternating arm and leg raises 1. Get on your hands and knees on a firm surface. If you are on a hard floor, you may want to use padding, such as an exercise mat, to cushion your knees. 2. Line up your arms and legs. Your hands should be directly below your shoulders, and your knees should be directly below your hips. 3. Lift your left leg behind you. At the same time, raise your right arm and straighten it in frontof you. ??? Do not lift your leg higher than your hip. ??? Do not lift your arm higher than your shoulder. ??? Keep your abdominal and back muscles tight. ??? Keep your hips facing the ground. ??? Do not arch your back. ??? Keep your balance carefully, and do not hold your breath. 4. Hold this position for seconds. 5. Slowly return to the starting position. 6. Repeat with your right leg and your left arm. Repeat times. Complete this exercise times a day. Posture and body mechanics Good posture and healthy body mechanics can help to relieve stress in your body's tissues and joints. Body mechanics refers to the movements and positions of your body while you do your daily activities. Posture is part of body mechanics. Good posture means: ??? Your spine is in its natural S-curve position (neutral). ??? Your shoulders are pulled back slightly. ??? Your head is not tipped forward. Follow these guidelines to improve you (more content not included)...[facility] + Plan note Diagnostic Tests Pending * Urine Culture 03/15/23 [facility]10-03-2022 Hospital Discharge instructions Patient Education 12/12/2021 12:47:40 Urinary Tract Infection, Adult, Gvan-hv-Jyie Urinary Tract Infection, Adult A urinary tract infection (UTI) is an infection of any part of the urinary tract. The urinary tractincludes: The kidneys. The ureters. The bladder. The [...] Follow these instructions at home: Medicines Take tnrm-uve-exjiycw and prescription medicines only as told by [...] small, thin tube to drain pee and notbeing able to control when you pee or poop. Treatment includes antibiotic medicines for germs. Drink enough fluid to keep your pee pale yellow. This information is not intended to replace advice given to you by your health care provider. Make sure you discuss any questions you have with your health care provider. Document Released: 08/14/2008 Document Revised: 02/13/2019 Document Reviewed: 09/05/2018 [employer] Patient Education 2020 [employer]. Follow Up Care 06/14/2021 09:19:41 With:WILL CRENSHAW, Manish Villafuerte, URL Address: [facility] [address] [place] [address]- [phone] When:10/12/2022 [facility] 05-12-2022 Hospital Discharge instructions Patient Education 07/21/2021 09:53:08 [...] problems. It is used to check whether aperson is obese, overweight, healthy weight, or underweight. How is BMI calculated? BMI measures your weight and compares it to your height. This can be done either in [place] ([place] or metric measurements. Note that charts are available to help you find your BMI quickly and easily without having to do these calculations yourself. To calculate your BMI in [place] ([place] measurements, your health care provider will: [...] muscular build, such as an athlete, may havea BMI that is higher than 24.9. In cases like these, BMI is not an accurate measure of body fat. To determine if excess body fat is the cause of a BMI of 25 or higher, further assessments may needto be done by a health care provider. [...] medical problems. BMI can be measured using [place]an measurements or metric measurements. To interpret your [...] 11/07/2004 Document Revised: 02/08/2018 Document Reviewed: 01/09/2018 [employer] Patient Education 2020 [employer] 07/21/2021 09:53:03 Sleep Apnea Sleep Apnea [...] or blocked airway. An airway can collapse orbecome blocked if: Your throat muscles are abnormally [...] breathing and to ease symptoms during sleep. Itmay involve managing health issues that can affect [...] device blows air through a mask when youbreathe out (exhale). ?A nasal expiratory positive airway [...] contain nicotine or tobacco, such as cigarettes, e- cigarettes, and chewing tobacco. If you need help quitting, ask your health care provider. General instructions Take utkk-gba-xnidknd and prescription medicines only as told by [...] 02/16/2003 Document Revised: 08/13/2019 Document Reviewed: 10/22/2018 [employer] Patient Education 2020 [employer]. 07/21/2021 09:53:00 Migraine Headache Migraine Headache A [...] contain nitrates, glutamate, aspartame, or tyramine. Aged cheeses,chocolate, or caffeine may also be triggers. Doing [...] Follow these instructions at home: Medicines Take pjvv-kvp-trhmfeh and prescription medicines only as told by your health care provider. Ask your health care provider if the medicine prescribed to you: ?Requires you to avoid driving or using heavy machinery. ?Can cause constipation. You may need to take these actions to prevent or treat constipation: ?Drink enough fluid to keep your urine pale yellow. ?Take cvmy-jhd-qsulfir or prescription medicines. ?Eat foods that are high in fiber, such as beans, whole grains, and fresh fruits and vegetables. ?Limit foods that are high in fat and processed sugars, such as fried or sweet foods. Lifestyle Do not drink alcohol. Do not use any products that contain nicotine or tobacco, such as cigarettes, e- cigarettes, and chewing tobacco. If you need help [...] 02/26/2006 Document Revised: 06/20/2019 Document Reviewed: 04/10/2019 [employer] Patient Education 2020 [employer]. 07/21/2021 09:52:58 Living With Depression Living With [...] or events that lead to a schedule thatis too full. Thinking about how you respond to certain situations. You may not be able to control everything, but you can control how you react. Adding humor to your life by watching funny films or TV shows. Making time for activities that help you relax and not feeling guilty about spending your time thisway. Medicines Your health care provider may suggest [...] take part in all treatment decisions (shared decision- making). This includes giving input on the side [...] months. This may mean that you will startto: Have more interest in doing activities. Feel [...] family members, explain your symptoms to them, andlet them know that you are working with a health care provider to treat your depression. Financial resources Not all insurance plans cover mental health care, so it is important to check with your insurance carrier. If paying for co-pays or counseling services is a problem, search for a local or [facility] mental health care center. They may [...] as walking or lifting small weights. Take eypb-gyp-arfbebr and prescription medicines only as told by [...] or have thoughts about taking your own life,get help right away. You can go to your nearest emergency department or call: Your local emergency services (911 in the [place] A suicide crisis helpline, such as the National Suicide Prevention Lifeline at . Thisis open 24-hours a day. Summary If you [...] 01/29/2017 Document Revised: 06/20/2019 Document Reviewed: 01/29/2017 Elsevier Patient Education 2020 Elsevier Inc. 07/21/2021 09:52:52 DASH Eating Plan DASH Eating Plan DASH stands for Dietary Approaches to Stop Hypertension. The DASH eating plan is a healthy eatingplan that has been shown to reduce high blood pressure (hypertension). It may also reduce your riskfor type 2 diabetes, heart disease, and stroke. [...] your health care provider or diet and director of food and nutrition (dietitian) to adjust your eating plan to [...] meal, try to fill half of your platewith fruits and vegetables. ?Up to 6 8 [...] each week. ?Heart-healthy fats. Healthy fats called [place]-3 fatty acids are found in foods such [...] Bulgur. Whole-grain and low-sodium cereals. Jalyn bread. Low- fat, low-sodium crackers. Whole-wheat flour tortillas. Vegetables Fresh or frozen vegetables (raw, steamed, roasted, or grilled). Low-sodium or reduced-sodium tomatoand vegetable juice. Low-sodium or reduced-sodium tomato sauce [...] milk. Fat-free, low-fat, or reduced-fat cheeses. Nonfat, low-sodiumricotta or cottage cheese. Low-fat or nonfat yogurt. Low-fat, low-sodium cheese. Fats and oils Soft margarine without trans fats. Vegetable oil. Low-fat, reduced-fat, or light mayonnaise and salad dressings (reduced-sodium). Canola, safflower, olive, soybean, and sunflower oils. Avocado. Seasoning and other foods Herbs. Spices. Seasoning mixes without salt. Unsalted popcorn and pretzels. Fat- free sweets. What foods are not recommended? The [...] Dairy Whole or 2% milk, cream, and urfs-vxt-xiou. Whole or full-fat cream cheese. Whole-fat or [...] Barbecue sauce. Teriyaki sauce. Soy sauce, including reduced-sodium.Steak sauce. Canned and packaged gravies. Fish sauce. Oyster sauce. Cocktail sauce. Horseradish that you find on the shelf. Ketchup. Mustard. Meat flavorings and tenderizers. Bouillon cubes. Hot sauce and Tabasco sauce. Premade or packaged marinades. Premade or packaged taco seasonings. Relishes. Regular salad dressings. Where to find more information: National Heart, Lung, and Blood [place]: www.nhlbi.nih.gov [place] Heart Association: www.heart.org Summary The DASH eating [...] your health care provider or diet and director of food and nutrition (dietitian) to adjust your eating plan to your individual calorie needs. This information is not intended to replace advice given to you by your health care provider. Make sure you discuss any questions you have with your health care provider. Document Released: 02/15/2012 Document Revised: 02/08/2018 Document Reviewed: 02/19/2017 Prosodic Patient Education 2020 [employer]. Follow Up Care 07/19/2021 15:46:16 With:Ryann Yu CNP Address: When:1 year Comments:or sooner if needed. [facility] 04-05-2022 Hospital Discharge instructions Patient Education 06/14/2021 09:17:16 EU - Cystoscopy with Urethral Dilation Discharge Instructions (CUSTOM) Cystoscopy with Urethral Dilation Voiding after the procedure: there may be some pain, urethral bleeding, burning, urgency, frequencyand blood tinged urine following the procedure. These [...] [facility] [address], [place] [address]- Business (1) When:12/14/2021 [facility] Appointment Date:06/13/2021 11:40:00 AM Scheduled Provider:Ryann Yu CNP Location:[facility] Appointment Type:FM Open Appointment Date:08/15/2021 12:15:00 PM Scheduled Provider:Manish SOLIS MD Location:[facility] Appointment Type:URO Office Visit Future Scheduled Tests Laboratory* Comprehensive Metabolic Panel 12/13/20 * Lipid Panel 12/13/20 [facility] Future Appointments Appointment Date:12/12/2021 12:15:00 PM Scheduled Provider:Manish SOLIS MD [facility] Appoint[facility] Type:URO Office Visit Future Scheduled Tests Laboratory* Comprehensive Metabolic Panel 12/13/20 * Lipid Panel 12/13/20 [facility] Future Appointments Appointment Date:12/12/2021 12:15:00 PM Scheduled Provider:Manish SOLIS MD [facility] Appointment Type:URO Office Visit Appointment Date:07/24/2022 10:40:00 AM Scheduled Provider:Ryann Yu CNP Location:[facility] Appointment Type:FM Open Future Scheduled Tests Laboratory* Comprehensive Metabolic Panel 07/21/21 * Comprehensive Metabolic Panel 12/13/20 * Lipid Panel 07/21/21 * Lipid Panel 12/13/20 [facility] Evaluation + Plan note Future Appointments Appointment Date:07/24/2022 10:40:00 AM Scheduled Provider:Ryann Yu CNP Location:[facility] Appointment Type:FM Open Appointment Date:10/30/2022 01:15:00 PM Scheduled Provider:Manish SOLIS MD Location:[facility] Appointment Type:URO Office Visit Future Scheduled Tests Laboratory* Comprehensive Metabolic Panel 07/21/21 * Comprehensive Metabolic Panel 12/13/20 * Lipid Panel 07/21/21 * Lipid Panel 12/13/20 [facility] evaluation + Plan note Future Appointments Appointment Date:11/28/2022 02:30:00 PM Scheduled Provider:ESE VICKERS PA-C Location:[facility] Appointment Type:URO Office Visit [facility] Hospital course Narrative No data available for this section [facility] No data available for this section [facility] No data available for this section [facility] Summary Purpose Family History No Family [...] section and content) DATE CREATED AUTHOR 04/30/2021 [facility] DATE CREATED AUTHOR AUTHOR'S ORGANIZ ATION 11/20/2021 [facility] DATE CREATED AUTHOR AUTHOR'S ORGANIZ ATION 12/26/2023 [facility] DATE CREATED AUTHOR AUTHOR'S ORGANIZ ATION 10/18/2024 [facility] DATE CREATED AUTHOR AUTHOR'S ORGANIZ ATION 12/14/2024 [facility] Care Team (unrecognized sect ion and content) Personnel Name: Gigi TAURUS Ryann Christo Address: [address] [place] [address], [facility] [place] [address] Personnel Name: Marjab MOERLAND Tasneem L Address: Address: [address] [place] [address]- Personnel Name: Tasneem Buchanan Address: Address: [address] [place] [address]- Personnel Name: MarjTasneem Daniel Address: Address: [address] [place] [address]- Personnel Name: Marj ANICETO Tasneem Jose Carlos Address: Address: [address] [place] [address]- FOR RECORDS PERTAINING TO PATIENTS WHO ARE [...] BE BASED ON THE PRIMARY CLINICAL RECORDS. [facility]. provides no warranty or guarantee of the accuracy or completeness of information in this document.
--- OUTSIDE RECORDS SUMMARY | 2025-01-05 07:34 | XMS_ITS | Continuity of Care Document ---
Author Organization [facility] Address [address] [place] [phone] Phone [phone] Care Team Providers Care Wallcovering Texturer Name Role Phone Jason Sangita MARIO Care Team Information Rece iver [phone] Problems Active Problems Provider Date Attention deficit [...] Range N ote .Ua 05/31/2021 [facility] (000)-000-0000Ua AppearancecloudyUa Bilirubin-Ua Blood-Ua ColoryellowUa Epithelial Cells QL0-2Ua Glucose-Ua Ketones-Ua Leuko-Ua Nitrite-Ua PH Test Strip 8.0Ua Protein-Ua RBC0-3Ua Sourceclean catchUa Specific Gravity1.015Ua Urobilinogen0.2Ua WBC0-5.Urine Protein/Creat. Sbdohe0305/31/2021[facility] [phone].Urine Protein Moahcj28.4.Urine Creatinine Cbaotw80.3.Urine Prot/Creat Oiije554.30.Renal Panel( [facility])05/31/2021[facility] [phone].Albumin4.2.Calcium9.8.Carbon Xfcocrs08.Wxqqhevw883.Phosphorus3.1 .Potassium4.3.Xprlki085.BUN21.Creatinine-LC0.8.GFR >60.CMP06/12/2020 [facility] [phone].Albumin4.1.Alt23.Calcium9.0.Carbon Avwwwme76.5.Otaupiad957 .Creatinine-LC0.86.Glucose Oksay259.Alkaline Phos36.Potassium4.1.Protein-Total 7.8.Pphfyo034.Ast16.BUN16.0.GFR >60.Lipid Panel06/12/2020[facility] [phone].LDL Afuilyrjrya612.4.Bneusgmsmljzp927.Renal Panel05/23/2019 [facility] [phone].Calcium9.1.Carbon Plgpmbx44.Hufzxtzb664.Creatinine-LC0.92 .Phosphorus3.2.Qzgcno135.BUN15.GFR-SM98Weab49.Potassium3.9.Urine Protein/Creat. Eexofq4805/23/2019[facility] [phone].Urine Protein Hutiyc47.7.Urine Creatinine Casxot829.8.Urine Prot/Creat Lnxhr083.CMP10/08/2018[facility] [phone].Albumin4.4.Alt34.Calcium9.5.Carbon Zcccczl97.Ohnfstpy945 .Creatinine-LC0.78.Glucose Utkvc049.Alkaline Phos35.Potassium4.0.Protein-Total 6.8.Wzbxcq198.Ast33.BUN14.GFR Qsgectsw769Zdkt06.GFR Ddrhiklhr60Mlyw50 .Lipid Panel10/08/2018[facility] [phone].Llfmuxkaddm697.Cholester/HDL Ratio1.8High Density Zimdeoxribx84 .LDL Lzitwwiwwik999.Ykftiuxajxbut014.Hemoglobin J3f-JN5510/08/2018[facility] [phone].Hemoglobin Q2e-ER8.6.TSH10/08/2018[facility] [phone].TSH2.410.Hemoglobin And Lddczjtffg97/30/2019[facility] [phone].Hemoglobin Blood13.3.Rtzxbybwfc10.3.Hemoglobin And Hematocrit 01/23/2018[facility] [phone].Hemoglobin Blood12.2.Tvsbajtqlo09.5.CMP01/23/2018[facility] [phone].Albumin3.9.Alt73.Calcium8.6.Carbon Qybqtvx24.Qrmfkzke027 .Creatinine-LC0.8.Glucose Evnzz021.Alkaline Phos54.Potassium3.5.Protein-Total6.3 .Cfudmx734.Ast87.BUN12.GFR >43Xdzd70.GFR >30Bifz35 .Urinalysis-Vkuploj1601/23/2018[facility] (000)-000-0000Ua Specific Gravity1.010Ua PH Test Strip7.0Ua ColorORANGEUa AppearanceSLIGHTLY CLOUDYUa WBC6-15Ua Protein2+Ua GlucoseNEGUa KetonesNEGUa BilirubinNEGUa Urobilinogen1.0Ua NitritePOSITIVEUa Occult Blood3+.Hemoglobin And Qhksvqrfzb38/12/2018[facility] [phone].Hemoglobin Blood13.0.Gclmcstvbx86.7.CMP01/21/2018[facility] [phone].Albumin3.9.Alt17.Calcium8.6.Carbon Rgaodgl27.Iymdqzeu703 .Creatinine-LC0.8.Glucose Nygij548.Alkaline Phos34.Potassium3.2.Protein-Total6.2 .Lpdfkd288.Ast26.BUN13.GFR >69Exna79.GFR >48Tvpb89 .Urinalysis-Wdphypd0301/21/2018[facility] (000)-000-0000Ua Specific Gravity1.020Ua PH Test Strip6.5Ua ColorDARK YELLOWUa AppearanceCLOUDYUa SUE14-13Jl Protein3+Ua GlucoseTRACEUa KetonesTRACEUa Bilirubin1+Ua NitritePOSITIVEUa Occult Blood3+ Encounters Type Date Location Provider Dx Diagnosis Office Visit 06/10/2021 1:20p [place] [facility] Eleazar Mathias MD Q60.3 Renal hypoplasi a, unilateral I10 Essential (primary) hypertension Office Visit 06/30/2020 2:20p [place] [facility] Eleazar Mathias MD Q60.3 Renal hypoplasia, unilateral I10 Essential (primary) hypertension Office Visit 07/10/2019 3:00p [place] [facility] Eleazar Mathias MD Q60.3 Renal hypoplasia, unilateral Office Visit 03/19/2019 2:00p [place] [facility] Eleazar caceres MD E87.0 Hyperosmolality and hypernatremia E87.2 Acidosis Assessments Date Code Description Provider 06/10/2021 Q60.3 Renal hypoplasia, unilateral Eleazar aMthias MD 06/10/2021 I10 Essential (primary) lloyd Mathias MD 06/30/2020 Q60.3 Renal hypoplasia, unilateral Eleazar Mathias MD 06/30/2020 I10 Essential (primary) lloyd Mathias MD 07/10/2019 Q60.3 Renal hypoplasia, unilateral Eleazar Mathias MD 03/19/2019 E87.0 Hyperosmolality and hypernat remia Eleazar Mathias MD 03/19/2019 E87.2 Acidosis Genny Wakefield
--- OUTSIDE RECORDS SUMMARY | 2025-01-05 07:34 | XMS_ITS | Clinical Summary ---
Author Organization [facility] Address [address] [place] [address] Care Team Providers Care Software Sales Representative Name Role Phone Roya Zapata DO Primary Care Provider Allergies No known active allergies Medications MedicationSigDispense QuantityRefillsLast FilledStart DateEnd DateStatus buPROPion XL (WELLBUTRIN XL) 300 mg ORAL 24 hr tablet Indications:Plastic surgery for unacceptable cosmetic appearance,HypomastiaTake 1 tablet by mouth once daily.ctive buPROPion XL (WELLBUTRIN XL) 150 mg ORAL 24 hr tablet Indications:Plastic surgery for unacceptable cosmetic appearance,HypomastiaTake 1 tablet by mouth once daily.ctive medroxyPROGESTERone 150 mg/mL INTRAMUSC. Syrg Indications:Plastic surgery for unacceptable cosmetic appearance,Hypomastia Inject 1 mL intramuscularly every 12 weeks.ctive acetaminophen-hydrocodone (VICODIN) 5-500 mg ORAL tablet Take 1 tablet by mouth every 6 hours as needed for Pain. 30 tablet ctive cephALEXin (KEFLEX) 500 mg ORAL capsule Take 1 capsule by mouth twice daily. 6 capsule ctive Family History Medical HistoryRelationCommentsNoneOtherdenies FMH of CAD/CVARelationStatus CommentsOther Social History Tobacco UseTypesPacks/DayYears UsedDateSmoking Tobacco: RlzcntOmmsaawwga658 03/12/1991 - 03/12/2001Smokeless Tobacco: NeverAlcohol UseStandard Drinks/Week CommentsNo0 (1 standard drink = 0.6 oz pure alcohol)CommentsNoSex and Gender InformationValueDate RecordedSex Assigned at BirthNot on fileLegal Sex Aljssn7002/11/2012 10:11 AM ESTGender IdentityNot on fileSexual OrientationNot on file Last Filed Vital Signs Vital SignReadingTime TakenCommentsBlood Ugmymhjk040/6101/06/2011 4:14 PM EDT Seknp819701/06/2011 4:14 PM BMLWdtkdvaiiso78 ??C (96.8 ??F)01/06/2011 4:14 PM EDT Respiratory Bact2385 4:14 PM EDTOxygen Rrobbryykd31%01/06/2011 4:14 PM EDTInhaled Oxygen Concentration--Ljdakv00 kg (130 lb)01/06/2011 11:51 AM EDT Kkhmlg306 cm (5' 3 )12/19/2010 2:41 PM EDTBody Mass Index23.031 2:41 PM EDT Plan of Treatment Health MaintenanceDue DateLast DoneCommentsAnxiety Nqquazssp67/29/1983Depression Edllwztcl04/29/1983HIV Dasyqwomr32/29/1983Hepatitis C Wjlvdfxoy13/29/1983 DTaP,Tdap,Td Vaccine (1 - Tdap)01/08/1984Cervical Cancer Hunnxruzl15/29/1986CT Ivsuaoxvoyae48/29/2010Cologuard (FIT-DNA)01/07/20103990Occtbbfozvd24/29/2010 Colorectal Cancer Jtkknngtf41/29/2010Diabetes Racujpwwi05/29/2010Fecal Occult Blood2010Lipid Alalugxvb25/29/1556Dvewnyjedstsu31/29/2010Mammogram Fkzurnuni46Pneumococcal Vaccine: 50+ (1 of 1 - PCV)2015 Shingrix Vaccine (1 of 2)2015Covid-19 Vaccine (1 - 2024- season) 2024Influenza Vaccine (#1)2024 Medical Devices ImplantedTypeAreaManufacturerDevice IdentifierShelf Expiration DateModel / Serial / LotImp Brst 400ml Styl 20 Smth - [id number] Implanted:Q[facility] 1 [facility] A BUILDINGMammary / BreastLeft: Breast [employer] BREAST [id number] / / [id number]:silicone filled breast implantImp Brst 400ml Styl 20 th - [id number] Implanted:Qty: 1 on 01/06/2011 at [facility] A BUILDINGMammary / BreastRight: Breast [employer] BREAST [id number] / / [id number]:silicone filled breast implant Procedures Procedure NamePriorityDate/TimeAssociated DiagnosisCommentsMAMMOGRAM SCREENING ICYGqehpue75/03/2011 2:01 PM EDT Breast screening from Last 3 Months or Most Recently Relevant to Health Maintenance Results * MAMMOGRAM SCREENING ELIEZER (12/12/2010 2:01 PM EDT)ComponentValueRef RangeTest MethodAnalysis TimePerformed AtPathologist SignatureTranscription* * *Final Report* * * DATE OF EXAM: Dec ??2010 ??2:01PM ?? AVW ?? 6358 ??- ??MAMM SCREEN CAD ELIEZER ??/ PROCEDURE REASON: BREAST SCREENING * * * * Physician Interpretation * * * * #[id number] - MAMM SCREEN CAD ELIEZER # BILATERAL SCREENING MAMMOGRAM WITH CAD: 12/12/2010 HISTORY: Breast Screening, pt signed film release form and scanned into [employer]. 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 ?? RESULT: Current study was also evaluated with a Computer Aided Detection (CAD). ?? No prior exams were available for comparison. ?? The tissue of both breasts is extremely dense, which lowers the sensitivity of mammography. ?? Bilateral retropectoral saline implants are present. ?? No significant masses, calcifications, or other findings are seen in either breast. IMPRESSION: BENIGN There is no mammographic evidence of malignancy. ??A 1 year screening mammogram is recommended. Rosy Harvey M.D. ? sm/penrad:12/14/2010 13:24:28 ?? Continuous Process Rotary Drum Tanner: Oumou WAGNER)(Genny), [facility] letter sent: Return to Annual ?? Mammogram BI-RADS: 2 Benign ?? [id number] Rail Doweling Machine Operator: PSC Transcribe Date/Time: Dec ??2010 ??1:24P Dictated by : ROSY HARVEY MD This examination was interpreted and the report reviewed and electronically signed by: ROSY HARVEY MD On Dec ??2010 ??1:24PM DIVISION OF RADIOLOGYAnatomical RegionLateralityModalityOtherSpecimen (Source) Anatomical Location / LateralityCollection Method / VolumeCollection Time Received Time12/12/2010 2:01 PM EDT Narrative Authorizing ProviderResult TypeResult StatusSalas Davis MDMAMMOGRAPHYFinal Result from Last 3 Months or Most Recently Relevant to Health Maintenance Insurance * Guarantor: Rosalind Mendoza TypeRelation to PatientDate of BirthPhone Billing AddressSelf QuuVvcf01 [address] [place] [id number] Care Teams Team MemberRelationshipSpecialtyStart DateEnd Date Roya Zapata DO [address] [place] [address] PCP - Drjrlbc64/10/11
--- OUTSIDE RECORDS SUMMARY | 2025-01-05 07:34 | XMS_ITS | Clinical Summary ---
Author Organization [facility] Address [address] [place] [address] Care Team Providers Care Senior Policy Associate Name Role Phone Unavailable Primary Care Provider Unavailabl e Social History Tobacco UseTypesPacks/DayYears UsedDateSmoking Tobacco: Never Assessed CommentsUnknownSex and Gender InformationValueDate RecordedSex Assigned at Not on fileLegal CsyBfqplq31/01/2023 8:34 PM EDTGender IdentityNot on fileSexual OrientationNot on file Last Filed Vital Signs Vital SignReadingTime TakenCommentsBlood Ysjtiald097/80103/24/2018 12:00 PM EST Pulse--Temperature--Respiratory Rate--Oxygen Saturation--Inhaled Oxygen Concentration--Kzgoxu22.4 kg (133 lb 3.2 oz)01/22/2019 12:00 PM JBCXigehn629.5 cm (5' 2 )01/22/2019 12:00 PM ESTBody Mass Index24.36103/24/2018 12:00 PM EST Plan of Treatment DateTypeDepartmentCare Team (Latest Contact Info)Fkhrvdhubtc56/29/2025 10:00 AM EDTOffice [facility] [address] JUAN MIGUEL D [address] [phone] Katie Stout DO [address] [address] Health MaintenanceDue DateLast DoneCommentsCT Siwvptpytugv1965Colonoscopy 1965Colorectal Cancer Fqkpyhitm1965FIT-DNA1965FIT1965 FOBT1965 2646Cfrvmoegkbdpi1965Pap Smear1986Cervical Cancer Pfvzxhaiq09/29/1995HPV/Evwmua4501/07/19959897Qgtrvomuh47/29/2005Influenza Vaccine (#1) 510/06/2020, 12/18/2019
--- OUTSIDE RECORDS SUMMARY | 2025-01-05 07:35 | XMS_ITS | CCD ---
Author Organization [facility] Care Team Providers Care Matcher Offbearer Name Role Phone Celia SIMMS Primary Care [...] oral tablet (10 sources)Dihydropyridine Calcium Channel BlockerStart: 16-50-6618lyuc 1 tablet by mouth once dailyamLODIPine 5 mg Tab See Instructions, TAKE 1 TABLET BY MOUTH EVERY DAY, # 90 tab(s), Refills(s) 3, Pharmacy: [facility] STORE [id number], 160, cm, 12/24/23 11:27:00 EDT, Height/Length Dosing, 59.2, kg, 12/24/23 11:27:00 EDT, Weight Dosing Start Date: 12/24/23 Status: OrderedStart: 71-88-5717kqif 1 tablet by mouth once dailyamLODIPine 5 mg Tab 5 mg = 1 tab(s), Oral, Daily, # 90 tab(s), Refills(s) 3, Pharmacy: [facility]/pharmacy#[id number], 160.4, cm, 08/17/22 15:18:00 EDT, Height/Length Dosing, 68.9, kg, 08/17/22 15:18:00 EDT, Weight Dosing Start Date: 08/17/22 Status: OrderedStart: 12-13-2020 End: 14-99-1523mgjr 1 tablet by mouth once dailyamLODIPine 5 mg Tab 5 mg = 1 tab(s), Oral, Daily, X 90 day(s), # 90 tab(s), Refills(s) 3, Pharmacy: [facility]/pharmacy #[id number], 160, cm, 07/21/21 9:41:00 EDT, Height/Length Dosing, 70.7, kg, 07/21/21 9:41:00EDT, Weight Dosing Start Date: 07/21/21 Stop Date: 07/16/22 Status: OrderedBupropion (9 sources)AminoketoneStart: 54-76-9089axQWYUiiv Oral, Refills(s) 0 Start Date: 12/24/23 Status: OrderedStart: 08-17-2022 End: 04-11-8568rbmh 1 tablet by mouth once dailyWellbutrin SR 150 mg Tab-ER 150 mg = 1 tab(s), Oral, Daily, X 90 day(s), # 90 tab(s), Refills(s) 3,Pharmacy: [facility]/pharmacy #[id number], 160.4, cm, 08/17/22 15:18:00 EDT, Height/Length Dosing, 68.9, kg, 08/17/22 15:18:00 EDT, Weight Dosing Start Date: 08/17/22 Stop Date: 08/12/23 Status: OrderedStart: 95-97-3633lcpi 1 tablet by mouth once daily Wellbutrin SR 150 mg Tab-ER 150 mg = 1 tab(s), Oral, Daily, # 90 tab(s), Refills(s) 3, [facility]: [facility], 162, cm, 02/10/20 14:47:00 EST, Height/Length Dosing, 59.6, kg, 02/10/20 14:47:00 EST, Weight Dosing Start Date: 02/10/20 Status: OrderedclonazePAM 0.5 mg oral tablet (3 sources)BenzodiazepineStart: 13-76-6989SzmpootMAX 0.5 mg Tab Refills(s) 0 Start Date: 11/28/22 Status: Orderedestradiol 0.1 mg/ml vaginal cream (8 sources)EstrogenStart: 29-35-2687lmwzkpswl 0.1 mg/g Vag Crm 1 gm, Vaginal, MonFri, 42.5 gm, Refill(s) 3, [facility]/pharmacy #[id number], 160, cm, 12/24/23 11:27:00 EDT, Height/Length Dosing, 59.2, kg, 12/24/23 11:27:00 EDT, Weight Dosing Start Date: 12/24/23 Status: OrderedStart: 28-58-6470ouutmuerp 0.1 mg/g Vag Crm 1 gm, Vaginal, MonFri, 42.5 gm, Refill(s) 3, [facility]/pharmacy #[id number], 160, cm, 11/28/22 14:40:00 EDT, Height/Length Dosing, 66, kg, 11/28/22 14:40:00 EDT, Weight Dosing Start Date: 11/28/22 Status: OrderedStart: 53-77-7247abtihjtry 0.1 mg/g Vag Crm 1 gm, Vaginal, MonFri, 42.5 gm, Refill(s) 3, [facility]/pharmacy #[id number], 160, cm, 12/12/21 12:41:00 EDT, Height/Length Dosing, 70.7, kg, 12/12/21 12:41:00 EDT, Weight Dosing Start Date: 04/21/22 Status: OrderedStart: 28-58-3043evks 1 tablet by mouth once dailyestradiol 1 mg Tab TAKE 1 TABLET BY MOUTH EVERY DAY Start Date: 07/21/21 Status: OrderedStart: 15-43-1068ppapvadlv 0.1 mg/g vaginal cream 1 gm, Vaginal, MonFri, # 42.5 gm, Refills(s) 5, Pharmacy: [facility]/pharmacy #[id number], 160, cm, 09/22/20 13:28:00 EDT, Height/Length Dosing, 58, kg, 09/22/20 13:28:00 EDT, Weig ht Dosing Start Date: 10/05/20 Status: Orderedestradiol 0.1 mg/g vaginal cream (4 sources)Start: 49-47-8240jiggoskmx 0.1 mg/g vaginal cream 1 gm, Vaginal, MonFri, # 42.5 gm, Refills(s) 5, [id number] 160, cm, 09/22/20 13:28:00 EDT, Height/Length Dosing, 58, kg, 09/22/20 13:28:00 EDT, Weight Dosing Start Date: 10/05/20 Status: Orderedprogesterone 100 mg oral capsule (9 sources)ProgesteroneStart: 45-36-2082wzgl 1 mg by mouth once daily at bedtime progesterone 100 mg oral capsule mg cap(s), Oral, Once a day (at bedtime), Refills(s) 0 Start Date:01/31/19 Status: Orderedsulfamethoxazole 800 mg / trimethoprim 160 mg oral tablet (2 sources)Dihydrofolate Reductase Inhibitor Antibacterial, Sulfonamide AntimicrobialStart: 03-15-2023 End: 83-46-1480Iazoosc D.S. 800 mg-160 mg Tab 1 tab(s), Oral, BID for 5 day(s), 10 tab(s), Refill(s) 0, [id number] 160, cm, 11/28/22 14:40:00 EDT, Height/Length Dosing, 66, kg, 11/28/22 14:40:00 EDT, Weight Dosing Start Date: 03/15/23 Stop Date: 03/20/23 Status: OrderedSUMAtriptan 100 mg oral tablet (9 sources)Serotonin-1b and Serotonin-1d Receptor AgonistStart: 12-24-2023 Imitrex 100 mg Tab 100 mg = 1 tab(s), Oral, As Directed, PRN Headache, may repeat dose once in 2 hours, # 9 tab(s), Refills(s) 1, [id number] 160, cm, 12/24/23 11:27:00 EDT, Height/Length Dosing, 59.2, kg, 12/24/23 11:27:00 EDT, Weight Dosing Start Date: 12/24/23 Status: OrderedStart: 32-08-2941Hoqkqba 100 mg Tab 100 mg = 1 tab(s), Oral, As Directed, PRN Headache, may repeat dose once in 2 hours, # 9 tab(s), Refills(s) 1, [id number] 160, cm, 07/21/21 9:41:00 EDT, Height/Length Dosing, 70.7, kg, 07/21/21 9:41:00 EDT, Weight Dosing Start Date: 07/21/21 Status: Ordered Start: 56-31-1612Wjblpkt 100 mg Tab 100 mg = 1 tab(s), Oral, As Directed, PRN Headache, may repeat dose once in 2 hours, # 9 tab(s), Refills(s) 1, [id number] 160, cm, 07/16/20 11:04:00 EDT, Height/Length Dosing, 82.8, kg, 07/16/20 11:04:00 EDT, Weight Dosing Start Date: 07/19/20 Status: Ordered Completed/Discontinued Medications MedicationDrug Class(es)DatesSig (Normalized)Sig (Original)doxycycline hyclate 100 mg oral capsule (1 source)Tetracycline-class DrugStart: 56-91-8251gsqc 1 capsule by mouth once dailydoxycycline hyclate 100 mg Cap 100 mg = 1 cap(s), Oral, Daily, Take 1 pill the day before the procedure and 1 pill after the procedure, # 2 cap(s), Refills(s) 0, Pharmacy: [facility]/pharmacy #[id number], 160, cm, 06/10/21 12:38:00 EDT, Height/Length Dosing, 64.9, kg, 05/18/21 14:26:00 ESTPaolo... Start Date: 06/10/21 Status: Ordered Problems Problem ClassificationProblemDateDocumented DateEpisodic/ChronicAttention- deficit, conduct, and disruptive behavior disorders (9 sources)Attention deficit hyperactivity disorder, predominantly inattentive uctq21-84-1758PzaglibWfaxdrksv of lipid metabolism (9 sources)Pzjhheyyathzdq01-11-4214BnimqtgHuxmwjdbk hypertension (10 sources)Hypertensive disorder; Translations: [Essential hypertension]Onset: 779488-16-7707KxufdsdSsfvywrpdgrdg symptoms and ill-defined conditions (20 sources)Dysuria; Translations: [History of urinary tract infection]Onset: 482110-98-7158JypfvhadTziiuuuo; including migraine (10 sources)Migraine; Translations: [Migraine, unspecified, not intractable, without status migrainosus]Onset: 988783-84-3976ZnkjaksGzwfiex and fatigue (4 sources)Other fatigue; Translations: [OTHER FATIGUE]Onset: 02-31-3035Poipsayo Menopausal disorders (2 sources)Other primary ovarian failure; Translations: [Menopausal and female climacteric states]Onset: 09-16-2034GcuvsmzGeqg disorders (19 sources)Depression; Translations: [Mild major depression]Onset: 07-21-2021 19-37-0865KvpoqsaUwkyu and unspecified benign neoplasm (9 sources)History of polyp of eozcq88-45-5932FijrvjbrMmojg diseases of bladder and urethra (11 sources)Urethral stricture; Translations: [Other urethral stricture, female] Onset: 873612-30-2384RcmdazbcCgjox lower respiratory disease (9 sources)Abdii40-85-8047GesijqnjOmesp lower respiratory disease (9 sources)Atrzeer00-16-8617BvrkukeaOujkr nutritional; endocrine; and metabolic disorders (4 sources)Overweight in adulthood with body mass index of 25 or more but less than 30; Translations: [Body mass index (BMI) 27.0-27.9, adult]Onset: 07-21-2021 57-78-2410HpzagzvtUjtqt nutritional; endocrine; and metabolic disorders (1 source)Overweight; Translations: [Overweight]Onset: 82-28-8754Nehyrvlv Residual codes; unclassified (10 sources)Obstructive sleep apnea syndrome; Translations: [Obstructive sleep apnea (adult) (pediatric)]Onset: 597377-30-5097BkdvyohHqmpmvdq codes; unclassified (9 sources)Postmenopausal -53-5180YjvgxuwaUrsgipste and history of mental health and substance abuse codes (14 sources)Ex-smoker; Translations: [H/O: Disorder]Onset: 464816-31-1828 EpisodicSpondylosis; intervertebral disc disorders; other back problems (9 sources)Neck zbop71-48-6410QomltjylKukcziwnt-gmgftxy disorders (9 sources)Nicotine igzcjzcqfq83-64-2346DfdqibyFeyosqkcvuak (8 sources)Patient encounter yheahl08-11-3456Evilgvq tract infections (20 sources)Recurrent urinary tract infection; Translations: [Urinary tract infectious disease]Onset: 199767-68-7144Qmdhiwvx Results Test NameValueInterpretationReference RangeFacilityFami Medicine Office/Clinic Noteon 41-70-3394Jghoet Medicine Office/Clinic NoteFami Medicine Office/Clinic Note HPI [...] AMISHA, MED In 4 weeks 12/30/[address] [place] [address] Sandman D&R (1) Additional Instructions: Problem List/Past Medical History [...] to refusal influenza virus vaccine, inactivated 05/03/2012 RecordedNoTuscarawas HospitalComment on above:Result Comment: Electronically Signed By: Tasneem Buchanan\.br\Date and Time Signed: 12/09/24 15:38 EDTAmbulatory Visit Summary on 42-21-7227Ymiraznfop Visit SummaryAmbulatory Visit Summary NORA DIAZ :1965 [...] 2:40 PM EDT With: Tasneem Buchanan Where: [address] [address]- Sunday 8:20 AM EST With: Tasneem Buchanan Where: [address] [address]- Medications What How Much When Instructions Unchanged [...] by your health care provider. Stretching and iojux-nc-nccowp exercises These exercises warm up your muscles [...] yourself up on y (more content not included)...[facility] CenterF[facility] Medicine Office/Clinic Noteon 85-82-6828Pekben Medicine Office/Clinic NoteFami Medicine Office/Clinic Note Chief [...] day(s), # 21 tab(s), Refills(s) 0, Pharmacy: [facility]/pharmacy #[id number], 160, cm, 12/01/24 11:53:00 EDT, Height/Length Dosing, 56.9, kg, 12/01/24 11:53:00 EDT, Weight Dosing tizanidine, 4 mg = 1 tab(s), Oral, q8hr, X 7 day(s), # 21 tab(s), Refills(s) 0, Pharmacy: [facility]/pharmacy #[id number], 160, cm, 12/01/24 11:53:00 EDT, Height/Length [...] day(s), # 21 tab(s), Refills(s) 0, [id number] 160, cm, 12/01/24 11:53:00 EDT, Height/Length Dosing, 56.9, kg, 12/01/24 11:53:00 EDT, Weight Dosing tizanidine, 4 mg = 1 tab(s), Oral, q8hr, X 7 day(s), # 21 tab(s), Refills(s) 0, [id number] 160, cm, 12/01/24 11:53:00 EDT, Height/Length Dosing, 56.9, kg, 12/01/24 11:53:00 EDT, Weight Dosing 4. Nonsmoker (Z78.9: Other specified health status) - Encouraged to continue as a non-smoker Ordered: methylPREDNISolone, = 1 packet(s), Oral, As Directed, as directed on package labeling, X 6 day(s), # 21 tab(s), Refills(s) 0, [id number], 160, cm, 12/01/24 11:53:00 EDT, Height/Length Dosing, 56.9, kg, 12/01/24 11:53:00 EDT, Weight Dosing tizanidine, 4 mg = 1 tab(s), Oral, q8hr, X 7 day(s), # 21 tab(s), Refills(s) 0, [id number], 160, cm, 12/01/24 11:53:00 EDT, Height/Length Dosing, 56.9, kg, 12/01/24 11:53:00 EDT, Weight Dosing Follow-up With When Contact Information Tasneem Mcmahan Within [address] [place], [place] [id number] Business (1) Additional Instructions: Sciatica Patient Education Sciatica Rehab Sciatica, Blkr-ol-Vuum Problem List/Past Medical History Ongoing BMI 22.0-22.9, [...] Esophagogastroduodenoscopy (2013), Bunionectomy (2011), (more content not included)...NormalSelect Medical [facility] Clinic Rehabilitation Hospital, BeachwoodComment on above:Result Comment: Electronically Signed By: BASIL SHAVER CNP\.br\Date and Time Signed: 12/01/24 12:10 EDTPAP [id number] 81-59-4477FIL AptimaNegativeInvalid Interpretation [facility] [place] Comment on above:Result Comment: This nucleic acid amplification test detects fourteen high-risk HPV types (16,18,31,33,35,39,45,51,52,56,58,59,66,68) without differentiation. Performed at: [facility] [id number] MD Marianna Turner Performed at: =[facility] [id number] MD Marianna TurnerPerformed By: #### [id number] #### [facility] [address] [place], [place] [address]TYF [id number] Interpretation [facility] HospitalComment on above:Result Comment: TESTS RESULT FLAG UNITS REF RANGE LAB Clinician Provided Cytology Information Source.............[employer] Other..............Other No. of containers..01 ThinPrep Vial DIAGNOSIS: 01 NEGATIVE FOR INTRAEPITHELIAL LESION OR MALIGNANCY. FUNGAL ORGANISMS MORPHOLOGICALLY CONSISTENT WITH ARISTIDES SPECIES ARE PRESENT. Specimen adequacy: 01 Satisfactory for evaluation. No endocervical component is identified. Performed by: 01 Gaviota Goodwin Examination Grader . 01 Note: Note 01 The Pap [...] Low,>-Panic High,A-Abnormal,AA-Critical Abnormal Performed at: [address] [facility] [id number] Yue Cabral MD, Ojcdzmwkv By: #### [id number] #### [facility] Laboratory [address] [place] [address]NGU 734126ol 13-97-1192Lcfmmxafkm TechniqueBRUSH-SPATULANormal [facility], BeachwoodComment on above:Performed By: #### [id number] #### [facility] Laboratory [address] [place], [place] [address]Kfdvwrpauxvjr Body SiteENDOCERVIXUniversity Hospitals Ahuja Medical CenterComment on above:Performed By: #### [id number] #### [facility] Laboratory [address] [place], [place] [address]Czcme Patient BlibgehayvwGVE-DBLQE-XFQBvelmzVxjenu [facility] Medical CenterComment on above:Performed By: #### [id number] #### [facility] [address] [place], [place] [address]Llkilynj CytologyNegativeUniversity Hospitals [facility] Comment on above:Performed By: #### [id number] #### [facility] [address] [place], [place] [address]Rkakuvsl TreatmentNONENoTuscarawas HospitalComment on above:Performed By: #### [id number] #### [facility] [address], [place] [address]Xtzncplhdqv 53-77-4342XzrzlnvkzIapdorfqz From: Tasneem Buchanan To: [facility] - Clinical; [...] 20.5 % (14.0 - 50.0) 12/24/2023 11:37 Kimball Auto 5.7 % (4.0 - 14.0) 12/24/2023 11:37 Eos Auto 0.7 % (0.0 - 8.0) 12/24/2023 11:37 Basophil Auto 0.5 % (0.0 - 2.0) 12/24/2023 11:37 Neutro Absolute 5.8 E9/L (2.0 - 7.5) 12/24/2023 11:37 Lymph Absolute 1.6 E9/L (1.0 - 4.0) 12/24/2023 11:37 Kimball Absolute 0.4 E9/L (0.2 - 1.0) 12/24/2023 [...] 5.60) Nora called and advised of lab resultsNoTuscarawas Hospital Ambulatory Visit Summaryon 02-07-0263Uihmscekdt Visit SummaryAmbulatory Visit Summary NORA DIAZ :1965 [...] Sunday & Sunday Refills: 3 Pickup at [facility]/pharmacy #[id number] New sumatriptan (Imitrex 100 mg Tab) 1 Tablets By Mouth As Directed as needed for Headache Refills:1 may repeat dose once in 2 hours Pickup at [facility]/pharmacy #[id number] Changed amlodipine (amLODIPine 5 mg Tab) See instructions TAKE 1 TABLET BY MOUTH EVERY DAY Changed amlodipine (amLODIPine 5 mg Tab) 1 Tablets By Mouth Every day Unchanged buPROPion By Mouth Unchanged clonazepam (ClonazePAM 0.5 mg Tab) Unchanged progesterone (progesterone 100 mg oral capsule) By Mouth Once a day (at bedtime) Pharmacy Information [facility]/pharmacy #[id number]: [address], [place] [id number] [phone] Medications and Immunizations Administered Not Given influenza [...] you for choosing us for your care. NormalSelect Medical [facility] Clinic Rehabilitation Hospital, BeachwoodCBC w/ Auto Diffon 12-24-2023 Basophils/100 WBC (Bld)0.5 %Normal0.0-2.0[facility], BeachwoodComment on above:Performed By: #### [id number] #### [facility] [place] Laboratory [address] [place] [address]Wgxpufcfc/Leukocytes Auto (Bld) [Pure # fraction]0.0 E9/LNormal 0.0-0.2FSelect Medical Specialty Hospital - Cincinnati NorthComment on above:Performed By: #### [id number] #### [facility] Laboratory [address] [place] [address]Kszilkvwbnm (Bld) [#/Vol]0.1 E9/LNormal0.0-0.5FSelect Medical Specialty Hospital - Cincinnati NorthComment on above:Performed By: #### [id number] #### [facility] Laboratory [address] [place] [address]Sahzhipuadv/100 WBC (Bld)0.7 %Normal0.0-8.0[facility], BeachwoodComment on above:Performed By: #### [id number] #### [facility] Laboratory [address], [place] [address]Ypuwkyqwluy distribution width (RBC) [Ratio]13.1 %Normal 10.9-14.2FSelect Medical Specialty Hospital - Cincinnati NorthComment on above:Performed By: #### [id number] #### [facility] Laboratory [address] [place] [address]Olxyejtnrc (Bld) [Volume fraction]39.3 %Cyovvx57.0-46.0[facility], BeachwoodComment on above:Performed By: #### [id number] #### [facility] [address], [place] [address]Uwxwtjaavc (Bld) [Mass/Vol]13.3 g/rYKhqnua83.0-16.0[facility], BeachwoodComment on above:Performed By: #### [id number] #### [facility] Laboratory [address] [place] [address]Hjixsmqhgvb (Bld) [#/Vol]1.6 E9/LNormal1.0-4.0[facility], BeachwoodComment on above:Performed By: #### [id number] #### [facility] [address] [place] [address]Hhcvzdvlpij/100 WBC (Bld)20.5 %Qqqvoy94.0-50.0[facility], BeachwoodComment on above:Performed By: #### [id number] #### [facility] [place] [address] [place] [address]GGT (RBC) [Entitic mass]34.6 rdVhdd99.0-34.0[facility], BeachwoodComment on above:Performed By: #### [id number] #### [facility] [place] [address] [place] [address]FAVU (RBC) [Mass/Vol]33.9 g/mRSkzvkb68.4-36.0[facility], BeachwoodComment on above:Performed By: #### [id number] #### [facility] Laboratory [address] [place] [address]LOC (RBC) [Entitic vol]102.2 sFGegn37.0-100.0[facility], BeachwoodComment on above:Performed By: #### [id number] #### [facility] [place] Laboratory [address] [place] [address]Whjttjxbt (Bld) [#/Vol]0.4 E9/LNormal0.2-1.0[facility], BeachwoodComment on above:Performed By: #### [id number] #### [facility] [place] Laboratory [address] [place] [address]Vxtizdyvpnk (Bld) [#/Vol]5.8 E9/LNormal2.0-7.5FSelect Medical Specialty Hospital - Cincinnati NorthComment on above:Performed By: #### [id number] #### [facility] [address] [place] [address]Lvsduxvpglo/100 WBC (Bld)72.6 %Tiuzhd20.0-75.0[facility], BeachwoodComment on above:Performed By: #### [id number] #### [facility] [place] Laboratory [address], [place] [address]Dscgnvcb mean volume (Bld) [Entitic vol]8.0 fLNormal6.4-10.8 [facility], BeachwoodComment on above:Performed By: #### [id number] #### [facility] [address] [place] [address]Ejlkancrb (Bld) [#/Vol]258.0 E9/CFhgqrl454.0-500.0[facility], BeachwoodComment on above:Performed By: #### [id number] #### [facility] [place] Laboratory [address] [place] [address]XCZ (Bld) [#/Vol]3.8 E12/LLow4.3-5.9[facility] [place] Comment on above:Performed By: #### [id number] #### [facility] [place] Laboratory [address] [place] [address]UQD corrected for nucl RBC Auto (Bld) [#/Vol]8.0 E9/LNormal 4.0-11.0[facility], BeachwoodComment on above:Performed By: #### [id number] #### [facility] Laboratory [address] [place] [phone] By: SYSTEM SYSTEM on 04-19-4315Ncvwena [Mass/Vol]4.0 g/dLNormal3.3 - 5.0 gm/dLRemisol ChemAlbumin/Globulin [Mass ratio] 1.6 {ratio}Normal1.1 - 2.2Remisol ChemALP [Catalytic activity/Vol]41 [iU]/d Wevlho13 - 98 Int._Unit/LRemisol ChemALT No additional P-5'-P [Catalytic activity/Vol]18 [iU]/dNormal6 - 46 Int._Unit/LRemisol ChemAnion gap [Moles/Vol]8 mmol/LNormal6 - 16 mEq/LRemisol ChemAST [Catalytic activity/Vol]22 [iU]/dNormal 5 - 43 Int._Unit/LRemisol ChemBilirubin [Mass/Vol]0.4 mg/dLNormal0.0 - 1.1 mg/dL Remisol ChemCalcium [Mass/Vol]9.1 mg/dLNormal8.9 - 11.1 mg/dLRemisol Chem Chloride [Moles/Vol]104 mmol/PLshvyh873 - 111 mmol/LRemisol ChemCholesterol [Mass/Vol]172 mg/dCYiasfm144 - 200 mg/dLRemisol ChemCholesterol in HDL [Mass/Vol]60 mg/dLInvalid Interpretation CodeRemisol ChemComment on above:Result Comment: '>= 60 LOW RISK' '<= 40 HIGH RISK'Cholesterol in LDL [Mass/Vol]93 mg/dLNormal<=129mg/dLRemisol ChemCholesterol in VLDL [Mass/Vol]33 mg/dLNormal7 - 40 mg/dLRemisol ChemCO2 [Moles/Vol]30 mmol/CQnoulf48 - 31 mmol/LRemisol ChemCreatinine [Mass/Vol]0.7 mg/dLNormal0.5 - 1.3 mg/dLRemisol WtzwsPNB640 mL/min/1.73 i1Fseygo >=59mL/min/1.73 g2Pgbatnx ChemGlobulin (S) [Mass/Vol]2.5 g/dLNormal1.4 - 4.0 gm/dLRemisol ChemGlucose [Mass/Vol]95 mg/xLVypysp45 - 199 mg/dLRemisol Chem Potassium [Moles/Vol]3.9 mmol/LNormal3.5 - 5.3 mmol/LRemisol ChemProtein [Mass/Vol]6.5 g/dLNormal6.0 - 7.8 gm/dLRemisol ChemSodium [Moles/Vol]138 mmol/L Jblvwu642 - 145 mmol/LRemisol ChemTriglyceride [Mass/Vol]165 mg/dLHigh<=149mg/dL Remisol ChemTSH Qn0.71 m[IU]/LNormal0.34 - 5.60 mcIU/mLRemisol ChemUrea nitrogen [Mass/Vol]16 mg/dLNormal5 - 21 mg/dLRemisol ChemUrea nitrogen/Creatinine [Mass ratio]23 mg/qtZcwg18 - 20Remisol ChemCMPon 45-68-3485Ljuigok [Mass/Vol]4.0 g/dL Normal3.3-5.0[facility], BeachwoodComment on above:Performed By: #### [id number] #### [facility] Laboratory [address] [place] [address]Srsvtds/Globulin (S) [Mass conc ratio]1.7Bccjso2.1-2.2FSelect Medical Specialty Hospital - Cincinnati NorthComment on above:Performed By: #### [id number] #### [facility] Laboratory [address] [place] [address]FKR [Catalytic activity/Vol]41 Int._Unit/KFjpwxa40-98OrqrgqSelect Medical [facility] Rehabilitation Hospital, BeachwoodComment on above:Performed By: #### [id number] #### [facility] Laboratory [address] [place] [id number] No additional P-5'-P [Catalytic activity/Vol]18 Int._Unit/L Normal6-46[facility], BeachwoodComment on above:Performed By: #### [id number] #### [facility] Laboratory [address], [place] [address]Hblgr gap [Moles/Vol]8 mmol/LNormal6-16[facility], BeachwoodComment on above:Performed By: #### [id number] #### [facility] [place] [address], [place] [address]RAE [Catalytic activity/Vol]22 Int._Unit/LNormal5-43[facility], BeachwoodComment on above:Performed By: #### [id number] #### [facility] [place] Laboratory [address] [place] [address]Knqevurbx [Mass/Vol]0.4 mg/dLNormal0.0-1.1FSelect Medical Specialty Hospital - Cincinnati NorthComment on above:Performed By: #### [id number] #### [facility] [place] [address], [place] [address]Axahalf [Mass/Vol]9.1 mg/dLNormal8.9-11.1FSelect Medical Specialty Hospital - Cincinnati NorthComment on above:Performed By: #### [id number] #### [facility] [place] [address], [place] [address]Ydcibovr [Moles/Vol]104 mmol/UFtuxnw668-377IkenstSelect Medical Cleveland Clinic Rehabilitation Hospital, BeachwoodComment on above:Performed By: #### [id number] #### [facility] [place] Laboratory [address], [place] [address]OC0 [Moles/Vol]30 mmol/XVtbahc79-76PkrifiSelect Medical [facility] Clinic [facility], [place] Comment on above:Performed By: #### [id number] #### [facility] [place] [facility] [address], [place] [address]Kliferueul [Mass/Vol]0.7 mg/dLNormal0.5-1.3FSelect Medical Specialty Hospital - Cincinnati NorthComment on above:Performed By: #### [id number] #### [facility] [place] [address], [place] [address]Dkazcqpe (S) [Mass/Vol]2.5 g/dLNormal1.4-4.0[facility], BeachwoodComment on above:Performed By: #### [id number] #### [facility] [place] Laboratory [address], [place] [address]Brtator [Mass/Vol]95 mg/sPDuuqvs27-368JymommSelect Medical Cleveland Clinic Rehabilitation Hospital, BeachwoodComment on above:Performed By: #### [id number] #### [facility] [place] [facility] [address], [place] [address]Vlfvepnpa [Moles/Vol]3.9 mmol/LNormal3.5-5.3FSelect Medical Specialty Hospital - Cincinnati NorthComment on above:Performed By: #### [id number] #### [facility] [address], [place] [address]Ycxlspg [Mass/Vol]6.5 g/dLNormal6.0-7.8[facility], BeachwoodComment on above:Performed By: #### [id number] #### [facility] Laboratory [address], [place] [address]Covfla [Moles/Vol]138 mmol/GGbtejh879-809RqsplrSelect Medical Cleveland Clinic Rehabilitation Hospital, BeachwoodComment on above:Performed By: #### [id number] #### [facility] [place] Laboratory [address], [place] [address]Hosp nitrogen [Mass/Vol]16 mg/dLNormal5-21[facility], BeachwoodComment on above:Performed By: #### [id number] #### [facility] [place] Laboratory [address], [place] [address]Doku nitrogen/Creatinine [Mass ratio]23 No WapltEikr63-72WmcfjuSelect Medical Cleveland Clinic Rehabilitation Hospital, BeachwoodComment on above:Performed By: #### [id number] #### [facility] Laboratory [address], [place] [address]Bzoxih Medicine Office/Clinic Noteon [phone] Medicine Office/Clinic NoteFawestborough state hospital Medicine Office/Clinic Note Chief Complaint annualy [...] Panel Est Preventative 40 to 64 years [address] Lab Specimen Collect 46081 Lipid Panel Thyroid Stimulating Hormone 2. Non-smoker (Z78.9: Other specified health status) continue not smoking Ordered: Est Preventative 40 to 64 years [address] Lab Specimen Collect 42093 3. Hyperlipidemia (E78.5: Hyperlipidemia, unspecified) lipid panel drawn today Ordered: CBC w/ Auto Diff Comprehensive Metabolic Panel Est Preventative 40 to 64 years [address] Lab Specimen Collect 48887 Lipid Panel Thyroid Stimulating Hormone 4. Hypertension (I10: Essential (primary) hypertension) BP at goal. will send refills Ordered: CBC w/ Auto Diff Comprehensive Metabolic Panel Est Preventative 40 to 64 years [address] Lab Specimen Collect 32523 Lipid Panel Thyroid Stimulating Hormone Orders: amlodipine, See Instructions, TAKE 1 TABLET BY MOUTH EVERY DAY, # 90 tab(s), Refills(s) 3, Pharmacy: [id number], 160, cm, 12/24/23 11:27:00 EDT, Height/Length Dosing, 59.2, kg, 12/24/23 11:27:00EDT, Weight Dosing estradiol topical, 1 gm, Vaginal, MonFri, 42.5 gm, Refill(s) 3[id number], cm, 12/24/23 11:27:00 EDT, Height/Length Dosing, 59.2, kg, 12/24/23 11:27:00 EDT, Weight Dosing estradiol topical, 1 gm, Vaginal, MonFri, 42.5 gm, Refill(s) 3[id number], cm, 11/28/22 14:40:00 EDT, Height/Length Dosing, 66, kg, 11/28/22 14:40:00 EDT, Weight Dosing sumatriptan, 100 mg = 1 tab(s), Oral, As Directed, PRN Headache, may repeat dose once in 2 hours, #9 tab(s), Refills(s) 1, Pharmacy: [facility]/pharmacy #[id number], 160, cm, 07/21/21 9:41:00 EDT, Height/Length Dosing, 70.7, kg, 07/21/21 9:41:00 EDT, Weight Dosing sumatriptan, 100 mg = 1 tab(s), Oral, As Directed, PRN Headache, may repeat dose once in 2 hours, #9 tab(s), Refills(s) 1, Pharmacy: [facility]/pharmacy #[id number], 160, cm, 12/24/23 11:27:00 EDT, Height/LengthDosing, [...] vaccine 03/03/2021 Recorded 2021-07-21: (more content not included)...NormalSelect Medical [facility] Hospital, BeachwoodComment on above:Result Comment: Electronically Signed By: Tasneem Buchanan.cristobal\Date and Time Signed: 12/24/23 11:39 EDTHEMATOLOGYOrdered By: SYSTEM SYSTEM on 16-25-3378Ghijqkkkv/100 WBC (Bld)0.5 %Normal0.0 - 2.0 %Remisol HemeBasophils/Leukocytes Auto (Bld) [Pure # fraction]0.0 E9/LNormal0.0 - 0.2 E9/LRemisol HemeEosinophils (Bld) [#/Vol]0.1 E9/LNormal0.0 - 0.5 E9/LRemisol HemeEosinophils/100 WBC (Bld)0.7 %Normal0.0 - 8.0 %Remisol HemeErythrocyte distribution width (RBC) [Ratio]13.1 %Yudzqq91.9 - 14.2 %Remisol HemeHematocrit (Bld) [Volume fraction]39.3 %Ilkico69.0 - 46.0 % Remisol HemeHemoglobin (Bld) [Mass/Vol]13.3 g/gBGbarup26.0 - 16.0 gm/dLRemisol HemeLymphocytes (Bld) [#/Vol]1.6 E9/LNormal1.0 - 4.0 E9/LRemisol Heme Lymphocytes/100 WBC (Bld)20.5 %Iecpkl27.0 - 50.0 %Remisol HemeMCH (RBC) [Entitic mass]34.6 nvJjjh29.0 - 34.0 pgRemisol HemeMCHC (RBC) [Mass/Vol]33.9 g/dLNormal 31.4 - 36.0 gm/dLRemisol HemeMCV (RBC) [Entitic vol]102.2 nLRgov17.0 - 100.0 fL Remisol HemeMonocytes (Bld) [#/Vol]0.4 E9/LNormal0.2 - 1.0 E9/LRemisol Heme Monocytes/100 WBC (Bld)5.7 %Normal4.0 - 14.0 %Remisol HemeNeutrophils (Bld) [#/Vol]5.8 E9/LNormal2.0 - 7.5 E9/LRemisol HemeNeutrophils/100 WBC (Bld)72.6 % Jrsbej06.0 - 75.0 %Remisol HemePlatelet mean volume (Bld) [Entitic vol]8.0 fL Normal6.4 - 10.8 fLRemisol HemePlatelets (Bld) [#/Vol]258.0 E9/FOfekpq491.0 - 500.0 E9/LRemisol HemeRBC (Bld) [#/Vol]3.8 E12/LLow4.3 - 5.9 E12/LRemisol Heme WBC corrected for nucl RBC Auto (Bld) [#/Vol]8.0 E9/LNormal4.0 - 11.0 E9/L Remisol HemeLipid Panelon 96-52-1798Uacrpucqpux [Mass/Vol]172 mg/aYXmgoel497-214 [facility], BeachwoodComment on above:Performed By: #### [id number] #### [facility] [place] Laboratory [address], [place] [address]Jegrxhnxvhx in HDL [Mass/Vol]60 mg/dLInvalid Interpretation CodeSelect Medical Cleveland Clinic Rehabilitation Hospital, BeachwoodComment on above:Result Comment: '>= 60 LOW RISK' '<= 40 HIGH RISK'Performed By: #### [id number] #### [facility] [place] Laboratory [address], [place] [address]Gozxnmusngc in LDL [Mass/Vol]93 mg/dLNormal<=129[facility], BeachwoodComment on above:Performed By: #### [id number] #### [facility] [place] Laboratory [address], [place] [address]Umsshbcrnmu in VLDL [Mass/Vol]33 mg/dLNormal7-40[facility], BeachwoodComment on above:Performed By: #### [id number] #### [facility] [place] Laboratory [address], [place] [address]Txhguzzmghuv [Mass/Vol]165 mg/dLHigh<=149[facility], BeachwoodComment on above:Performed By: #### [id number] #### [facility] [place] Laboratory [address] [place] [address]WAQsz 75-83-1295ZSF Qn0.71 m[IU]/LNormal0.34-5.60[facility], BeachwoodComment on above:Performed By: #### [id number] #### [facility] [place] Laboratory [address] [place] [address]pOYFai 74-58-8441jCDG421 mL/min/1.73 g7Eqflxa>=59[facility], BeachwoodComment on above:Performed By: #### [id number] #### [facility] Laboratory [address] [place] [address]Vknewia Mammographyon 36-60-4368Ecdcrok Mammography [id number]#1.00TIFFNoTuscarawas HospitalC Urineon 93-43-5560Evwrqdwu identified Cx Nom (U)Microbiology PROCEDURE: Urine Culture [R1] SOURCE: U CleanCatch BODY SITE: COLLECTED DATE/TIME: 03/15/2023 13:44 EST RECEIVED DATE/TIME: 03/15/2023 17:10 EST START DATE/TIME: 03/15/2023 17:10 EST FREE TEXT SOURCE: ESE VICKERS PA-C, PA-C, JENNIFER E FINAL REPORTS Final Report [] Verified Date/Time: 03/17/2023 07:53 EST 2,000 cfu/ml Mixed skin contaminants Performing Locations R1: This test was performed at: [facility], [address] [place] [address], [address]- [facility], YvkgsaSurnyvTuscarawas HospitalComment on above:Performed By: #### [id number] #### [facility] Laboratory [address] [place] [address]Tobbixmstt Visit Summaryon 59-32-0736Idztpaqbsp Visit Summary NORA DIAZ :1965 Visit Date:03/15/2023 [...] you for choosing us for your care. [facility] Note-Physicianon 35-32-8069DQ Note-[id number]#1.00TIFFNoTuscarawas HospitalESTRADIOLon 24-84-8204Vggufqfaq69.6 pg/mLNormalMercy Health St. Vincent Medical CenterComment on above:Result Comment: Adult Female: Follicular phase 12.5 - 166.0 Ovulation phase 85.8 - 498.0 Luteal phase 43.8 - 211.0 Postmenopausal <6.0 - 54.7 1st trimester 215.0 - >4300.0 Latasha ECLIA methodologyPerformed By: #### ESTRADI #### [facility] [address] [place] [address] Dr. Darryl Gee 11-19-9517GOR89.1 mIU/mLNormalMercy Health St. Vincent Medical CenterComment on above:Result Comment: Adult Female: Follicular phase 3.5 - 12.5 Ovulation phase 4.7 - 21.5 Luteal phase 1.7 - 7.7 Postmenopausal 25.8 - 134.8Performed By: #### LBCFSH #### [facility] [address] [place] [address] Dr. Darryl TrammellTESTOSTERONE, TOTALon 18-41-6449Fthwwhkgmoll [Mass/Vol]286 ng/dL Critically high4-50The Kindred HealthcareComment on above:Performed By: #### TESTTOT #### [facility] [address] [place] [address] Dr. Darryl Jackson AUTO DIFFon 78-23-1554DHJD #0.0 103/ulNormal0.0-0.1[facility] Vincent Medical CenterComment on above:Performed By: #### CBC #### [facility] [address] [place] [address] Dr. Darryl TrammellBasophils/100 WBC (Bld)0.8 %Normal0.2-2.0[facility] Comment on above:Performed By: #### CBC #### [facility] [address] [place] [address] Dr. Darryl Biswas #0.2 103/ulNormal0.0-0.7The Kindred HealthcareComment on above: Performed By: #### CBC #### [facility] [address] [place] [address] Dr. Darryl Nagyosinophils/100 WBC (Bld)3.9 %Normal0.9-7.0[facility] Comment on above:Performed By: #### CBC #### [facility] [address] [place] [address] Dr. Darryl Nagyrythrocyte distribution width (RBC) [Ratio]12.2 %Upgnvu16.0-15.0 The Kindred HealthcareComment on above:Performed By: #### CBC #### [facility] [address] [place] [address] Dr. Darryl TrammellHematocrit (Bld) [Volume fraction]42.4 %Pdbhgk06.0-48.0The Kindred HealthcareComment on above:Performed By: #### CBC #### [facility] [address] [place] [address] Dr. Darryl TrammellHemoglobin (Bld) [Mass/Vol]14.1 g/tSAqoouu82.0-16.0The Kindred HealthcareComment on above:Performed By: #### CBC #### [facility] [address] [place] [address] Dr. Darryl Rachel #0.01 10e3/ulNormal0.00-0.03The Kindred HealthcareComment on above:Performed By: #### CBC #### [facility] [address] [place] [address] Dr. Darryl TrammellIG %0.2 %Normal0.0-0.5The Kindred HealthcareComment on above: Performed By: #### CBC #### [facility] [address] [place] [address] Dr. Darryl CedilloMPH #2.5 103/ulNormal1.2-3.8The Kindred HealthcareComment on above:Performed By: #### CBC #### [facility] [address] [place] [address] Dr. Darryl Cedillomphocytes/100 WBC (Bld)48.9 %Xsifsv18.5-60.0The Kindred HealthcareComment on above:Performed By: #### CBC #### [facility] [address] [place] [address] Dr. Darryl Ballard DIFF REQNONormalThe Kindred HealthcareComment on above: Performed By: #### CBC #### [facility] [address] [place] [address] Dr. Darryl Bansal (RBC) [Entitic mass]32.7 avNrdpil72.7-34.0The Kindred HealthcareComment on above:Performed By: #### CBC #### [facility] [address] [place] [address] Dr. Darryl Bansal (RBC) [Mass/Vol]33.3 g/dLXgycjx35.9-35.2The Kindred HealthcareComment on above:Performed By: #### CBC #### [facility] [address] [place] [address] Dr. Darryl Bansal (RBC) [Entitic vol]98.4 uFQxlcmq51.0-99.0The Kindred HealthcareComment on above:Performed By: #### CBC #### [facility] [address] [place] [address] Dr. Darryl Gracia #0.5 103/ulNormal0.3-0.8The Kindred HealthcareComment on above:Performed By: #### CBC #### [facility] [address] [place] [address] Dr. Darryl Pereaocytes/100 WBC (Bld)9.6 %Normal1.7-12.0[facility] Comment on above:Performed By: #### CBC #### [facility] [address] [place] [address] Dr. Darryl Zapata #1.9 103/ulNormal1.4-6.5The Kindred HealthcareComment on above:Performed By: #### CBC #### [facility] [address] [place] [address] Dr. Darryl Haynesutrophils/100 WBC (Bld)36.6 %Critically low43.0-75.0The Kindred HealthcareComment on above:Performed By: #### CBC #### [facility] [address] [place] [address] Dr. Darryl TrammellPlatelet mean volume (Bld) [Entitic vol]10.1 fLNormal9.5-13.5The [facility] on above:Performed By: #### CBC #### [facility] [address] [place] [address] Dr. Darryl TrammellPLT262 103/uzWvmszl652-436Wwq Kindred HealthcareCommclaren oakland on above: Performed By: #### CBC #### [facility] [address] [place] [address] Dr. Darryl TrammellRBC4.31 106/ulNormal4.20-5.40[facility] on above:Performed By: #### CBC #### [facility] [address] [place] [address] Dr. Darryl TrammellWBC5.1 103/ulNormal4.0-11.0[facility] on above: Performed By: #### CBC #### [facility] [address] [place] [address] Dr. Darryl TrammellGLUCOSE BLOODon 02-40-1820Mlhekwi [Mass/Vol]80 mg/iQOuemoo55-558 [facility] on above:Performed By: #### TSH, LIPID, GLUC #### [facility] [address] [place] [address] Dr. Darryl TrammellLIPID PROFILEon 99-45-3979GTIF-HDL RATIO [facility] Cancer CenterCommclaren oakland on above:Result Comment: 3.3 - 4.4 LOW RISK 4.4 - 7.1 AVERAGE RISK 7.1 - 11.0 MODERATE RISK >11.0 HIGH RISKPerformed By: #### TSH, LIPID, GLUC #### [facility] [address] [place] [address] Dr. Darryl TrammellCholesterol [Mass/Vol]201 mg/dLCritically high<=200[facility] on above:Performed By: #### TSH, LIPID, GLUC #### [facility] [address] [place] [address] Dr. Darryl Manesterol in HDL [Mass/Vol]72 mg/dLCritically jtzl80-89WqhMercy Health St. Vincent Medical CenterComment on above:Performed By: #### TSH, LIPID, GLUC #### [facility] [address] [address] [address] Darryl TrammellCholesterol in LDL [Mass/Vol]113.0 mg/dLMain Campus Medical CenterComment on above:Performed By: #### TSH, LIPID, GLUC #### [facility] [address] [address] [address] Darryl Manestermadison.total/Cholesterol in HDL [Mass ratio]2.8 {ratio} NormalThe Kindred HealthcareComment on above:Performed By: #### TSH, LIPID, GLUC #### [facility] [address] [place] [address] Dr. Darryl Dao NORMAL> or = 60 mg/dl - LOW CARDIOVASCULAR RISK <40 mg/dl - HIGH CARDIOVASCULAR RISKNoGuernsey Memorial HospitalComment on above:Performed By: #### TSH, LIPID, GLUC #### [facility] [address] [place] [address] Dr. Daryrl Bonner CALC NORMALSEE BELOWMain Campus Medical CenterComment on above:Result Comment: <100 mg/dl OPTIMAL 100 - 129 mg/dl NEAR OR ABOVE OPTIMAL 130 - 159 mg/dl BORDERLINE HIGH 160 - 189 mg/dl HIGH >190 mg/dl VERY HIGH Performed By: #### TSH, LIPID, GLUC #### [facility] [address] [address] [address] Darryl TrammellTriglyceride [Mass/Vol]80 mg/dLNormal<=150[facility] Comment on above:Performed By: #### TSH, LIPID, GLUC #### [facility] [address] [place] [address] Dr. Darryl TrammellVLDL CALC16.0 mg/dLNoGuernsey Memorial HospitalComment on above: Performed By: #### TSH, LIPID, GLUC #### [facility] [address] [place] [address] Dr. Darryl Rodríguez 88-77-5589RTQ4.999 uIU/mLNormal0.358-3.740The Kindred HealthcareComment on above:Performed By: #### TSH, LIPID, GLUC #### [facility] [address] [address] [address] Darryl TrammellCHEMISTRYOrdered By: Pablo Valerio on 17-44-3574Hdiebzz Elph (U) [Mass fraction]10.4 mg/dLInvalid Interpretation CodeFTMC RemisolCreatinine (U) [Mass/Vol]63.3 mg/dLInvalid Interpretation CodeFTMC RemisolU Prot/Creat Ratio 164.30 mg/gm CrNormal0.00 - 200.00 mg/gm CrFTMC RemisolCHEMISTRYOrdered By: SYSTEM SYSTEM on 162206-wqzihljeyjkxci D3 [Mass/Vol]55.6 ng/nJMxabeb17.0 - 100.0 ng/mLFTMC RemisolAlbumin [Mass/Vol]4.2 g/dLNormal3.3 - 5.0 gm/dLFTMC RemisolAnion gap [Moles/Vol]12 mmol/LNormal6 - 16 mEq/LFTMC RemisolCalcium [Mass/Vol]9.8 mg/dLNormal8.9 - 11.1 mg/dLFTMC RemisolChloride [Moles/Vol]101 mmol/RQzptub428 - 111 mmol/LFTMC RemisolCO2 [Moles/Vol]30 mmol/RShfecx37 - 31 mmol/LFTMC RemisolCreatinine [Mass/Vol]0.8 mg/dLNormal0.5 - 1.3 mg/dLFTMC RemisolGFR/1.73 sq M.predicted among blacks MDRD (S/P/Bld) [Vol rate/Area] mL/min/1.73 t4Ksgoee>=59mL/min/1.73 m2FT Chem SGFR/1.73 sq M.predicted among non-blacks MDRD (S/P/Bld) [Vol rate/Area]mL/min/1.73 m5Zadzaq>=59mL/min/1.[address] [facility] Chem SGlucose [Mass/Vol]101 mg/bJAbcbna78 - 199 mg/dLST. ANTHONY [facility]OSPITAL [facility] [place] RemisolPhosphate [Mass/Vol]3.1 mg/dLNormal1.9 - 4.6 mg/dLFT RemisolPotassium [Moles/Vol]4.3 mmol/LNormal3.5 - 5.3 mmol/LFTMC RemisolSodium [Moles/Vol]139 mmol/QGcgihh322 - 145 mmol/LFTMC RemisolUrea nitrogen [Mass/Vol]21 mg/dLNormal5 - 21 mg/dLMC RemisolUrea nitrogen/Creatinine [Mass ratio]26 mg/jpGzsn15 - 20FTMC Remisol URINALYSISOrdered By: Diana Javier on 51-79-0535Hnfmxkfnf Ql (U)Negative (05/31/21 3:05 PM)NormalNegativeST. ANTH[facility] [place] UA Auto SSClarity (U)Cloudy *ABN* (05/31/21 3:05 PM)Invalid Interpretation CodeClearFCLEVELAND [facility] [place] UA Auto SSColor (U)Yellow (05/31/21 3:05 PM)NormalYellowST. ANTHONY HOSPITAL – [place] UA Auto SSEpithelial cells.squamous LM.HPF (Urine sed) [#/Area]0-2 /HPFNormal0-2/HPFST. ANTHONY [facility]OSPITAL [facility] [place] UA Auto SSGlucose Test strip (U) [Mass/Vol]Negative (05/31/21 3:05 PM)NormalNegativeST. ANTHON[facility] [place] UA Auto SSHemoglobin Ql (U)Negative (05/31/21 3:05 PM)NormalNegativeST. ANTHONY [facility]ITAL [facility] [place] UA Auto SSKetones (U) [Mass/Vol]Negative (05/31/21 3:05 PM)NormalNegativeST. [facility]THON[facility] [place] UA Auto SSLithium.plasma/[place].RBC (Bld) [Mass ratio]0-3 /HPFNormal0-3/HPFST. [facility]THON[facility] [place] UA Auto SSNitrite Ql (U)Negative (05/31/21 3:05 PM)NormalNegativeST. ANTHONY [facility]ITAL [facility] [place] UA Auto SSpH (U)8.0 *NA* (05/31/21 3:05 PM)Invalid Interpretation Code5.0 - 9.0[facility] [place] UA Auto SSPhosphate crystals amorphous LM Ql (Urine sed)Present (05/31/21 3:05 PM)NormalST. ANTHONY [facility]OSPITAL [facility] [place] UA Auto SSProtein (U) [Mass/Vol]Negative (05/31/21 3:05 PM)NormalNegativeST. ANTHON[facility] [place] UA Auto SSSpecific gravity (U) [Rel density] 1.015 *NA* (05/31/21 3:05 PM)Invalid Interpretation Code1.005 - 1.030[facility] [place] UA Auto SSUA Spec DescClean Catch (05/31/21 3:05 PM)NormalST. ANTHONY [facility]OSPITAL [facility] [place] UA Auto SSUrobilinogen Qn (U)0.0869052 {Mayra'U}/dLNormal0.0 - 1.0 EU/dLST. ANTHONY [facility]OSPITAL [facility] [place] UA Auto SSWBC Auto Ql (U)Negative (05/31/21 3:05 PM)NormalNegativeST. ANTHONY [facility]ITAL [facility] [place] UA Auto SSWBC LM.HPF (Urine sed) [#/Area]0-5 /HPFNormal0-5/HPFST. ANTHONY [facility]PITAL [facility] [place] UA Auto SSCOVID-19 [facility] [place]on 48-59-8063DXTC-CoV-2 (COVID-19) RNA JENN+probe Ql (Unsp spec)NegativeNormalNegativeSelect Medical Specialty Hospital - AkronComment on above:Order Comment: Healthcare Worker?: NResult Comment: Testing for SARS-CoV-2 by RT-PCR This test was developed and its performance characteristics determined by [employer]) and validated at the [facility]. This test has not been FDA cleared [...] is terminated or revoked sooner. PERFORMED BY: [facility] [place] [address] PATHOLOGIST FOOD PHOTOGRAPHER UYEN HEATH M.D.Performed By: #### COVID 19 [facility] #### [facility] [address] [place] [address] USABasic Metabolic Panelon 37-61-5918Qydyioi [Mass/Vol]9.6 mg/dLNormal8.2-10.2FMercy Health Kings Mills HospitalComment on above:Result Comment: PERFORMED BY: [place] [address] PATHOLOGIST FOOD PHOTOGRAPHER UYEN HEATH M.D.Performed By: #### BMP #### [place] [address] USAChloride [Moles/Vol]102 mmol/NXzvaxo78-027BmpbcxnjtSelect Medical Specialty Hospital - AkronComment on above:Performed By: #### BMP #### [place] [address] USACO2 [Moles/Vol]27.5 mmol/PWpvrfh12.0-30.0[facility] - AkronComment on above:Performed By: #### BMP #### [place] [address] USACreatinine [Mass/Vol]0.68 mg/dLNormal0.44-1.03[facility] - AkronComment on above:Performed By: #### BMP #### [place] [id number] USAEstimated GFR ( Karen> 60NormMount St. Mary HospitalComment on above:Result Comment: GFR estimated reference range: According to KDOQI guidelines, <60 ml/min/1.73m2 is sufficient to diagnose a patient with chronic kidney disease.Performed By: #### BMP #### [place] [id number] USAEstimated GFR (Non- Am> 60NormMount St. Mary HospitalComment on above:Performed By: #### BMP #### [facility] [address] [id number] USAGlucose [Mass/Vol]90 mg/aWVuuuvf62-573IgrbznapwSelect Medical Specialty Hospital - AkronComment on above:Result Comment: Random Glucose Reference Range is dependent on time and content of last meal. Glucose of more than 200 mg/dL in a nonstressed, ambulatory subject supports the diagnosis of Diabetes Mellitus. ADA recommended reference rangePerformed By: #### BMP #### [facility] [address] [place] [address] USAPotassium [Moles/Vol]4.5 mmol/LNormal3.5-5.1FMercy Health Kings Mills HospitalComment on above:Performed By: #### BMP #### [facility] [address] [place] [address] USASodium [Moles/Vol]138 mmol/TImgunb373-011YabjiywrjSelect Medical Specialty Hospital - AkronComment on above:Performed By: #### BMP #### [facility] [address] [place] [address] USAUrea nitrogen [Mass/Vol]12 mg/dLNormal9-23[facility] AkronComment on above:Performed By: #### BMP #### [place] [id number] USAECG 12 lead ECGon 27-53-0562AKB 12 lead ECGASHTABULA COUNTY [facility] Main [place] [address] [place] [address] Electrocardiograph Report Signed Patient: Nora Diaz MR#: [id number] 9 : 1965 Acct:[id number] Age/Sex: 55 / F ADM Date: 12/27/20 Loc: Room: Type: [facility] Attending Dr: Prabhakar Max MD [...] ELKE Signed By Cuauhtemoc Baldwin MD [address] [place], [place] [address]Urine Cultureon 08-05-2020 Bacteria identified Cx Nom (U)<9,000 colonies/ml mixed bacterial skin contaminants 2 Days PERFORMED BY: [place] [address] PATHOLOGIST FOOD PHOTOGRAPHER UYEN HEATH M.D.[facility] Medical CenterComment on above: Performed By: #### CUU #### [address] Vital Signs Date TimeVital SignValuePerforming MvihtuzegMtkkpets73-66-0687 12:40-0400Blood Pressure LocationPatrick Yesmywine [facility]10-03-2022 12:40-0400Diastolic blood drijugjr93 mm[Hg]Manish SOLIS [facility]10-03-2022 12:40-0400Heart rate81 /minPatrick SOLIS [facility]10-03-2022 12:40-0400Respiratory rate16 /minPatrick SOLIS [facility]10-03-2022 12:40-0400Systolic blood mm[Hg]Manish SOLIS [facility]05-12-2022 09:35-0400Blood Pressure LocationRyann Yu [phone]-InsnqAshtabula [facility] 05-12-2022 09:35-0400Body scwtqyotbtb69.7 [degF]Ryann Yu [phone]-GeoaiAshtabula County Medical Center [facility] 05-12-2022 09:35-0400Diastolic blood wuksjcyi93 mm[Hg] Ryann Yu [phone]-FegggAshtabula County Medical [facility] 05-12-2022 09:35-0400Heart rate89 /minKatmelody Yu [phone]-YymclAshtabula County [facility] 05-12-2022 09:35-8144WgC5% (BldA) [Mass fraction]98 % Ryann Yu [phone]-UxyjaAshtabula County [facility] 05-12-2022 09:35-0400Systolic blood wpdpccep756 mm[Hg] Ryann Yu [phone]-VxqwuAshtabula County [facility] Encounters Encounter DateEncounter TypeCare ProviderFacilityStart: 49-66-5636suipjglacvBvpa L SchwabFacility:[facility] BellevueStart: 12-09-2024 End: 10-25-2558jgqvowkhdmPiup L SchwabFacility:[facility] BellevueStart: 12-01-2024 End: 23-58-6115orawtnrsbiDERBCU A LEHMANNFacility:[facility] BellevueStart: 10-16-2024 End: 17-20-0505lbqhaktlssPtqxob J LampeFacility:FTMCStart: 12-24-2023 End: 72-62-7008Bfx Drop offJodi L Marj [facility] Start: 12-24-2023 End: 08-28-7616zulbzfbuxgOfvd L SchwabFacility:[facility] BellevueStart: 03-15-2023 End: 26-57-7993Lha Drop offJENNIFER E RANCHO [facility] Start: 03-15-2023 End: 32-67-2859qllnaozwfxUTTNFQRT E PERRYFacility:FTMCStart: 03-15-2023 End: 80-03-4532Mklhaiv encounter procedureJENNIFER E RANCHO [facility] Start: 10-31-2022 End: 69-78-7947Grngjll encounter procedureJENNIFER E RANCHO [facility] start: 12-12-2021 End: 78-06-5012Mnpnxfc encounter procedureManish SOLIS [facility] start: 11-16-2021 End: 63-10-4510xetbxbxmijGT DOCTOR MISCFacility:C6Pgooo: 07-21-2021 End: 47-49-2845Vsmngoc encounter procedureRyann Yu [phone]-OfpyvAshtabula County [facility] Center [facility] Start: 07-05-2021 End: 64-09-0592vhgfnaxaxbLN THAIS Devries WESTFacility:K3Xgrhq: 06-14-2021 End: 09-80-9038Dwbssii encounter procedureManish SOLIS [facility] Start: 05-31-2021 End: 53-12-1751Infbcph encounter procedureNatalie Hampton [facility] Procedures DateProcedureProcedure DetailPerforming ClinicianStart: 34-37-0034Rdqsebguva Natalie Memo Start: 04-37-9511QwowwywgfhgJhmzaz Memo Start: 05-07-5457HdivnphajaoxalzphjciytmhixQqyhup Memo Start: 87-65-6634Buqhwtry of bunionTerraya Memo comment on above:Right FootStart: 15-13-3946Rfzcrc augmentationTerraya Memo Dilation of urethraKatmelody Yu Urethral stent (physical object)Natalie Memo Urethral WideningTerraya Memo Plan of Treatment DateCare ActivityDetailAuthorStart: 19-49-3222jvrtqwfiawNugodrwnbdRzajjkbk:FT FM [place] Immunizations Immunization DateImmunizationNotesCare RgbapmaeHdcyembu20-09-9906IGMN-NeN-8 (COVID-19) mRNA-1273 vaccineRyann Yu [phone]-QxcbzAshtabula County Medical Center [facility] Comment on above:Result Comment: 2021-07-21: TPV50 99-61-1130musowgeaa, injectable, quadrivalent, preservative freeTerraya Memo [facility]04-17-2021SARS-CoV-2 (COVID-19) mRNA-1273 vaccineTeresa Memo [facility]04-12-2021SARS-CoV-2 (COVID-19) mRNA-1273 vaccineTeresa Memo [facility]03-22-2021SARS-CoV-2 (COVID-19) mRNA-1273 vaccineTeresa Memo [facility]03-20-2021SARS-CoV-2 (COVID-19) mRNA-1273 vaccineTeresa Memo [facility]10-08-2020influenza virus vaccine, unspecified formulationTeresa Memo [facility]02-22-2013influenza virus vaccine, unspecified formulationTeresa Memo [facility] HospitalNEGATED: Highlighted row has not occurred!58-68-0586pmibusofn virus vaccine, unspecified formulationJodi Marj [phone]-BipsmAshtabula [facility] [place] NEGATED: Highlighted row has not occurred!10-98-6158arodpivob virus vaccine, unspecified formulationTerraya Memo [facility] Payers DatePayer CategoryPayerPolicy [id number] [id number] Health [id number] 2..1.656300.3.57[id number] 2..1.011483.3.57[id number] 2..1.594731.3.57[id number] 2..1.134135.3.57[id number] 2..1.638077.3.57[id number] 2.16.840.1.077760.3.57[id number] 2.16.840.1.630932.3.57[id number] 2.16.840.1.305289.3.57[id number] 2.16.840.1.297106.3.57[id number] 2.16.840.1.227366.3.57[id number] 2.16.840.1.933603.3.579.2.35100-01-5679Wgadzsv1981 2.16.0.1.842262.3.579.2.80865-67-6725Vdlb-[id number] Social History DateTypeDetailFacilityStart: 05-18-2021 End: 17-69-0399Upcvead smoking statusEx-smoker (finding)[facility] HospitalTobacco smoking statusNeverCrystal Clinic Orthopedic Centerex Assigned At BirthFemalMercy Health [facility] Hospital Functional Status XgtlIbuqziacleQcjaipUxnnnbyf26-46-5775Xagkqgsmjp StatusN/AExec[facility] of [facility] Clinical Notes 06-14-2021 to 12-01-2024 Note Date & UshmMbzpWkxkdhrt28-57-4975 NotePatient Education Orthopedics Sciatica Rehab Ask your [...] by your health care provider. Stretching and yxmmk-ct-ddjkgi exercises These exercises warm up your muscles [...] guidelines to improve you (more content not included)...[facility]01-04-2024 Evaluation + Plan note Diagnostic Tests Pending * Urine Culture 03/15/23 [facility]10-03-2022 Hospital Discharge instructions Patient Education 12/12/2021 12:47:40 Urinary Tract Infection, Adult, Ghqw-zd-Xbxp Urinary Tract Infection, Adult A urinary tract [...] Follow these instructions at home: Medicines Take moko-oyg-hzdnsce and prescription medicines only as told by [...] 08/14/2008 Document Revised: 02/13/2019 Document Reviewed: 09/05/2018 [employer] Patient Education 2020 [employer]. Follow Up Care 06/14/2021 09:19:41 With:WILL CRENSHAW, Manish Villafuerte, URL Address: [facility] [address] [place] [address]- [phone] When:10/12/2022 [facility] Kapil 05-12-2022 Hospital Discharge instructions Patient Education [...] height. This can be done either in [place] or metric measurements. Note that charts are available to help you find your BMI quickly and easily without having to do these calculations yourself. To calculate your BMI in [place] measurements, your health care provider will: [...] medical problems. BMI can be measured using [place] measurements or metric measurements. To interpret your [...] 11/07/2004 Document Revised: 02/08/2018 Document Reviewed: 01/09/2018 [employer] Patient Education 2020 [employer] 07/21/2021 09:53:03 Sleep Apnea Sleep Apnea [...] your health care provider. General instructions Take yhux-pez-myhabgp and prescription medicines only as told by [...] 02/16/2003 Document Revised: 08/13/2019 Document Reviewed: 10/22/2018 [employer] Patient Education 2020 [employer]. 07/21/2021 09:53:00 Migraine Headache Migraine Headache A [...] Follow these instructions at home: Medicines Take xsxd-oxq-awbrfmw and prescription medicines only as told by your health care provider. Ask your health care provider if the medicine prescribed to you: ?Requires you to avoid driving or using heavy machinery. ?Can cause constipation. You may need to take these actions to prevent or treat constipation: ?Drink enough fluid to keep your urine pale yellow. ?Take bzry-ago-opuifkd or prescription medicines. ?Eat foods that are [...] 02/26/2006 Document Revised: 06/20/2019 Document Reviewed: 04/10/2019 [employer] Patient Education 2020 [employer]. 07/21/2021 09:52:58 Living With Depression Living With [...] a problem, search for a local or [facility]. They may be [...] as walking or lifting small weights. Take oebv-usx-zyyzoyc and prescription medicines only as told by [...] health care provider or diet and nutrition tech (dietitian) to adjust your eating plan to [...] each week. ?Heart-healthy fats. Healthy fats called [place]-3 fatty acids are found in foods such [...] Dairy Whole or 2% milk, cream, and dxbt-ndb-gjpt. Whole or full-fat cream cheese. Whole-fat or [...] more information: National Heart, Lung, and Blood [place]: www.nhlbi.nih.gov [place] Heart Association: www.heart.org Summary The DASH eating [...] health care provider or diet and nutrition tech (dietitian) to adjust your eating plan to your individual calorie needs. This information is not intended to replace advice given to you by your health care provider. Make sure you discuss any questions you have with your health care provider. Document Released: 02/15/2012 Document Revised: 02/08/2018 Document Reviewed: 02/19/2017 [employer] Patient Education 2020 [employer]. Follow Up Care 07/19/2021 15:46:16 With:Ryann Yu CNP Address: When:1 year Comments:or sooner if needed. [facility] 04-05-2022 Hospital Discharge instructions Patient [...] [facility] [address], [place] [address]- Business (1) When:12/14/2021 09:17:04 [facility] Future Appointments Appointment Date:06/13/2021 11:40:00 AM Scheduled Provider:Ryann Yu CNP Location:[facility] Appointment Type:FM Open Appointment Date:08/15/2021 12:15:00 PM Scheduled Provider:Manish SOLIS MD Location:[facility] Appointment Type:URO Office Visit Future Scheduled Tests Laboratory* Comprehensive Metabolic Panel 12/13/20 * Lipid Panel 12/13/20 [facility] Future Appointments Appointment Date:12/12/2021 12:15:00 PM Scheduled Provider:[facility]ish [facility] Type:URO Office Visit Future Scheduled Tests Laboratory* Comprehensive Metabolic Panel 12/13/20 * Lipid Panel 12/13/20 [facility] Future Appointments Appointment Date:12/12/2021 12:15:00 PM Scheduled Provider:Manish SOLIS MD [facility] Appoint[facility] Type:URO Office Visit Appointment Date:07/24/2022 10:40:00 AM Scheduled Provider:Ryann Yu CNP Location:[facility] Appointment Type:FM Open Future Scheduled Tests Laboratory* Comprehensive Metabolic Panel 07/21/21 * Comprehensive Metabolic Panel 12/13/20 * Lipid Panel 07/21/21 * Lipid Panel 12/13/20 [facility] Evaluation + Plan note Future Appointments Appointment Date:07/24/2022 10:40:00 AM Scheduled Provider:Ryann Yu CNP Location:[facility] Appointment Type:FM Open Appointment Date:10/30/2022 01:15:00 PM Scheduled Provider:Manish SOLIS MD Location:[facility] Appointment Type:URO Office Visit Future Scheduled Tests Laboratory* Comprehensive Metabolic Panel 07/21/21 * Comprehensive Metabolic Panel 12/13/20 * Lipid Panel 07/21/21 * Lipid Panel 12/13/20 [facility] evaluation + Plan note Future Appointments Appointment Date:11/28/2022 02:30:00 PM Scheduled Provider:ESE VICKERS PA-C Location:[facility] Appointment Type:URO Office Visit [facility] Hospital course Narrative No data available for this section [facility] No data available for this section [facility] Hospital[facility] note No data available for this section [facility] Summary Purpose Family History No Family [...] section and content) DATE CREATED AUTHOR 04/30/2021 [facility] DATE CREATED AUTHOR AUTHOR'S ORGANIZ ATION 11/20/[address] [facility] DATE CREATED AUTHOR AUTHOR'S ORGANIZ ATION 12/26/2023 [facility] DATE CREATED AUTHOR AUTHOR'S ORGANIZ ATION 10/18/2024 [facility] DATE CREATED AUTHOR AUTHOR'S ORGANIZ ATION 12/14/2024 [facility] Care Team (unrecognized sect ion and content) Personnel Name: Gigi TAURUS Ryann Christo Address: [address] [place] [address], [place] [address] Personnel Name: Marjab MORELAND Tasneem L Address: Address: [address] [place] [address]- Personnel Name: Tasneem Buchanan Address: Address: [address] [place] [address]- Personnel Name: MarjTasneem Daniel Address: Address: [address] [place] [address]- Personnel Name: Marj ANICETO Tasneem Jose Carlos Address: Address: [address] [place] [address]- FOR RECORDS PERTAINING TO PATIENTS WHO ARE [...] BE BASED ON THE PRIMARY CLINICAL RECORDS. [employer] [facility]. provides no warranty or guarantee of the accuracy or completeness of information in this document.
[2025-01-05 08:26] LABS: Hematocrit 36.9 % (36.0-48.0); Hemoglobin 12.5 g/dL (12.0-16.0); Immature Granulocytes Abs Auto 0.01 10^3/uL (0.00-0.03); Immature Granulocytes Pct Auto 0.2 % (0.0-0.5); Lymphocytes Absolute Auto 2.1 10^3/uL (1.2-3.8); Mean Corpuscular HGB Conc 33.9 g/dL (29.9-35.2); Mean Corpuscular Hemoglobin 34.8 pg (26.7-34.0); Mean Corpuscular Volume 102.8 fL (81.0-99.0); Platelet Count 245 10^3/uL (150-450); Red Blood Count 3.59 10^6/uL (4.20-5.40); White Blood Count 5.3 10^3/uL (4.0-11.0)
[2025-01-05 08:37] LABS: Alanine Aminotransferase <6 U/L (14-59); Albumin Globulin Ratio 1.2; Albumin Level 3.5 g/dL (3.4-5.0); Alkaline Phosphatase 35 U/L (46-116); Anion Gap 10.3; Aspartate Amino Transferase 14 U/L (15-37); Blood Urea Nitrogen 12.0 mg/dL (7.0-18.0); Calcium 9.0 mg/dL (8.5-10.1); Carbon Dioxide 29.3 mmol/L (21.0-32.0); Chloride 106 mmol/L (98-107); Cholesterol 180 mg/dL (<=200); Estimated GFR (African America >60 (>=60 mL/min/1.73m^2); Estimated GFR (Non-African Ame >60 (>=60 mL/min/1.73m^2); Free T3 1.92 pg/mL (2.18-3.98); Globulin 3.0 g/dL; Glucose 84 mg/dL (74-106); HDL Cholesterol 68 mg/dL (40-60); Potassium 3.6 mmol/L (3.5-5.1); Sodium 142 mmol/L (136-145); Thyroid Stimulating Hormone 0.982 uIU/mL (0.358-3.740); Total Protein 6.5 g/dL (6.4-8.2); Triglycerides 77 mg/dL (<=150); VLDL CHOLESTEROL 15.4 mg/dL
[2025-01-05 09:18] LABS: Iron 85.0 ug/dL (50.0-170.0); Percent Iron Saturation 35.9 %; Total Iron Binding Capacity 237.0 ug/dL (250.0-450.0)
[2025-01-05 09:55] LABS: Ferritin 56.0 ng/mL (8.0-252.0); Folate 39.80 ng/mL (8.60-58.90)
[2025-01-06 07:08] LABS: Vitamin B12 741 pg/mL (232-1245)
[2025-01-07 12:09] LABS: Sex Horm Binding Glob, Serum 67.6 nmol/L (17.3-125.0)
== END 2025-01-05 07:33 | disposition home or self-care (01) ==
LOC: LAB 07:32
PROVIDERS: PCP Nurse Practitioner
DX: R79.9 Abnormal finding of blood chemistry, unspecified (principal); R63.5 Abnormal weight gain; R19.4 Change in bowel habit; R68.82 Decreased libido; R53.83 Other fatigue; L65.9 Nonscarring hair loss, unspecified; M25.50 Pain in unspecified joint; N95.1 Menopausal and female climacteric states; G47.9 Sleep disorder, unspecified; Z73.3 Stress, not elsewhere classified; E55.9 Vitamin D deficiency, unspecified
CPT/HCPCS: 36415; 80053; 80061; 82306; 82533; 82607; 82627; 82670; 82728; 82746; 83036; 83090; 83525; 83540; 83550; 83735; 84144; 84270; 84402; 84403; 84436; 84439; 84443; 84480; 84481; 84482; 85025; 86038; 86376; 86800